=== PATIENT | male | born 1950 | race Caucasian/White ===

== ENCOUNTER → 2016-03-27 | Outpatient (CLI) | payer OTHER ==
[~2016-03-27] MED LIST: ASPI81TA21 PO; ATOR80TA PO; DILT-113 PO; FURO-85 PO; GABA300C19 PO; GABA400C PO; GLC/500 PO; HYDR25TA5 PO; ISOS60TA25 PO; ISR/5 SL; Iron PO; LOSA25TA18 PO; MAGN400T5 PO; METO1TAB69 PO; NRN/300 PO; NTRGSL/4 UT; NVLGI7030 SC; OMEG10007 PO; OMEP20CA9 PO; WARF5TAB7 PO
[2016-03-28 06:51] LABS: ESTIMATED AVERAGE GLUCOSE 223 mg/dl; HA1C FLAG Normal (Normal)
== END | disposition home or self-care (01) ==
LOC: C.LABBFT 12:45
PROVIDERS: ATTEND Internal Medicine
DX: E11.65 Type 2 diabetes mellitus with hyperglycemia (principal)

== ENCOUNTER → 2016-04-21 | Outpatient (CLI) | payer OTHER ==
[2016-04-21 13:06] LABS: ALKALINE PHOSPHATASE 32 U/L (45-117); ALT/SGPT 48 U/L (12-78); AST/SGOT 22 U/L (15-37); BLOOD UREA NITROGEN 40 mg/dl (7-18); BUN/CREATININE RATIO 24.7 (10-20); CALCIUM 8.6 mg/dl (8.5-10.1); CARBON DIOXIDE 20 mmol/L (21-32); CHLORIDE 106 mmol/L (98-107); GLUCOSE 69 mg/dl (70-99); HDL CHOLESTEROL 78 mg/dl; POTASSIUM 3.9 mmol/L (3.5-5.1); SODIUM 142 mmol/L (136-145)
[2016-04-21 13:08] LABS: CHOLESTEROL 286 mg/dl (0-200); CHOLESTEROL/HDL RATIO 3.7; LDL CHOLESTEROL CALCULATED 155 mg/dl; TRIGLYCERIDES 266 mg/dl (0-150); VERY LOW DENSITY LIPOPROT CALC 53 mg/dl
== END | disposition home or self-care (01) ==
LOC: C.LABBFT 09:03
PROVIDERS: ATTEND Internal Medicine
DX: E78.5 Hyperlipidemia, unspecified (principal)

== ENCOUNTER → 2016-05-13 | Outpatient (CLI) | payer OTHER ==
[2016-05-13 12:35] LABS: HEMATOCRIT 42.3 % (42-52); MEAN CORPUSCULAR HEMOGLOBIN 30.1 pg (25-34); MEAN CORPUSCULAR HGB CONC 33.1 g/dl (32-36); MEAN PLATELET VOLUME 10.1 fL (7.4-10.4); PLATELET COUNT 218 K/uL (130-400); RED BLOOD COUNT 4.65 M/uL (4.7-6.1); WHITE BLOOD COUNT 11.59 K/uL (4.8-10.8)
[2016-05-13 12:38] LABS: BLOOD UREA NITROGEN 38 mg/dl (7-18); BUN/CREATININE RATIO 25.3 (10-20); CALCIUM 9.2 mg/dl (8.5-10.1); CARBON DIOXIDE 24 mmol/L (21-32); CHLORIDE 103 mmol/L (98-107); GLUCOSE 64 mg/dl (70-99); POTASSIUM 4.1 mmol/L (3.5-5.1); SODIUM 141 mmol/L (136-145)
[2016-05-13 13:35] LABS: BASOPHIL % 1.7 % (0-2); COMPLETE YES; EOSINOPHIL % 2.6 %; LYMPH ABS # 2.12 K/uL (1.2-3.4); LYMPHOCYTE % 18.3 %; METAMYELOCYTE % 1.7 %; MYELOCYTE % 2.6 %; NEUTROPHILS % 70.5 %
== END | disposition home or self-care (01) ==
LOC: C.LABBFT 08:58
PROVIDERS: ATTEND Internal Medicine
DX: I87.2 Venous insufficiency (chronic) (peripheral) (principal)

== ENCOUNTER → 2016-06-04 | Outpatient (CLI) | payer OTHER ==
[2016-06-04 12:40] LABS: BLOOD UREA NITROGEN 44 mg/dl (7-18); BUN/CREATININE RATIO 26.1 (10-20); CALCIUM 9.5 mg/dl (8.5-10.1); CARBON DIOXIDE 24 mmol/L (21-32); CHLORIDE 102 mmol/L (98-107); GLUCOSE 98 mg/dl (70-99); PHOSPHORUS 3.5 mg/dl (2.5-4.9); POTASSIUM 4.3 mmol/L (3.5-5.1); SODIUM 139 mmol/L (136-145)
== END | disposition home or self-care (01) ==
LOC: C.LABBFT 08:38
PROVIDERS: ATTEND Internal Medicine
DX: N18.9 Chronic kidney disease, unspecified (principal)

== ENCOUNTER → 2016-06-08 | Outpatient (CLI) | payer OTHER ==
[~2016-06-08] MED LIST changes: +ASPCH81X PO; +CALC500C70 PO; +DILT-115 PO; +FERR1TAB13 PO; +FRS/40 PO; +GABA-113 PO; +GABA-1218 PO; -GABA300C19 PO; +ISOS120T5 PO; +LOSA1TAB PO; +MAGN400T6 PO; +METO100T44 PO; -METO1TAB69 PO; +NVLGI/PEN SC; +NVLGIPEN SC; +OXGN; +PRLSR20 PO; +RIVA1.5T PO; +SPIR25TA PO; +TPRSR100 PO; +VNTHFA/IN INH
--- NOTE | 2016-06-08 10:35 | DIAGNOSTIC IMAGING REPORT ---
EXAMINATION: RENAL ULTRASOUND CLINICAL HISTORY: N18.9 Chronic kidney [id number] COMPARISON STUDY: CT scan dated 08/04/2013 FINDINGS: The right kidney measures 11.1 cm. The left kidney measures 11.8 cm. There is no evidence of hydronephrosis. There is an 8 mm exophytic hypoechoic lesion arising from the lower pole of the left kidney. This to small to characterize but likely represents a cyst. No bladder abnormalities are visualized. Bilateral ureteral jets were visualized. IMPRESSION : 1. Equivocal 8 mm lower pole left renal cyst. 2. No evidence of hydronephrosis. Electronically signed by: Mio Kirk M.D. 06/08/2016 10:33 AM Dictated Date/Time: 06/08/2016 10:30 AM
== END | disposition home or self-care (01) ==
LOC: C.ULTR 09:34
PROVIDERS: ATTEND Internal Medicine
DX: N18.9 Chronic kidney disease, unspecified (principal)

== ENCOUNTER → 2016-06-11 | Outpatient (CLI) | payer OTHER ==
[2016-06-11 13:15] LABS: BLOOD UREA NITROGEN 41 mg/dl (7-18); BUN/CREATININE RATIO 24.3 (10-20); CALCIUM 9.3 mg/dl (8.5-10.1); CARBON DIOXIDE 28 mmol/L (21-32); CHLORIDE 105 mmol/L (98-107); GLUCOSE 91 mg/dl (70-99); PHOSPHORUS 3.2 mg/dl (2.5-4.9); SODIUM 142 mmol/L (136-145)
== END | disposition home or self-care (01) ==
LOC: C.LABBFT 09:49
PROVIDERS: ATTEND Physician Assistant Medical
DX: N18.9 Chronic kidney disease, unspecified (principal)

== ENCOUNTER → 2016-06-25 | Outpatient (CLI) | payer OTHER ==
[2016-06-25 13:02] LABS: BLOOD UREA NITROGEN 39 mg/dl (7-18); BUN/CREATININE RATIO 25.8 (10-20); CARBON DIOXIDE 27 mmol/L (21-32); CHLORIDE 106 mmol/L (98-107); GLUCOSE 158 mg/dl (70-99); SODIUM 143 mmol/L (136-145)
[2016-06-25 13:03] LABS: PHOSPHORUS 2.6 mg/dl (2.5-4.9)
[2016-06-25 13:14] LABS: CALCIUM 9.8 mg/dl (8.5-10.1)
== END | disposition home or self-care (01) ==
LOC: C.LABBFT 09:44
PROVIDERS: ATTEND Physician Assistant Medical
DX: N18.9 Chronic kidney disease, unspecified (principal)

== ENCOUNTER → 2016-08-24 | Outpatient (CLI) | payer OTHER ==
[2016-08-24 17:58] LABS: BLOOD UREA NITROGEN 42 mg/dl (7-18); BUN/CREATININE RATIO 23.4 (10-20); CALCIUM 9.5 mg/dl (8.5-10.1); CARBON DIOXIDE 29 mmol/L (21-32); CHLORIDE 101 mmol/L (98-107); GLUCOSE 116 mg/dl (70-99); POTASSIUM 4.6 mmol/L (3.5-5.1); SODIUM 140 mmol/L (136-145)
[2016-08-24 17:59] LABS: PHOSPHORUS 4.5 mg/dl (2.5-4.9)
[2016-08-25 06:23] LABS: ESTIMATED AVERAGE GLUCOSE 157 mg/dl; HA1C FLAG Normal (Normal)
== END | disposition home or self-care (01) ==
LOC: C.LABBFT 15:01
PROVIDERS: ATTEND Internal Medicine
DX: R60.9 Edema, unspecified (principal); E11.65 Type 2 diabetes mellitus with hyperglycemia

== ENCOUNTER → 2016-08-28 | Outpatient (CLI) | payer OTHER ==
[~2016-08-28] MED LIST changes: -ASPCH81X PO; -CALC500C70 PO; -DILT-115 PO; -FERR1TAB13 PO; -FRS/40 PO; -GABA-113 PO; -GABA-1218 PO; +GABA300C19 PO; -ISOS120T5 PO; -LOSA1TAB PO; -MAGN400T6 PO; -METO100T44 PO; +METO1TAB69 PO; -NVLGI/PEN SC; -NVLGIPEN SC; -OXGN; -PRLSR20 PO; -RIVA1.5T PO; -SPIR25TA PO; -TPRSR100 PO; -VNTHFA/IN INH
--- NOTE | 2016-08-28 11:06 | DIAGNOSTIC IMAGING REPORT ---
CHEST 2 VIEWS ROUTINE HISTORY: J84.9 Interstitial lung [id number] COMPARISON: Chest CT outside hospital 02/17/2016. Chest 10/10/2015. FINDINGS: There are postoperative changes. The heart is normal in size. No pneumothorax. No pleural effusions. Peripheral and basilar prominent interstitial thickening is not significant changed. No new focal lung consolidations to suggest pneumonia. No evidence for pulmonary edema. IMPRESSION: No change in the interstitial thickening which favors chronic interstitial lung disease/fibrosis. Electronically signed by: Leo Jacob M.D. 08/28/2016 11:05 AM Dictated Date/Time: 08/28/2016 11:03 AM
== END | disposition home or self-care (01) ==
LOC: C.RADBBURG 10:33
PROVIDERS: ATTEND Physician Assistant
DX: J84.9 Interstitial pulmonary disease, unspecified (principal)

== ENCOUNTER → 2016-09-09 | Outpatient (CLI) | payer OTHER ==
[2016-09-09 12:57] LABS: BLOOD UREA NITROGEN 44 mg/dl (7-18); BUN/CREATININE RATIO 24.2 (10-20); CARBON DIOXIDE 24 mmol/L (21-32); CHLORIDE 104 mmol/L (98-107); GLUCOSE 139 mg/dl (70-99); POTASSIUM 3.9 mmol/L (3.5-5.1); SODIUM 139 mmol/L (136-145)
[2016-09-09 13:18] LABS: ESTIMATED AVERAGE GLUCOSE 163 mg/dl; HA1C FLAG Normal (Normal)
== END | disposition home or self-care (01) ==
LOC: C.LABBFT 09:21
PROVIDERS: ATTEND Internal Medicine
DX: E11.65 Type 2 diabetes mellitus with hyperglycemia (principal); R06.9 Unspecified abnormalities of breathing

== ENCOUNTER → 2016-09-10 | Outpatient (CLI) | payer OTHER | END | disposition home or self-care (01) | LOC: C.MAMM 12:30 | PROVIDERS: ATTEND Physician Assistant Medical | DX: Z79.52 Long term (current) use of systemic steroids (principal) ==

== ENCOUNTER → 2016-09-25 | Outpatient (CLI) | payer OTHER ==
[2016-09-25 12:28] LABS: BLOOD UREA NITROGEN 34 mg/dl (7-18); CALCIUM 9.4 mg/dl (8.5-10.1); CARBON DIOXIDE 26 mmol/L (21-32); CHLORIDE 107 mmol/L (98-107); GLUCOSE 96 mg/dl (70-99); POTASSIUM 4.1 mmol/L (3.5-5.1); SODIUM 141 mmol/L (136-145)
--- NOTE | 2016-10-05 13:28 | CODING QUERY MEDICAL NECESSITY ---
CQSUPPORTING DIAGNOSIS NEEDED A supporting diagnosis is required for the test/procedure performed on this patient in order for us to be reimbursed by the patient's insurance. Please provide a supporting diagnosis for the following test/procedure listed below next to the test name along with your signature. *If there is no additional diagnosis for this patient that would support the following test/procedure please document that below next to the test/procedure. Test(s)/Procedure(s) that require a supporting diagnosis: DOS 09/25/16 VITAMIN D TEST ORDERED BY JEREMIAH WILCOX Provider Signature: Date: Thank you Ally Rolle [facility] Information Management Once completed, please kindly fax back to [phone] For questions please call [phone]
== END | disposition home or self-care (01) ==
LOC: C.LABBFT 10:41
PROVIDERS: ATTEND Physician Assistant Medical
DX: R60.9 Edema, unspecified (principal); Z79.52 Long term (current) use of systemic steroids

== ENCOUNTER → 2016-10-27 | Outpatient (CLI) | payer OTHER ==
[2016-10-27 17:37] LABS: BLOOD UREA NITROGEN 43 mg/dl (7-18); BUN/CREATININE RATIO 22.7 (10-20); CALCIUM 9.6 mg/dl (8.5-10.1); CARBON DIOXIDE 30 mmol/L (21-32); CHLORIDE 105 mmol/L (98-107); GLUCOSE 119 mg/dl (70-99); POTASSIUM 4.9 mmol/L (3.5-5.1); SODIUM 142 mmol/L (136-145)
[2016-10-27 17:42] LABS: ALB/GLOB RATIO 0.9 (0.9-2); ALKALINE PHOSPHATASE 34 U/L (45-117); ALT/SGPT 42 U/L (12-78); AST/SGOT 23 U/L (15-37); CHOLESTEROL 259 mg/dl (0-200); CHOLESTEROL/HDL RATIO 4.9; HDL CHOLESTEROL 53 mg/dl; TRIGLYCERIDES 403 mg/dl (0-150)
== END | disposition home or self-care (01) ==
LOC: C.LABBFT 12:48
PROVIDERS: ATTEND Physician Assistant Medical
DX: R79.89 Other specified abnormal findings of blood chemistry (principal); E78.5 Hyperlipidemia, unspecified

== ENCOUNTER → 2016-12-10 | Outpatient (CLI) | payer OTHER ==
[2016-12-10 15:55] LABS: BASO % 0.3 %; BASO ABS # 0.04 K/uL (0-0.2); COMPLETE YES; EOS % 2.5 %; HEMATOCRIT 36.2 % (42-52); IG% 0.6 %; LYMPH % 6.3 %; LYMPH ABS # 0.82 K/uL (1.2-3.4); MEAN CELL VOLUME 89.6 fL (80-100); MEAN CORPUSCULAR HGB CONC 32.3 g/dl (32-36); MEAN PLATELET VOLUME 10.3 fL (7.4-10.4); NEUT % 81.3 %; PLATELET COUNT 244 K/uL (130-400); RED BLOOD COUNT 4.04 M/uL (4.7-6.1); WHITE BLOOD COUNT 12.94 K/uL (4.8-10.8)
[2016-12-10 16:05] LABS: ALT/SGPT 32 U/L (12-78); AST/SGOT 22 U/L (15-37); BLOOD UREA NITROGEN 34 mg/dl (7-18); BUN/CREATININE RATIO 22.8 (10-20); CALCIUM 8.9 mg/dl (8.5-10.1); CARBON DIOXIDE 26 mmol/L (21-32); CHLORIDE 105 mmol/L (98-107); GLUCOSE 125 mg/dl (70-99); POTASSIUM 4.2 mmol/L (3.5-5.1); SODIUM 140 mmol/L (136-145)
[2016-12-10 16:15] LABS: ALB/GLOB RATIO 0.9 (0.9-2); ALKALINE PHOSPHATASE 48 U/L (45-117)
== END | disposition home or self-care (01) ==
LOC: C.LAB1850 13:56
PROVIDERS: ATTEND Internal Medicine
DX: N18.9 Chronic kidney disease, unspecified (principal); G47.10 Hypersomnia, unspecified; R97.20 Elevated prostate specific antigen [PSA]

== ENCOUNTER → 2016-12-10 | Outpatient (CLI) | payer OTHER ==
--- NOTE | 2016-12-10 12:50 | DIAGNOSTIC IMAGING REPORT ---
ULTRASOUND KIDNEYS AND BLADDER CLINICAL HISTORY: Chronic kidney disease. COMPARISON STUDY: Renal ultrasound dated 06/08/2016. Abdominal CT dated 08/04/2013. TECHNIQUE: Real-time, grayscale, and color flow sonography of the kidneys and bladder is performed. Images are reviewed in the transverse and longitudinal planes. FINDINGS: Kidneys: The kidneys demonstrate mild cortical atrophy and are normal in echotexture. The right kidney measures 11.9 cm in length and the left kidney measures 11.9 cm in length. There is no hydronephrosis. No shadowing renal calculi are identified. A 9 mm cyst is noted in the left lower pole. There is no sonographic evidence of contour deforming renal mass lesion. No perinephric fluid is identified. Bladder: The bladder is normal in appearance. Ureteral jets were not seen. IMPRESSION: 1. The kidneys demonstrate mild cortical atrophy and are without hydronephrosis. 2. The bladder is normal as visualized. Electronically signed by: Nic Nugent M.D. 12/10/2016 12:49 PM Dictated Date/Time: 12/10/2016 12:34 PM
== END | disposition home or self-care (01) ==
LOC: C.ULTR 11:55
PROVIDERS: ATTEND Physician Assistant Medical
DX: N18.9 Chronic kidney disease, unspecified (principal)

== ENCOUNTER → 2016-12-29 | Day surgery (SDC) | payer OTHER ==
[2016-12-22 11:01] VITALS: Ht 165.1 cm; Wt 114.5 kg
[~2016-12-29] VITALS: Ht 165.1 cm; Wt 114.5 kg
[~2016-12-29] MED LIST changes: +500ML BSS 0.3ML EPI 1:1000PF IRRIG ONE; +ACETAMINOPHEN 325 MG TAB PO PRN; +AMVISC PLUS 0.8ML SYRINGE INT OCU ONE; +ASPCH81X PO; -ASPI81TA21 PO; -ATOR80TA PO; +ATROPINE SULFATE 0.1 MG/ML 5ML SYR IV PRN; +BSS FLUSH ONE; +CALC500C70 PO; -DILT-113 PO; +DILT-115 PO; +EpHEDrine SULFATE INJ 50 MG/ML AMP IV PRN; +EpINEphrine INJ 1MG/ML AMP 1 MG/ML AMP ONE; +FERR1TAB13 PO; +FRS/40 PO; -FURO-85 PO; +GABA-113 PO; -GABA300C19 PO; -GABA400C PO; +GATIFLOXACIN OP SOLN PER DROP CHARGE OPL SCH; -GLC/500 PO; -HYDR25TA5 PO; +HydrALAZINE HCL 20 MG/ML VIAL ONE; +ISOS120T5 PO; -ISOS60TA25 PO; -ISR/5 SL; -Iron PO; +LACTATED RINGER'S 1000ML 500 ML IV SCH; +LIDOCAINE 3.5% OPH GEL PER APPLICATION CHARGE ONE; +LIDOCAINE HCL 1% MPF 2 ML VIAL ONE; +LOSA1TAB PO; -LOSA25TA18 PO; -MAGN400T5 PO; +MAGN400T6 PO; -METO1TAB69 PO; +MIDAZOLAM HCL 1 MG/ML 2ML VIAL ONE; -NRN/300 PO; +NVLGIPEN SC; +OCUCOAT 1 ML SOLN IO ONE; -OMEP20CA9 PO; +OXGN; +POVIDONE-IODINE OP SOLN 30 ML BTL ONE; +PRLSR20 PO; +PROPARACAINE 0.5% OP SOLN PER DROP CHARGE OPL SCH; +RIVA1.5T PO; +SPIR25TA PO; +TOBRAMYCIN/DEXAMETHASONE OPH OINT PER APPLN CHARGE ONE; +TPRSR100 PO; +VNTHFA/IN INH; -WARF5TAB7 PO; +[UNRECOGNIZED DRUG - REMARK] SCH
--- NOTE | 2016-12-29 09:04 | History & Physical Bridge - SC ---
H&P Re-Evaluation Bridge Note: I have examined the patient, reviewed the History & Physical and in the interval since the performance of the History & Physical I have noted the following changes of clinical significance: Diagnosis: Left Cataract Procedure: Left Cataract Removal with Lens Implant No changes noted
[2016-12-29] MEDS: PHENYLEPHRINE HCL 2.5% OP SOLN PER DROP CHARGE OPL SCH ×2 (09:15→09:22)
[2016-12-29] MEDS: TROPICAMIDE 1% OP SOLN PER DROP CHARGE OPL SCH ×2 (09:16→09:24)
[2016-12-29] MEDS: CYCLOPENTOLATE HCL 1% OP SOLN PER DROP CHARGE OPL SCH ×2 (09:17→09:25)
[2016-12-29] MEDS: KETOROLAC 0.5% OP SOLN PER DROP CHARGE OPL SCH ×2 (09:18→09:26)
[2016-12-29] MEDS: GATIFLOXACIN OP SOLN PER DROP CHARGE OPL SCH ×2 (09:19→09:28)
--- NOTE | 2016-12-29 10:23 | Discharge Instructions-SurgCtr ---
Discharge Instructions Date of Service Dec 29, 2016. Visit Reason for Visit: Left Cataract Discharge Discharge Diagnosis / Problem: cataract Discharge Goals Goal(s): Improve function Medications Stopped Medications Name(s): Took most medications yesterday. Few medications this morning. Activity Recommendations Activity Limitations: per Instructions/Follow-up section Anesthesia . Post Anesthesia Instructions: If you have had General Anesthesia or IV Sedation: * Do not drive today. * Resume driving when surgeon permits. * Do not make important decisions or sign legal documents today. * Call surgeon for: 1. Temperature elevations greater than 101 degrees F. 2. Uncontrollable pain. 3. Excessive bleeding. 4. Persistent nausea and vomiting. 5. Medication intolerance (nausea, vomiting or rash). * For nausea and vomiting use only clear liquids such as: tea, soda, bouillon until nausea subsides, then gradually increase diet as tolerated. * If you have any concerns or questions, call your surgeon's office. If physician is unavailable and it is an emergency, call 911 or go to the nearest emergency room. . Diet Recommendations Home Diet: resume previous diet Procedures Procedures Performed: Left Cataract Phacoemulsification With Intraocular Lens Implant Pending Studies Studies pending at discharge: no Medical Emergencies . Who to Call and When: Medical Emergencies: If at any time you feel your situation is an emergency, please call 911 immediately. . Non-Emergent Contact Non-Emergency issues call your: Director Drug Safety . . "Provider Documentation" section prepared by Jean Pierre Martinez. .
--- NOTE | 2016-12-29 10:24 | [facility] Operative Report ---
Operative Report Date of Service Dec 29, 2016. Operative Report 1. PREOPERATIVE DIAGNOSIS: Cataract of the left eye. 2. POSTOPERATIVE DIAGNOSIS: Same. 3. PROCEDURE: Phacoemulsification with intraocular lens implantation of the left eye. SURGEON: Dr. Jean Pierre Martinez. ANESTHESIA: Topical Lidocaine gel, 1% Non- Preserved intracameral Lidocaine, and monitored intravenous sedation. INDICATIONS FOR THE PROCEDURE: The patient is a 66 - year-old male with a history of cataract of the left eye causing significant visual impairment. The details of the proposed procedure were explained to the patient who asked appropriate questions and following discussion of all risks, benefits and alternatives agreed to have the procedure done. 4. OPERATION AND FINDINGS: DESCRIPTION OF PROCEDURE: After informed consent was obtained, the patient was brought to the Operating Room at the [facility]. The patient was placed in a supine position and then the left eye was prepped and draped in the usual sterile fashion for intraocular surgery. A drop of topical Lidocaine gel was placed in the operative eye. A wire lid speculum was then placed in the fornices. A corneal paracentesis was then created temporally. The Non-Preserved Lidocaine was then instilled into the anterior chamber. The anterior chamber was then pressurized with viscoelastic. A 2.0 mm clear corneal incision was then created temporally. A cystotome was inserted into the anterior chamber and used to create a tear in the anterior lens capsule. This capsular tear was then used to create a small flap and the flap was dragged in a counterclockwise direction in order to create a continuous curvilinear capsulorrhexis. Hydrodissection was accomplished with balanced salt solution. Phacoemulsification of the lens nucleus was then performed in a standard [id number] technique. The phaco time was 60 seconds with an average power of 22 %. The remaining cortical material was removed using irrigation aspiration. The capsular bag was then filled with viscoelastic. A Bausch [employer] Lomb MI60L +23.0 diopters lens was then loaded into the injector and injected into the capsular bag. The remaining viscoelastic was removed with the irrigation aspiration handpiece. The wound was hydrated and then checked and found to be watertight. The intraocular pressure was checked and found to be adequate. The wire lid speculum was removed and the patient's face was cleaned and dried. TobraDex ointment was placed in the inferior fornix. The patient was discharged to the Recovery Room having tolerated the procedure well. There were no complications. The patient will be seen tomorrow in the office for follow-up. I attest to the content of the Intraoperative Record and any orders documented therein. Any exceptions are noted below.
[2016-12-29 10:25] VITALS: TEMP 36.5
--- NOTE | 2016-12-29 10:39 | Anesthesia Progress Nt - [facility] ---
Anesthesia Post Op Note Date & Time Dec 29, 2016 at 10:39 Vital Signs Pain Intensity: 0 Vital Signs Past 12 Hours Date Time Temp Pulse Resp B/P (MAP) Pulse Ox O2 Delivery O2 Flow Rate FiO2 12/29/16 10:25 36.5 60 16 157/68 (97) 96 Nasal Cannula 6 12/29/16 08:55 36.8 61 20 140/64 (89) 96 Nasal Cannula 6 Notes Mental Status: alert / awake / arousable, participated in evaluation Pt Amnestic to Procedure: Yes Nausea / Vomiting: adequately controlled Pain: adequately controlled Airway Patency, RR, SpO2: stable & adequate BP & HR: stable & adequate Hydration State: stable & adequate Anesthetic Complications: no major complications apparent
[2016-12-29 10:49] VITALS: BP 124/69; PULSE 58; O2SAT 95
== END | disposition home or self-care (01) ==
LOC: X.SURG 08:30
PROVIDERS: ATTEND Ophthalmology
DX: H25.9 Unspecified age-related cataract (principal); I48.91 Unspecified atrial fibrillation; I25.10 Atherosclerotic heart disease of native coronary artery without angina pectoris; I25.2 Old myocardial infarction; E11.40 Type 2 diabetes mellitus with diabetic neuropathy, unspecified; G47.33 Obstructive sleep apnea (adult) (pediatric); K21.9 Gastro-esophageal reflux disease without esophagitis; J84.9 Interstitial pulmonary disease, unspecified; Z95.1 Presence of aortocoronary bypass graft; Z95.5 Presence of coronary angioplasty implant and graft; Z79.01 Long term (current) use of anticoagulants; Z79.82 Long term (current) use of aspirin; Z79.4 Long term (current) use of insulin; Z79.899 Other long term (current) drug therapy; Z99.81 Dependence on supplemental oxygen

== ENCOUNTER → 2017-01-19 | Day surgery (SDC) | payer OTHER ==
[2017-01-07 10:07] VITALS: Ht 165.1 cm; Wt 114.5 kg
[~2017-01-19] VITALS: Ht 165.1 cm; Wt 114.5 kg
[~2017-01-19] MED LIST changes: -GATIFLOXACIN OP SOLN PER DROP CHARGE OPL SCH; -HydrALAZINE HCL 20 MG/ML VIAL ONE; +NVLGI/PEN SC; -OCUCOAT 1 ML SOLN IO ONE; -PROPARACAINE 0.5% OP SOLN PER DROP CHARGE OPL SCH; +PROPARACAINE 0.5% OP SOLN PER DROP CHARGE OPR SCH; -[UNRECOGNIZED DRUG - REMARK] SCH
[2017-01-19] MEDS: PHENYLEPHRINE HCL 2.5% OP SOLN PER DROP CHARGE OPR SCH ×2 (06:37→06:42)
[2017-01-19] MEDS: TROPICAMIDE 1% OP SOLN PER DROP CHARGE OPR SCH ×2 (06:38→06:43)
[2017-01-19] MEDS: CYCLOPENTOLATE HCL 1% OP SOLN PER DROP CHARGE OPR SCH ×2 (06:39→06:44)
[2017-01-19] MEDS: KETOROLAC 0.5% OP SOLN PER DROP CHARGE OPR SCH ×2 (06:40→06:45)
[2017-01-19] MEDS: GATIFLOXACIN OP SOLN PER DROP CHARGE OPR SCH ×2 (06:41→06:51)
--- NOTE | 2017-01-19 06:54 | History & Physical Bridge - [place] ---
H&P Re-Evaluation Bridge Note: I have examined the patient, reviewed the History & Physical and in the interval since the performance of the History & Physical I have noted the following changes of clinical significance: Diagnosis: Right Cataract Procedure: Right Cataract Removal with Lens Implant No changes noted
--- NOTE | 2017-01-19 07:21 | Discharge Instructions-SurgCtr ---
Discharge Instructions Date of Service Jan 19, 2017. Visit Reason for Visit: Right Cataract Discharge Discharge Diagnosis / Problem: cataract Discharge Goals Goal(s): Improve function Activity Recommendations Activity Limitations: per Instructions/Follow-up section Anesthesia . Post Anesthesia Instructions: If you have had General Anesthesia or IV Sedation: * Do not drive today. * Resume driving when surgeon permits. * Do not make important decisions or sign legal documents today. * Call surgeon for: 1. Temperature elevations greater than 101 degrees F. 2. Uncontrollable pain. 3. Excessive bleeding. 4. Persistent nausea and vomiting. 5. Medication intolerance (nausea, vomiting or rash). * For nausea and vomiting use only clear liquids such as: tea, soda, bouillon until nausea subsides, then gradually increase diet as tolerated. * If you have any concerns or questions, call your surgeon's office. If physician is unavailable and it is an emergency, call 911 or go to the nearest emergency room. . Diet Recommendations Home Diet: resume previous diet Procedures Procedures Performed: Right Cataract Phacoemulsification With Intraocular Lens Implant Pending Studies Studies pending at discharge: no Medical Emergencies . Who to Call and When: Medical Emergencies: If at any time you feel your situation is an emergency, please call 911 immediately. . Non-Emergent Contact Non-Emergency issues call your: Space Operations Officer . . "Provider Documentation" section prepared by Jean Pierre Martinez. .
--- NOTE | 2017-01-19 07:22 | [facility] Operative Report ---
Operative Report Date of Service Jan 19, 2017. Operative Report 1. PREOPERATIVE DIAGNOSIS: Cataract of the right eye. 2. POSTOPERATIVE DIAGNOSIS: Same. 3. PROCEDURE: Phacoemulsification with intraocular lens implantation of the right eye. SURGEON: Dr. Jean Pierre Martinez. ANESTHESIA: Topical Lidocaine gel, 1% Non- Preserved intracameral Lidocaine, and monitored intravenous sedation. INDICATIONS FOR THE PROCEDURE: The patient is a 66 - year-old male with a history of cataract of the right eye causing significant visual impairment. The details of the proposed procedure were explained to the patient who asked appropriate questions and following discussion of all risks, benefits and alternatives agreed to have the procedure done. 4. OPERATION AND FINDINGS: DESCRIPTION OF PROCEDURE: After informed consent was obtained, the patient was brought to the Operating Room at the [facility]. The patient was placed in a supine position and then the right eye was prepped and draped in the usual sterile fashion for intraocular surgery. A drop of topical Lidocaine gel was placed in the operative eye. A wire lid speculum was then placed in the fornices. A corneal paracentesis was then created temporally. The Non-Preserved Lidocaine was then instilled into the anterior chamber. The anterior chamber was then pressurized with viscoelastic. A 2.0 mm clear corneal incision was then created temporally. A cystotome was inserted into the anterior chamber and used to create a tear in the anterior lens capsule. This capsular tear was then used to create a small flap and the flap was dragged in a counterclockwise direction in order to create a continuous curvilinear capsulorrhexis. Hydrodissection was accomplished with balanced salt solution. Phacoemulsification of the lens nucleus was then performed in a standard [id number] technique. The phaco time was 57 seconds with an average power of 24 %. The remaining cortical material was removed using irrigation aspiration. The capsular bag was then filled with viscoelastic. A Bausch & Lomb MI60L +23.0 diopters lens was then loaded into the injector and injected into the capsular bag. The remaining viscoelastic was removed with the irrigation aspiration handpiece. The wound was hydrated and then checked and found to be watertight. The intraocular pressure was checked and found to be adequate. The wire lid speculum was removed and the patient's face was cleaned and dried. TobraDex ointment was placed in the inferior fornix. The patient was discharged to the Recovery Room having tolerated the procedure well. There were no complications. The patient will be seen tomorrow in the office for follow-up. I attest to the content of the Intraoperative Record and any orders documented therein. Any exceptions are noted below.
[2017-01-19 07:26] VITALS: TEMP 36.2
[2017-01-19 07:37] VITALS: BP 111/53; PULSE 54; O2SAT 94
--- NOTE | 2017-01-19 07:46 | Anesthesia Progress Nt - [facility] ---
Anesthesia Post Op Note Date & Time Jan 19, 2017 at 07:46 Vital Signs Pain Intensity: 0 Vital Signs Past 12 Hours Date Time Temp Pulse Resp B/P (MAP) Pulse Ox O2 Delivery O2 Flow Rate FiO2 01/19/17 07:37 54 20 111/53 (72) 94 Nasal Cannula 6 01/19/17 07:26 36.2 57 20 118/57 (77) 91 Nasal Cannula 4 01/19/17 06:29 36.9 85 24 115/64 (81) 92 Nasal Cannula 6 Notes Mental Status: alert / awake / arousable, participated in evaluation Pt Amnestic to Procedure: Yes Nausea / Vomiting: adequately controlled Pain: adequately controlled Airway Patency, RR, SpO2: stable & adequate BP & HR: stable & adequate Hydration State: stable & adequate Anesthetic Complications: no major complications apparent
== END | disposition home or self-care (01) ==
LOC: X.SURG 06:04
PROVIDERS: ATTEND Ophthalmology
DX: H26.9 Unspecified cataract (principal); E11.22 Type 2 diabetes mellitus with diabetic chronic kidney disease; E11.40 Type 2 diabetes mellitus with diabetic neuropathy, unspecified; G47.33 Obstructive sleep apnea (adult) (pediatric); Z95.1 Presence of aortocoronary bypass graft; Z95.5 Presence of coronary angioplasty implant and graft; Z99.81 Dependence on supplemental oxygen; Z87.891 Personal history of nicotine dependence; I25.10 Atherosclerotic heart disease of native coronary artery without angina pectoris

== ENCOUNTER → 2017-03-19 | Outpatient (CLI) | payer OTHER ==
[~2017-03-19] MED LIST changes: -500ML BSS 0.3ML EPI 1:1000PF IRRIG ONE; -ACETAMINOPHEN 325 MG TAB PO PRN; -AMVISC PLUS 0.8ML SYRINGE INT OCU ONE; -ATROPINE SULFATE 0.1 MG/ML 5ML SYR IV PRN; -BSS FLUSH ONE; -EpHEDrine SULFATE INJ 50 MG/ML AMP IV PRN; -EpINEphrine INJ 1MG/ML AMP 1 MG/ML AMP ONE; -LACTATED RINGER'S 1000ML 500 ML IV SCH; -LIDOCAINE 3.5% OPH GEL PER APPLICATION CHARGE ONE; -LIDOCAINE HCL 1% MPF 2 ML VIAL ONE; -MIDAZOLAM HCL 1 MG/ML 2ML VIAL ONE; -POVIDONE-IODINE OP SOLN 30 ML BTL ONE; -PROPARACAINE 0.5% OP SOLN PER DROP CHARGE OPR SCH; -TOBRAMYCIN/DEXAMETHASONE OPH OINT PER APPLN CHARGE ONE
--- NOTE | 2017-03-19 14:46 | DIAGNOSTIC IMAGING REPORT ---
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 Mild increase in prominence of pulmonary vasculature. Fullness of the mid to superior mediastinum possibly secondary to the AP technique. Diaphragms are smooth. IMPRESSION: Findings of developing congestive failure superimposed upon diffuse chronic interstitial change. The above report was generated using voice recognition software. It may contain grammatical, syntax or spelling errors. Electronically signed by: Nelson Begum M.D. 03/19/2017 2:44 PM Dictated Date/Time: 03/19/2017 2:41 PM
== END | disposition home or self-care (01) ==
LOC: C.RAD1850 14:07
PROVIDERS: ATTEND Internal Medicine Pulmonary Disease
DX: J84.89 Other specified interstitial pulmonary diseases (principal)

== ENCOUNTER → 2017-03-23 | Outpatient (CLI) | payer OTHER ==
[~2017-03-23] MED LIST changes: +ACET-1256 PO; +ISR5; +PRED10TA PO
[2017-03-23 16:56] LABS: ALBUMIN 3.1 gm/dl (3.4-5.0); ALT/SGPT 30 U/L (12-78); BLOOD UREA NITROGEN 49 mg/dl (7-18); CALCIUM 8.4 mg/dl (8.5-10.1); CARBON DIOXIDE 25 mmol/L (21-32); CREATININE 1.96 mg/dl (0.60-1.40); GLUCOSE 149 mg/dl (70-99); POTASSIUM 5.1 mmol/L (3.5-5.1); SODIUM 138 mmol/L (136-145)
[2017-03-23 16:59] LABS: ALKALINE PHOSPHATASE 48 U/L (45-117); AST/SGOT 22 U/L (15-37); PHOSPHORUS 3.9 mg/dl (2.5-4.9); TOTAL PROTEIN 6.8 gm/dl (6.4-8.2)
[2017-03-23 17:11] LABS: HEMATOCRIT 28.8 % (42-52); HEMOGLOBIN 8.5 g/dL (14.0-18.0); MEAN CELL VOLUME 91.4 fL (80-100); MEAN CORPUSCULAR HGB CONC 29.5 g/dl (32-36); MEAN PLATELET VOLUME 9.5 fL (7.4-10.4); NUCLEATED RED BLOOD CELL ABS 0.09 K/uL (0-0); PLATELET COUNT 341 K/uL (130-400); RED CELL DISTRIBUTION WIDTH CV 23.2 % (11.5-14.5); RED CELL DISTRIBUTION WIDTH SD 74.6 fL (36.4-46.3); WHITE BLOOD COUNT 20.57 K/uL (4.8-10.8)
[2017-03-23 17:16] LABS: BASO % 0.2 %; BASO ABS # 0.04 K/uL (0-0.2); EOS % 0.1 %; EOS ABS # 0.02 K/uL (0-0.5); IG# 0.26 K/uL (0.00-0.02); LYMPH % 2.5 %; LYMPH ABS # 0.51 K/uL (1.2-3.4); MONO % 2.8 %; MONO ABS # 0.57 K/uL (0.11-0.59); NEUT % 93.1 %; NEUT ABS # 19.17 K/uL (1.4-6.5)
== END | disposition home or self-care (01) ==
LOC: C.LABBFT 15:10
PROVIDERS: ATTEND Physician Assistant Medical
DX: E78.5 Hyperlipidemia, unspecified (principal); N18.9 Chronic kidney disease, unspecified

== ENCOUNTER → 2017-03-29 | Outpatient (CLI) | payer OTHER ==
[2017-03-29 17:45] LABS: HEMATOCRIT 33.8 % (42-52); HEMOGLOBIN 9.9 g/dL (14.0-18.0); MEAN CELL VOLUME 92.1 fL (80-100); MEAN CORPUSCULAR HGB CONC 29.3 g/dl (32-36); MEAN PLATELET VOLUME 9.7 fL (7.4-10.4); PLATELET COUNT 396 K/uL (130-400); RED CELL DISTRIBUTION WIDTH CV 21.8 % (11.5-14.5); WHITE BLOOD COUNT 25.91 K/uL (4.8-10.8)
[2017-03-29 18:08] LABS: ALBUMIN 3.1 gm/dl (3.4-5.0); ALT/SGPT 48 U/L (12-78); AST/SGOT 38 U/L (15-37); BLOOD UREA NITROGEN 62 mg/dl (7-18); CALCIUM 8.6 mg/dl (8.5-10.1); CARBON DIOXIDE 25 mmol/L (21-32); CHOLESTEROL 142 mg/dl (0-200); CREATININE 1.94 mg/dl (0.60-1.40); GLUCOSE 211 mg/dl (70-99); LDL CHOLESTEROL (DIRECT) 91 mg/dl; PHOSPHORUS 3.1 mg/dl (2.5-4.9); POTASSIUM 4.5 mmol/L (3.5-5.1); SODIUM 135 mmol/L (136-145)
[2017-03-29 18:11] LABS: ALKALINE PHOSPHATASE 58 U/L (45-117); TOTAL PROTEIN 7.4 gm/dl (6.4-8.2); TRANSFERRIN 234 mg/dl (200-360)
== END | disposition home or self-care (01) ==
LOC: C.LABBFT 12:00
PROVIDERS: ATTEND Internal Medicine
DX: N18.9 Chronic kidney disease, unspecified (principal); D64.9 Anemia, unspecified; E78.5 Hyperlipidemia, unspecified

== ENCOUNTER 2017-03-30 16:50 | Inpatient (IN) | payer OTHER ==
[~2017-03-30] VITALS: Ht 165.1 cm; Wt 99.4 kg
[~2017-03-30 16:50] MED LIST changes: -PRED10TA PO
[2017-03-30 17:29] LABS: HEMATOCRIT 31.9 % (42-52); HEMOGLOBIN 9.6 g/dL (14.0-18.0); MEAN CELL VOLUME 89.4 fL (80-100); MEAN CORPUSCULAR HEMOGLOBIN 26.9 pg (25-34); MEAN CORPUSCULAR HGB CONC 30.1 g/dl (32-36); MEAN PLATELET VOLUME 9.3 fL (7.4-10.4); NUCLEATED RED BLOOD CELL ABS 0.15 K/uL (0-0); PLATELET COUNT 395 K/uL (130-400); RED CELL DISTRIBUTION WIDTH CV 21.2 % (11.5-14.5); RED CELL DISTRIBUTION WIDTH SD 69.5 fL (36.4-46.3); WHITE BLOOD COUNT 21.42 K/uL (4.8-10.8)
[2017-03-30] MEDS ORDERED: FUROSEMIDE INJ 40 MG in SYRINGE 0 ML IV ONE (17:30)
[2017-03-30 17:39] LABS: INR 1.2 (0.9-1.1); PTT PATIENT 26.9 SECONDS (21.0-31.0)
[2017-03-30] MEDS ORDERED: PRED10TA PO (17:48)
--- NOTE | 2017-03-30 17:54 | DIAGNOSTIC IMAGING REPORT ---
CHEST ONE VIEW PORTABLE CLINICAL HISTORY: EVALUATE RESPIRATORY DISTRESS.DYSPNEA COMPARISON STUDY: 03/19/2017 FINDINGS: Moderate stable cardiomegaly. Diffuse chronic interstitial change possibly with a reticular nodular component. An atypical component of congestive failure versus pulmonary edema is considered. IMPRESSION: 1. Persistent reticulonodular and interstitial prominence throughout both hemithoraces. 2. moderate cardiomegaly with findings of atypical congestive failure versus pulmonary edema considered. The above report was generated using voice recognition software. It may contain grammatical, syntax or spelling errors. Electronically signed by: Nelson Begum M.D. 03/30/2017 5:52 PM Dictated Date/Time: 03/30/2017 5:51 PM
[2017-03-30 17:57] LABS: BASO % 0.1 %; BASO ABS # 0.02 K/uL (0-0.2); EOS % 0.2 %; EOS ABS # 0.04 K/uL (0-0.5); IG# 0.14 K/uL (0.00-0.02); LYMPH % 1.3 %; LYMPH ABS # 0.27 K/uL (1.2-3.4); MONO % 3.8 %; MONO ABS # 0.81 K/uL (0.11-0.59); NEUT % 93.9 %; NEUT ABS # 20.14 K/uL (1.4-6.5)
--- NOTE | 2017-03-30 17:57 | EMERGENCY ROOM VISIT NOTE ---
History Report prepared by Neptali: Shanda Hernandez Under the Supervision of: Dr. Stevan Weiss M.D. 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 The patient was at his PCP's office and found to be hypoxic at 65% on NC/O2. He was sent to the ED for further evaluation. The patient states that he is on 8L of O2 at all times. He wears C-PAP at night. Per , his O2 saturation is typically around 70% on NC/ O2. Positive shortness of breath worsened with exertion. Negative chest pain, abdominal pain, recent weight gain. The patient takes Lasix daily. He does not use any nebulizers. 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 A total of ten systems were reviewed and were otherwise negative. Past Medical & Surgical Medical Problems: (1) Acute and chronic respiratory failure with hypoxia (2) Acute congestive heart failure (3) Acute respiratory failure (4) Benign hypertension (5) CABG (6) Diabetes mellitus (7) Hospital-acquired bacterial pneumonia (8) Hyperlipidemia (9) Sepsis Family History Diabetes mellitus Heart disease Hypertension Social History Smoking Status: Former Smoker Alcohol Use: none Marital Status: Housing Status: lives with family Occupation Status: disabled Current/Historical Medications Scheduled Aspirin (Aspirin Chewable), 81 MG PO QAM Calcium/Vitamin D (Os-Eladio 500 Plus D), 1 TAB PO DAILY Diltiazem Hcl Ext Rel (Tiazac), 240 MG PO QAM Ferrous Sulfate (Kp Ferrous Sulfate), 325 MG PO BID Fish Oil ([place]-3), 1 CAP PO QAM Furosemide (Lasix), 40 MG PO BID Gabapentin (Neurontin), 600 MG PO TID Home O2 Therapy (Oxygen), 4 LITERS NA CONT. Insulin Aspart (Novolog Flexpen), 20 UNITS SC QAM Insulin Aspart (Novolog Flexpen), 15 UNITS SC QPM Insulin Aspart Protamine & Asp (Novolog Mix 70/30), 70 UNITS SC QPM Insulin Aspart Protamine & Asp (Novolog Mix 70/30), 90 UNITS SC QAM Isosorbide Mononitrate Ext Rel (Imdur Ext Rel), 120 MG PO BID Losartan Potassium (Cozaar), 25 MG PO QAM Magnesium Oxide (Mag-Ox), 800 MG PO QAM Metoprolol Succinate (Toprol Xl), 100 MG PO BID Nitroglycerin (Nitrostat), 0.4 MG UT PRN Omeprazole (Prilosec), 20 MG PO QAM Prednisone Tab (Prednisone), 20 MG PO DAILY Rivaroxaban (Xarelto), 15 MG PO DAILY@1700 Spironolactone (Aldactone), 25 MG PO QAM Scheduled PRN Albuterol Hfa (Ventolin Hfa), 2-4 PUFFS INH Q6H PRN for Shortness of Breath Isosorbide Dinitrate (Isosorbide Dinitrate), for prior to exercise Allergies Coded Allergies: Doxycycline (Verified Allergy, Intermediate, RASH, 03/30/17) Hydrocodone (Verified Allergy, Intermediate, RASH, 03/30/17) Replaces LORTAB ELIXIR Iodinated Diagnostic Agents (Verified Allergy, Intermediate, RASH, 03/30/17 ) Losartan (Verified Allergy, Intermediate, RASH, 03/30/17) Lovastatin (Verified Allergy, Intermediate, RASH, 03/30/17) Penicillins (Verified Allergy, Intermediate, RASH, 03/30/17) Quinolones (Verified Allergy, Intermediate, RASH, 03/30/17) Tetracycline (Verified Allergy, Intermediate, RASH, 03/30/17) Latex1 -Allergic Contact Dermititis (Verified Allergy, Mild, RASH, 03/30/17 ) Tetracyclines (Verified Allergy, Unknown, RASH, 03/30/17) Physical Exam Vital Signs Date Time Temp Pulse Resp B/P (MAP) Pulse Ox O2 Delivery O2 Flow Rate FiO2 03/30/17 20:16 52 18 123/58 97 High Flow Oxygen 80 03/30/17 18:46 58 18 108/54 96 High Flow Oxygen 80 03/30/17 18:02 55 18 110/54 97 High Flow Oxygen 80 03/30/17 17:55 56 19 155/71 96 High Flow Oxygen 80 03/30/17 17:21 93 Non-Rebreather 15.0 03/30/17 17:19 93 Non-Rebreather 15.0 03/30/17 17:19 93 Non-Rebreather 15.0 03/30/17 17:03 36.9 61 22 101/52 69 Room Air Physical Exam GENERAL: Awake, alert, pale-appearing, mild distress HENT: Normocephalic, atraumatic. EYES: Normal conjunctiva. Sclera non-icteric. NECK: Supple. No nuchal rigidity. FROM. RESPIRATORY: CTAB, no rhonchi, wheezing, crackles CARDIAC: Bradycardic rate and regular rhythm, no MRG ABDOMEN: Soft, NTND, BS+, surgical scar over abdomen MSK: No chest wall TTP, 2+ pretibial edema NEURO: GCS 15, CN 2-12 intact, moves all 4s on command SKIN: Pale, no rash or jaundice noted. Medical Decision & Procedures ER Provider Diagnostic Interpretation: Radiology results as stated below per my review and radiologist interpretation: CHEST ONE VIEW PORTABLE CLINICAL HISTORY: EVALUATE RESPIRATORY DISTRESS.DYSPNEA COMPARISON STUDY: 03/19/2017 FINDINGS: Moderate stable cardiomegaly. Diffuse chronic interstitial change possibly with a reticular nodular component. An atypical component of congestive failure versus pulmonary edema is considered. IMPRESSION: 1. Persistent reticulonodular and interstitial prominence throughout both hemithoraces. 2. moderate cardiomegaly with findings of atypical congestive failure versus pulmonary edema considered. The above report was generated using voice recognition software. It may contain grammatical, syntax or spelling errors. Electronically signed by: Nelson Begum M.D. 03/30/2017 5:52 PM Dictated Date/Time: 03/30/2017 5:51 PM Laboratory Results 03/30/17 17:20 Red Blood Count 3.57, Mean Corpuscular Volume 89.4, Mean Corpuscular Hemoglobin 26.9, Mean Corpuscular Hemoglobin Concent 30.1, Mean Platelet Volume 9.3, Neutrophils (%) (Auto) 93.9, Lymphocytes (%) (Auto) 1.3, Monocytes (%) (Auto) 3.8, Eosinophils (%) (Auto) 0.2, Basophils (%) (Auto) 0.1, Neutrophils # (Auto) 20.14, Lymphocytes # (Auto) 0.27, Monocytes # (Auto) 0.81, Eosinophils # (Auto) 0.04, Basophils # (Auto) 0.02 03/30/17 17:20 Test 03/30/17 17:15 03/30/17 17:20 03/30/17 17:21 03/30/17 17:24 White Blood Count 21.42 K/uL (4.8-10.8) Red Blood Count 3.57 M/uL (4.7-6.1) Hemoglobin 9.6 g/dL (14.0-18.0) Hematocrit 31.9 % (42-52) Mean Corpuscular Volume 89.4 fL (80-100) Mean Corpuscular Hemoglobin 26.9 pg (25-34) Mean Corpuscular Hemoglobin Concent 30.1 g/dl (32-36) Platelet Count 395 K/uL (130-400) Mean Platelet Volume 9.3 fL (7.4-10.4) Neutrophils (%) (Auto) 93.9 % Lymphocytes (%) (Auto) 1.3 % Monocytes (%) (Auto) 3.8 % Eosinophils (%) (Auto) 0.2 % Basophils (%) (Auto) 0.1 % Neutrophils # (Auto) 20.14 K/uL (1.4-6.5) Lymphocytes # (Auto) 0.27 K/uL (1.2-3.4) Monocytes # (Auto) 0.81 K/uL (0.11-0.59) Eosinophils # (Auto) 0.04 K/uL (0-0.5) Basophils # (Auto) 0.02 K/uL (0-0.2) RDW Standard Deviation 69.5 fL (36.4-46.3) RDW Coefficient of Variation 21.2 % (11.5-14.5) Immature Granulocyte % (Auto) 0.7 % Immature Granulocyte # (Auto) 0.14 K/uL (0.00-0.02) Nucleated RBC Absolute Count (auto) 0.15 K/uL (0-0) Nucleated Red Blood Cells % 0.7 % Hypochromasia PRESENT Anisocytosis PRESENT Prothrombin Time 12.2 SECONDS (9.0-12.0) Prothromb Time International Ratio 1.2 (0.9-1.1) Activated Partial Thromboplast Time 26.9 SECONDS (21.0-31.0) Partial Thromboplastin Ratio 1.0 Anion Gap 6.0 mmol/L (3-11) Est Creatinine Clear Calc Drug Dose 37.6 ml/min Estimated GFR () 36.2 Estimated GFR (Non- 31.2 BUN/Creatinine Ratio 33.7 (10-20) Calcium Level 8.8 mg/dl (8.5-10.1) Magnesium Level 3.2 mg/dl (1.8-2.4) Total Bilirubin 1.1 mg/dl (0.2-1) Aspartate Amino Transf (AST/SGOT) 85 U/L (15-37) Alanine Aminotransferase (ALT/SGPT) 100 U/L (12-78) Alkaline Phosphatase 71 U/L (45-117) Troponin I 0.101 ng/ml (0-0.045) Pro-B-Type Natriuretic Peptide 5600 pg/ml (0-900) Total Protein 7.4 gm/dl (6.4-8.2) Albumin 3.0 gm/dl (3.4-5.0) Globulin 4.4 gm/dl (2.5-4.0) Albumin/Globulin Ratio 0.7 (0.9-2) Bedside Troponin I 0.080 ng/ml (0-0.045) Bedside Lactic Acid Venous 2.31 mmol/L (0.90-1.70) Test 03/30/17 17:28 03/30/17 17:45 03/30/17 20:44 Influenza Type A Antigen Neg for Influ A (NEG) Influenza Type B Antigen Neg for Influ B (NEG) Venous Blood pH 7.42 (7.36-7.41) Venous Blood Partial Pressure CO2 41 mmHg (38.0-50.0) Venous Blood Partial Pressure O2 40 mmHg Venous Blood HCO3 26 mmol/L Venous Blood Oxygen Saturation 70.4 % Venous Blood Base Excess 1.4 mEq/L Absolute Reticulocyte Count 0.18 10^6/uL (0.02-0.10) Percent Reticulocyte Count 5.3 % (0.5-2.0) Lactic Acid Level 0.9 mmol/L (0.4-2.0) Laboratory results reviewed by me. Medications Administered Medications (Trade) Dose Ordered Sig/Zeina Route Start Time Stop Time Status Last Admin Dose Admin Furosemide 40 mg/ Syringe 4 ml @ 4 mls/min ONE ONCE IV 03/30/17 17:30 03/30/17 17:31 DC 03/30/17 18:00 4 MLS/MIN Aspirin (Aspirin Chew) 324 mg NOW STAT PO 03/30/17 18:19 03/30/17 18:28 DC 03/30/17 18:37 324 MG Aspirin (Aspirin Chew) 81 mg STK-MED ONCE .ROUTE 03/30/17 18:38 03/30/17 18:39 DC 03/30/17 18:38 81 MG Azithromycin (Zithromax Tab) 500 mg NOW ONCE PO 03/30/17 19:15 03/30/17 19:16 DC 03/30/17 20:16 500 MG Cefepime HCl 2000 mg/Dextrose 112.5 ml @ 200 mls/hr ONE STAT IV 03/30/17 19:06 03/30/17 19:39 DC 03/30/17 20:16 200 MLS/HR ECG Indication: SOB/dyspnea Rate (beats per minute): 57 Rhythm: sinus bradycardia Findings: T-wave inversion (Anterior with some mild depressions anteriorly), left axis deviation, other (normal intervals) Comparison ECG Date: 10/11/15 Change: Findings are new. ECG as interpreted by myself. ED Course 1711: The patient was evaluated in room B1. A complete history and physical exam was performed. Respiratory was paged to the room. 1915: I updated the patient and his family. 1922: I discussed the patient's case with Dr. Arriaga of cardiology. 1928: I spoke with Dr. Diaz. We discussed the patient's case. The patient will be evaluated by the [facility] for further management. 1936: I reassessed the patient at this time. He is feeling better and resting comfortably. I discussed the results and treatment plan with the patient and his family. I answered all pertaining questions that they had. They expressed understanding and verbalized agreement. 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 Differential diagnosis: Etiologies such as infections, reactive airway disease, pneumonia, pneumothorax , COPD, CHF, cardiac ischemia, pulmonary embolism, musculoskeletal, gastrointestinal, as well as others were entertained. Patient was seen and evaluated at the bedside. Patient was complaining of some shortness of breath. Patient does not appear all that uncomfortable. Patient does use oxygen at home. Patient states that he does have some dyspnea on exertion. Denies much orthopnea. Patient does have some crackles. Patient does have some pretibial edema. I did perform a bedside ultrasound which show a fairly dilated right ventricle. Patient does have a plethoric IVC. Patient may have right-sided heart failure and possibly concomitant left sided heart failure as the patient does have B lines on this exam as well. Patient was given 40 of IV Lasix. Patient was not given any antihypertensive since the patient did not have a very high blood pressure. I did have respiratory paged however the patient refused to wear BiPAP. He was placed on high flow nasal cannula. Patient did have blood work, EKG, troponin, VBG, lactate, chest x-ray completed. Patient's chest x-ray concerning for pulmonary edema. Patient's VBG was normal. Patient's lactate was 2.3. Patient did have a white blood cell count of 20,000. Given this and the hypoxia the patient was started on cefepime and azithromycin after discussing the patient with the emergency Department pharmacist. Patient does have some CK D. Patient did have a positive troponin and did have new T-wave inversions and some mild depressions. I believe this may be a primary lung process versus demand ischemia. I did discuss the case with the on-call piping supervisor who agreed. The patient was given a full dose aspirin. Upon reassessment the patient was looking much more lower and improved. He was tolerating high flow nasal cannula without issue. I did discuss the case with the hospitalist who agreed to further assess and treat the patient. Patient was admitted to medicine service. Medication Reconcilliation Current Medication List: was personally reviewed by me Blood Pressure Screening Patient's blood pressure: Normal blood pressure Consults Time Called: 1918 Consulting Physician: Dr. Arriaga Returned Call: 1922 I discussed the patient's case with Dr. Arriaga of cardiology. Additional Consults: Time Called: 1926 Consulted Physician: Dr. Diaz Returned Call: 1928 Additional Comments: I spoke with Dr. Diaz. We discussed the patient's case. The patient will be evaluated by the [facility] for further management. Impression Primary Impression: Acute respiratory failure with hypoxia Additional Impressions: CHF (congestive heart failure) Acute renal failure (ARF) Hyperkalemia Pulmonary fibrosis Critical Care I have personally spent greater than 45 minutes of critical care time in the direct management of this patient. This includes bedside care, interpretation of diagnostic studies, and testing, discussion with consultants, patient, and family members, and other required patient management activities. This 45 minutes is in excess of all separately billable procedures. Scribe Attestation The scribe's documentation has been prepared under my direction and personally reviewed by me in its entirety. I confirm that the note above accurately reflects all work, treatment, procedures, and medical decision making performed by me. Departure Information Dispostion Being Evaluated By Hospitalist Ishan Palomares M.D. (PCP) Patient Instructions My [facility] Problem Qualifiers Additional Impressions: CHF (congestive heart failure) Congestive heart failure type: systolic Congestive heart failure chronicity: acute Qualified Codes: I50.21 - Acute systolic (congestive) heart failure Acute renal failure (ARF) Acute renal failure type: unspecified Qualified Codes: N17.9 - Acute kidney failure, unspecified
[2017-03-30 18:11] LABS: INFLUENZA B ANTIGEN Neg for Influ B (NEG)
[2017-03-30] MEDS ORDERED: ASPIRIN 324 MG CHEW PO STA (18:19)
[2017-03-30 18:30] LABS: CALCIUM 8.8 mg/dl (8.5-10.1); CREATININE 2.11 mg/dl (0.60-1.40); POTASSIUM 5.5 mmol/L (3.5-5.1); TOTAL PROTEIN 7.4 gm/dl (6.4-8.2)
[2017-03-30] MEDS ORDERED: ASPIRIN 81 MG CHEW ONE (18:38)
[2017-03-30] MEDS ORDERED: CEFEPIME IV 2,000 MG in DEXTROSE 5% 100ML 100 ML IV STA (19:06)
[2017-03-30] MEDS ORDERED: AZITHROMYCIN 250 MG TAB PO ONE (19:15)
[2017-03-30] MEDS ORDERED: METHYLPREDNISOLONE 125 MG VIAL IV STA (20:12)
--- NOTE | 2017-03-30 20:12 | History and Physical ---
History & Physical Date & Time of Service: Mar 30, 2017 at 20:12 Chief Complaint: Sob- Physician Referred Primary Care Physician: Ishan Roy M.D. History of Present Illness Source: patient, clinic records, hospital records This is a 66 yo m with a complicated pmhx which includes severe CAD, anemia and pulmonary fibrosis that presents to us with progressive/ worsening dyspnea and chest pain. He states that for the past 2 months he has noted an increase in SOBOE and will occasionally increase his BL 8 L of O2/ NC to 9L O2/ NC. He has been also having chest pain associated with this hypoxic episodes which typically resolve once he has improved oxygenation. He was originally following with Dr Aguayo for pulmonology at [facility] who believes his pulmonary fibrosis was secondary to meds such as his statins, metformin and HCTZ. The diagnosis was made in 2013. Since this time he has started to follow with Dr Brown and was seen in the office for this progressive dyspnea. He was restarted on 20 mg of prednisone. He had then had a follow up with his PCP and work up included CBC, bmp, cxr as he had worsening peripheral edema and no improvement in his symptoms. CBC reflected a new/ worsening anemia ( BL 11-14 and was 8.5 on mar 23) and CXR also revealed congestive like changes. Lasix was increased to 40 mg bid PO and patient had a blood transfusion x 1 unit. Fe studies completed on mar 23 reflected anemia of chronic disease with an Fe of 18 and ferritin of 558. Vit B12 and folate were normal ranges. The patient presented today with worsening dyspnea and for follow up. As he was walking from the car to the office he was found to have a O2 level of 69% and sharp substernal chest pain. It was nonradiating in nature and without nausea. He notes no presyncope because of the pain. He was then referred to the ED where his chest pain continued until O2 sat was maintained > 90%. He was chest pain free on exam. Patient did received Cefepime and Azithro in the ED as well as ASA 325 mg. Past Medical/Surgical History CABG 2000 x3 - SHETH to LAD, Saphenous to circ obtuse and LAD diagonal, radial a to PDA Stents 2008 x 4 A flutter on xarelto Carotid artery stenosis known Fatty liver with elevated LFT Fe def anemia Pulmonary fibrosis 2013 CVA DMII HTN DM neuropathy HTN CKD III Family History Diabetes mellitus Heart disease Hypertension Social History Smoking Status: Former Smoker Smokeless Tobacco Use: No Alcohol Use: none Drug Use: none Marital Status: Housing status: lives with family Occupational Status: disabled Immunizations History of Influenza Vaccine: Yes Influenza Vaccine Date: Dec 29, 2010 History of Tetanus Vaccine?: Yes Tetanus Immunization Date: Oct 21, 2006 History of Pneumococcal: Yes Pneumococcal Date: Mar 29, 2008 History of Hepatitis B Vaccine: No Multi-Drug Resistant Organisms History of MDRO: No Allergies Coded Allergies: Doxycycline (Verified Allergy, Intermediate, RASH, 03/30/17) Hydrocodone (Verified Allergy, Intermediate, RASH, 03/30/17) Replaces LORTAB ELIXIR Iodinated Diagnostic Agents (Verified Allergy, Intermediate, RASH, 03/30/17 ) Losartan (Verified Allergy, Intermediate, RASH, 03/30/17) Lovastatin (Verified Allergy, Intermediate, RASH, 03/30/17) Penicillins (Verified Allergy, Intermediate, RASH, 03/30/17) Quinolones (Verified Allergy, Intermediate, RASH, 03/30/17) Tetracycline (Verified Allergy, Intermediate, RASH, 03/30/17) Latex1 -Allergic Contact Dermititis (Verified Allergy, Mild, RASH, 03/30/17 ) Tetracyclines (Verified Allergy, Unknown, RASH, 03/30/17) Home Medications Scheduled Aspirin (Aspirin Chewable), 81 MG PO QAM Calcium/Vitamin D (Os-Eladio 500 Plus D), 1 TAB PO DAILY Diltiazem Hcl Ext Rel (Tiazac), 240 MG PO QAM Ferrous Sulfate (Kp Ferrous Sulfate), 325 MG PO BID Fish Oil ([place]-3), 1 CAP PO QAM Furosemide (Lasix), 40 MG PO BID Gabapentin (Neurontin), 600 MG PO TID Home O2 Therapy (Oxygen), 4 LITERS NA CONT. Insulin Aspart (Novolog Flexpen), 20 UNITS SC QAM Insulin Aspart (Novolog Flexpen), 15 UNITS SC QPM Insulin Aspart Protamine & Asp (Novolog Mix 70/30), 70 UNITS SC QPM Insulin Aspart Protamine & Asp (Novolog Mix 70/30), 90 UNITS SC QAM Isosorbide Mononitrate Ext Rel (Imdur Ext Rel), 120 MG PO BID Losartan Potassium (Cozaar), 25 MG PO QAM Magnesium Oxide (Mag-Ox), 800 MG PO QAM Metoprolol Succinate (Toprol Xl), 100 MG PO BID Nitroglycerin (Nitrostat), 0.4 MG UT PRN Omeprazole (Prilosec), 20 MG PO QAM Prednisone Tab (Prednisone), 20 MG PO DAILY Rivaroxaban (Xarelto), 15 MG PO DAILY@1700 Spironolactone (Aldactone), 25 MG PO QAM Scheduled PRN Albuterol Hfa (Ventolin Hfa), 2-4 PUFFS INH Q6H PRN for Shortness of Breath Isosorbide Dinitrate (Isosorbide Dinitrate), for prior to exercise Review of Systems Constitutional: No fever, No chills, No sweats Eyes: No worsening of vision ENT: No hearing loss Respiratory: + wheezing, + shortness of breath, + dyspnea on exertion, + dyspnea at rest, No cough, No sputum, No hemoptysis Cardiovascular: + chest pain Abdomen: No pain, No nausea, No vomiting, No diarrhea, No constipation, No GI bleeding Musculoskeletal: No joint pain, No muscle pain Genitourinary - Male: No hematuria, No dysuria Neurologic: + weakness, No numbness/tingling, No balance problems Psychiatric: + anxiety, No depression symptoms Endocrine: + fatigue Hematologic / Lymphatic: No abnormal bleeding/bruising Integumentary: No rash Physical Exam Vital Signs Date Time Temp Pulse Resp B/P (MAP) Pulse Ox O2 Delivery O2 Flow Rate FiO2 03/30/17 18:46 58 18 108/54 96 High Flow Oxygen 80 03/30/17 18:02 55 18 110/54 97 High Flow Oxygen 80 03/30/17 17:55 56 19 155/71 96 High Flow Oxygen 80 03/30/17 17:21 93 Non-Rebreather 15.0 03/30/17 17:19 93 Non-Rebreather 15.0 03/30/17 17:19 93 Non-Rebreather 15.0 03/30/17 17:03 36.9 61 22 101/52 69 Room Air General Appearance: + moderate distress, + obese Head: normocephalic, atraumatic Eyes: normal inspection ENT: normal ENT inspection, + pertinent finding (nasal CPAP in place) Neck: supple, no carotid bruits, + pertinent finding (shortened neck ) Respiratory/Chest: + decreased breath sounds (throughout), + crackles (bilat bases), + wheezing (occasional ) Cardiovascular: regular rate, rhythm, no murmur, normal peripheral pulses Abdomen/GI: normal bowel sounds, non tender, soft Back: normal inspection, no CVA tenderness, normal range of motion Extremities/Musculoskelatal: normal inspection, no calf tenderness, + pedal edema (+2 bilat, apparently better since increase lasix to 40 mg bid) Neurologic/Psych: alert, normal mood/affect, oriented x 3 Skin: warm/dry, no rash, + pallor Lymphatic: no adenopathy Diagnostics Laboratory Results Results Past 24 Hours Test 03/30/17 17:15 03/30/17 17:20 03/30/17 17:21 03/30/17 17:24 Range/Units White Blood Count 21.42 4.8-10.8 K/uL Red Blood Count 3.57 4.7-6.1 M/uL Hemoglobin 9.6 14.0-18.0 g/dL Hematocrit 31.9 42-52 % Mean Corpuscular Volume 89.4 80-100 fL Mean Corpuscular Hemoglobin 26.9 25-34 pg Mean Corpuscular Hemoglobin Concent 30.1 32-36 g/dl Platelet Count 395 130-400 K/uL Mean Platelet Volume 9.3 7.4-10.4 fL Neutrophils (%) (Auto) 93.9 % Lymphocytes (%) (Auto) 1.3 % Monocytes (%) (Auto) 3.8 % Eosinophils (%) (Auto) 0.2 % Basophils (%) (Auto) 0.1 % Neutrophils # (Auto) 20.14 1.4-6.5 K/uL Lymphocytes # (Auto) 0.27 1.2-3.4 K/uL Monocytes # (Auto) 0.81 0.11-0.59 K/uL Eosinophils # (Auto) 0.04 0-0.5 K/uL Basophils # (Auto) 0.02 0-0.2 K/uL RDW Standard Deviation 69.5 36.4-46.3 fL RDW Coefficient of Variation 21.2 11.5-14.5 % Immature Granulocyte % (Auto) 0.7 % Immature Granulocyte # (Auto) 0.14 0.00-0.02 K/uL Nucleated RBC Absolute Count (auto) 0.15 0-0 K/uL Nucleated Red Blood Cells % 0.7 % Hypochromasia PRESENT Anisocytosis PRESENT Prothrombin Time 12.2 9.0-12.0 SECONDS Prothromb Time International Ratio 1.2 0.9-1.1 Activated Partial Thromboplast Time 26.9 21.0-31.0 SECONDS Partial Thromboplastin Ratio 1.0 Sodium Level 136 136-145 mmol/L Potassium Level 5.5 3.5-5.1 mmol/L Chloride Level 103 98-107 mmol/L Carbon Dioxide Level 27 21-32 mmol/L Anion Gap 6.0 3-11 mmol/L Blood Urea Nitrogen 71 7-18 mg/dl Creatinine 2.11 0.60-1.40 mg/dl Est Creatinine Clear Calc Drug Dose 37.6 ml/min Estimated GFR () 36.2 Estimated GFR (Non- 31.2 BUN/Creatinine Ratio 33.7 10-20 Random Glucose 116 70-99 mg/dl Calcium Level 8.8 8.5-10.1 mg/dl Magnesium Level 3.2 1.8-2.4 mg/dl Total Bilirubin 1.1 0.2-1 mg/dl Aspartate Amino Transf (AST/SGOT) 85 15-37 U/L Alanine Aminotransferase (ALT/SGPT) 100 12-78 U/L Alkaline Phosphatase 71 45-117 U/L Pro-B-Type Natriuretic Peptide 5600 0-900 pg/ml Total Protein 7.4 6.4-8.2 gm/dl Albumin 3.0 3.4-5.0 gm/dl Globulin 4.4 2.5-4.0 gm/dl Albumin/Globulin Ratio 0.7 0.9-2 Bedside Troponin I 0.080 0-0.045 ng/ml Bedside Lactic Acid Venous 2.31 0.90-1.70 mmol/L Test 03/30/17 17:28 03/30/17 17:45 03/30/17 19:42 03/30/17 19:53 Range/Units Influenza Type A Antigen Neg for Influ A NEG Influenza Type B Antigen Neg for Influ B NEG Venous Blood pH 7.42 7.36-7.41 Venous Blood Partial Pressure CO2 41 38.0-50.0 mmHg Venous Blood Partial Pressure O2 40 mmHg Venous Blood HCO3 26 mmol/L Venous Blood Oxygen Saturation 70.4 % Venous Blood Base Excess 1.4 mEq/L Diagnostic Radiology [~ rep ct add3]] CHEST ONE VIEW PORTABLE CLINICAL HISTORY: EVALUATE RESPIRATORY DISTRESS.DYSPNEA COMPARISON STUDY: 03/19/2017 FINDINGS: Moderate stable cardiomegaly. Diffuse chronic interstitial change possibly with a reticular nodular component. An atypical component of congestive failure versus pulmonary edema is considered. IMPRESSION: 1. Persistent reticulonodular and interstitial prominence throughout both hemithoraces. 2. moderate cardiomegaly with findings of atypical congestive failure versus pulmonary edema considered. EKG hr 57 t wave inversions concerning for ischemia in V 2-4 ( anteroseptal leads) no ectopic appreciated Impression Assessment and Plan This is a 66 yo m with a h/o severe CAD and pulmonary fibrosis with worsening dyspnea on exertion, elevated troponin, changes on EKG and hypoxia concerning for ischemia secondary to lung disease vs worsening CAD/ cardiomyopathy Chest pain/ acute on chronic hypoxic resp failure secondary to progression of pulmonary fibrosis vs ischemia - tele admission - heparin drip, low dose no bolus; xarelto not taken this pm (held) - troponin trend, echo, NPO except meds - consult CVS and pulmonary - Lasix 40 mg IV bid , PO dose held - I&O and daily weight - defer continuation of abx to discretion of day team, a direct source for infection could not be identified (cefepime and azithro given in the ED) Last echo 2016: * 1. Normal left ventricular size and systolic function. EF 60-65%. No definite regional wall motion abnormalities. No left ventricular hypertrophy. Type 2 diastolic dysfunction, suggesting elevated left atrial pressure. 2. Right ventricle appears to be at least mildly dilated with normal systolic function. 3. Mild biatrial dilation. 4. Mild tricuspid regurgitation. 5. Mild pulmonary hypertension suggested with an estimated right ventricular systolic pressure of 42 mmHg. 6. Technically difficult study, enhanced with IV Definity. 7. No significant change from prior study on 09/12/2014. TYSHAWN on CKD III secondary to poor perfusion/ possible CHF -- lasix 40 mg in the ED and cont'd 40 bid as noted above - no significant change on repeat BMP, will repeat in am - BUN:cr > 20 so more likely prerenal however will order a post void to screen for potential post renal source; UA did not reflect intrarenal source Hyperkalemia - reflective of the TYSHAWN, possibly aggravated by elevated BSG - recheck in am - EKG in am to monitor for changes concerning for conduction abnormalities Anemia of chronic disease imposed on fe def anemia, new onset - continue ferrous sulfate PO - Retic, hapto; element of hemolytic? - peripheral smear - stool occult DMII - insulin ISS with lantus 10 units PM - BSG ac hs Elevated LFT - BL - monitor, unable to take statin HTN/ HLD /CAD/ PAF - cont ASA 81 mg in am - cont diltiazem 240 mg in am - original dose of lasix was 20 mg bid ( held and changed as above) - Imdur 120 mg bid - nitrostat for chest pain - losartan and spironolactone held in light of hyperkalemia - metoprolol 100 mg bid DM Neuropathy gabapentin 600 mg tid Hypermagnesemia - oral mag held, recheck in am DVT prophylaxis heparin drip Full code Attending addendum: I have physically seen this patient, have supervised the medical residents activities, and agree with the H&P unless as otherwise noted. Assessment and Plan: Acute on chronic respiratory failure with hypoxia/pulmonary fibrosis progression /CHF exacerbation-- The patient will be admitted to telemetry for serial cardiac enzymes, serial EKG's, cardiac rhythm monitoring and a 2-D echocardiogram with Dopplers. Heparin drip low-dose no bolus per protocol Nothing by mouth except medications Lasix 40 mg IV twice a day. Serial BMP and magnesium levels CAD/hypertension/paroxysmal atrial fibrillation-- Continue aspirin 81 mg in the morning, diltiazem CD 240 mg in the morning, Imdur or 120 mg by mouth twice a day and metoprolol tartrate 100 mg by mouth twice a day. Hold losartan and spironolactone. Acute injury on chronic kidney disease stage III/hyperkalemia-- Serial BMP and magnesium levels especially while on Lasix Creatinine may improve with increased flow throughhe kidneys with diuresis Level of Care Telemetry Advanced Directives Existing Advance Directive: No Existing Living Will: No Existing Power of Welding Manager: No Resuscitation Status FULL RESUSCITATION VTE Prophylaxis VTE Risk Assessment Done? Y/N: Yes Risk Level: Moderate Given or contraindicated: Other Anticoagulation, SCD's Social Service Consult None Apply Note Total Time: Critical Care 30 - 74 minutes Additional Copies To Ishan Roy M.D.
[2017-03-30] MEDS ORDERED: ALUMINUM/MAGNESIUM/SIMETH (MAALOX MAX) 30 ML UDC PO PRN (20:15)
[2017-03-30] MEDS ORDERED: ONDANSETRON INJ 2 MG/ML 2 ML VIAL IV PRN (20:15)
[2017-03-30] MEDS ORDERED: MoRPHine SULFATE 2 MG/ML CARP IV PRN (20:15)
[2017-03-30] MEDS ORDERED: MAGNESIUM HYDROXIDE SUSP 30 ML UDC PO PRN (20:15)
[2017-03-30] MEDS ORDERED: POLYETHYLENE (MIRALAX) 17 GM PACK PO PRN (20:15)
[2017-03-30] MEDS ORDERED: NITROGLYCERIN 0.4 MG SL PER TAB CHARGE SL PRN (20:15)
[2017-03-30] MEDS: METOPROLOL SUCC 50MG EXT REL TAB PO SCH (21:00)
[2017-03-30 21:19] LABS: RETIC COUNT % 5.3 % (0.5-2.0)
[2017-03-30] MEDS ORDERED: HEPARIN IV LOW DOSE NO BOLUS SCH (22:30)
[2017-03-30] MEDS ORDERED: METHYLPREDNISOLONE 125 MG in SYRINGE 0 ML IV STA (22:42)
[2017-03-30 22:45] VITALS: O2SAT 93
[2017-03-30] MEDS ORDERED: GLUCOSE 40% GEL 15 GM TUBE PO PRN (22:45)
[2017-03-30] MEDS ORDERED: GLUCAGON FOR INJ 1 MG VIAL SQ PRN (22:45)
[2017-03-30] MEDS ORDERED: GLUCOSE 10 TABS/TUBE PO PRN (22:45)
[2017-03-30] MEDS ORDERED: DEXTROSE 50% 50 ML SYR IV PRN (22:45)
[2017-03-30] MEDS ORDERED: HEPARIN 25,000 UNIT/500ML D5W 500 ML IV PRN (22:45)
[2017-03-30 23:23] VITALS: BP 112/48; PULSE 58; TEMP 36.4; BMI 37.9
[2017-03-30 23:32] VITALS: BP 109/65; PULSE 52
[2017-03-30 23:34] VITALS: O2SAT 93
[2017-03-30] MEDS: FERROUS SULFATE 325 MG TAB PO SCH (23:34)
[2017-03-30] MEDS: ISOSORBIDE MONONITRATE 60 MG TABCR PO SCH (23:35)
[2017-03-30] MEDS: GABAPENTIN 300 MG CAP PO SCH (23:35)
[2017-03-30] MEDS: INSULIN ASPART 100 UNITS/ML 3 ML PEN SC SCH (23:37)
[2017-03-31] VITALS (12 sets, daily range): BP systolic 107–150; BP diastolic 58–79; PULSE 58–77; TEMP 36.3–36.9; O2SAT 85–100; BMI 37.9
[2017-03-31 00:02] LABS: CREATININE 2.15 mg/dl (0.60-1.40); POTASSIUM 5.7 mmol/L (3.5-5.1)
[2017-03-31] MEDS ORDERED: INSULIN GLARGINE SOLOSTAR 100 UNITS/ML 3 ML PEN SQ ONE (03:04)
[2017-03-31 05:29] LABS: HEMATOCRIT 29.7 % (42-52); HEMOGLOBIN 8.8 g/dL (14.0-18.0); IG# 0.05 K/uL (0.00-0.02); LYMPH ABS # 0.33 K/uL (1.2-3.4); MEAN CELL VOLUME 88.4 fL (80-100); MEAN CORPUSCULAR HEMOGLOBIN 26.2 pg (25-34); MEAN CORPUSCULAR HGB CONC 29.6 g/dl (32-36); MEAN PLATELET VOLUME 9.3 fL (7.4-10.4); MONO % 0.8 %; MONO ABS # 0.09 K/uL (0.11-0.59); NEUT % 95.7 %; NEUT ABS # 10.62 K/uL (1.4-6.5); PLATELET COUNT 331 K/uL (130-400); RED CELL DISTRIBUTION WIDTH CV 20.6 % (11.5-14.5); WHITE BLOOD COUNT 11.09 K/uL (4.8-10.8)
[2017-03-31 05:44] LABS: PTT PATIENT 39.9 SECONDS (21.0-31.0)
[2017-03-31 05:47] LABS: ALBUMIN 2.9 gm/dl (3.4-5.0); CALCIUM 7.9 mg/dl (8.5-10.1); CREATININE 1.74 mg/dl (0.60-1.40); POTASSIUM 5.5 mmol/L (3.5-5.1)
[2017-03-31 05:49] LABS: TOTAL PROTEIN 6.6 gm/dl (6.4-8.2)
[2017-03-31] MEDS ORDERED: HEPARIN IV BOLUS 4,500 UNIT in SYRINGE 0 ML IV ONE (06:15)
--- NOTE | 2017-03-31 06:57 | Family Medicine Progress Note ---
Progress Note Date of Service Mar 31, 2017. Subjective Pt evaluation today including: conversation w/ patient, conversation w/ family , physical exam, chart review, lab review, review of studies, conversation w/ quality compliance consultant, review of inpatient medication list Patient states that he feels better currently than he did on admission. He denies any chest pain symptoms currently, but still has dyspnea with lower oxygen saturations or exertion. He notes that he is on 8 L at baseline and uses CPAP overnight. He otherwise denies fevers/chills, headaches, palpitations , abdominal pain, or rashes. He does have some chronic lower extremity swelling. He is tolerating diet without nausea or vomiting. He is voiding without issue. When asked about stools, he denies any bright red blood, although his stools are always dark to secondary to iron supplementation. He does however note that he has seen blood on his underwear on 2 separate occasions. He denies hematuria, excessive bruising, or nosebleeds. ROS is unremarkable except as noted above. Objective Vital Signs Date Time Temp Pulse Resp B/P (MAP) Pulse Ox O2 Delivery O2 Flow Rate FiO2 03/31/17 04:00 100 High Flow Oxygen 45.0 80 03/31/17 02:50 36.8 58 18 107/58 (74) 100 Free Flow/[place] 03/31/17 00:00 93 High Flow Oxygen 50.0 90 03/30/17 23:34 93 Free Flow/[place] 15.0 90 03/30/17 23:32 52 109/65 (80) 03/30/17 23:23 36.4 58 22 112/48 03/30/17 22:45 93 50.0 03/30/17 22:21 57 19 82/40 95 High Flow Oxygen 80 03/30/17 20:16 52 18 123/58 97 High Flow Oxygen 80 03/30/17 18:46 58 18 108/54 96 High Flow Oxygen 80 03/30/17 18:02 55 18 110/54 97 High Flow Oxygen 80 03/30/17 17:55 56 19 155/71 96 High Flow Oxygen 80 03/30/17 17:21 93 Non-Rebreather 15.0 03/30/17 17:19 93 Non-Rebreather 15.0 03/30/17 17:19 93 Non-Rebreather 15.0 03/30/17 17:03 36.9 61 22 101/52 69 Room Air Physical Exam General Appearance: WD/WN, no apparent distress, + obese, + pertinent finding ( Oxygen mask, with high flow oxygen) Eyes: normal inspection ENT: hearing grossly normal Neck: supple Respiratory/Chest: no respiratory distress, no accessory muscle use, + decreased breath sounds (R>L), + crackles, + rhonchi Cardiovascular: regular rate, rhythm Abdomen: normal bowel sounds, non tender, soft Extremities: no calf tenderness, + pedal edema Neurologic/Psychiatric: alert, normal mood/affect, oriented x 3 Skin: normal color, warm/dry, no rash Laboratory Results Results Past 24 Hours Test 03/31/17 02:30 03/31/17 05:15 03/31/17 07:54 03/31/17 11:29 Range/Units Urine Color YELLOW Urine Appearance CLEAR CLEAR Urine pH 5.0 4.5-7.5 Urine Specific [place] 1.018 1.000-1.030 Urine Protein NEG NEG Urine Glucose (UA) NEG NEG Urine Ketones NEG NEG Urine Occult Blood NEG NEG Urine Nitrite NEG NEG Urine Bilirubin NEG NEG Urine Urobilinogen NEG NEG Urine Leukocyte Esterase SMALL NEG Urine WBC (Auto) 1-5 0-5 /hpf Urine RBC (Auto) 0-4 0-4 /hpf Urine Hyaline Casts (Auto) 1-5 0-5 /lpf Urine Epithelial Cells (Auto) 5-10 0-5 /lpf Urine Bacteria (Auto) NEG NEG White Blood Count 11.09 4.8-10.8 K/uL Red Blood Count 3.36 4.7-6.1 M/uL Hemoglobin 8.8 14.0-18.0 g/dL Hematocrit 29.7 42-52 % Mean Corpuscular Volume 88.4 80-100 fL Mean Corpuscular Hemoglobin 26.2 25-34 pg Mean Corpuscular Hemoglobin Concent 29.6 32-36 g/dl Platelet Count 331 130-400 K/uL Mean Platelet Volume 9.3 7.4-10.4 fL Neutrophils (%) (Auto) 95.7 % Lymphocytes (%) (Auto) 3.0 % Monocytes (%) (Auto) 0.8 % Eosinophils (%) (Auto) 0.0 % Basophils (%) (Auto) 0.0 % Neutrophils # (Auto) 10.62 1.4-6.5 K/uL Lymphocytes # (Auto) 0.33 1.2-3.4 K/uL Monocytes # (Auto) 0.09 0.11-0.59 K/uL Eosinophils # (Auto) 0.00 0-0.5 K/uL Basophils # (Auto) 0.00 0-0.2 K/uL RDW Standard Deviation 66.0 36.4-46.3 fL RDW Coefficient of Variation 20.6 11.5-14.5 % Immature Granulocyte % (Auto) 0.5 % Immature Granulocyte # (Auto) 0.05 0.00-0.02 K/uL Polychromasia 1+ Anisocytosis PRESENT Activated Partial Thromboplast Time 39.9 21.0-31.0 SECONDS Partial Thromboplastin Ratio 1.5 Sodium Level 136 136-145 mmol/L Potassium Level 5.5 3.5-5.1 mmol/L Chloride Level 105 98-107 mmol/L Carbon Dioxide Level 27 21-32 mmol/L Anion Gap 4.0 3-11 mmol/L Blood Urea Nitrogen 68 7-18 mg/dl Creatinine 1.74 0.60-1.40 mg/dl Est Creatinine Clear Calc Drug Dose 45.6 ml/min Estimated GFR () 45.7 Estimated GFR (Non- 39.4 BUN/Creatinine Ratio 38.9 10-20 Random Glucose 225 70-99 mg/dl Calcium Level 7.9 8.5-10.1 mg/dl Total Bilirubin 1.0 0.2-1 mg/dl Aspartate Amino Transf (AST/SGOT) 49 15-37 U/L Alanine Aminotransferase (ALT/SGPT) 78 12-78 U/L Alkaline Phosphatase 63 45-117 U/L Total Protein 6.6 6.4-8.2 gm/dl Albumin 2.9 3.4-5.0 gm/dl Globulin 3.7 2.5-4.0 gm/dl Albumin/Globulin Ratio 0.8 0.9-2 Magnesium Level 3.2 1.8-2.4 mg/dl Troponin I 0.941 0-0.045 ng/ml Bedside Glucose 470 70-99 mg/dl Test 03/31/17 12:47 03/31/17 13:25 03/31/17 15:29 03/31/17 16:10 Range/Units Activated Partial Thromboplast Time 44.2 21.0-31.0 SECONDS Partial Thromboplastin Ratio 1.7 Stool Occult Blood NEGATIVE NEGATIVE Troponin I 0.399 0-0.045 ng/ml Bedside Glucose 456 70-99 mg/dl Test 03/31/17 16:16 03/31/17 19:31 03/31/17 20:36 03/31/17 20:37 Range/Units Bedside Glucose 429 395 393 70-99 mg/dl Activated Partial Thromboplast Time 46.7 21.0-31.0 SECONDS Partial Thromboplastin Ratio 1.8 Test 03/31/17 23:43 04/01/17 01:01 Range/Units Bedside Glucose 286 70-99 mg/dl Hemoglobin 10.1 14.0-18.0 g/dL Hematocrit 33.8 42-52 % Assessment and Plan 66 yo m with a h/o severe CAD and pulmonary fibrosis with worsening dyspnea on exertion, elevated troponin, changes on EKG and hypoxia concerning for ischemia secondary to lung disease vs worsening CAD/ cardiomyopathy Acute on chronic hypoxic resp failure secondary to progression of pulmonary fibrosis vs. anemia (see below)- Pulm consulted, recs appreciated. Follows with Dr. Brown in the outpatient clinic. CXR: Persistent reticulonodular and interstitial prominence throughout both hemithoraces. Moderate cardiomegaly with findings of atypical congestive failure versus pulmonary edema considered. CT chest: Evidence of emphysema and chronic interstitial lung disease. Ground glass consolidation is seen throughout the left lung and in the right lower lung. Enlarged mediastinal lymph nodes are similar to previous. Cardiomegaly. Cholelithiasis. Leukocytosis improved to 11.09. VBG with no hypercapnia - Continue supportive care - Solumedrol 40mg q8h - Continue bronchodilators - No evidence of infection on CXR or CT chest, no further antibiotics administered at this time (one dose cefepime and azithro given in the ED) NSTEMI with chest pain likely due to ischemia (type II non ACS) - background CAD s/p CABG x 4 Vessels 2000 and multiple intracoronary stents. Cardiology consulted, recs appreciated. Echo reports mild concentric LV hypertrophy with normal systolic function, EF 60-65%. Diastolic dysfunction, Grade II, consistent with elevated left atrial pressure. RV is mild to moderately dilated. LA is mildly dilated. RA is moderately dilated. Flattened septum consistent with RV pressure overload, with RV systolic pressure elevated at > 60mmHg. Trop peaked at 0.1 and trended down - Continue daily EKGs. - Continue on home cardiac medications - Diltiazem, Imdur, Toprol XL, and Aspirin - Resume Spironolactone 25 mg daily and Losartan 25 mg daily when renal function allows. - Heparin drip for now, resume Xarelto at discharge. Fe def anemia, new onset on background of anemia of chronic disease - CBC reflected a new/ worsening anemia (baseline 14 and was 8.5 on Mar 23). Retics elevated, Haptoglobin pending, FOBT negative - Continue ferrous sulfate PO - Transfuse 1 unit of pRBC - Trend H/H TYSHAWN on CKD III secondary to poor perfusion/ possible vs. acute on chronic dCHF exacerbation - BUN:Cr > 20 so more likely prerenal, UA did not reflect intrarenal source. CXR showed some congestive changes - IV Lasix 40mg BID - I&O and daily weight - Trend BMP Hyperkalemia - Reflective of the TYSHAWN, possibly aggravated by elevated BSG - Trend BMP - EKG in am to monitor for changes concerning for conduction abnormalities DMII - HbA1c 5.2 - Patient's insuling held while initially NPO, resumed mid day which accounts for high sugars today. Additionally, patient on high dose steroids. - Continue Lanust 60 units qAM and 50 units qPM + ISS - BSG ac/hs Elevated LFT - baseline - Monitor, unable to take statin (causes rash) HTN/ HLD /CAD/ PAF - Continue on home cardiac medications - Diltiazem, Imdur, metoprolol, and Aspirin - Lasix dose increased as above - Hold Spironolactone and Losartan for hyperkalemia - Nitrostat for chest pain - Heparin drip for now, resume Xarelto at discharge. DM Neuropathy - Gabapentin 600 mg tid Hypermagnesemia - Trend Mg DVT prophylaxis - Heparin drip Full code Resident Physician Supervision Note: I interviewed and examined the patient. Discussed with Dr. Flores and agree with findings and plan as documented in the note. Any exceptions or clarifications are listed here: None Documented By: Yamil Hawley sob ok for another transfusion - notes he had one last week uses CPAP at home viatls noted nad breathing unlaobred no pallor or icterus SOB/VALENTINE - ddx broad - likely will be multifactorial including fibrosis, CHF, anemia - transfuse, CPAP, follow closely uncontrolled DM - insulins - hopefully can wean steroids Continued [facility] stay due to: abnormal vital signs Discharge planning: home Resident Tracking Resident Involvement: Resident Care Provided Care Provided: Adult Hospital Medicine
--- NOTE | 2017-03-31 07:21 | Clinical Documentation Query ---
AMY Barnett : CLINICAL DOCUMENTATION QUERIES QUERY 1 OF 2 Patient is a 66 year old male admitted for evaluation of progressive dyspnea and chest pain associated with significant hypoxia. Known history of CAD with CABG, PCI with intracoronary stenting In your clinical opinion is this patient being managed for: ( ) Myocardial demand ischemia ( ) Not Agree ( X ) Other explanation of clinical findings (Please Explain) anemia causing SOB on background of severe pulm fibrosis ( ) Unable to determine (Please Define) ( ) Need to Discuss The medical record reflects the following clinical findings, treatment, and risk factors. Clinical Indicators: As above. Treatment: Telemetry, heparin infusion, cardiology consult, serial enzymes, echo, I/O, daily weight. Risk Factors: CAD, hypertension, DM type II QUERY 2 OF 2 Documentation includes "TYSHAWN on CKD III secondary to poor perfusion/ possible CHF". Last echocardiogram from 2015 demonstrated:Normal left ventricular size and systolic function. EF 60-65%. No definite regional wall motion abnormalities. No left ventricular hypertrophy. Type 2 diastolic dysfunction, suggesting elevated left atrial pressure. 2. Right ventricle appears to be at least mildly dilated with normal systolic function. 3. Mild biatrial dilation. 4. Mild tricuspid regurgitation. 5. Mild pulmonary hypertension suggested with an estimated right ventricular systolic pressure of 42 mmHg. 6. Technically difficult study, enhanced with IV Definity. 7. No significant change from prior study on 09/12/2014. Please explicitly specify the acuity and type of possible CHF in your patient. In your clinical opinion is this patient being managed for: ( ) Acute on chronic diastolic CHF ( ) Not Agree ( ) Other explanation of clinical findings (Please Explain) ( ) Unable to determine (Please Define) ( ) Need to Discuss The medical record reflects the following clinical findings, treatment, and risk factors. Clinical Indicators: As above Treatment: Lasix, chemistries, I/O, daily weights Risk Factors: Age, CAD, respiratory failure, TYSHAWN on CKD 3, anemia Please clarify and document your clinical opinion in the progress notes and discharge summary. Terms such as "probable", "suspected", "likely", "questionable", "possible", or "still to be ruled out" are acceptable. IF IN AGREEMENT, YOU MUST DOCUMENT ABOVE DIAGNOSTIC STATEMENT IN DAILY PROGRESS NOTES AND DISCHARGE SUMMARY. This document is not part of the patient's record. Thank You, Saad Armstrong, TAURUS [phone]
[2017-03-31] MEDS: METHYLPREDNISOLONE IV 40 MG in SYRINGE 0 ML IV SCH ×2 (08:15→17:20)
[2017-03-31] MEDS ORDERED: PERFLUTREN LIPID MICROSPHERE (DEFINITY) IV ONE (08:18)
[2017-03-31] MEDS: FUROSEMIDE INJ 40 MG in SYRINGE 0 ML IV SCH ×2 (08:18→18:10)
[2017-03-31] MEDS: FERROUS SULFATE 325 MG TAB PO SCH ×2 (08:19→20:12)
[2017-03-31] MEDS: ASPIRIN 81 MG CHEW PO SCH (08:19)
[2017-03-31] MEDS: OMEGA-3 (PURIFIED FISH OIL) 1 GM CAP PO SCH (08:20)
[2017-03-31] MEDS: METOPROLOL SUCC 50MG EXT REL TAB PO SCH ×2 (08:20→20:13)
[2017-03-31] MEDS: CALCIUM 600MG + VIT D 400 IU TAB PO SCH (08:21)
[2017-03-31] MEDS: DILTIAZEM HCL 120 MG EXT REL CAP PO SCH (08:21)
[2017-03-31] MEDS: PANTOprazole SOD 40 MG TAB PO SCH (08:21)
[2017-03-31] MEDS: GABAPENTIN 300 MG CAP PO SCH ×3 (08:22→20:12)
[2017-03-31] MEDS: ISOSORBIDE MONONITRATE 60 MG TABCR PO SCH ×2 (08:22→20:12)
--- NOTE | 2017-03-31 08:50 | ECHOCARDIOGRAM REPORT ---
*NOTICE TO RECEIVING DEMOCRAT AGENCY This information is strictly Confidential and protected under [place] law. [place] law prohibits you from making any further disclosure of this information unless further disclosure is expressly permitted by the written consent of the person to whom it pertains or is authorized by law. A general authorization for the release of medical or other information is not sufficient for this purpose. Hospital accepts no responsibility if the information is made available to any other person, INCLUDING THE PATIENT. Interpretation Summary * Name: CRIS MARTINEZ Study Date: 03/31/2017 06:59 AM BP: 107/58 mmHg * Patient Location: C.2T\S\S235\S\1 HR: 58 * : 1950 (M/d/yyyy) Gender: Male Height: 65 in * Age: 66 yrs Ethnicity: [place] Weight: 233 lb * Ordering Physician: Angie Saenz * Referring Physician: Ishan Roy * Performed By: Nelia Abernathy RDCS * * Reason For Study: CHEST PAIN * BSA: 2.1 m2 * -- Conclusions -- * There is mild concentric left ventricular hypertrophy. * Left ventricular systolic function is normal. * Diastolic dysfunction, Grade II, consistent with elevated left atrial pressure. * The right ventricle is mild to moderately dilated. * The left atrium is mildly dilated. * The right atrium is moderately dilated. * Flattened septum is consistent with RV pressure overload. * Right ventricular systolic pressure is elevated at >60mmHg. * Compared to a study from 10/2015, the estimated pulmonary pressures are higher, otherwise minimal change Procedure Details * A contrast injection of Definity was performed to improve assessment of LV function. * Contrast was injected into an intravenous site in the left arm. * One vial of Definity ultrasound contrast was diluted in normal saline to a total volume of 10 ml. A total of '1' ml of solution was administered during imaging. * Lot # [id number] of Definity utilized for procedure. * Expiration date MAR 26. * The attending nurse who injected the contrast agent was PEG HANSON RN. Left Ventricle * The left ventricle is normal in size. * There is mild concentric left ventricular hypertrophy. * Left ventricular systolic function is normal. * Ejection Fraction = 60-65%. * Diastolic dysfunction, Grade II, consistent with elevated left atrial pressure. * Flattened septum is consistent with RV pressure overload. Right Ventricle * The right ventricle is mild to moderately dilated. * The right ventricular systolic function is normal as assessed by tricuspid annular plane systolic excursion (TAPSE) (normal >1.5 cm). Atria * The left atrium is mildly dilated. * The right atrium is moderately dilated. Mitral Valve * The mitral valve is grossly normal. * Significant mitral regurgitation is absent. Tricuspid Valve * The tricuspid valve is not well visualized, but is grossly normal. * There is mild tricuspid regurgitation. * Right ventricular systolic pressure is elevated at >60mmHg. Aortic Valve * The aortic valve is not well visualized. * No hemodynamically significant valvular aortic stenosis. * There is no significant aortic regurgitation. Pulmonic Valve * The pulmonic valve is not well visualized. Great Vessels * The aortic root is normal size. Pericardium/Pleural * There is no pericardial effusion. MMode 2D Measurements and Calculations IVSd 1.4 cm IVSs 1.9 cm LVIDd 4.3 cm LVIDs 2.8 cm LVPWd 1.4 cm LVPWs 1.9 cm IVS/LVPW 1.0 FS 33.8 % EDV(Teich) 82.3 ml ESV(Teich) 30.4 ml EF(Teich) 63.0 % EDV(cubed) 78.6 ml ESV(cubed) 22.8 ml EF(cubed) 71.0 % % IVS thick 30.9 % % LVPW thick 32.7 % LV mass(C)d 232.7 grams LV mass(C)dI 110.2 grams/m\S\2 LV mass(C)s 214.8 grams LV mass(C)sI 101.7 grams/m\S\2 SV(Teich) 51.9 ml SI(Teich) 24.6 ml/m\S\2 SV(cubed) 55.8 ml SI(cubed) 26.4 ml/m\S\2 Ao root diam 3.4 cm Ao root area 9.0 cm\S\2 LA dimension 4.3 cm LA/Ao 1.3 LVAd ap4 32.5 cm\S\2 LVLd ap4 8.3 cm EDV(MOD-sp4) 103.5 ml EDV(sp4-el) 108.0 ml LVAs ap4 15.7 cm\S\2 LVLs ap4 6.0 cm ESV(MOD-sp4) 34.4 ml ESV(sp4-el) 34.9 ml EF(MOD-sp4) 66.8 % EF(sp4-el) 67.7 % LVAd ap2 32.9 cm\S\2 LVLd ap2 7.9 cm EDV(MOD-sp2) 112.3 ml EDV(sp2-el) 115.9 ml LVAs ap2 16.6 cm\S\2 LVLs ap2 6.4 cm ESV(MOD-sp2) 35.1 ml ESV(sp2-el) 36.5 ml EF(MOD-sp2) 68.8 % EF(sp2-el) 68.5 % LVLd %diff -4.80 % EDV(MOD-bp) 110.2 ml LVLs %diff 6.1 % ESV(MOD-bp) 35.5 ml EF(MOD-bp) 67.8 % SV(MOD-sp4) 69.1 ml SI(MOD-sp4) 32.7 ml/m\S\2 SV(MOD-sp2) 77.3 ml SI(MOD-sp2) 36.6 ml/m\S\2 SV(MOD-bp) 74.7 ml SI(MOD-bp) 35.4 ml/m\S\2 SV(sp4-el) 73.1 ml SI(sp4-el) 34.6 ml/m\S\2 SV(sp2-el) 79.4 ml SI(sp2-el) 37.6 ml/m\S\2 Doppler Measurements and Calculations MV E max aruna 133.0 cm/sec MV A max aruna 111.3 cm/sec MV E/A 1.2 MV dec time 0.27 sec Ao V2 max 149.5 cm/sec Ao max PG 8.9 mmHg Ao max PG (full) 1.8 mmHg LV V1 max PG 7.2 mmHg LV V1 max 133.9 cm/sec TR max aruna 389.3 cm/sec
[2017-03-31] MEDS ORDERED: MAGNESIUM OXIDE 400 MG TAB PO SCH (09:00)
[2017-03-31] MEDS: INSULIN ASPART 100 UNITS/ML 3 ML PEN SC SCH ×4 (09:23→20:57)
--- NOTE | 2017-03-31 09:56 | Cardiology Consultation ---
Cardiology Consultation Date of Consultation: Mar 31, 2017. Reason for Consultation: Elevated Troponins, h/o CABG, severe CAD Pt evaluation today including: conversation w/ patient, physical exam, chart review, lab review, review of studies, review of inpatient medication list History of Present Illness Mr. Mauri Mcdonald is a 66 yo male, with a PMH of CAD, HTN, CABG (2000 ), Atrial Flutter (chronic anticoagulation), Intracoronary Stents, T2DM ( insulin dependent), and Pulmonary Fibrosis, who presented to the ED with complaints of worsening shortness of breath with exertion and at rest over the past couple of months, and escalating supplemental O2 requirements over the preceding days. He had c/o intermittent chest pain with certain trunk movements (dissimilar to his angina pectoris), and labor of breathing. Chronically on supplemental O2 (8-9L/m) at home. He follows Dr Brown and was seen in the office for this progressive dyspnea, started on prednisone. Later had a follow up with PCP, had some blood work and a CXR due to his worsening lower leg edema and continuation of SOB and VALENTINE. CBC at this time showed a worsening anemia ( Baseline Hgb 11-14 and was 8.5 on 03/23/17) and CXR also revealed congestive like changes. Lasix was increased, had a blood transfusion x 1 unit. Fe studies completed on Mar 23 - reflected anemia of chronic disease. He had an O2 level of 69% and sharp substernal chest pain which prompted his visit to this facility. Denied radiating pain to the arm, jaw, or back. He denied presyncope or syncope. Patient was noted to have an elevation in his troponin I, changes in his EKG. Today, patient reports doing well since being admitted. He states that his chest pain was only with episodes of hypoxia, and was wasn't similar to the pain he experienced before his CABG. Reports taking his cardiac medications as prescribed and having no angina type symptoms within the past several months. Denies chest heaviness or tightness. Denies palpitations or tachycardia. Troponin has started to trend down as of this AM. Had an ECHO this a.m. showing Normal LVEF of 60% to 65% without RWMA's, mild concentric LVH, diastolic dysfunction, Grade II, right ventricle is mild to moderately dilated, left atrium is mildly dilated, right atrium is moderately dilated, flattened septum is consistent with RV pressure overload, right ventricular systolic pressure is elevated at >60mmHg, compared to a study from 10/2015, the estimated pulmonary pressures are higher, otherwise minimal change. Family History Diabetes mellitus Heart disease Hypertension Social History Smoking Status: Former Smoker History of Alcohol Use: No Review of Systems Constitutional: No see HPI, No fever, No chills, No sweats, No weight loss, No weakness, No fatigue, No problem reported Respiratory: + wheezing (IMPROVING ), + shortness of breath (IMPROVING), + dyspnea on exertion (IMPROVING), No cough, No sputum, No dyspnea at rest, No hemoptysis Cardiac: No see HPI, No chest pain, No orthopnea, No PND, No edema, No claudication, No palpitations, No problem reported Abdomen: No see HPI, No pain, No nausea, No vomiting, No diarrhea, No constipation, No GI bleeding, No problem reported Male : No see HPI, No dysuria, No urinary frequency, No incontinence, No nocturia more than once/night, No slowing stream, No hematuria, No sexual dysfunction, No problem reported Neurologic: No see HPI, No memory loss, No paralysis, No weakness, No numbness/ tingling, No vertigo, No balance problems, No problem reported Heme: No see HPI, No abnormal bleeding/bruising, No clotting problems, No swollen lymph nodes, No night sweats, No problem reported Endo: No see HPI, No fatigue, No excessive thirst, No excessive urination, No problem reported Skin: No see HPI, No rash, No itch, No new/changing skin lesions, No color change, No bleeding, No problem reported All Other Systems: Reviewed and Negative Allergies Coded Allergies: Doxycycline (Verified Allergy, Intermediate, RASH, 03/30/17) Hydrocodone (Verified Allergy, Intermediate, RASH, 03/30/17) Replaces LORTAB ELIXIR Iodinated Diagnostic Agents (Verified Allergy, Intermediate, RASH, 03/30/17 ) Losartan (Verified Allergy, Intermediate, RASH, 03/30/17) Lovastatin (Verified Allergy, Intermediate, RASH, 03/30/17) Penicillins (Verified Allergy, Intermediate, RASH, 03/30/17) Quinolones (Verified Allergy, Intermediate, RASH, 03/30/17) Tetracycline (Verified Allergy, Intermediate, RASH, 03/30/17) Latex1 -Allergic Contact Dermititis (Verified Allergy, Mild, RASH, 03/30/17 ) Tetracyclines (Verified Allergy, Unknown, RASH, 03/30/17) Medications Current Inpatient Medications Medications (Trade) Dose Ordered Sig/Zeina Route Start Time Stop Time Status Last Admin Dose Admin Al Hydrox/Mg Hydrox/Simethicone (Maalox Max Susp) 15 ml Q4H PRN PO 03/30/17 20:15 04/29/17 20:14 Ondansetron HCl (Zofran Inj) 4 mg Q6H PRN IV 03/30/17 20:15 04/29/17 20:14 Nitroglycerin (Nitrostat Tab) 0.4 mg UD PRN SL 03/30/17 20:15 04/29/17 20:14 Morphine Sulfate (MoRPHine SULFATE INJ) 2 mg Q30M PRN IV 03/30/17 20:15 04/13/17 20:14 Polyethylene (Miralax Powder Packet) 17 gm DAILY PRN PO 03/30/17 20:15 04/29/17 20:14 Aspirin (Aspirin Chew) 81 mg QAM PO 03/31/17 09:00 04/30/17 08:59 03/31/17 08:19 81 MG Calcium/Vitamin D (Caltrate Plus Tab) 1 tab DAILY PO 03/31/17 09:00 04/30/17 08:59 03/31/17 08:21 1 TAB Diltiazem HCl (TIAzac CAP) 240 mg QAM PO 03/31/17 09:00 04/30/17 08:59 03/31/17 08:21 240 MG Fish Oil ([place]-3 (Purified Fish Oil) Cap) 1 gm QAM PO 03/31/17 09:00 04/30/17 08:59 03/31/17 08:20 1 GM Gabapentin (Neurontin Cap) 600 mg TID PO 03/30/17 21:00 04/29/17 20:59 03/31/17 08:22 600 MG Isosorbide Mononitrate (Imdur Ext Rel Tab) 120 mg BID PO 03/30/17 21:00 04/29/17 20:59 03/31/17 08:22 120 MG Ferrous Sulfate (Feosol Tab) 325 mg BID PO 03/30/17 21:00 04/29/17 20:59 03/31/17 08:19 325 MG Metoprolol Succinate (Toprol Xl Tab) 100 mg BID PO 03/30/17 21:00 04/29/17 20:59 03/31/17 08:20 100 MG Pantoprazole Sodium (Protonix Tab) 40 mg QAM PO 03/31/17 09:00 04/30/17 08:59 03/31/17 08:21 40 MG Methylprednisolone Sodium Succinate 40 mg/Syringe 0.64 ml @ 1.5 mls/min Q8H IV 03/31/17 08:00 04/30/17 07:59 03/31/17 08:15 1.5 MLS/MIN Insulin Aspart (novoLOG ASPART) SLIDING SCALE G... ACHS SC 03/30/17 21:00 04/29/17 20:59 03/30/17 23:37 5 UNITS Furosemide 40 mg/ Syringe 4 ml @ 4 mls/min BID17 IV 03/31/17 09:00 04/30/17 08:59 03/31/17 08:18 4 MLS/MIN Heparin Sodium/ Dextrose 500 ml @ 22 mls/hr [id number] PRN IV 03/30/17 22:45 04/29/17 22:44 03/30/17 23:17 19 MLS/HR Glucose (Glucose 40% Gel) 15-30 GRAMS 15 GRAMS... UD PRN PO 03/30/17 22:45 04/29/17 22:44 Glucose (Glucose Chew Tab) 4-8 Tablets 4 Tabl... UD PRN PO 03/30/17 22:45 04/29/17 22:44 Dextrose (Dextrose 50% 50ML Syringe) 25-50ML OF 50% DW IV FOR... UD PRN IV 03/30/17 22:45 04/29/17 22:44 Glucagon (Glucagon Inj) 1 mg UD PRN SQ 03/30/17 22:45 04/29/17 22:44 Insulin Glargine (Lantus Solostar Pen) 10 units PM SQ 03/31/17 21:00 04/30/17 20:59 03/31/17 08:26 10 UNITS Physical Exam Vital Signs Past 12 Hours Date Time Temp Pulse Resp B/P (MAP) Pulse Ox O2 Delivery O2 Flow Rate FiO2 03/31/17 08:12 36.7 67 20 132/66 (88) 94 High Flow Oxygen 03/31/17 08:00 High Flow Oxygen 45.0 80 03/31/17 04:00 100 High Flow Oxygen 45.0 80 03/31/17 02:50 36.8 58 18 107/58 (74) 100 Free Flow/[place] 03/31/17 00:00 93 High Flow Oxygen 50.0 90 03/30/17 23:34 93 Free Flow/[place] 15.0 90 03/30/17 23:32 52 109/65 (80) 03/30/17 23:23 36.4 58 22 112/48 03/30/17 22:45 93 50.0 03/30/17 22:21 57 19 82/40 95 High Flow Oxygen 80 Constitutional: General Apperance: obese Level of Distress: NAD Ambulation: ambulating normally (with assistance) Psychiatric: Mental Status: active & alert, normal mood, normal affect Orientation: oriented except where noted Memory: recent memory normal Head: normocephalic, atraumatic Eyes: Pupils: PERRLA EOM: EOMI ENMT: normal ENT inspection Neck: supple, trachea midline, no masses Lungs: Respiratory effort: no dyspnea (on HighFlo O2 mask with 45L/min) Auscultation: deminished air movement, decreased breath sounds Cardiovascular: Heart Auscultation: RRR, normal S1, normal S2, no murmurs, no rubs, no gallops Peripheral Pulses: Bruits: none appreciated Carotid Pulse: normal on the left, normal on the right Radial Pulse: normal on the left, normal on the right Dorsalis Pedis Pulse: normal on the left, normal on the right Musculoskeletal: normal strength (5/5 throughout) Extremities: no cyanosis, no varicosities, no clubbing, edema (mild pretibial non-pitting edema) Neurologic: Cranial Nerves: grossly intact Sensation: grossly intact Data Laboratory Results: Last 24 Hours Test 03/30/17 17:20 03/30/17 17:21 03/30/17 17:24 03/30/17 17:28 White Blood Count 21.42 K/uL Red Blood Count 3.57 M/uL Hemoglobin 9.6 g/dL Hematocrit 31.9 % Mean Corpuscular Volume 89.4 fL Mean Corpuscular Hemoglobin 26.9 pg Mean Corpuscular Hemoglobin Concent 30.1 g/dl Platelet Count 395 K/uL Mean Platelet Volume 9.3 fL Neutrophils (%) (Auto) 93.9 % Lymphocytes (%) (Auto) 1.3 % Monocytes (%) (Auto) 3.8 % Eosinophils (%) (Auto) 0.2 % Basophils (%) (Auto) 0.1 % Neutrophils # (Auto) 20.14 K/uL Lymphocytes # (Auto) 0.27 K/uL Monocytes # (Auto) 0.81 K/uL Eosinophils # (Auto) 0.04 K/uL Basophils # (Auto) 0.02 K/uL RDW Standard Deviation 69.5 fL RDW Coefficient of Variation 21.2 % Immature Granulocyte % (Auto) 0.7 % Immature Granulocyte # (Auto) 0.14 K/uL Nucleated RBC Absolute Count (auto) 0.15 K/uL Nucleated Red Blood Cells % 0.7 % Hypochromasia PRESENT Anisocytosis PRESENT Prothrombin Time 12.2 SECONDS Prothromb Time International Ratio 1.2 Activated Partial Thromboplast Time 26.9 SECONDS Partial Thromboplastin Ratio 1.0 Sodium Level 136 mmol/L Potassium Level 5.5 mmol/L Chloride Level 103 mmol/L Carbon Dioxide Level 27 mmol/L Anion Gap 6.0 mmol/L Blood Urea Nitrogen 71 mg/dl Creatinine 2.11 mg/dl Est Creatinine Clear Calc Drug Dose 37.6 ml/min Estimated GFR () 36.2 Estimated GFR (Non- 31.2 BUN/Creatinine Ratio 33.7 Random Glucose 116 mg/dl Calcium Level 8.8 mg/dl Magnesium Level 3.2 mg/dl Total Bilirubin 1.1 mg/dl Aspartate Amino Transf (AST/SGOT) 85 U/L Alanine Aminotransferase (ALT/SGPT) 100 U/L Alkaline Phosphatase 71 U/L Troponin I 0.101 ng/ml Pro-B-Type Natriuretic Peptide 5600 pg/ml Total Protein 7.4 gm/dl Albumin 3.0 gm/dl Globulin 4.4 gm/dl Albumin/Globulin Ratio 0.7 Bedside Troponin I 0.080 ng/ml Bedside Lactic Acid Venous 2.31 mmol/L Influenza Type A Antigen Neg for Influ A Influenza Type B Antigen Neg for Influ B Test 03/30/17 17:45 03/30/17 20:21 03/30/17 20:44 03/30/17 23:24 Venous Blood pH 7.42 Venous Blood Partial Pressure CO2 41 mmHg Venous Blood Partial Pressure O2 40 mmHg Venous Blood HCO3 26 mmol/L Venous Blood Oxygen Saturation 70.4 % Venous Blood Base Excess 1.4 mEq/L Bedside Glucose 90 mg/dl Absolute Reticulocyte Count 0.18 10^6/uL Percent Reticulocyte Count 5.3 % Lactic Acid Level 0.9 mmol/L Sodium Level 134 mmol/L Potassium Level 5.7 mmol/L Chloride Level 102 mmol/L Carbon Dioxide Level 23 mmol/L Anion Gap 9.0 mmol/L Blood Urea Nitrogen 77 mg/dl Creatinine 2.15 mg/dl Est Creatinine Clear Calc Drug Dose 36.9 ml/min Estimated GFR () 35.4 Estimated GFR (Non- 30.5 BUN/Creatinine Ratio 36.0 Random Glucose 271 mg/dl Calcium Level 8.0 mg/dl Troponin I 0.973 ng/ml Test 03/30/17 23:28 03/31/17 02:30 03/31/17 05:15 03/31/17 07:54 Bedside Glucose 297 mg/dl Urine Color YELLOW Urine Appearance CLEAR Urine pH 5.0 Urine Specific [place] 1.018 Urine Protein NEG Urine Glucose (UA) NEG Urine Ketones NEG Urine Occult Blood NEG Urine Nitrite NEG Urine Bilirubin NEG Urine Urobilinogen NEG Urine Leukocyte Esterase SMALL Urine WBC (Auto) 1-5 /hpf Urine RBC (Auto) 0-4 /hpf Urine Hyaline Casts (Auto) 1-5 /lpf Urine Epithelial Cells (Auto) 5-10 /lpf Urine Bacteria (Auto) NEG White Blood Count 11.09 K/uL Red Blood Count 3.36 M/uL Hemoglobin 8.8 g/dL Hematocrit 29.7 % Mean Corpuscular Volume 88.4 fL Mean Corpuscular Hemoglobin 26.2 pg Mean Corpuscular Hemoglobin Concent 29.6 g/dl Platelet Count 331 K/uL Mean Platelet Volume 9.3 fL Neutrophils (%) (Auto) 95.7 % Lymphocytes (%) (Auto) 3.0 % Monocytes (%) (Auto) 0.8 % Eosinophils (%) (Auto) 0.0 % Basophils (%) (Auto) 0.0 % Neutrophils # (Auto) 10.62 K/uL Lymphocytes # (Auto) 0.33 K/uL Monocytes # (Auto) 0.09 K/uL Eosinophils # (Auto) 0.00 K/uL Basophils # (Auto) 0.00 K/uL RDW Standard Deviation 66.0 fL RDW Coefficient of Variation 20.6 % Immature Granulocyte % (Auto) 0.5 % Immature Granulocyte # (Auto) 0.05 K/uL Polychromasia 1+ Anisocytosis PRESENT Activated Partial Thromboplast Time 39.9 SECONDS Partial Thromboplastin Ratio 1.5 Sodium Level 136 mmol/L Potassium Level 5.5 mmol/L Chloride Level 105 mmol/L Carbon Dioxide Level 27 mmol/L Anion Gap 4.0 mmol/L Blood Urea Nitrogen 68 mg/dl Creatinine 1.74 mg/dl Est Creatinine Clear Calc Drug Dose 45.6 ml/min Estimated GFR () 45.7 Estimated GFR (Non- 39.4 BUN/Creatinine Ratio 38.9 Random Glucose 225 mg/dl Calcium Level 7.9 mg/dl Total Bilirubin 1.0 mg/dl Aspartate Amino Transf (AST/SGOT) 49 U/L Alanine Aminotransferase (ALT/SGPT) 78 U/L Alkaline Phosphatase 63 U/L Total Protein 6.6 gm/dl Albumin 2.9 gm/dl Globulin 3.7 gm/dl Albumin/Globulin Ratio 0.8 Magnesium Level 3.2 mg/dl Troponin I 0.941 ng/ml Imaging: ECHO (03/31/17) * -- Conclusions -- * There is mild concentric left ventricular hypertrophy. * Left ventricular systolic function is normal. * Diastolic dysfunction, Grade II, consistent with elevated left atrial pressure. * The right ventricle is mild to moderately dilated. * The left atrium is mildly dilated. * The right atrium is moderately dilated. * Flattened septum is consistent with RV pressure overload. * Right ventricular systolic pressure is elevated at >60mmHg. * Compared to a study from 10/2015, the estimated pulmonary pressures are higher, otherwise minimal change * LVEF 60-65% EKG: Normal sinus rhythm ST & T wave abnormality, consider inferior ischemia ST & T wave abnormality, consider anterolateral ischemia Abnormal ECG When compared with ECG of 30-MAR-2017 17:38, Minimal criteria for Anterior infarct are no longer Present ST now depressed in Anterior leads T wave inversion more evident in Anterolateral leads Telemetry reviewed: Diffuse T wave inversions otherwise NSR, intermittent episodes of bradycardia. Assessment & Plan Mr. Mauri Mcdonald is a 66 yo male, with a PMH of CAD s/p CABG x 4 Vessels (2000), Paroxysmal Atrial Flutter / Paroxysmal Atrial Fibrillation ( chronic anticoagulation), Intracoronary Stents, T2DM (insulin dependent), and Pulmonary Fibrosis who presented to the ED with acute hypoxic respiratory failure (SpO2 was 69% on admission) -- and a subsequent elevation in his Troponin I level, but he did not experience any of his angina pectoris. This is consistent with a Type II Non ACS NSTEMI secondary to myocardial O2 supply / demand mismatch. ECHO today showed elevated pulmonary pressures since his previous study. LVEF 60 % to 65% without RWMA's, and grade II diastolic dysfunction. PLAN: -- NSTEMI -- type II non ACS 1- Continue daily EKGs. 2- Troponins are trending down as of this AM. 3- Continue on home cardiac medications (Diltiazem, Imdur, Toprol XL, Fish Oil Capsules, and Aspirin). Patient is allergic to statins (rash). 4. Echocardiogram shows no RWMA's and a preserved LVEF of 60% to 65%, and heart rhythm has been stable on telemetry. 5. Resume Spironolactone 25 mg daily and Losartan 25 mg daily when renal function allows. 6. Resume Xarelto at discharge. -- CAD s/p CABG x 4 Vessels 2000 and multiple intracoronary stents. -- Pulmonary Fibrosis -- as per Pulmonology. -- Hypertension -- BP's have been acceptable, continue same antihypertensive regimen. -- Anemia -- Current Hgb is 8.8 gm/dL, continue to monitor, consider transfusion. -- PAF -- Has maintained sinus bradycardia to normal sinus rhythm throughout this hospitalization. Cardiology will continue to follow during this admission. Thank you for including us in the care of this patient. JEREMIAH Ernst-S2 Addendum by Cardiology attending: Patient was seen and examined. Agree with above with following additions. Patient has had worsening shortness of breath. He has also had some atypical chest pain which is completely different than prior angina. When asked about his chest pain he stated "its from my lungs." He is now on high-flow oxygen and feeling better. Exam notable for: General: No acute distress Neck: No significant JVD but thick neck. Cardiac: Regular. Normal S1 and S2. Lungs: Decreased breath sounds with occasional crackle. Extremities: No significant edema. ASSESSMENT/PLAN: 1. Non ST-elevation myocardial infarction: Although he has underlying coronary artery disease, he did not present with acute coronary syndrome. This likely represents demand ischemia in the setting of significant hypoxia. Continue aspirin and beta-zachary. Intolerant to statin. 2. Hypoxia: Likely secondary to known pulmonary issues. 3. CAD: No angina. Continue medical therapy. 4. Disposition: Please call for any further questions or concerns. Cardiology will sign off at this time.
[2017-03-31 13:11] LABS: PTT PATIENT 44.2 SECONDS (21.0-31.0)
[2017-03-31] MEDS ORDERED: INSULIN GLARGINE SOLOSTAR 100 UNITS/ML 3 ML PEN SC ONE (13:30)
[2017-03-31] MEDS ORDERED: HEPARIN IV BOLUS 3,000 UNIT in SYRINGE 0 ML IV ONE ×2 (13:30→21:45)
[2017-03-31] MEDS ORDERED: RIVAROXABAN TAB 15 MG TAB PO SCH (17:00)
--- NOTE | 2017-03-31 19:05 | Pulmonary Consultation ---
History General Date of Service: Mar 31, 2017. Chief Complaint: shortness of breath with dyspnea with exertion Stated Complaint: Acute And Chronic Respiratory Failure W/ Hypoxia HPI The patient is a 66 year old male who presents to [facility] with complaints of Acute And Chronic Respiratory Failure W/ Hypoxia. The patient 's primary care provider is Ishan Roy M.D.. Mr. Mcdonald presents with shortness of breath as well as associated chest pain. He was found to have a non-ST elevated NE with elevated troponins. Echocardiogram revealed no specific wall motion abnormalities with rest and a preserved left ventricular ejection fraction. The patient was started on a heparin drip and is currently being followed by cardiology for this cardiac event. Etiology for the NSTEMI is most likely hypoxia. The patient has a history of working in the [employer] and was exposed to limestone dust. In addition he is a previous smoker with a 10-wpeh-bddn history. He quit smoking in 1996 when he had a CABG 4. He has followed with Dr. Walls at [facility] but recently established with Dr. Brown of the [facility]. He was most recently seen by Dr. Brown 03/19/17. Dr. brown's note indicates nonspecific interstitial pneumonitis with chronic respiratory failure exacerbated by obstructive sleep apnea. Prognosis is poor. Most recent PFTs are from 2014. Patient is unsure if he had PFTs at [facility] or not. Patient desaturated to 60 % with a short trip to the restroom on 8 L/min. He also has CRESCENCIO and is on CPAP that auto ramps with a minimum setting of 8 and a maximum setting of 15. He bleeds 8 L/min of O2 in HS. Most recent CPAP titration seems to be 11/29/14. Patient states that chest pain is resolved. He continues with shortness of breath and is now on high flow O2. Family apparently is going to bring CPAP in from home. Patient tolerates CPAP during the night but states that he took the does not use it during the day even when short of breath. Review of Systems A total of 12 systems was reviewed and is negative other than as listed above in the HPI All Other Symptoms All Other Systems: Reviewed and Negative Past Medical History Past Medical History: Medical Problems: (1) Acute and chronic respiratory failure with hypoxia (2) Acute congestive heart failure (3) Acute respiratory failure (4) Benign hypertension (5) CABG X4 1996 (6) Diabetes mellitus (7) Hospital-acquired bacterial pneumonia (8) Hyperlipidemia (9) Hx Sepsis (10) NSTEMI (11) obstructive sleep apnea Past Surgical History: Past surgical history: CABG 4 Right carotid endarterectomy History of stent placements History of colonoscopy History of hernia repair Right thoracotomy with wedge resection of right middle and lower lobes 10/04/15 Family History Diabetes mellitus Heart disease Hypertension Social History Hx Tobacco Use In Past Year?: No (QUIT 2000) Smoking Status: Former Smoker (quit in 1996) Drug Use: none Marital status: Housing status: lives with family Occupational Status: retired (worked [employer]), disabled Immunizations History of Influenza Vaccine: Yes Influenza Vaccine Date: Dec 29, 2010 History of Tetanus Vaccine?: Yes Tetanus Immunization Date: Oct 21, 2006 History of Pneumococcal: Yes Pneumococcal Date: Mar 29, 2008 History of Hepatitis B Vaccine: No History of MDRO History of MDRO: No Allergies Coded Allergies: Doxycycline (Verified Allergy, Intermediate, RASH, 03/30/17) Hydrocodone (Verified Allergy, Intermediate, RASH, 03/30/17) Replaces LORTAB ELIXIR Iodinated Diagnostic Agents (Verified Allergy, Intermediate, RASH, 03/30/17 ) Losartan (Verified Allergy, Intermediate, RASH, 03/30/17) Lovastatin (Verified Allergy, Intermediate, RASH, 03/30/17) Penicillins (Verified Allergy, Intermediate, RASH, 03/30/17) Quinolones (Verified Allergy, Intermediate, RASH, 03/30/17) Tetracycline (Verified Allergy, Intermediate, RASH, 03/30/17) Latex1 -Allergic Contact Dermititis (Verified Allergy, Mild, RASH, 03/30/17 ) Tetracyclines (Verified Allergy, Unknown, RASH, 03/30/17) Current Medications Reported Home Medications Medications Dose Route/Sig Max Daily Dose Days Date Category Dose Instructions Prednisone 10 Mg Tab 20 Mg PO DAILY 03/30/17 Reported Isosorbide Dinitrate 5 Mg Tab PRN 03/26/17 Reported Novolog Flexpen (Insulin Aspart) 100 Units/Ml Inj 15 Units SC QPM 01/07/17 Reported Ventolin Hfa (Albuterol) 200 Puffs/98217 Mcg Aers 2-4 Puffs INH Q6H PRN 12/22/16 Reported Novolog Mix 70/30 (Insulin Aspart Protamine & Asp) 1 Inj Inj 90 Units SC QAM 12/22/16 Reported Novolog Mix 70/30 (Insulin Aspart Protamine & Asp) 1 Inj Inj 70 Units SC QPM 12/22/16 Reported Novolog Flexpen (Insulin Aspart) 100 Units/Ml Inj 20 Units SC QAM 12/22/16 Reported Toprol Xl (Metoprolol Succinate) 100 Mg Tabcr 100 Mg PO BID 12/22/16 Reported Aldactone (Spironolactone) 25 Mg Tab 25 Mg PO QAM 12/22/16 Reported Lasix (Furosemide) 40 Mg Tab 40 Mg PO BID 12/22/16 Reported Oxygen Gas 4 Liters NA CONT. 12/22/16 Reported WEARS 4L AT REST AND 6L WITH EXERTION Os-Eladio 500 Plus D (Calcium/Vitamin D) Tab 1 Tab PO DAILY 12/22/16 Reported Xarelto (Rivaroxaban) 15 Mg Tab 15 Mg PO DAILY@1700 12/22/16 Reported Tiazac (Diltiazem HCl) 240 Mg Capcr 240 Mg PO QAM 12/22/16 Reported Mag-Ox (Magnesium Oxide) 400 Mg Tab 800 Mg PO QAM 12/22/16 Reported Kp Ferrous Sulfate (Ferrous Sulfate) 325 Mg Tab 325 Mg PO BID 12/22/16 Reported Neurontin (Gabapentin) 300 Mg Cap 600 Mg PO TID 12/22/16 Reported Cozaar (Losartan Potassium) 25 Mg Tab 25 Mg PO QAM 12/22/16 Reported Nitrostat (Nitroglycerin) 0.4 Mg Tab 0.4 Mg UT PRN 12/22/16 Reported Imdur Ext Rel (Isosorbide Mononitrate) 120 Mg Ertab 120 Mg PO BID 12/22/16 Reported Prilosec (Omeprazole) 20 Mg Capcr 20 Mg PO QAM 12/22/16 Reported Jenison-3 (Fish Oil) 1 Ea Cap 1 Cap PO QAM 12/22/16 Reported Aspirin Chewable (Aspirin) 81 Mg Chew 81 Mg PO QAM 12/22/16 Reported Physical Physical Exam Vital Signs: Date Time Temp Pulse Resp B/P (MAP) Pulse Ox O2 Delivery O2 Flow Rate FiO2 03/31/17 16:00 High Flow Oxygen 45.0 80 03/31/17 15:57 36.6 64 18 119/66 (83) 93 High Flow Oxygen 03/31/17 12:10 High Flow Oxygen 45.0 80 03/31/17 11:57 36.9 77 20 123/63 (83) 85 High Flow Oxygen 03/31/17 08:12 36.7 67 20 132/66 (88) 94 High Flow Oxygen 03/31/17 08:00 High Flow Oxygen 45.0 80 03/31/17 04:00 100 High Flow Oxygen 45.0 80 03/31/17 02:50 36.8 58 18 107/58 (74) 100 Free Flow/Blowby 03/31/17 00:00 93 High Flow Oxygen 50.0 90 03/30/17 23:34 93 Free Flow/Blowby 15.0 90 03/30/17 23:32 52 109/65 (80) 03/30/17 23:23 36.4 58 22 112/48 03/30/17 22:45 93 50.0 03/30/17 22:21 57 19 82/40 95 High Flow Oxygen 80 03/30/17 20:16 52 18 123/58 97 High Flow Oxygen 80 03/30/17 18:46 58 18 108/54 96 High Flow Oxygen 80 Weight in Kilograms: 103.3 GENERAL : No acute distress. No use of accessory muscles EYES: No icterus, gaze conjugate NOSE: No evidence of epistaxis. High flow O2 and place MOUTH: No lesions or candidiasis NECK: Supple LUNGS: Decreased breath sounds globally. Breath sounds are distant. No bronchospasm appreciated. HEART: Regular, rate controlled ABDOMEN: Soft, NT, ND, BS Present EXTREMITIES: B/L LE edema, pedal pulses intact NEURO: A&OX3 Diagnostics Labs Results Past 24 Hours Test 03/30/17 20:21 03/30/17 20:44 03/30/17 23:24 03/30/17 23:28 Range/Units Bedside Glucose 90 297 70-99 mg/dl Peripheral Blood Smear Path Consult Absolute Reticulocyte Count 0.18 0.02-0.10 10^6/uL Percent Reticulocyte Count 5.3 0.5-2.0 % Lactic Acid Level 0.9 0.4-2.0 mmol/L Sodium Level 134 136-145 mmol/L Potassium Level 5.7 3.5-5.1 mmol/L Chloride Level 102 98-107 mmol/L Carbon Dioxide Level 23 21-32 mmol/L Anion Gap 9.0 3-11 mmol/L Blood Urea Nitrogen 77 7-18 mg/dl Creatinine 2.15 0.60-1.40 mg/dl Est Creatinine Clear Calc Drug Dose 36.9 ml/min Estimated GFR () 35.4 Estimated GFR (Non- 30.5 BUN/Creatinine Ratio 36.0 10-20 Random Glucose 271 70-99 mg/dl Calcium Level 8.0 8.5-10.1 mg/dl Troponin I 0.973 0-0.045 ng/ml Test 03/31/17 02:30 03/31/17 05:15 03/31/17 07:54 03/31/17 11:29 Range/Units Urine Color YELLOW Urine Appearance CLEAR CLEAR Urine pH 5.0 4.5-7.5 Urine Specific Carson 1.018 1.000-1.030 Urine Protein NEG NEG Urine Glucose (UA) NEG NEG Urine Ketones NEG NEG Urine Occult Blood NEG NEG Urine Nitrite NEG NEG Urine Bilirubin NEG NEG Urine Urobilinogen NEG NEG Urine Leukocyte Esterase SMALL NEG Urine WBC (Auto) 1-5 0-5 /hpf Urine RBC (Auto) 0-4 0-4 /hpf Urine Hyaline Casts (Auto) 1-5 0-5 /lpf Urine Epithelial Cells (Auto) 5-10 0-5 /lpf Urine Bacteria (Auto) NEG NEG White Blood Count 11.09 4.8-10.8 K/uL Red Blood Count 3.36 4.7-6.1 M/uL Hemoglobin 8.8 14.0-18.0 g/dL Hematocrit 29.7 42-52 % Mean Corpuscular Volume 88.4 80-100 fL Mean Corpuscular Hemoglobin 26.2 25-34 pg Mean Corpuscular Hemoglobin Concent 29.6 32-36 g/dl Platelet Count 331 130-400 K/uL Mean Platelet Volume 9.3 7.4-10.4 fL Neutrophils (%) (Auto) 95.7 % Lymphocytes (%) (Auto) 3.0 % Monocytes (%) (Auto) 0.8 % Eosinophils (%) (Auto) 0.0 % Basophils (%) (Auto) 0.0 % Neutrophils # (Auto) 10.62 1.4-6.5 K/uL Lymphocytes # (Auto) 0.33 1.2-3.4 K/uL Monocytes # (Auto) 0.09 0.11-0.59 K/uL Eosinophils # (Auto) 0.00 0-0.5 K/uL Basophils # (Auto) 0.00 0-0.2 K/uL RDW Standard Deviation 66.0 36.4-46.3 fL RDW Coefficient of Variation 20.6 11.5-14.5 % Immature Granulocyte % (Auto) 0.5 % Immature Granulocyte # (Auto) 0.05 0.00-0.02 K/uL Polychromasia 1+ Anisocytosis PRESENT Activated Partial Thromboplast Time 39.9 21.0-31.0 SECONDS Partial Thromboplastin Ratio 1.5 Sodium Level 136 136-145 mmol/L Potassium Level 5.5 3.5-5.1 mmol/L Chloride Level 105 98-107 mmol/L Carbon Dioxide Level 27 21-32 mmol/L Anion Gap 4.0 3-11 mmol/L Blood Urea Nitrogen 68 7-18 mg/dl Creatinine 1.74 0.60-1.40 mg/dl Est Creatinine Clear Calc Drug Dose 45.6 ml/min Estimated GFR () 45.7 Estimated GFR (Non- 39.4 BUN/Creatinine Ratio 38.9 10-20 Random Glucose 225 70-99 mg/dl Calcium Level 7.9 8.5-10.1 mg/dl Total Bilirubin 1.0 0.2-1 mg/dl Aspartate Amino Transf (AST/SGOT) 49 15-37 U/L Alanine Aminotransferase (ALT/SGPT) 78 12-78 U/L Alkaline Phosphatase 63 45-117 U/L Total Protein 6.6 6.4-8.2 gm/dl Albumin 2.9 3.4-5.0 gm/dl Globulin 3.7 2.5-4.0 gm/dl Albumin/Globulin Ratio 0.8 0.9-2 Magnesium Level 3.2 1.8-2.4 mg/dl Troponin I 0.941 0-0.045 ng/ml Bedside Glucose 470 70-99 mg/dl Test 03/31/17 12:47 03/31/17 13:25 03/31/17 15:29 Range/Units Activated Partial Thromboplast Time 44.2 21.0-31.0 SECONDS Partial Thromboplastin Ratio 1.7 Stool Occult Blood NEGATIVE NEGATIVE Troponin I 0.399 0-0.045 ng/ml Diagnostic Radiology CHEST ONE VIEW PORTABLE CLINICAL HISTORY: EVALUATE RESPIRATORY DISTRESS.DYSPNEA COMPARISON STUDY: 03/19/2017 FINDINGS: Moderate stable cardiomegaly. Diffuse chronic interstitial change possibly with a reticular nodular component. An atypical component of congestive failure versus pulmonary edema is considered. IMPRESSION: 1. Persistent reticulonodular and interstitial prominence throughout both hemithoraces. 2. moderate cardiomegaly with findings of atypical congestive failure versus pulmonary edema considered. Electronically signed by: Nelson Begum M.D. 03/30/2017 5:52 PM Impression Assessment and Plan ACUTE ON CHRONIC RESPIRATORY FAILURE * Primary fibrosis with very poor prognosis * Follows with Dr. Brown in the outpatient clinic - previously followed with Dr. Walls at [facility] * Chest x-ray with reticulonodular interstitial prominence throughout both hemithoraces * Leukocytosis improved from 21.42-11.09 * VBG with no hypercapnia * Continue supportive care * Continue bronchodilators and methylprednisolone * Received cefepime and azithromycin in the ER * No evidence of infiltrate or consolidation on chest x-ray - will check noncontrast CT chest * Very poor prognosis NON-ST ELEVATED NE * Preserved left ventricular ejection fraction * No wall motion abnormalities at rest * Cardiology following DVT PROPHYLAXIS * Heparin drip initiated Thank you for including us in the care of this patient. We will follow along with you. Please refer to Dr. Moreland's addendum for additional recommendations
[2017-03-31 20:35] LABS: PTT PATIENT 46.7 SECONDS (21.0-31.0)
[2017-03-31] MEDS ORDERED: INSULIN GLARGINE SC SCH (21:00)
[2017-03-31] MEDS ORDERED: INSULIN GLARGINE SOLOSTAR 100 UNITS/ML 3 ML PEN SQ SCH (21:00)
--- NOTE | 2017-03-31 21:50 | DIAGNOSTIC IMAGING REPORT ---
CT SCAN OF THE CHEST WITHOUT IV CONTRAST CLINICAL HISTORY: Hypoxia. Pulmonary fibrosis. COMPARISON STUDY: Chest x-ray dated 03/30/2017. Chest CT scans dated 03/19/2014 and 03/30/2013. TECHNIQUE: CT scan of the thorax was performed from the thoracic inlet to the upper abdomen. Images are reviewed in the axial, sagittal, and coronal planes. IV contrast was not administered for this examination as per the referring clinician. A dose lowering technique was utilized adhering to the principles of ALARA. CT DOSE: 860.66 mGy.cm FINDINGS: Thyroid: Imaged portions of the thyroid gland are normal in size and attenuation. Thoracic aorta: There is advanced atherosclerotic calcification of the thoracic aorta, which is normal in caliber and demonstrates standard 3-vessel arch anatomy. Heart: The patient is status post midline sternotomy. The heart is enlarged and without pericardial effusion. The coronary arteries are densely calcified. There is diminished attenuation of the cardiac blood pool as compared to the myocardium suggesting anemia. Lungs and pleural spaces: Emphysema is identified. There is extensive subpleural reticulation consistent with superimposed interstitial lung disease. Mild traction bronchiectasis is seen in the lower lobes. No honeycombing is identified. The trachea and central airways are clear. There is groundglass consolidation seen throughout the left lung and at the right lung base. Postoperative change is suggested at the right lung base. Scattered calcified granulomas are observed. Mediastinum: Enlarged mediastinal lymph nodes are identified. A right paratracheal node on image #117 measures 2.7 x 2.1 cm. A subcarinal node on image #149 measures 1.9 x 3.8 cm. Daly: Not well assessed without IV contrast. Axillae: There is no axillary lymphadenopathy. Upper abdomen: Calcified gallstones are noted. Partially visualized upper abdominal viscera is otherwise within normal limits. Skeletal structures: The skeletal structures are osteopenic. No lytic or blastic bony lesions are seen. Arthritic change is present in the shoulders and thoracic spine. IMPRESSION: 1. There is evidence of emphysema and chronic interstitial lung disease. This appears somewhat progressed from 03/19/2014. 2. Groundglass consolidation is seen throughout the left lung and in the right lower lung. This suggests a superimposed infectious/inflammatory pneumonitis or less likely pulmonary edema versus hemorrhage. Clinical correlation will be essential. 3. Enlarged mediastinal lymph nodes are similar to previous and likely related to chronic lung disease. 4. Cardiomegaly. 5. Cholelithiasis. 6. Additional findings as above.. Electronically signed by: Nic Nugent M.D. 03/31/2017 9:49 PM Dictated Date/Time: 03/31/2017 9:43 PM
--- NOTE | 2017-04-01 00:18 | Progress Note ---
Progress Note Date of Service Apr 01, 2017. Progress Note NSTEMI type II non ACS determined, heparin d/c as patient's BSG continued to remain elevated and mixed with dextrose/ getting steroids. Heparin could be mixed with saline however as non ACS NSTEMI and most supply/ demand will d/c. recheck request this evening was 286, covered with short acting, recheck in am Xarelto is planned to be restarted back at 1700 04/01/2017, SCD were ordered; normally to be started once heparin drip d/c however in light of persistent decrease in hgb and requiring now 2 transfusions will hold immediate restart to tomorrow pm as HH are followed
[2017-04-01] MEDS ORDERED: INSULIN ASPART 100 UNITS/ML 3 ML PEN SC ONE (00:20)
[2017-04-01] MEDS: METHYLPREDNISOLONE IV 40 MG in SYRINGE 0 ML IV SCH ×4 (01:07→20:53)
[2017-04-01 01:11] LABS: HEMATOCRIT 33.8 % (42-52); HEMOGLOBIN 10.1 g/dL (14.0-18.0)
[2017-04-01 03:50] VITALS: BP 138/77; PULSE 71; TEMP 36.3; O2SAT 91
[2017-04-01] MEDS ORDERED: INSULIN ASPART 100 UNITS/ML 3 ML PEN SC SCH (07:00)
[2017-04-01 07:48] VITALS: BP 150/71; PULSE 68; TEMP 36.6; O2SAT 94
--- NOTE | 2017-04-01 08:02 | Family Medicine Progress Note ---
Progress Note Date of Service Apr 01, 2017. Subjective Pt evaluation today including: conversation w/ patient, physical exam, chart review, lab review, review of studies, conversation w/ public relations consultant, review of inpatient medication list Patient states that he had an uneventful night, but feels no better after the transfusion. He denies any chest pain symptoms currently, but still has dyspnea with lower oxygen saturations or exertion. He is upset this morning on the amount of oxygen he is requiring, stating "I can't even shave without having oxygen on" His is requiring 15L via non-rebreather. He otherwise denies fevers/ chills, headaches, palpitations, abdominal pain, or rashes. He has not noticed significant worsening of his chronic lower extremity swelling. He is tolerating diet without nausea or vomiting. He is voiding without issue. ROS is unremarkable except as noted above. Objective Vital Signs Date Time Temp Pulse Resp B/P (MAP) Pulse Ox O2 Delivery O2 Flow Rate FiO2 04/01/17 07:48 36.6 68 20 150/71 (97) 94 High Flow Oxygen 04/01/17 04:04 BiPAP 04/01/17 03:50 36.3 71 20 138/77 (97) 91 BiPAP 04/01/17 00:15 BiPAP 03/31/17 23:42 36.3 66 20 146/77 (100) 91 BiPAP 03/31/17 22:40 36.3 63 16 150/79 93 45.0 03/31/17 22:26 36.3 62 16 134/74 90 03/31/17 22:13 64 94 50 03/31/17 22:09 36.3 64 16 132/69 100 45.0 03/31/17 20:10 36.6 65 18 148/68 (94) 91 Free Flow/Blowby 03/31/17 20:00 High Flow Oxygen 45.0 75 03/31/17 16:00 High Flow Oxygen 45.0 80 03/31/17 15:57 36.6 64 18 119/66 (83) 93 High Flow Oxygen 03/31/17 12:10 High Flow Oxygen 45.0 80 03/31/17 11:57 36.9 77 20 123/63 (83) 85 High Flow Oxygen 03/31/17 08:12 36.7 67 20 132/66 (88) 94 High Flow Oxygen Physical Exam Notes: General Appearance: WD/WN, no apparent distress, + obese, + pertinent finding ( Oxygen mask, with high flow oxygen) Eyes: normal inspection ENT: hearing grossly normal Neck: supple Respiratory/Chest: no respiratory distress, no accessory muscle use, + decreased breath sounds (R>L), + crackles, + rhonchi Cardiovascular: regular rate, rhythm Abdomen: normal bowel sounds, non tender, soft Extremities: no calf tenderness, + pedal edema Neurologic/Psychiatric: alert, oriented x 3, + depressed affect Skin: normal color, warm/dry, no rash Laboratory Results Results Past 24 Hours Test 03/31/17 20:37 03/31/17 23:43 04/01/17 00:00 04/01/17 01:01 Range/Units Bedside Glucose 393 286 70-99 mg/dl White Blood Count 12.42 4.8-10.8 K/uL Red Blood Count 4.05 4.7-6.1 M/uL Hemoglobin 10.8 10.1 14.0-18.0 g/dL Hematocrit 35.1 33.8 42-52 % Mean Corpuscular Volume 86.7 80-100 fL Mean Corpuscular Hemoglobin 26.7 25-34 pg Mean Corpuscular Hemoglobin Concent 30.8 32-36 g/dl Platelet Count 377 130-400 K/uL Mean Platelet Volume 9.4 7.4-10.4 fL Neutrophils (%) (Auto) 93.5 % Lymphocytes (%) (Auto) 2.3 % Monocytes (%) (Auto) 3.7 % Eosinophils (%) (Auto) 0.0 % Basophils (%) (Auto) 0.0 % Neutrophils # (Auto) 11.62 1.4-6.5 K/uL Lymphocytes # (Auto) 0.28 1.2-3.4 K/uL Monocytes # (Auto) 0.46 0.11-0.59 K/uL Eosinophils # (Auto) 0.00 0-0.5 K/uL Basophils # (Auto) 0.00 0-0.2 K/uL RDW Standard Deviation 62.3 36.4-46.3 fL RDW Coefficient of Variation 19.7 11.5-14.5 % Immature Granulocyte % (Auto) 0.5 % Immature Granulocyte # (Auto) 0.06 0.00-0.02 K/uL Nucleated RBC Absolute Count (auto) 0.03 0-0 K/uL Nucleated Red Blood Cells % 0.3 % Activated Partial Thromboplast Time 24.0 21.0-31.0 SECONDS Partial Thromboplastin Ratio 0.9 Sodium Level 135 136-145 mmol/L Potassium Level 4.7 3.5-5.1 mmol/L Chloride Level 101 98-107 mmol/L Carbon Dioxide Level 25 21-32 mmol/L Anion Gap 8.0 3-11 mmol/L Blood Urea Nitrogen 68 7-18 mg/dl Creatinine 1.76 0.60-1.40 mg/dl Est Creatinine Clear Calc Drug Dose 44.5 ml/min Estimated GFR () 45.1 Estimated GFR (Non- 38.9 BUN/Creatinine Ratio 38.9 10-20 Random Glucose 345 70-99 mg/dl Calcium Level 8.4 8.5-10.1 mg/dl Magnesium Level 2.9 1.8-2.4 mg/dl Beta-Hydroxybutyric Acid 1.68 0.2-2.81 mg/dL Test 04/01/17 06:47 04/01/17 11:21 04/01/17 16:28 Range/Units Bedside Glucose 265 404 246 70-99 mg/dl Microbiology Results 04/01/17 MRSA DNA Surveillance Screen, Received Pending Assessment and Plan 66 yo m with a h/o severe CAD and pulmonary fibrosis with worsening dyspnea on exertion, elevated troponin, changes on EKG and hypoxia concerning for ischemia secondary to lung disease vs worsening CAD/ cardiomyopathy Acute on chronic hypoxic resp failure secondary to progression of pulmonary fibrosis vs. anemia (see below)- Pulm consulted, recs appreciated. Follows with Dr. Brown in the outpatient clinic. CXR: Persistent reticulonodular and interstitial prominence throughout both hemithoraces. Moderate cardiomegaly with findings of atypical congestive failure versus pulmonary edema considered. CT chest: evidence of emphysema and chronic interstitial lung disease. Groundglass consolidation is seen throughout the left lung and in the right lower lung suggesting superimposed infectious/inflammatory pneumonitis. Enlarged mediastinal lymph nodes. Cardiomegaly. Leukocytosis improved to 11.09. VBG with no hypercapnia - For potential infectious pneumonitis, start PO cefdinir and azithromycin - Continue supportive care for chronic lung disease - Decreased Solumedrol from 40mg q8h to q12h - Continue bronchodilators - Given progressive symptoms, may consider palliative consult tomorrow NSTEMI with chest pain likely due to ischemia (type II non ACS) - background CAD s/p CABG x 4 Vessels 2000 and multiple intracoronary stents. Cardiology consulted, recs appreciated. Echo reports mild concentric LV hypertrophy with normal systolic function, EF 60-65%. Diastolic dysfunction, Grade II, consistent with elevated left atrial pressure. RV is mild to moderately dilated. LA is mildly dilated. RA is moderately dilated. Flattened septum consistent with RV pressure overload, with RV systolic pressure elevated at > 60mmHg. Trop peaked at 0.1 and trended down - Continue on home cardiac medications - Diltiazem, Imdur, Toprol XL, and Aspirin - Resume Spironolactone 25 mg daily and Losartan 25 mg daily when renal function allows. - Heparin drip for now, resume Xarelto at discharge. Fe def anemia, new onset on background of anemia of chronic disease - CBC reflected a new/ worsening anemia (baseline -14 and was 8.5 on Mar 23). Retics elevated, Haptoglobin pending, FOBT negative. s/p transfusion of 1 unit of pRBC - Continue ferrous sulfate PO - Trend H/H TYSHAWN on CKD III secondary to poor perfusion/ possible vs. acute on chronic dCHF exacerbation - BUN:Cr > 20 so more likely prerenal, UA did not reflect intrarenal source. CXR showed some congestive changes - IV Lasix 40mg BID - I&O and daily weight - Trend BMP DMII - HbA1c 5.2 - Increased patient's insulin regimen to Lanus 60 units BID + ISS (with tighter parameters) - will loosen once off steroids - BSG ac/hs Elevated LFT - baseline - Monitor, unable to take statin (causes rash) HTN/ HLD /CAD/ PAF - Continue on home cardiac medications - Diltiazem, Imdur, metoprolol, and Aspirin - Lasix dose increased as above - Hold Spironolactone and Losartan for hyperkalemia - Nitrostat for chest pain - Heparin drip for now, resume Xarelto at discharge. Hyperkalemia - resolved - Reflective of the TYSHAWN, possibly aggravated by elevated BSG - Trend BMP - EKG in am to monitor for changes concerning for conduction abnormalities DM Neuropathy - Gabapentin 600 mg tid Hypermagnesemia - Trend Mg DVT prophylaxis - Heparin drip Full code Resident Physician Supervision Note: I interviewed and examined the patient. Discussed with Dr. Flores and agree with findings and plan as documented in the note. Any exceptions or clarifications are listed here: None Documented By: Yamil Hawley breathing about the same, maybe slowly better vitlas noted nad breathing unlabored no pallor or icterus hypoxia, VALENTINE, severe pulmonary fibrosis, anemia, possibly elements of CHF -treat all underlying factors, supportive care, as above Continued [facility] stay due to: abnormal vital signs Resident Tracking Resident Involvement: Resident Care Provided Care Provided: Adult Hospital Medicine
--- NOTE | 2017-04-01 08:15 | Pulmonology Progress Note ---
Pulmonary Progress Note Date of Service Apr 01, 2017. Attending Dr. Moreland Subjective Patient continues with persistent SOB and hypoxia in spite of Hi Daniel O2. CT chest with progressive disease. Question of pneumonitis vs interstitial progression of disease. No sputum production. Chest pain is resolved. No fever or chills. No sweats. Denies pleuritic pain or hemoptysis Objective Vital Signs - as noted below Laboratory Data - as noted below Physical Exam: General - NAD Eyes - No icterus, gaze conjugate ENT - Mucosa moist, no lesions or candidiasis Neck - Supple, No JVD Lungs - No bronchospasm, rales, or rhonchi. Heart - Regular, rate controlled Abdomen - Soft, NT, ND, BS present Extremities - No edema, pedal pulses intact Neuro - A&OX3 Assessment & Plan ACUTE ON CHRONIC RESPIRATORY FAILURE * Primary fibrosis with very poor prognosis * Follows with Dr. Brown in the outpatient clinic - previously followed with Dr. Walls at [facility] * Chest x-ray with reticulonodular interstitial prominence throughout both hemithoraces * CT scan of the chest last night without contrast reveals progressive fibrosis worsening prognosis * Leukocytosis improved from 21.42-11.09. No further fever * VBG with no hypercapnia * Continue supportive care * Continue bronchodilators and methylprednisolone * Received cefepime and azithromycin in the ER * No evidence of infiltrate or consolidation on chest x-ray - will check noncontrast CT chest * Very poor prognosis. Will consider palliative care consult. Will also require outpatient follow-up with Dr. Brown NON-ST ELEVATED [facility] * Troponin plateaued at 0.973. This morning's troponin is 0.399 * No further chest pain * Continues with easy fatigability and hypoxia with any exertion * Preserved left ventricular ejection fraction * No wall motion abnormalities at rest * Cardiology following DVT PROPHYLAXIS * Continue Heparin drip * Ambulate as tolerated although this is minimized by hypoxia and recent VA Thank you for including us in the care of this patient. We will follow along with you. Please refer to Dr. Moreland's addendum for additional recommendations Data Medications: Current Inpatient Medications Medications (Trade) Dose Ordered Sig/Zeina Route Start Time Stop Time Status Last Admin Dose Admin Al Hydrox/Mg Hydrox/Simethicone (Maalox Max Susp) 15 ml Q4H PRN PO 03/30/17 20:15 04/29/17 20:14 Ondansetron HCl (Zofran Inj) 4 mg Q6H PRN IV 03/30/17 20:15 04/29/17 20:14 Nitroglycerin (Nitrostat Tab) 0.4 mg UD PRN SL 03/30/17 20:15 04/29/17 20:14 Morphine Sulfate (MoRPHine SULFATE INJ) 2 mg Q30M PRN IV 03/30/17 20:15 04/13/17 20:14 Polyethylene (Miralax Powder Packet) 17 gm DAILY PRN PO 03/30/17 20:15 04/29/17 20:14 Aspirin (Aspirin Chew) 81 mg QAM PO 03/31/17 09:00 04/30/17 08:59 03/31/17 08:19 81 MG Calcium/Vitamin D (Caltrate Plus Tab) 1 tab DAILY PO 03/31/17 09:00 04/30/17 08:59 03/31/17 08:21 1 TAB Diltiazem HCl (TIAzac CAP) 240 mg QAM PO 03/31/17 09:00 04/30/17 08:59 03/31/17 08:21 240 MG Fish Oil ([place]-3 (Purified Fish Oil) Cap) 1 gm QAM PO 03/31/17 09:00 04/30/17 08:59 03/31/17 08:20 1 GM Gabapentin (Neurontin Cap) 600 mg TID PO 03/30/17 21:00 04/29/17 20:59 03/31/17 20:12 600 MG Isosorbide Mononitrate (Imdur Ext Rel Tab) 120 mg BID PO 03/30/17 21:00 04/29/17 20:59 03/31/17 20:12 120 MG Ferrous Sulfate (Feosol Tab) 325 mg BID PO 03/30/17 21:00 04/29/17 20:59 03/31/17 20:12 325 MG Metoprolol Succinate (Toprol Xl Tab) 100 mg BID PO 03/30/17 21:00 04/29/17 20:59 03/31/17 20:13 100 MG Pantoprazole Sodium (Protonix Tab) 40 mg QAM PO 03/31/17 09:00 04/30/17 08:59 03/31/17 08:21 40 MG Methylprednisolone Sodium Succinate 40 mg/Syringe 0.64 ml @ 1.5 mls/min Q8H IV 03/31/17 08:00 04/30/17 07:59 04/01/17 01:07 1.5 MLS/MIN Insulin Aspart (novoLOG ASPART) SLIDING SCALE G... ACHS SC 03/30/17 21:00 04/29/17 20:59 03/31/17 20:57 16 UNITS Furosemide 40 mg/ Syringe 4 ml @ 4 mls/min BID17 IV 03/31/17 09:00 04/30/17 08:59 03/31/17 18:10 4 MLS/MIN Glucose (Glucose 40% Gel) 15-30 GRAMS 15 GRAMS... UD PRN PO 03/30/17 22:45 04/29/17 22:44 Glucose (Glucose Chew Tab) 4-8 Tablets 4 Tabl... UD PRN PO 03/30/17 22:45 04/29/17 22:44 Dextrose (Dextrose 50% 50ML Syringe) 25-50ML OF 50% DW IV FOR... UD PRN IV 03/30/17 22:45 04/29/17 22:44 Glucagon (Glucagon Inj) 1 mg UD PRN SQ 03/30/17 22:45 04/29/17 22:44 Insulin Glargine (Lantus Vial) 50 units HS SC 03/31/17 21:00 04/30/17 20:59 03/31/17 20:58 50 UNITS Insulin Glargine (Lantus Vial) 60 units QAM SC 04/01/17 09:00 05/01/17 08:59 Vital Signs: Date Time Temp Pulse Resp B/P (MAP) Pulse Ox O2 Delivery O2 Flow Rate FiO2 04/01/17 07:48 36.6 68 20 150/71 (97) 94 High Flow Oxygen 04/01/17 04:04 BiPAP 04/01/17 03:50 36.3 71 20 138/77 (97) 91 BiPAP 04/01/17 00:15 BiPAP 03/31/17 23:42 36.3 66 20 146/77 (100) 91 BiPAP 03/31/17 22:40 36.3 63 16 150/79 93 45.0 03/31/17 22:26 36.3 62 16 134/74 90 03/31/17 22:13 64 94 50 03/31/17 22:09 36.3 64 16 132/69 100 45.0 03/31/17 20:10 36.6 65 18 148/68 (94) 91 Free Flow/[place] 03/31/17 20:00 High Flow Oxygen 45.0 75 03/31/17 16:00 High Flow Oxygen 45.0 80 03/31/17 15:57 36.6 64 18 119/66 (83) 93 High Flow Oxygen 03/31/17 12:10 High Flow Oxygen 45.0 80 03/31/17 11:57 36.9 77 20 123/63 (83) 85 High Flow Oxygen 03/31/17 08:12 36.7 67 20 132/66 (88) 94 High Flow Oxygen Laboratory Results: Last 24 Hours Test 03/31/17 11:29 03/31/17 12:47 03/31/17 13:25 03/31/17 15:29 Bedside Glucose 470 mg/dl Activated Partial Thromboplast Time 44.2 SECONDS Partial Thromboplastin Ratio 1.7 Stool Occult Blood NEGATIVE Troponin I 0.399 ng/ml Test 03/31/17 16:10 03/31/17 16:16 03/31/17 19:31 03/31/17 20:36 Bedside Glucose 456 mg/dl 429 mg/dl 395 mg/dl Activated Partial Thromboplast Time 46.7 SECONDS Partial Thromboplastin Ratio 1.8 Test 03/31/17 20:37 03/31/17 23:43 04/01/17 01:01 04/01/17 04:44 Bedside Glucose 393 mg/dl 286 mg/dl Hemoglobin 10.1 g/dL Hematocrit 33.8 % Test 04/01/17 06:47 Bedside Glucose 265 mg/dl
[2017-04-01] MEDS: FUROSEMIDE INJ 40 MG in SYRINGE 0 ML IV SCH ×2 (08:42→16:59)
[2017-04-01] MEDS: DILTIAZEM HCL 120 MG EXT REL CAP PO SCH (08:44)
[2017-04-01] MEDS: GABAPENTIN 300 MG CAP PO SCH ×3 (08:44→20:55)
[2017-04-01] MEDS: ISOSORBIDE MONONITRATE 60 MG TABCR PO SCH ×2 (08:45→20:55)
[2017-04-01] MEDS: ASPIRIN 81 MG CHEW PO SCH (08:45)
[2017-04-01] MEDS: PANTOprazole SOD 40 MG TAB PO SCH (08:45)
[2017-04-01] MEDS: METOPROLOL SUCC 50MG EXT REL TAB PO SCH ×2 (08:45→20:55)
[2017-04-01] MEDS: OMEGA-3 (PURIFIED FISH OIL) 1 GM CAP PO SCH (08:45)
[2017-04-01] MEDS: CALCIUM 600MG + VIT D 400 IU TAB PO SCH (08:45)
[2017-04-01] MEDS: INSULIN ASPART 100 UNITS/ML 3 ML PEN SC SCH ×4 (08:48→21:00)
[2017-04-01 08:52] LABS: HEMATOCRIT 35.1 % (42-52); HEMOGLOBIN 10.8 g/dL (14.0-18.0); IG# 0.06 K/uL (0.00-0.02); LYMPH % 2.3 %; LYMPH ABS # 0.28 K/uL (1.2-3.4); MEAN CELL VOLUME 86.7 fL (80-100); MEAN CORPUSCULAR HEMOGLOBIN 26.7 pg (25-34); MEAN CORPUSCULAR HGB CONC 30.8 g/dl (32-36); MEAN PLATELET VOLUME 9.4 fL (7.4-10.4); MONO % 3.7 %; MONO ABS # 0.46 K/uL (0.11-0.59); NEUT % 93.5 %; NEUT ABS # 11.62 K/uL (1.4-6.5); NUCLEATED RED BLOOD CELL ABS 0.03 K/uL (0-0); PLATELET COUNT 377 K/uL (130-400); RED CELL DISTRIBUTION WIDTH CV 19.7 % (11.5-14.5); RED CELL DISTRIBUTION WIDTH SD 62.3 fL (36.4-46.3); WHITE BLOOD COUNT 12.42 K/uL (4.8-10.8)
[2017-04-01] MEDS ORDERED: INSULIN GLARGINE SC SCH (09:00)
[2017-04-01 09:09] LABS: CALCIUM 8.4 mg/dl (8.5-10.1); CREATININE 1.76 mg/dl (0.60-1.40); POTASSIUM 4.7 mmol/L (3.5-5.1)
[2017-04-01 11:34] VITALS: BP 152/69; PULSE 77; TEMP 36.9; O2SAT 87
[2017-04-01] MEDS: FERROUS SULFATE 325 MG TAB PO SCH ×2 (12:42→20:54)
[2017-04-01] MEDS ORDERED: NURSING VERBAL MED ORDER ONE (13:00)
[2017-04-01] MEDS ORDERED: AZITHROMYCIN 250 MG TAB PO ONE (13:15)
[2017-04-01] MEDS ORDERED: CEFDINIR 300 MG CAP PO ONE (13:15)
[2017-04-01] MEDS ORDERED: INSULIN GLARGINE SOLOSTAR 100 UNITS/ML 3 ML PEN SC ONE (13:15)
[2017-04-01 15:30] VITALS: BP_SYST 124; BP_SYST 138; BP_DIAS 60; BP_DIAS 72; PULSE 62; TEMP 36.5; O2SAT 92
[2017-04-01 18:57] VITALS: BP 147/67; PULSE 65; TEMP 36.7; O2SAT 92
[2017-04-01] MEDS: CEFDINIR 300 MG CAP PO SCH (20:54)
[2017-04-01] MEDS: INSULIN GLARGINE SC SCH (21:01)
[2017-04-01 23:33] VITALS: BP 115/65; PULSE 62; TEMP 36.7; O2SAT 97
[2017-04-02] VITALS (8 sets, daily range): BP systolic 118–158; BP diastolic 62–74; PULSE 58–67; TEMP 36.5–36.9; O2SAT 85–99; BMI 37.2
[2017-04-02 05:59] LABS: HEMATOCRIT 32.4 % (42-52); HEMOGLOBIN 9.7 g/dL (14.0-18.0); MEAN CELL VOLUME 86.4 fL (80-100); MEAN CORPUSCULAR HEMOGLOBIN 25.9 pg (25-34); MEAN CORPUSCULAR HGB CONC 29.9 g/dl (32-36); MEAN PLATELET VOLUME 9.5 fL (7.4-10.4); NUCLEATED RED BLOOD CELL ABS 0.03 K/uL (0-0); PLATELET COUNT 354 K/uL (130-400); RED CELL DISTRIBUTION WIDTH CV 19.4 % (11.5-14.5); RED CELL DISTRIBUTION WIDTH SD 61.6 fL (36.4-46.3); WHITE BLOOD COUNT 12.06 K/uL (4.8-10.8)
[2017-04-02 06:10] LABS: PTT PATIENT 22.5 SECONDS (21.0-31.0)
[2017-04-02 06:41] LABS: CALCIUM 8.1 mg/dl (8.5-10.1); CREATININE 1.58 mg/dl (0.60-1.40); POTASSIUM 4.2 mmol/L (3.5-5.1)
[2017-04-02] MEDS: METHYLPREDNISOLONE IV 40 MG in SYRINGE 0 ML IV SCH ×2 (07:47→20:38)
[2017-04-02] MEDS: ASPIRIN 81 MG CHEW PO SCH (07:47)
[2017-04-02] MEDS: FUROSEMIDE INJ 40 MG in SYRINGE 0 ML IV SCH ×2 (07:47→17:30)
[2017-04-02] MEDS: FERROUS SULFATE 325 MG TAB PO SCH ×2 (07:48→20:39)
[2017-04-02] MEDS: CALCIUM 600MG + VIT D 400 IU TAB PO SCH (07:48)
[2017-04-02] MEDS: ISOSORBIDE MONONITRATE 60 MG TABCR PO SCH ×2 (07:48→20:40)
[2017-04-02] MEDS: GABAPENTIN 300 MG CAP PO SCH ×3 (07:48→20:40)
[2017-04-02] MEDS: PANTOprazole SOD 40 MG TAB PO SCH (07:49)
[2017-04-02] MEDS: CEFDINIR 300 MG CAP PO SCH ×2 (07:49→20:39)
[2017-04-02] MEDS: OMEGA-3 (PURIFIED FISH OIL) 1 GM CAP PO SCH (07:49)
[2017-04-02] MEDS: DILTIAZEM HCL 120 MG EXT REL CAP PO SCH (07:49)
[2017-04-02] MEDS: METOPROLOL SUCC 50MG EXT REL TAB PO SCH ×2 (07:50→20:40)
[2017-04-02] MEDS: AZITHROMYCIN 250 MG TAB PO SCH (07:50)
[2017-04-02] MEDS: INSULIN GLARGINE SC SCH ×2 (07:51→20:53)
[2017-04-02] MEDS: INSULIN ASPART 100 UNITS/ML 3 ML PEN SC SCH ×4 (07:54→20:53)
--- NOTE | 2017-04-02 08:21 | Family Medicine Progress Note ---
Progress Note Date of Service Apr 02, 2017. Subjective Pt evaluation today including: conversation w/ patient, physical exam, chart review, lab review, review of studies, conversation w/ industrial rehabilitation consultant, review of inpatient medication list Patient states that he had an uneventful night, and feels better this morning after a good night of sleep, particularly as he was able to use his home CPAP machine. He is on 8L O2 via high flow NC currently. He denies any chest pain symptoms currently and denies fevers/chills, headaches, palpitations, abdominal pain, or rashes. He has not noticed significant worsening of his chronic lower extremity swelling. He is tolerating diet without nausea or vomiting. He is voiding without issue. ROS is unremarkable except as noted above. Objective Vital Signs Date Time Temp Pulse Resp B/P (MAP) Pulse Ox O2 Delivery O2 Flow Rate FiO2 04/02/17 07:37 36.6 67 20 158/74 (102) 95 BiPAP 10.0 04/02/17 04:06 36.5 61 18 118/62 (80) 99 CPAP 04/02/17 04:00 BiPAP 04/02/17 00:01 BiPAP 04/01/17 23:33 36.7 62 18 115/65 (82) 97 CPAP 04/01/17 20:00 High Flow Oxygen 45.0 80 04/01/17 18:57 36.7 65 22 147/67 (93) 92 Non-Rebreather 15.0 04/01/17 16:12 Non-Rebreather 15.0 04/01/17 15:30 36.5 62 24 124/60 (81) 92 Non-Rebreather 15.0 04/01/17 12:00 High Flow Oxygen 45.0 84 04/01/17 11:34 36.9 77 20 152/69 (96) 87 High Flow Oxygen Laboratory Results General Appearance: WD/WN, no apparent distress, + obese, + pertinent finding ( Oxygen mask, with high flow oxygen) Eyes: normal inspection ENT: hearing grossly normal Neck: supple Respiratory/Chest: no respiratory distress, no accessory muscle use, + decreased breath sounds (R>L), + crackles (bibasilar) Cardiovascular: regular rate, rhythm Abdomen: normal bowel sounds, non tender, soft Extremities: no calf tenderness, + pedal edema Neurologic/Psychiatric: alert, normal mood/affect, oriented x 3, Skin: normal color, warm/dry, no rash Assessment and Plan 66 yo m with a h/o severe CAD and pulmonary fibrosis with worsening dyspnea on exertion, elevated troponin, changes on EKG and hypoxia concerning for ischemia secondary to lung disease vs worsening CAD/ cardiomyopathy Acute on chronic hypoxic resp failure secondary to progression of pulmonary fibrosis vs. anemia (see below)- Pulm consulted, recs appreciated. Follows with Dr. Brown in the outpatient clinic. CXR: Persistent reticulonodular and interstitial prominence throughout both hemithoraces. Moderate cardiomegaly with findings of atypical congestive failure versus pulmonary edema considered. CT chest: evidence of emphysema and chronic interstitial lung disease. Groundglass consolidation is seen throughout the left lung and in the right lower lung suggesting superimposed infectious/inflammatory pneumonitis. Enlarged mediastinal lymph nodes. Cardiomegaly. Leukocytosis improved to 11.09. VBG with no hypercapnia - For infectious pneumonitis, continue PO cefdinir and azithromycin - Continue supportive care for chronic lung disease - Continue Solumedrol from 40mg q12h - Continue bronchodilators - Palliative consulted NSTEMI with chest pain likely due to ischemia (type II non ACS) - background CAD s/p CABG x 4 Vessels 2000 and multiple intracoronary stents. Cardiology consulted, recs appreciated. Echo reports mild concentric LV hypertrophy with normal systolic function, EF 60-65%. Diastolic dysfunction, Grade II, consistent with elevated left atrial pressure. RV is mild to moderately dilated. LA is mildly dilated. RA is moderately dilated. Flattened septum consistent with RV pressure overload, with RV systolic pressure elevated at > 60mmHg. Trop peaked at 0.1 and trended down - Continue on home cardiac medications - Diltiazem, Imdur, Toprol XL, and Aspirin - Resume Spironolactone 25 mg daily and Losartan 25 mg daily when renal function allows. - Heparin drip for now, resume Xarelto at discharge. Fe def anemia, new onset on background of anemia of chronic disease - CBC reflected a new/ worsening anemia (baseline 14 and was 8.5 on Mar 23). Retics elevated, Haptoglobin pending, FOBT negative. s/p transfusion of 1 unit of pRBC - Continue ferrous sulfate PO - Trend H/H TYSHAWN on CKD III secondary to poor perfusion/ possible vs. acute on chronic dCHF exacerbation - BUN:Cr > 20 so more likely prerenal, UA did not reflect intrarenal source. CXR showed some congestive changes - IV Lasix 40mg BID - I&O and daily weight - Trend BMP DMII - HbA1c 5.2 - Increased patient's insulin regimen to [place] 60 units BID + ISS (with tighter parameters) - will loosen once off steroids - BSG ac/hs Elevated LFT - baseline - Monitor, unable to take statin (causes rash) HTN/ HLD /CAD/ PAF - Continue on home cardiac medications - Diltiazem, Imdur, metoprolol, and Aspirin - Lasix dose increased as above - Hold Spironolactone and Losartan for hyperkalemia - Nitrostat for chest pain - Heparin drip for now, resume Xarelto at discharge. Hyperkalemia - resolved - Reflective of the TYSHAWN, possibly aggravated by elevated BSG - Trend BMP - EKG in am to monitor for changes concerning for conduction abnormalities DM Neuropathy - Gabapentin 600 mg tid Hypermagnesemia - Trend Mg DVT prophylaxis - Heparin drip DO NOT RESUSCITATE Resident Physician Supervision Note: I interviewed and examined the patient. Discussed with Dr. Flores and agree with findings and plan as documented in the note. Any exceptions or clarifications are listed here: None Documented By: Yamil Hawley d/w pulmonary as well efforts greatly appreciated feeling a little better nolvia barrow gunlabored end stage pulmonary fibrosis, anemia, some elements of infectious overlay, some elements of CHF -imrpoving in the acute sense, goal will be to get to O2 requirements that are low enough to allow him to go home Resident Tracking Resident Involvement: Resident Care Provided Care Provided: Adult Hospital Medicine
--- NOTE | 2017-04-02 15:38 | Palliative Care Consultation ---
Consultation Date of Consultation: Apr 02, 2017. Requesting Physician: Dr. Flores Attending Physician: Dr. Hawley, Dr. Flores Reason for Consultation: Goals of care, "discuss ways to improve quality of life" History of Present Illness This 66 year old male patient with PMH severe pulmonary fibrosis, chronic respiratory failure, sleep apnea, CHF, hx CABG, and others listed below, presented to the hospital three days ago with SOB. Patient was being seen outpatient when he became dyspneic with O2 sat of 69% and sharp substernal chest pain, so he was referred to ED. Patient suffered NSTEMI for which he is being followed by cardiology. For the severe pulmonary fibrosis, he is seen by pulmonology. Jorge Urbano PA-C, is seeing patient here in hospital. Currently, patient is requiring high-flow nasal cannula at 50LPM and CPAP at night. On PO and IV abx for potential infectious pneumonitis. Per notes from pulmonology, patient's prognosis is rather poor. Palliative care is asked to see him to discuss ways to improve quality of life and for goals of care. I met with the patient and his , Yoselin, in room 235. Patient is awake, alert and oriented x4, sitting up in chair eating lunch. He is obese, in no apparent distress on high-flow nasal cannula. We discussed patient's medical condition. Patient is very hard of hearing, so conversation was somewhat strained. Yoselin states that they are aware that patient's disease is "incurable ," but they really do not know what to expect in the future. Recently, patient has been having increased difficulty at home with increased SOB and episodes of hypoxia when trying to ambulate through the house. Patient checks his pulse ox frequently and states he "gets himself all worked up." Patient denies that he has anxiety, but did admit to getting worked up when he sees his pulse ox drop into the 80s. We discussed waiting to check pulse ox until he has sat down for 5-10 minutes and has given himself a chance to catch his breath. Patient still plans on going home after this hospitalization. I expressed my concern that the level of oxygen he is requiring at this time cannot be done anywhere outside of the hospital. If he does not improve with steroids and abx enough to have oxygen weaned down to his baseline of 8LNC, we may need to have a discussion about changing goals of care from "getting better" to focusing on comfort. He and his understand. Past Medical/Surgical History Medical History: CABG 2001 x3 vessels Stents 2009 x 4 Aflutter on xarelto Carotid artery stenosis Fatty liver with elevated LFT Iron deficiency anemia Pulmonary fibrosis 2014 CVA DM type 2 DM neuropathy Htn CKD stage III Social History Smoking Status: Former Smoker (quit in 1996) History of Alcohol Use: No Drug Use: none Marital Status: Housing Status: lives with family Occupation Status: retired (worked [employer]), disabled Review of Systems Constitutional: No fever, No chills, No weakness (back to baseline per patient) ENT: No trouble swallowing Respiratory: + cough, + dyspnea on exertion, No wheezing, No dyspnea at rest Cardiac: No chest pain (resolved), No edema Abdomen: No pain, No nausea, No vomiting Psychiatric: + problem reported (although reports anxious behaviors at home), No depression symptoms, No anxiety Allergies Coded Allergies: Doxycycline (Verified Allergy, Intermediate, RASH, 03/30/17) Hydrocodone (Verified Allergy, Intermediate, RASH, 03/30/17) Replaces LORTAB ELIXIR Iodinated Diagnostic Agents (Verified Allergy, Intermediate, RASH, 03/30/17 ) Losartan (Verified Allergy, Intermediate, RASH, 03/30/17) Lovastatin (Verified Allergy, Intermediate, RASH, 03/30/17) Penicillins (Verified Allergy, Intermediate, RASH, 03/30/17) Quinolones (Verified Allergy, Intermediate, RASH, 03/30/17) Tetracycline (Verified Allergy, Intermediate, RASH, 03/30/17) Latex1 -Allergic Contact Dermititis (Verified Allergy, Mild, RASH, 03/30/17 ) Tetracyclines (Verified Allergy, Unknown, RASH, 03/30/17) Medications Current Inpatient Medications Medications (Trade) Dose Ordered Sig/Zeina Route Start Time Stop Time Status Last Admin Dose Admin Al Hydrox/Mg Hydrox/Simethicone (Maalox Max Susp) 15 ml Q4H PRN PO 03/30/17 20:15 04/29/17 20:14 Ondansetron HCl (Zofran Inj) 4 mg Q6H PRN IV 03/30/17 20:15 04/29/17 20:14 Nitroglycerin (Nitrostat Tab) 0.4 mg UD PRN SL 03/30/17 20:15 04/29/17 20:14 Morphine Sulfate (MoRPHine SULFATE INJ) 2 mg Q30M PRN IV 03/30/17 20:15 04/13/17 20:14 Polyethylene (Miralax Powder Packet) 17 gm DAILY PRN PO 03/30/17 20:15 04/29/17 20:14 Aspirin (Aspirin Chew) 81 mg QAM PO 03/31/17 09:00 04/30/17 08:59 04/02/17 07:47 81 MG Calcium/Vitamin D (Caltrate Plus Tab) 1 tab DAILY PO 03/31/17 09:00 04/30/17 08:59 04/02/17 07:48 1 TAB Diltiazem HCl (TIAzac CAP) 240 mg QAM PO 03/31/17 09:00 04/30/17 08:59 04/02/17 07:49 240 MG Fish Oil ([place]-3 (Purified Fish Oil) Cap) 1 gm QAM PO 03/31/17 09:00 04/30/17 08:59 04/02/17 07:49 1 GM Gabapentin (Neurontin Cap) 600 mg TID PO 03/30/17 21:00 04/29/17 20:59 04/02/17 13:55 600 MG Isosorbide Mononitrate (Imdur Ext Rel Tab) 120 mg BID PO 03/30/17 21:00 04/29/17 20:59 04/02/17 07:48 120 MG Ferrous Sulfate (Feosol Tab) 325 mg BID PO 03/30/17 21:00 04/29/17 20:59 04/02/17 07:48 325 MG Metoprolol Succinate (Toprol Xl Tab) 100 mg BID PO 03/30/17 21:00 04/29/17 20:59 04/02/17 07:50 100 MG Pantoprazole Sodium (Protonix Tab) 40 mg QAM PO 03/31/17 09:00 04/30/17 08:59 04/02/17 07:49 40 MG Insulin Aspart (novoLOG ASPART) SLIDING SCALE G... ACHS SC 03/30/17 21:00 04/29/17 20:59 04/02/17 12:19 26 UNITS Furosemide 40 mg/ Syringe 4 ml @ 4 mls/min BID17 IV 03/31/17 09:00 04/30/17 08:59 04/02/17 07:47 4 MLS/MIN Glucose (Glucose 40% Gel) 15-30 GRAMS 15 GRAMS... UD PRN PO 03/30/17 22:45 04/29/17 22:44 Glucose (Glucose Chew Tab) 4-8 Tablets 4 Tabl... UD PRN PO 03/30/17 22:45 04/29/17 22:44 Dextrose (Dextrose 50% 50ML Syringe) 25-50ML OF 50% DW IV FOR... UD PRN IV 03/30/17 22:45 04/29/17 22:44 Glucagon (Glucagon Inj) 1 mg UD PRN SQ 03/30/17 22:45 04/29/17 22:44 Cefdinir (Omnicef Cap) 300 mg BID PO 04/01/17 21:00 04/08/17 08:59 04/02/17 07:49 300 MG Azithromycin (Zithromax Tab) 500 mg QAM PO 04/02/17 09:00 04/08/17 08:59 04/02/17 07:50 500 MG Methylprednisolone Sodium Succinate 40 mg/Syringe 0.64 ml @ 1.5 mls/min Q12 IV 04/01/17 21:00 04/30/17 07:59 04/02/17 07:47 1.5 MLS/MIN Insulin Glargine (Lantus Vial) 60 units HS SC 04/01/17 21:00 04/30/17 20:59 04/01/17 21:01 60 UNITS Insulin Glargine (Lantus Vial) 70 units QAM SC 04/02/17 09:00 05/01/17 08:59 04/02/17 07:51 70 UNITS Physical Exam Date Time Temp Pulse Resp B/P (MAP) Pulse Ox O2 Delivery O2 Flow Rate FiO2 04/02/17 12:00 High Flow Oxygen 50.0 70 04/02/17 11:17 36.6 67 20 130/66 (87) 90 50.0 70 04/02/17 08:00 High Flow Oxygen 50.0 70 04/02/17 07:37 36.6 67 20 158/74 (102) 95 BiPAP 10.0 04/02/17 04:06 36.5 61 18 118/62 (80) 99 CPAP 04/02/17 04:00 BiPAP 04/02/17 00:01 BiPAP 04/01/17 23:33 36.7 62 18 115/65 (82) 97 CPAP 04/01/17 20:00 High Flow Oxygen 45.0 80 04/01/17 18:57 36.7 65 22 147/67 (93) 92 Non-Rebreather 15.0 04/01/17 16:12 Non-Rebreather 15.0 04/01/17 15:30 36.5 62 24 124/60 (81) 92 Non-Rebreather 15.0 General Appearance: no apparent distress, + obese ENT: + pertinent finding (very hard of hearing) Neck: supple, no JVD Respiratory: no respiratory distress, no accessory muscle use, + decreased breath sounds (air exchange extremely diminished) Cardiovascular: regular rate, rhythm, + normal peripheral pulses Abdomen: normal bowel sounds, non tender, soft Neurologic/Psychiatric: alert, normal mood/affect, oriented x 3 Laboratory Results Last 24 Hours Test 04/01/17 16:28 04/01/17 20:15 04/01/17 23:30 04/02/17 05:29 Bedside Glucose 246 mg/dl 337 mg/dl 234 mg/dl White Blood Count 12.06 K/uL Red Blood Count 3.75 M/uL Hemoglobin 9.7 g/dL Hematocrit 32.4 % Mean Corpuscular Volume 86.4 fL Mean Corpuscular Hemoglobin 25.9 pg Mean Corpuscular Hemoglobin Concent 29.9 g/dl RDW Standard Deviation 61.6 fL RDW Coefficient of Variation 19.4 % Platelet Count 354 K/uL Mean Platelet Volume 9.5 fL Nucleated RBC Absolute Count (auto) 0.03 K/uL Nucleated Red Blood Cells % 0.2 % Activated Partial Thromboplast Time 22.5 SECONDS Partial Thromboplastin Ratio 0.9 Sodium Level 138 mmol/L Potassium Level 4.2 mmol/L Chloride Level 104 mmol/L Carbon Dioxide Level 28 mmol/L Anion Gap 6.0 mmol/L Blood Urea Nitrogen 68 mg/dl Creatinine 1.58 mg/dl Est Creatinine Clear Calc Drug Dose 49.0 ml/min Estimated GFR () 51.3 Estimated GFR (Non- 44.3 BUN/Creatinine Ratio 42.8 Random Glucose 142 mg/dl Calcium Level 8.1 mg/dl Test 04/02/17 07:02 04/02/17 10:59 Bedside Glucose 163 mg/dl 354 mg/dl Assessment & Plan Problem list: SOB/hypoxia Chest pain- resolved Acute on chronic respiratory failure- requiring high-flow nasal cannula during day Obstructive sleep apnea- CPAP at night Severe pulmonary fibrosis NSTEMI Anemia, hx iron deficiency TYSHAWN on CKD DM type 2 Elevated LEFT Hx CAD, htn, HLD, PAF Goals of care Palliative care recs: -Patient still wishes to remain full code at this time. States he wants everything done, but would NOT ever want trach/PEG or long-term mechanical ventilation. He would want a trial, and if no improvement then he would want terminal extubation and to be made comfortable (if it would come to needing intubation). -Patient experiences SOB and hypoxia at home. Constantly checks his pulse ox at home and becomes anxious. Perhaps lorazepam 1mg PO/SL TID PRN would be helpful for this. Hesitant to add any morphine at this time considering patient still has strong wish to get better. -Currently on high-flow nasal cannula. This cannot be continued outside of the hospital. Patient is being treated with steroids and abx for possible infectious pneumonitis. Maximum amount of oxygen which can be continued outside of hospital would be 10LNC. Pulmonary following. -Goals of care will be ongoing conversation. Patient and stated they've never given much thought to what wishes would be when things progress and get worse. Thank you kindly for this consult. I will follow as needed.
--- NOTE | 2017-04-02 18:50 | Pulmonology Progress Note ---
Pulmonary Progress Note Date of Service Apr 02, 2017. Attending Dr. Moreland Subjective The patient is a 66 yo male that recently established with Dr. Brown that has end stage pulmonary fibrosis and interstitial lung disease. He was admitted for SOB with chest pain and found to have a NSTEMI suspected to be secondary to hypoxia. He initially required Hi Daniel O2 and BiPAP but has shown some improvement and is now on an Oxymask at 15 L/min and is using his home CPAP at night and at rest. He has no further chest pain and denies fever or significant sputum production. I had a long discussion with him regarding his discussion. His , twin brother and [id number] participated as well. He desires to be kept comfortable in the event of further cardiopulmonary events or decompensation and explicitly does not want chest compressions or mechanical ventilation in the event of cardiopulmonary arrest. Dr. Hawley and Dr. Moreland are aware and in agreement. Objective Vital Signs - as noted below Laboratory Data - as noted below Physical Exam: General - NAD Eyes - No icterus, gaze conjugate ENT - Mucosa moist, no lesions or candidiasis Neck - Supple, No JVD Lungs - No bronchospasm, rales, or rhonchi. Good aeration in all lung ovalles Heart - Regular, rate controlled Abdomen - Soft, NT, ND, BS present Extremities - Trace B/L LE edema, pedal pulses intact Neuro - A&OX3 Assessment & Plan ACUTE ON CHRONIC RESPIRATORY FAILURE * Primary fibrosis with very poor prognosis * Follows with Dr. Brown in the outpatient clinic - previously followed with Dr. Conrad at [facility] * Chest x-ray with reticulonodular interstitial prominence throughout both hemithoraces * CT scan of the chest revealed progressive fibrosis with worsening prognosis * Leukocytosis improved. No further fever * VBG with no hypercapnia * Continue supportive care * Continue bronchodilators and methylprednisolone * Very poor prognosis. Code status changed to DNR/DNI. Palliative care consult. * Dr. Brown will assume inpatient care on Wednesday NON-ST ELEVATED [place] * Troponin plateaued at 0.973. This morning's troponin is 0.399 * Preserved left ventricular ejection fraction * No wall motion abnormalities at rest * Cardiology following and managing DVT PROPHYLAXIS * Continue Heparin drip * Ambulate as tolerated although this is minimized by hypoxia and recent [place] Thank you for including us in the care of this patient. We will follow along with you. Please refer to Dr. Moreland's addendum for additional recommendations. Dr. Brown will assume care from a pulmonary standpoint on Wednesday Data Medications: Current Inpatient Medications Medications (Trade) Dose Ordered Sig/Zeina Route Start Time Stop Time Status Last Admin Dose Admin Al Hydrox/Mg Hydrox/Simethicone (Maalox Max Susp) 15 ml Q4H PRN PO 03/30/17 20:15 04/29/17 20:14 Ondansetron HCl (Zofran Inj) 4 mg Q6H PRN IV 03/30/17 20:15 04/29/17 20:14 Nitroglycerin (Nitrostat Tab) 0.4 mg UD PRN SL 03/30/17 20:15 04/29/17 20:14 Morphine Sulfate (MoRPHine SULFATE INJ) 2 mg Q30M PRN IV 03/30/17 20:15 04/13/17 20:14 Polyethylene (Miralax Powder Packet) 17 gm DAILY PRN PO 03/30/17 20:15 04/29/17 20:14 Aspirin (Aspirin Chew) 81 mg QAM PO 03/31/17 09:00 04/30/17 08:59 04/02/17 07:47 81 MG Calcium/Vitamin D (Caltrate Plus Tab) 1 tab DAILY PO 03/31/17 09:00 04/30/17 08:59 04/02/17 07:48 1 TAB Diltiazem HCl (TIAzac CAP) 240 mg QAM PO 03/31/17 09:00 04/30/17 08:59 04/02/17 07:49 240 MG Fish Oil ([place]-3 (Purified Fish Oil) Cap) 1 gm QAM PO 03/31/17 09:00 04/30/17 08:59 04/02/17 07:49 1 GM Gabapentin (Neurontin Cap) 600 mg TID PO 03/30/17 21:00 04/29/17 20:59 04/02/17 13:55 600 MG Isosorbide Mononitrate (Imdur Ext Rel Tab) 120 mg BID PO 03/30/17 21:00 04/29/17 20:59 04/02/17 07:48 120 MG Ferrous Sulfate (Feosol Tab) 325 mg BID PO 03/30/17 21:00 04/29/17 20:59 04/02/17 07:48 325 MG Metoprolol Succinate (Toprol Xl Tab) 100 mg BID PO 03/30/17 21:00 04/29/17 20:59 04/02/17 07:50 100 MG Pantoprazole Sodium (Protonix Tab) 40 mg QAM PO 03/31/17 09:00 04/30/17 08:59 04/02/17 07:49 40 MG Insulin Aspart (novoLOG ASPART) SLIDING SCALE G... ACHS SC 03/30/17 21:00 04/29/17 20:59 04/02/17 17:32 14 UNITS Furosemide 40 mg/ Syringe 4 ml @ 4 mls/min BID17 IV 03/31/17 09:00 04/30/17 08:59 04/02/17 17:30 4 MLS/MIN Glucose (Glucose 40% Gel) 15-30 GRAMS 15 GRAMS... UD PRN PO 03/30/17 22:45 04/29/17 22:44 Glucose (Glucose Chew Tab) 4-8 Tablets 4 Tabl... UD PRN PO 03/30/17 22:45 04/29/17 22:44 Dextrose (Dextrose 50% 50ML Syringe) 25-50ML OF 50% DW IV FOR... UD PRN IV 03/30/17 22:45 04/29/17 22:44 Glucagon (Glucagon Inj) 1 mg UD PRN SQ 03/30/17 22:45 04/29/17 22:44 Cefdinir (Omnicef Cap) 300 mg BID PO 04/01/17 21:00 04/08/17 08:59 04/02/17 07:49 300 MG Azithromycin (Zithromax Tab) 500 mg QAM PO 04/02/17 09:00 04/08/17 08:59 04/02/17 07:50 500 MG Methylprednisolone Sodium Succinate 40 mg/Syringe 0.64 ml @ 1.5 mls/min Q12 IV 04/01/17 21:00 04/30/17 07:59 04/02/17 07:47 1.5 MLS/MIN Insulin Glargine (Lantus Vial) 60 units HS SC 04/01/17 21:00 04/30/17 20:59 04/01/17 21:01 60 UNITS Insulin Glargine (Lantus Vial) 70 units QAM SC 04/02/17 09:00 05/01/17 08:59 04/02/17 07:51 70 UNITS I & O: 24-Hour Column 04/03/17 08:00 Intake Total 780 ml Output Total 900 ml Balance -120 ml Vital Signs: Date Time Temp Pulse Resp B/P (MAP) Pulse Ox O2 Delivery O2 Flow Rate FiO2 04/02/17 16:00 90 Oxymask 15.0 04/02/17 15:00 36.9 58 18 131/66 (87) 90 Oxymask 15.0 04/02/17 12:00 High Flow Oxygen 50.0 70 04/02/17 11:17 36.6 67 20 130/66 (87) 90 50.0 70 04/02/17 08:00 High Flow Oxygen 50.0 70 04/02/17 07:37 36.6 67 20 158/74 (102) 95 BiPAP 10.0 04/02/17 04:06 36.5 61 18 118/62 (80) 99 CPAP 04/02/17 04:00 BiPAP 04/02/17 00:01 BiPAP 04/01/17 23:33 36.7 62 18 115/65 (82) 97 CPAP 04/01/17 20:00 High Flow Oxygen 45.0 80 04/01/17 18:57 36.7 65 22 147/67 (93) 92 Non-Rebreather 15.0 Laboratory Results: Last 24 Hours Test 04/01/17 20:15 04/01/17 23:30 04/02/17 05:29 04/02/17 07:02 Bedside Glucose 337 mg/dl 234 mg/dl 163 mg/dl White Blood Count 12.06 K/uL Red Blood Count 3.75 M/uL Hemoglobin 9.7 g/dL Hematocrit 32.4 % Mean Corpuscular Volume 86.4 fL Mean Corpuscular Hemoglobin 25.9 pg Mean Corpuscular Hemoglobin Concent 29.9 g/dl RDW Standard Deviation 61.6 fL RDW Coefficient of Variation 19.4 % Platelet Count 354 K/uL Mean Platelet Volume 9.5 fL Nucleated RBC Absolute Count (auto) 0.03 K/uL Nucleated Red Blood Cells % 0.2 % Activated Partial Thromboplast Time 22.5 SECONDS Partial Thromboplastin Ratio 0.9 Sodium Level 138 mmol/L Potassium Level 4.2 mmol/L Chloride Level 104 mmol/L Carbon Dioxide Level 28 mmol/L Anion Gap 6.0 mmol/L Blood Urea Nitrogen 68 mg/dl Creatinine 1.58 mg/dl Est Creatinine Clear Calc Drug Dose 49.0 ml/min Estimated GFR () 51.3 Estimated GFR (Non- 44.3 BUN/Creatinine Ratio 42.8 Random Glucose 142 mg/dl Calcium Level 8.1 mg/dl Test 04/02/17 10:59 04/02/17 16:47 Bedside Glucose 354 mg/dl 213 mg/dl
[2017-04-03] VITALS (7 sets, daily range): BP systolic 110–147; BP diastolic 52–71; PULSE 60–63; TEMP 36.2–36.7; O2SAT 88–97
[2017-04-03 06:20] LABS: BASO % 0.1 %; BASO ABS # 0.01 K/uL (0-0.2); HEMATOCRIT 34.5 % (42-52); HEMOGLOBIN 10.5 g/dL (14.0-18.0); LYMPH % 3.6 %; LYMPH ABS # 0.51 K/uL (1.2-3.4); MEAN CORPUSCULAR HEMOGLOBIN 26.2 pg (25-34); MEAN CORPUSCULAR HGB CONC 30.4 g/dl (32-36); MEAN PLATELET VOLUME 9.2 fL (7.4-10.4); MONO % 4.6 %; MONO ABS # 0.66 K/uL (0.11-0.59); NEUT ABS # 12.95 K/uL (1.4-6.5); PLATELET COUNT 325 K/uL (130-400); RED CELL DISTRIBUTION WIDTH CV 19.1 % (11.5-14.5); RED CELL DISTRIBUTION WIDTH SD 60.2 fL (36.4-46.3); WHITE BLOOD COUNT 14.23 K/uL (4.8-10.8)
[2017-04-03 06:53] LABS: CALCIUM 8.1 mg/dl (8.5-10.1); CREATININE 1.51 mg/dl (0.60-1.40); POTASSIUM 4.3 mmol/L (3.5-5.1)
[2017-04-03] MEDS: ISOSORBIDE MONONITRATE 60 MG TABCR PO SCH ×2 (08:04→20:13)
[2017-04-03] MEDS: METHYLPREDNISOLONE IV 40 MG in SYRINGE 0 ML IV SCH ×2 (08:04→21:55)
[2017-04-03] MEDS: GABAPENTIN 300 MG CAP PO SCH ×3 (08:05→20:13)
[2017-04-03] MEDS: FERROUS SULFATE 325 MG TAB PO SCH ×2 (08:05→20:13)
[2017-04-03] MEDS: CALCIUM 600MG + VIT D 400 IU TAB PO SCH (08:05)
[2017-04-03] MEDS: OMEGA-3 (PURIFIED FISH OIL) 1 GM CAP PO SCH (08:06)
[2017-04-03] MEDS: CEFDINIR 300 MG CAP PO SCH ×2 (08:06→20:13)
[2017-04-03] MEDS: ASPIRIN 81 MG CHEW PO SCH (08:06)
[2017-04-03] MEDS: AZITHROMYCIN 250 MG TAB PO SCH (08:06)
[2017-04-03] MEDS: DILTIAZEM HCL 120 MG EXT REL CAP PO SCH (08:06)
[2017-04-03] MEDS: PANTOprazole SOD 40 MG TAB PO SCH (08:06)
[2017-04-03] MEDS: INSULIN ASPART 100 UNITS/ML 3 ML PEN SC SCH ×4 (08:11→20:17)
[2017-04-03] MEDS: INSULIN GLARGINE SC SCH ×2 (08:12→20:17)
[2017-04-03] MEDS: METOPROLOL SUCC 50MG EXT REL TAB PO SCH ×2 (09:15→20:13)
[2017-04-03] MEDS: FUROSEMIDE INJ 40 MG in SYRINGE 0 ML IV SCH ×2 (09:15→17:09)
--- NOTE | 2017-04-03 10:58 | Pulmonology Progress Note ---
Pulmonary Progress Note Date of Service Apr 03, 2017. Attending Dr. Moreland Subjective Mr. Ramirez is doing well today. He states he slept well last night. He did tolerate the CPAP and is currently on an Oxymask at 15 L/min. He continues to have difficulty clearing secretions but does feel as though he is secretions to be swallowing. He denies any chest pain or tightness. He has no back pain. He denies any fever, sweats, rigors. He has no acute complaints. Objective Vital Signs - as noted below Laboratory Data - as noted below Physical Exam: General - NAD Eyes - No icterus, gaze conjugate ENT - Mucosa moist, no lesions or candidiasis Neck - Supple, No JVD Lungs - No bronchospasm, rales, or rhonchi. Good aeration in all lung ovalles. Continues with stable exam Heart - Regular, rate controlled Abdomen - Soft, NT, ND, BS present Extremities - Trace B/L LE edema, pedal pulses intact Neuro - A&OX3 Assessment & Plan ACUTE ON CHRONIC RESPIRATORY FAILURE * Primary fibrosis with very poor prognosis * Follows with Dr. Brown in the outpatient clinic - [facility] * Was able to titrate Oxymask down to 10 L/m. Continue titrate as tolerated. Maintain SaO2 between 86 and 90% as long as patient is asymptomatic * Continue bronchodilators and methylprednisolone * Very poor prognosis. Code status changed to DNR/DNI. Palliative care consult. * Dr. Brown will assume inpatient care on Wednesday NON-ST ELEVATED [place] * Troponin plateaued and has successfully down trended * Preserved left ventricular ejection fraction * No wall motion abnormalities at rest * Cardiology following and managing DVT PROPHYLAXIS * Continue Heparin drip * Ambulate as tolerated although this is minimized by hypoxia and recent [place] Thank you for including us in the care of this patient. We will follow along with you. Dr. Brown will assume care from a pulmonary standpoint on Wednesday Data Medications: Current Inpatient Medications Medications (Trade) Dose Ordered Sig/Zeina Route Start Time Stop Time Status Last Admin Dose Admin Al Hydrox/Mg Hydrox/Simethicone (Maalox Max Susp) 15 ml Q4H PRN PO 03/30/17 20:15 04/29/17 20:14 Ondansetron HCl (Zofran Inj) 4 mg Q6H PRN IV 1/23/18 20:15 04/29/17 20:14 Nitroglycerin (Nitrostat Tab) 0.4 mg UD PRN SL 03/30/17 20:15 04/29/17 20:14 Morphine Sulfate (MoRPHine SULFATE INJ) 2 mg Q30M PRN IV 03/30/17 20:15 04/13/17 20:14 Polyethylene (Miralax Powder Packet) 17 gm DAILY PRN PO 03/30/17 20:15 04/29/17 20:14 Aspirin (Aspirin Chew) 81 mg QAM PO 03/31/17 09:00 04/30/17 08:59 04/03/17 08:06 81 MG Calcium/Vitamin D (Caltrate Plus Tab) 1 tab DAILY PO 03/31/17 09:00 04/30/17 08:59 04/03/17 08:05 1 TAB Diltiazem HCl (TIAzac CAP) 240 mg QAM PO 03/31/17 09:00 04/30/17 08:59 04/03/17 08:06 240 MG Fish Oil ([place]-3 (Purified Fish Oil) Cap) 1 gm QAM PO 03/31/17 09:00 04/30/17 08:59 04/03/17 08:06 1 GM Gabapentin (Neurontin Cap) 600 mg TID PO 03/30/17 21:00 04/29/17 20:59 04/03/17 08:05 600 MG Isosorbide Mononitrate (Imdur Ext Rel Tab) 120 mg BID PO 03/30/17 21:00 04/29/17 20:59 04/03/17 08:04 120 MG Ferrous Sulfate (Feosol Tab) 325 mg BID PO 03/30/17 21:00 04/29/17 20:59 04/03/17 08:05 325 MG Metoprolol Succinate (Toprol Xl Tab) 100 mg BID PO 03/30/17 21:00 04/29/17 20:59 04/03/17 09:15 100 MG Pantoprazole Sodium (Protonix Tab) 40 mg QAM PO 03/31/17 09:00 04/30/17 08:59 04/03/17 08:06 40 MG Insulin Aspart (novoLOG ASPART) SLIDING SCALE G... ACHS SC 03/30/17 21:00 04/29/17 20:59 04/03/17 08:11 10 UNITS Furosemide 40 mg/ Syringe 4 ml @ 4 mls/min BID17 IV 03/31/17 09:00 04/30/17 08:59 04/03/17 09:15 4 MLS/MIN Glucose (Glucose 40% Gel) 15-30 GRAMS 15 GRAMS... UD PRN PO 03/30/17 22:45 04/29/17 22:44 Glucose (Glucose Chew Tab) 4-8 Tablets 4 Tabl... UD PRN PO 03/30/17 22:45 04/29/17 22:44 Dextrose (Dextrose 50% 50ML Syringe) 25-50ML OF 50% DW IV FOR... UD PRN IV 03/30/17 22:45 04/29/17 22:44 Glucagon (Glucagon Inj) 1 mg UD PRN SQ 03/30/17 22:45 04/29/17 22:44 Cefdinir (Omnicef Cap) 300 mg BID PO 04/01/17 21:00 04/08/17 08:59 04/03/17 08:06 300 MG Azithromycin (Zithromax Tab) 500 mg QAM PO 04/02/17 09:00 04/08/17 08:59 04/03/17 08:06 500 MG Methylprednisolone Sodium Succinate 40 mg/Syringe 0.64 ml @ 1.5 mls/min Q12 IV 04/01/17 21:00 04/30/17 07:59 04/03/17 08:04 1.5 MLS/MIN Insulin Glargine (Lantus Vial) 60 units HS SC 04/01/17 21:00 04/30/17 20:59 04/02/17 20:53 60 UNITS Insulin Glargine (Lantus Vial) 70 units QAM SC 04/02/17 09:00 05/01/17 08:59 04/03/17 08:12 70 UNITS Vital Signs: Date Time Temp Pulse Resp B/P (MAP) Pulse Ox O2 Delivery O2 Flow Rate FiO2 04/03/17 08:00 Oxymask 15.0 04/03/17 07:19 36.7 62 20 111/56 (74) 97 CPAP 04/03/17 04:00 CPAP 7.0 04/03/17 03:48 36.6 63 110/52 (71) 88 04/03/17 00:00 CPAP 7.0 04/02/17 23:27 36.9 58 18 144/73 (96) 92 04/02/17 20:00 86 Oxymask 15.0 04/02/17 19:04 36.8 65 18 143/70 (94) 85 Oxymask 15.0 04/02/17 16:00 90 Oxymask 15.0 04/02/17 15:00 36.9 58 18 131/66 (87) 90 Oxymask 15.0 04/02/17 12:00 High Flow Oxygen 50.0 70 04/02/17 11:17 36.6 67 20 130/66 (87) 90 50.0 70 Laboratory Results: Last 24 Hours Test 04/02/17 10:59 04/02/17 16:47 04/02/17 20:18 04/03/17 05:57 Bedside Glucose 354 mg/dl 213 mg/dl 256 mg/dl White Blood Count 14.23 K/uL Red Blood Count 4.01 M/uL Hemoglobin 10.5 g/dL Hematocrit 34.5 % Mean Corpuscular Volume 86.0 fL Mean Corpuscular Hemoglobin 26.2 pg Mean Corpuscular Hemoglobin Concent 30.4 g/dl Platelet Count 325 K/uL Mean Platelet Volume 9.2 fL Neutrophils (%) (Auto) 91.0 % Lymphocytes (%) (Auto) 3.6 % Monocytes (%) (Auto) 4.6 % Eosinophils (%) (Auto) 0.0 % Basophils (%) (Auto) 0.1 % Neutrophils # (Auto) 12.95 K/uL Lymphocytes # (Auto) 0.51 K/uL Monocytes # (Auto) 0.66 K/uL Eosinophils # (Auto) 0.00 K/uL Basophils # (Auto) 0.01 K/uL RDW Standard Deviation 60.2 fL RDW Coefficient of Variation 19.1 % Immature Granulocyte % (Auto) 0.7 % Immature Granulocyte # (Auto) 0.10 K/uL Activated Partial Thromboplast Time 22.0 SECONDS Partial Thromboplastin Ratio 0.8 Sodium Level 137 mmol/L Potassium Level 4.3 mmol/L Chloride Level 102 mmol/L Carbon Dioxide Level 29 mmol/L Anion Gap 6.0 mmol/L Blood Urea Nitrogen 65 mg/dl Creatinine 1.51 mg/dl Est Creatinine Clear Calc Drug Dose 51.3 ml/min Estimated GFR () 54.2 Estimated GFR (Non- 46.8 BUN/Creatinine Ratio 43.4 Random Glucose 111 mg/dl Calcium Level 8.1 mg/dl Test 04/03/17 06:46 Bedside Glucose 118 mg/dl
--- NOTE | 2017-04-03 11:57 | Family Medicine Progress Note ---
Progress Note Date of Service Apr 03, 2017. Subjective Pt evaluation today including: conversation w/ patient, conversation w/ family , physical exam, chart review, lab review Pt reports feeling well this morning, sitting in chair, Yoselin and sister in law Chitra at bedside. Reports good appetite, good stooling and urinating. Denies chest pain, headaches, runny nose, fever, n/v or chills, constipation, or pain in legs at this time. Discussed briefly his and family's expectations for discharge and they say they' d like to go as soon as possible, but understand that he won't be seen by Dr. Kevin gaviria until Wednesday and are agreeable to staying till then. ROS otherwise unremarkable as noted above. Medications Current Inpatient Medications Medications (Trade) Dose Ordered Sig/Zeina Route Start Time Stop Time Status Last Admin Dose Admin Al Hydrox/Mg Hydrox/Simethicone (Maalox Max Susp) 15 ml Q4H PRN PO 03/30/17 20:15 04/29/17 20:14 Ondansetron HCl (Zofran Inj) 4 mg Q6H PRN IV 03/30/17 20:15 04/29/17 20:14 Nitroglycerin (Nitrostat Tab) 0.4 mg UD PRN SL 03/30/17 20:15 04/29/17 20:14 Morphine Sulfate (MoRPHine SULFATE INJ) 2 mg Q30M PRN IV 03/30/17 20:15 04/13/17 20:14 Polyethylene (Miralax Powder Packet) 17 gm DAILY PRN PO 03/30/17 20:15 04/29/17 20:14 Aspirin (Aspirin Chew) 81 mg QAM PO 03/31/17 09:00 04/30/17 08:59 04/03/17 08:06 81 MG Calcium/Vitamin D (Caltrate Plus Tab) 1 tab DAILY PO 03/31/17 09:00 04/30/17 08:59 04/03/17 08:05 1 TAB Diltiazem HCl (TIAzac CAP) 240 mg QAM PO 03/31/17 09:00 04/30/17 08:59 04/03/17 08:06 240 MG Fish Oil ([place]-3 (Purified Fish Oil) Cap) 1 gm QAM PO 03/31/17 09:00 2/23/18 08:59 04/03/17 08:06 1 GM Gabapentin (Neurontin Cap) 600 mg TID PO 03/30/17 21:00 04/29/17 20:59 04/03/17 08:05 600 MG Isosorbide Mononitrate (Imdur Ext Rel Tab) 120 mg BID PO 03/30/17 21:00 04/29/17 20:59 04/03/17 08:04 120 MG Ferrous Sulfate (Feosol Tab) 325 mg BID PO 03/30/17 21:00 04/29/17 20:59 04/03/17 08:05 325 MG Metoprolol Succinate (Toprol Xl Tab) 100 mg BID PO 03/30/17 21:00 04/29/17 20:59 04/03/17 09:15 100 MG Pantoprazole Sodium (Protonix Tab) 40 mg QAM PO 03/31/17 09:00 04/30/17 08:59 04/03/17 08:06 40 MG Insulin Aspart (novoLOG ASPART) SLIDING SCALE G... ACHS SC 03/30/17 21:00 04/29/17 20:59 04/03/17 08:11 10 UNITS Furosemide 40 mg/ Syringe 4 ml @ 4 mls/min BID17 IV 03/31/17 09:00 04/30/17 08:59 04/03/17 09:15 4 MLS/MIN Glucose (Glucose 40% Gel) 15-30 GRAMS 15 GRAMS... UD PRN PO 03/30/17 22:45 04/29/17 22:44 Glucose (Glucose Chew Tab) 4-8 Tablets 4 Tabl... UD PRN PO 03/30/17 22:45 04/29/17 22:44 Dextrose (Dextrose 50% 50ML Syringe) 25-50ML OF 50% DW IV FOR... UD PRN IV 03/30/17 22:45 04/29/17 22:44 Glucagon (Glucagon Inj) 1 mg UD PRN SQ 03/30/17 22:45 04/29/17 22:44 Cefdinir (Omnicef Cap) 300 mg BID PO 04/01/17 21:00 04/08/17 08:59 04/03/17 08:06 300 MG Azithromycin (Zithromax Tab) 500 mg QAM PO 04/02/17 09:00 04/08/17 08:59 04/03/17 08:06 500 MG Methylprednisolone Sodium Succinate 40 mg/Syringe 0.64 ml @ 1.5 mls/min Q12 IV 04/01/17 21:00 04/30/17 07:59 04/03/17 08:04 1.5 MLS/MIN Insulin Glargine (Lantus Vial) 60 units HS SC 04/01/17 21:00 04/30/17 20:59 04/02/17 20:53 60 UNITS Insulin Glargine (Lantus Vial) 70 units QAM SC 04/02/17 09:00 05/01/17 08:59 04/03/17 08:12 70 UNITS Objective Physical Exam General Appearance: WD/WN, no apparent distress ENT: + pertinent finding (hard of hearing, LT ear is good ear.) Respiratory/Chest: normal breath sounds, no respiratory distress Cardiovascular: regular rate, rhythm, no gallop Abdomen: non tender, soft Extremities: + pedal edema (3+ bilaterally ankles) Neurologic/Psychiatric: alert, normal mood/affect Skin: normal color Laboratory Results 04/03/17 05:57 Red Blood Count 4.01, Mean Corpuscular Volume 86.0, Mean Corpuscular Hemoglobin 26.2, Mean Corpuscular Hemoglobin Concent 30.4, Mean Platelet Volume 9.2, Neutrophils (%) (Auto) 91.0, Lymphocytes (%) (Auto) 3.6, Monocytes (%) (Auto) 4.6, Eosinophils (%) (Auto) 0.0, Basophils (%) (Auto) 0.1, Neutrophils # (Auto) 12.95, Lymphocytes # (Auto) 0.51, Monocytes # (Auto) 0.66, Eosinophils # (Auto) 0.00, Basophils # (Auto) 0.01 04/03/17 05:57 Test 04/03/17 05:57 04/03/17 11:04 White Blood Count 14.23 K/uL (4.8-10.8) Red Blood Count 4.01 M/uL (4.7-6.1) Hemoglobin 10.5 g/dL (14.0-18.0) Hematocrit 34.5 % (42-52) Mean Corpuscular Volume 86.0 fL (80-100) Mean Corpuscular Hemoglobin 26.2 pg (25-34) Mean Corpuscular Hemoglobin Concent 30.4 g/dl (32-36) Platelet Count 325 K/uL (130-400) Mean Platelet Volume 9.2 fL (7.4-10.4) Neutrophils (%) (Auto) 91.0 % Lymphocytes (%) (Auto) 3.6 % Monocytes (%) (Auto) 4.6 % Eosinophils (%) (Auto) 0.0 % Basophils (%) (Auto) 0.1 % Neutrophils # (Auto) 12.95 K/uL (1.4-6.5) Lymphocytes # (Auto) 0.51 K/uL (1.2-3.4) Monocytes # (Auto) 0.66 K/uL (0.11-0.59) Eosinophils # (Auto) 0.00 K/uL (0-0.5) Basophils # (Auto) 0.01 K/uL (0-0.2) RDW Standard Deviation 60.2 fL (36.4-46.3) RDW Coefficient of Variation 19.1 % (11.5-14.5) Immature Granulocyte % (Auto) 0.7 % Immature Granulocyte # (Auto) 0.10 K/uL (0.00-0.02) Activated Partial Thromboplast Time 22.0 SECONDS (21.0-31.0) Partial Thromboplastin Ratio 0.8 Anion Gap 6.0 mmol/L (3-11) Est Creatinine Clear Calc Drug Dose 51.3 ml/min Estimated GFR () 54.2 Estimated GFR (Non- 46.8 BUN/Creatinine Ratio 43.4 (10-20) Calcium Level 8.1 mg/dl (8.5-10.1) Bedside Glucose 156 mg/dl (70-99) Assessment and Plan 66 yo m with a h/o severe CAD and pulmonary fibrosis with worsening dyspnea on exertion, elevated troponin, changes on EKG and hypoxia concerning for ischemia secondary to lung disease vs worsening CAD/ cardiomyopathy End stage. Palliative on board. Awaiting Dr. Brown consult on Wednesday. Titrating per E. Kroner, as 10L max for home O2. Doing well - 90 on 10L, 89 on 8L. Acute on chronic hypoxic resp failure secondary to progression of pulmonary fibrosis vs. anemia (see below)- Pulm consulted, recs appreciated. Follows with Dr. Brown in the outpatient clinic. CXR: Persistent reticulonodular and interstitial prominence throughout both hemithoraces. Moderate cardiomegaly with findings of atypical congestive failure versus pulmonary edema considered. CT chest: evidence of emphysema and chronic interstitial lung disease. Groundglass consolidation is seen throughout the left lung and in the right lower lung suggesting superimposed infectious/inflammatory pneumonitis. Enlarged mediastinal lymph nodes. Cardiomegaly. Leukocytosis improved to 11.09. VBG with no hypercapnia - For infectious pneumonitis, continue PO cefdinir and azithromycin - Continue supportive care for chronic lung disease - Continue Solumedrol from 40mg q12h - Continue bronchodilators - Palliative consulted, appreciate recs including anxiolytic prn on discharge. NSTEMI with chest pain likely due to ischemia (type II non ACS) - background CAD s/p CABG x 4 Vessels 2000 and multiple intracoronary stents. Cardiology consulted, recs appreciated. Echo reports mild concentric LV hypertrophy with normal systolic function, EF 60-65%. Diastolic dysfunction, Grade II, consistent with elevated left atrial pressure. RV is mild to moderately dilated. LA is mildly dilated. RA is moderately dilated. Flattened septum consistent with RV pressure overload, with RV systolic pressure elevated at > 60mmHg. Trop peaked at 0.1 and trended down - Continue on home cardiac medications - Diltiazem, Imdur, Toprol XL, and Aspirin - Resume Spironolactone 25 mg daily and Losartan 25 mg daily when renal function allows. - Heparin drip for now, resume Xarelto at discharge. Fe def anemia, new onset on background of anemia of chronic disease - CBC reflected a new/ worsening anemia (baseline 11-14 and was 8.5 on Mar 23). Retics elevated, Haptoglobin pending, FOBT negative. s/p transfusion of 1 unit of pRBC - Continue ferrous sulfate PO - Trend H/H TYSHAWN on CKD III secondary to poor perfusion/ vs. acute on chronic dCHF exacerbation - BUN:Cr > 20 so more likely prerenal, UA did not reflect intrarenal source. CXR showed some congestive changes - IV Lasix 40mg BID - I&O and daily weight - Trend BMP DMII - HbA1c 5.2 - Lantus 60 units BID + ISS (with tighter parameters) - will loosen once off steroids - BSG ac/hs Elevated LFT - baseline - Monitor, unable to take statin (causes rash) HTN/ HLD /CAD/ PAF - Continue on home cardiac medications - Diltiazem, Imdur, metoprolol, and Aspirin - Lasix dose increased as above - Held Spironolactone and Losartan for hyperkalemia - which is resolved. Will restart on dc - Nitrostat for chest pain - Heparin drip for now, resume Xarelto at discharge. DM Neuropathy - Gabapentin 600 mg tid Hypermagnesemia - Trend Mg DVT prophylaxis - Heparin drip DO NOT RESUSCITATE Dispo: med/surg. Resident Physician Supervision Note: I interviewed and examined the patient. Discussed with Dr. Bishop and agree with findings and plan as documented in the note. Any exceptions or clarifications are listed here: None Documented By: Yamil Hawley feeling better slowly day by day no other new complaints vitals noted nad breathing unlabored severe pulmonary fibrosis/hypoxia/VALENTINE -treating for each possible exacerbating factor - transfused for anemia to increase O2 carrying capacity, abx for infectious overlay, steroids/inhalers -working towards home w quality of life goals - see maribethn w palliative and w kroner PAC Continued [facility] stay due to: abnormal vital signs Resident Tracking Resident Involvement: Resident Care Provided Care Provided: Adult Hospital Medicine
[2017-04-03] MEDS ORDERED: FUROSEMIDE 40 MG TAB PO SCH (18:30)
[2017-04-03] MEDS ORDERED: NITROGLYCERIN 0.4 MG SL PER TAB CHARGE UT SCH (18:30)
[2017-04-03] MEDS ORDERED: ALBUTEROL HFA 8 GM INHALER INH PRN (18:30)
[2017-04-03] MEDS ORDERED: INSULIN ASPART 100 UNITS/ML 3 ML PEN SC SCH (21:00)
[2017-04-03] MEDS ORDERED: INSULIN 70% ASPART PROTAMINE/30% ASPART SC SCH (21:00)
[2017-04-04] VITALS (7 sets, daily range): BP systolic 118–145; BP diastolic 67–81; PULSE 61–80; TEMP 36.4–36.9; O2SAT 90–96
[2017-04-04 06:08] LABS: HEMATOCRIT 34.4 % (42-52); HEMOGLOBIN 10.7 g/dL (14.0-18.0); MEAN CORPUSCULAR HEMOGLOBIN 26.8 pg (25-34); MEAN CORPUSCULAR HGB CONC 31.1 g/dl (32-36); MEAN PLATELET VOLUME 9.4 fL (7.4-10.4); NUCLEATED RED BLOOD CELL ABS 0.02 K/uL (0-0); PLATELET COUNT 317 K/uL (130-400); RED CELL DISTRIBUTION WIDTH CV 18.8 % (11.5-14.5); RED CELL DISTRIBUTION WIDTH SD 59.1 fL (36.4-46.3); WHITE BLOOD COUNT 13.48 K/uL (4.8-10.8)
[2017-04-04 06:18] LABS: PTT PATIENT 21.5 SECONDS (21.0-31.0)
[2017-04-04] MEDS: INSULIN ASPART 100 UNITS/ML 3 ML PEN SC SCH ×4 (06:30→20:50)
[2017-04-04 06:43] LABS: CALCIUM 8.1 mg/dl (8.5-10.1); CREATININE 1.37 mg/dl (0.60-1.40); POTASSIUM 4.5 mmol/L (3.5-5.1)
[2017-04-04] MEDS: PANTOprazole SOD 40 MG TAB PO SCH (07:46)
[2017-04-04] MEDS: CALCIUM 600MG + VIT D 400 IU TAB PO SCH (07:47)
[2017-04-04] MEDS: GABAPENTIN 300 MG CAP PO SCH ×3 (07:47→20:39)
[2017-04-04] MEDS: ISOSORBIDE MONONITRATE 60 MG TABCR PO SCH ×2 (07:47→20:40)
[2017-04-04] MEDS: ASPIRIN 81 MG CHEW PO SCH (07:48)
[2017-04-04] MEDS: AZITHROMYCIN 250 MG TAB PO SCH (07:48)
[2017-04-04] MEDS: METOPROLOL SUCC 50MG EXT REL TAB PO SCH ×2 (07:49→20:39)
[2017-04-04] MEDS: DILTIAZEM HCL 120 MG EXT REL CAP PO SCH (07:49)
[2017-04-04] MEDS: OMEGA-3 (PURIFIED FISH OIL) 1 GM CAP PO SCH (07:49)
[2017-04-04] MEDS: FERROUS SULFATE 325 MG TAB PO SCH ×2 (07:50→20:40)
[2017-04-04] MEDS: CEFDINIR 300 MG CAP PO SCH ×2 (07:50→20:38)
[2017-04-04] MEDS: FUROSEMIDE INJ 40 MG in SYRINGE 0 ML IV SCH ×2 (07:54→16:46)
[2017-04-04] MEDS: METHYLPREDNISOLONE IV 40 MG in SYRINGE 0 ML IV SCH ×2 (07:54→20:38)
[2017-04-04] MEDS ORDERED: SPIRONOLACTONE 25 MG TAB PO SCH (08:00)
[2017-04-04] MEDS ORDERED: INSULIN ASPART 100 UNITS/ML 3 ML PEN SC SCH (08:00)
[2017-04-04] MEDS ORDERED: INSULIN 70% ASPART PROTAMINE/30% ASPART SC SCH (08:00)
[2017-04-04] MEDS: INSULIN GLARGINE SC SCH ×2 (08:26→20:50)
--- NOTE | 2017-04-04 08:44 | Family Medicine Progress Note ---
Progress Note Date of Service Apr 04, 2017. Subjective Pt evaluation today including: conversation w/ patient, physical exam, chart review, lab review Pain: denies PO Intake: adequate Voiding: no voiding problems Mr. Mcdonald has no new complaints this morning, feeling well, sitting up in bed having breakfast. Adjusting to his new room today on 4th floor, likes it. Voiding well, eating well. Objective Vital Signs Date Time Temp Pulse Resp B/P (MAP) Pulse Ox O2 Delivery O2 Flow Rate FiO2 04/04/17 08:00 90 CPAP 10.0 92 04/04/17 07:44 36.9 61 18 119/71 (87) 96 CPAP 04/04/17 00:00 90 CPAP 10.0 92 04/03/17 22:47 36.2 63 21 142/68 (92) 90 BiPAP 6.0 04/03/17 20:00 90 Oxymask 10.0 92 04/03/17 16:00 Oxymask 8.0 92 04/03/17 15:02 36.7 60 19 147/68 (94) 89 Oxymask 8.0 04/03/17 12:52 36.7 62 18 90 10.0 04/03/17 12:00 Oxymask 10.0 90 04/03/17 11:27 36.7 62 18 137/71 (93) 90 Mask 10.0 Physical Exam General Appearance: WD/WN, no apparent distress Eyes: normal inspection, EOMI ENT: + pertinent finding (oximask in place) Respiratory/Chest: normal breath sounds, no respiratory distress Cardiovascular: regular rate, rhythm, no gallop Abdomen: soft Neurologic/Psychiatric: alert, normal mood/affect Skin: normal color, warm/dry Laboratory Results 04/04/17 05:33 04/04/17 05:33 Test 04/04/17 05:33 04/04/17 07:56 Red Blood Count 4.00 M/uL (4.7-6.1) Mean Corpuscular Volume 86.0 fL (80-100) Mean Corpuscular Hemoglobin 26.8 pg (25-34) Mean Corpuscular Hemoglobin Concent 31.1 g/dl (32-36) RDW Standard Deviation 59.1 fL (36.4-46.3) RDW Coefficient of Variation 18.8 % (11.5-14.5) Mean Platelet Volume 9.4 fL (7.4-10.4) Nucleated RBC Absolute Count (auto) 0.02 K/uL (0-0) Nucleated Red Blood Cells % 0.1 % Activated Partial Thromboplast Time 21.5 SECONDS (21.0-31.0) Partial Thromboplastin Ratio 0.8 Anion Gap 5.0 mmol/L (3-11) Est Creatinine Clear Calc Drug Dose 56.5 ml/min Estimated GFR () 61.0 Estimated GFR (Non- 52.6 BUN/Creatinine Ratio 43.4 (10-20) Calcium Level 8.1 mg/dl (8.5-10.1) Magnesium Level 3.0 mg/dl (1.8-2.4) Bedside Glucose 91 mg/dl (70-99) Assessment and Plan 66 yo m with a h/o severe CAD and pulmonary fibrosis with worsening dyspnea on exertion, elevated troponin, changes on EKG and hypoxia concerning for ischemia secondary to lung disease vs worsening CAD/ cardiomyopathy End stage. Palliative on board. Awaiting Dr. Brown consult on Wednesday. Titrating per Jorge Urbano, as 10L max for goal of home O2. Doing well - 90 on 10L, 89 on 8L. Acute on chronic hypoxic resp failure secondary to progression of pulmonary fibrosis vs. anemia (see below)- Pulm consulted, recs appreciated. Follows with Dr. Brown in the outpatient clinic. CXR: Persistent reticulonodular and interstitial prominence throughout both hemithoraces. Moderate cardiomegaly with findings of atypical congestive failure versus pulmonary edema considered. CT chest: evidence of emphysema and chronic interstitial lung disease. Groundglass consolidation is seen throughout the left lung and in the right lower lung suggesting superimposed infectious/inflammatory pneumonitis. Enlarged mediastinal lymph nodes. Cardiomegaly. Leukocytosis improved to 11.09. VBG with no hypercapnia - For infectious pneumonitis, continue PO cefdinir and azithromycin - Continue supportive care for chronic lung disease - Continue Solumedrol from 40mg q12h - Continue bronchodilators - Palliative consulted, appreciate recs including anxiolytic prn on discharge. NSTEMI with chest pain likely due to ischemia (type II non ACS) - background CAD s/p CABG x 4 Vessels 2001 and multiple intracoronary stents. Cardiology consulted, recs appreciated. Echo reports mild concentric LV hypertrophy with normal systolic function, EF 60-65%. Diastolic dysfunction, Grade II, consistent with elevated left atrial pressure. RV is mild to moderately dilated. LA is mildly dilated. RA is moderately dilated. Flattened septum consistent with RV pressure overload, with RV systolic pressure elevated at > 60mmHg. Trop peaked at 0.1 and trended down - Continue on home cardiac medications - Diltiazem, Imdur, Toprol XL, and Aspirin - Resume Spironolactone 25 mg daily and Losartan 25 mg daily when renal function allows. - Heparin drip for now, resume Xarelto at discharge. Fe def anemia, new onset on background of anemia of chronic disease - CBC reflected a new/ worsening anemia (baseline 11-14 and was 8.5 on Mar 23). Retics elevated, Haptoglobin pending, FOBT negative. s/p transfusion of 1 unit of pRBC - Continue ferrous sulfate PO - Trend H/H TYSHAWN on CKD III secondary to poor perfusion/ vs. acute on chronic dCHF exacerbation - BUN:Cr > 20 so more likely prerenal, UA did not reflect intrarenal source. CXR showed some congestive changes - IV Lasix 40mg BID - I&O and daily weight - Trend BMP DMII - HbA1c 5.2 - Lantus 60 units BID + ISS (with tighter parameters) - will loosen once off steroids - BSG ac/hs Elevated LFT - baseline - Monitor, unable to take statin (causes rash) HTN/ HLD /CAD/ PAF - Continue on home cardiac medications - Diltiazem, Imdur, metoprolol, and Aspirin - Lasix dose increased as above - Held Spironolactone and Losartan for hyperkalemia - which is resolved. Will restart on dc - Nitrostat for chest pain - Heparin drip for now, resume Xarelto at discharge. DM Neuropathy - Gabapentin 600 mg tid Hypermagnesemia - Trend Mg DVT prophylaxis - Heparin drip DO NOT RESUSCITATE Dispo: med/surg. Resident Physician Supervision Note: I interviewed and examined the patient. Discussed with Dr. Bishop and agree with findings and plan as documented in the note. Any exceptions or clarifications are listed here: None Documented By: Yamil Hawley feeling about the same no new complaints no new sx vitals noted nad breathing unlabored on mask O2 severe pulmonary fibrosis, chronic respiratory failure w hypoxia, probable elements of CHF, anemia, infectious overlay -stable, working on trying to wean to where he'll be safe at home -otherwise as above Continued [facility] stay due to: other Discharge planning: home Resident Tracking Resident Involvement: Resident Care Provided Care Provided: Adult Hospital Medicine
[2017-04-05] VITALS: O2SAT 90
[2017-04-05 06:02] LABS: HEMATOCRIT 37.8 % (42-52); HEMOGLOBIN 11.5 g/dL (14.0-18.0); IG# 0.12 K/uL (0.00-0.02); LYMPH % 3.2 %; LYMPH ABS # 0.43 K/uL (1.2-3.4); MEAN CELL VOLUME 85.9 fL (80-100); MEAN CORPUSCULAR HEMOGLOBIN 26.1 pg (25-34); MEAN CORPUSCULAR HGB CONC 30.4 g/dl (32-36); MEAN PLATELET VOLUME 9.5 fL (7.4-10.4); MONO % 4.9 %; MONO ABS # 0.65 K/uL (0.11-0.59); NEUT ABS # 12.07 K/uL (1.4-6.5); PLATELET COUNT 307 K/uL (130-400); RED CELL DISTRIBUTION WIDTH CV 18.5 % (11.5-14.5); RED CELL DISTRIBUTION WIDTH SD 58.7 fL (36.4-46.3); WHITE BLOOD COUNT 13.27 K/uL (4.8-10.8)
[2017-04-05 06:12] LABS: PTT PATIENT 21.5 SECONDS (21.0-31.0)
--- NOTE | 2017-04-05 06:41 | Family Medicine Progress Note ---
Progress Note Date of Service Apr 05, 2017. Subjective Pt evaluation today including: conversation w/ patient, conversation w/ family , physical exam, chart review, lab review, conversation w/ franchise consultant, review of inpatient medication list Pain: none PO Intake: good Voiding: no voiding problems, no incontinence Patient with shortness of breath on exertion but none at rest. Is currently using oxymask and prefers it to the nasal cannula he has at home, say he feels less short of breath Has a mild dry cough Constitutional: No fever, No chills Respiratory: + cough, + dyspnea on exertion, No sputum, No shortness of breath, No hemoptysis Cardiovascular: No chest pain, No edema, No palpitations Abdomen: No pain, No nausea, No vomiting Musculoskeletal: No muscle pain, No calf pain Male : No dysuria, No incontinence Medications Current Inpatient Medications Medications (Trade) Dose Ordered Sig/Zeina Route Start Time Stop Time Status Last Admin Dose Admin Al Hydrox/Mg Hydrox/Simethicone (Maalox Max Susp) 15 ml Q4H PRN PO 03/30/17 20:15 04/29/17 20:14 Ondansetron HCl (Zofran Inj) 4 mg Q6H PRN IV 03/30/17 20:15 04/29/17 20:14 Nitroglycerin (Nitrostat Tab) 0.4 mg UD PRN SL 03/30/17 20:15 04/29/17 20:14 Morphine Sulfate (MoRPHine SULFATE INJ) 2 mg Q30M PRN IV 03/30/17 20:15 04/13/17 20:14 Polyethylene (Miralax Powder Packet) 17 gm DAILY PRN PO 03/30/17 20:15 04/29/17 20:14 Aspirin (Aspirin Chew) 81 mg QAM PO 03/31/17 09:00 04/30/17 08:59 04/05/17 08:58 81 MG Calcium/Vitamin D (Caltrate Plus Tab) 1 tab DAILY PO 03/31/17 09:00 04/30/17 08:59 04/05/17 08:47 1 TAB Diltiazem HCl (TIAzac CAP) 240 mg QAM PO 03/31/17 09:00 04/30/17 08:59 04/05/17 08:47 240 MG Fish Oil (Hedley-3 (Purified Fish Oil) Cap) 1 gm QAM PO 03/31/17 09:00 04/30/17 08:59 04/05/17 08:48 1 GM Gabapentin (Neurontin Cap) 600 mg TID PO 03/30/17 21:00 04/29/17 20:59 04/05/17 13:42 600 MG Isosorbide Mononitrate (Imdur Ext Rel Tab) 120 mg BID PO 03/30/17 21:00 04/29/17 20:59 04/05/17 08:46 120 MG Ferrous Sulfate (Feosol Tab) 325 mg BID PO 03/30/17 21:00 04/29/17 20:59 04/05/17 08:46 325 MG Metoprolol Succinate (Toprol Xl Tab) 100 mg BID PO 03/30/17 21:00 04/29/17 20:59 04/05/17 08:47 100 MG Pantoprazole Sodium (Protonix Tab) 40 mg QAM PO 03/31/17 09:00 04/30/17 08:59 04/05/17 08:47 40 MG Insulin Aspart (novoLOG ASPART) SLIDING SCALE G... ACHS SC 03/30/17 21:00 04/29/17 20:59 04/05/17 12:19 8 UNITS Furosemide 40 mg/ Syringe 4 ml @ 4 mls/min BID17 IV 03/31/17 09:00 04/30/17 08:59 04/05/17 08:46 4 MLS/MIN Glucose (Glucose 40% Gel) 15-30 GRAMS 15 GRAMS... UD PRN PO 03/30/17 22:45 04/29/17 22:44 Glucose (Glucose Chew Tab) 4-8 Tablets 4 Tabl... UD PRN PO 03/30/17 22:45 04/29/17 22:44 Dextrose (Dextrose 50% 50ML Syringe) 25-50ML OF 50% DW IV FOR... UD PRN IV 03/30/17 22:45 04/29/17 22:44 Glucagon (Glucagon Inj) 1 mg UD PRN SQ 03/30/17 22:45 04/29/17 22:44 Cefdinir (Omnicef Cap) 300 mg BID PO 04/01/17 21:00 04/08/17 08:59 04/05/17 08:48 300 MG Azithromycin (Zithromax Tab) 500 mg QAM PO 04/02/17 09:00 04/08/17 08:59 04/05/17 08:48 500 MG Methylprednisolone Sodium Succinate 40 mg/Syringe 0.64 ml @ 1.5 mls/min Q12 IV 04/01/17 21:00 04/30/17 07:59 04/05/17 08:46 1.5 MLS/MIN Insulin Glargine (Lantus Vial) 60 units HS SC 04/01/17 21:00 04/30/17 20:59 04/04/17 20:50 60 UNITS Insulin Glargine (Lantus Vial) 70 units QAM SC 04/02/17 09:00 05/01/17 08:59 04/05/17 08:58 70 UNITS Albuterol (Ventolin Hfa Inhaler) use as directed Q6H PRN INH 04/03/17 18:30 05/03/17 18:29 Objective Vital Signs Date Time Temp Pulse Resp B/P (MAP) Pulse Ox O2 Delivery O2 Flow Rate FiO2 04/05/17 08:00 Oxymask 8.0 04/05/17 07:43 36.8 86 16 128/72 (90) 90 BiPAP 04/05/17 00:00 90 CPAP 7.0 92 04/04/17 23:21 36.4 80 20 118/67 (84) 93 BiPAP 04/04/17 20:42 76 18 145/81 (102) 96 Oxymask 8.0 04/04/17 20:00 90 Oxymask 8.0 92 04/04/17 15:15 Oxymask 8.0 04/04/17 14:36 36.4 72 18 119/68 (85) 92 Oxymask 8.0 Physical Exam General Appearance: WD/WN, no apparent distress, + pertinent finding (oxymask on and in place) ENT: hearing grossly normal, pharynx normal Neck: no JVD, no carotid bruits, trachea midline Respiratory/Chest: lungs clear, no respiratory distress, no accessory muscle use, + decreased breath sounds (bilaterally) Cardiovascular: regular rate, rhythm, no murmur Abdomen: normal bowel sounds, non tender, soft Extremities: + pedal edema (+1 to midshin), + pertinent finding (chronic venous changes bilaterally) Neurologic/Psychiatric: alert, normal mood/affect, oriented x 3 Laboratory Results Results Past 24 Hours Test 04/04/17 17:01 04/04/17 20:12 04/05/17 05:25 04/05/17 07:54 Range/Units Bedside Glucose 263 329 77 70-99 mg/dl White Blood Count 13.27 4.8-10.8 K/uL Red Blood Count 4.40 4.7-6.1 M/uL Hemoglobin 11.5 14.0-18.0 g/dL Hematocrit 37.8 42-52 % Mean Corpuscular Volume 85.9 80-100 fL Mean Corpuscular Hemoglobin 26.1 25-34 pg Mean Corpuscular Hemoglobin Concent 30.4 32-36 g/dl Platelet Count 307 130-400 K/uL Mean Platelet Volume 9.5 7.4-10.4 fL Neutrophils (%) (Auto) 91.0 % Lymphocytes (%) (Auto) 3.2 % Monocytes (%) (Auto) 4.9 % Eosinophils (%) (Auto) 0.0 % Basophils (%) (Auto) 0.0 % Neutrophils # (Auto) 12.07 1.4-6.5 K/uL Lymphocytes # (Auto) 0.43 1.2-3.4 K/uL Monocytes # (Auto) 0.65 0.11-0.59 K/uL Eosinophils # (Auto) 0.00 0-0.5 K/uL Basophils # (Auto) 0.00 0-0.2 K/uL RDW Standard Deviation 58.7 36.4-46.3 fL RDW Coefficient of Variation 18.5 11.5-14.5 % Immature Granulocyte % (Auto) 0.9 % Immature Granulocyte # (Auto) 0.12 0.00-0.02 K/uL Activated Partial Thromboplast Time 21.5 21.0-31.0 SECONDS Partial Thromboplastin Ratio 0.8 Test 04/05/17 11:38 Range/Units Bedside Glucose 149 70-99 mg/dl Assessment and Plan 66 yo m with a h/o severe CAD and pulmonary fibrosis with worsening dyspnea on exertion, elevated troponin, changes on EKG and hypoxia concerning for ischemia secondary to lung disease vs worsening CAD/ cardiomyopathy End Stage Pulmonary Fibrosis - On 6-8 L at home via nasal cannula - Pulm consulted, recs appreciated. Follows with Dr. Brown in the outpatient clinic. CXR: Persistent reticulonodular and interstitial prominence throughout both hemithoraces. - For infectious pneumonitis, continue PO cefdinir and azithromycin - Continue supportive care for chronic lung disease - Continue Solumedrol from 40mg q12h - Continue albuterol q6 prn SOB - Palliative consulted, appreciate recs including anxiolytic prn on discharge. NSTEMI with chest pain likely due to ischemia (type II non ACS) - Cardiology consulted, recs appreciated. Echo reports mild concentric LV hypertrophy with normal systolic function, EF 60-65%. Diastolic dysfunction, Grade II, consistent with elevated left atrial pressure. - Trop peaked at 0.1 and trended down - Continue on home cardiac medications - Diltiazem, Imdur, Toprol XL, and Aspirin - Hold Spironolactone 25 mg daily and Losartan 25 mg as blood pressure within goal range, reassess at discharge - Heparin drip for now, resume Xarelto at discharge. Fe def anemia, new onset on background of anemia of chronic disease - CBC reflected a new/ worsening anemia (baseline 11-14 and was 8.5 on Mar 23). Retics elevated, Haptoglobin pending, FOBT negative. s/p transfusion of 1 unit of pRBC - Continue ferrous sulfate PO - Trend H/H TYSHAWN on CKD III secondary to poor perfusion/ vs. acute on chronic dCHF exacerbation - IV Lasix 40mg BID - I&O and daily weight - Trend BMP DMII - HbA1c 5.2 - Lantus 60 units BID + ISS (with tighter parameters) - will loosen once off steroids - BSG ac/hs Elevated LFT - baseline - Monitor, unable to take statin (causes rash) DM Neuropathy - Gabapentin 600 mg tid Hypermagnesemia - Trend Mg DVT prophylaxis - Heparin drip DO NOT RESUSCITATE Continued [facility] stay due to: home environment unsafe for pt Discharge planning: home History Resident Physician Supervision Note: I was present with Dr. Johnson during the history and exam. I discussed the case with the resident and agree with the findings and plan as documented in the note. Any exceptions or clarifications are listed here. Pt reports improvement in shortness of breath at rest, which is nearing baseline on O2 and with exertion which is still worse than baseline. Normally uses 6-8L by nasal canula at home. Feels like the oxymask is better for his flow. General Appearance: no apparent distress, obese Respiratory: chest non-tender, no respiratory distress, decreased breath sounds , wheezing (faint end exp wheeze) Cardiovascular: normal peripheral pulses, regular rate, rhythm, no murmur Gastrointestinal: normal bowel sounds, non tender, soft, no organomegaly Assessment/Plan 66 y/o male h/o pulmonary fibrosis on home O2, CAD, HTN, CKDIII, anemia p/w shortness of breath Pulmonary fibrosis - pulmonology consultation, input from Dr. Brown appreciated - continue O2 by mask and wean as tolerated. Continue IV steroid therapy and albuterol neb. Palliative care on board and patient has reviewed options which will be dependent on course d/w Dr. Brown NSTEMI - cardiology consultation - continue ASA, metoprolol, Imdur, diltiazem. Holding spironolactone and losartan and xarelto, the latter to resume on D/C Acute on chronic diastolic CHF exacerbation - continue furosemide, trend I/O and weights. Transition to PO tomorrow. Anemia, Fe deficiency - continue supplementation, trend CBC CKDIII - monitor BMP 2/2 diuresis DMII neuropathy - gabapentin VTE PPX - heparin DNR
[2017-04-05 07:43] VITALS: BP 128/72; PULSE 86; TEMP 36.8; O2SAT 90
[2017-04-05] MEDS: METHYLPREDNISOLONE IV 40 MG in SYRINGE 0 ML IV SCH ×2 (08:46→20:51)
[2017-04-05] MEDS: ISOSORBIDE MONONITRATE 60 MG TABCR PO SCH ×2 (08:46→20:54)
[2017-04-05] MEDS: FUROSEMIDE INJ 40 MG in SYRINGE 0 ML IV SCH ×2 (08:46→17:28)
[2017-04-05] MEDS: FERROUS SULFATE 325 MG TAB PO SCH ×2 (08:46→20:50)
[2017-04-05] MEDS: PANTOprazole SOD 40 MG TAB PO SCH (08:47)
[2017-04-05] MEDS: DILTIAZEM HCL 120 MG EXT REL CAP PO SCH (08:47)
[2017-04-05] MEDS: METOPROLOL SUCC 50MG EXT REL TAB PO SCH ×2 (08:47→20:54)
[2017-04-05] MEDS: GABAPENTIN 300 MG CAP PO SCH ×3 (08:47→20:50)
[2017-04-05] MEDS: CALCIUM 600MG + VIT D 400 IU TAB PO SCH (08:47)
[2017-04-05] MEDS: CEFDINIR 300 MG CAP PO SCH ×2 (08:48→20:51)
[2017-04-05] MEDS: OMEGA-3 (PURIFIED FISH OIL) 1 GM CAP PO SCH (08:48)
[2017-04-05] MEDS: AZITHROMYCIN 250 MG TAB PO SCH (08:48)
[2017-04-05] MEDS: INSULIN ASPART 100 UNITS/ML 3 ML PEN SC SCH ×4 (08:57→20:49)
[2017-04-05] MEDS: INSULIN GLARGINE SC SCH ×2 (08:58→20:50)
[2017-04-05] MEDS: ASPIRIN 81 MG CHEW PO SCH (08:58)
[2017-04-05 16:00] VITALS: O2SAT 93
[2017-04-05 16:12] VITALS: BP 138/59; PULSE 56; TEMP 36.5; O2SAT 93
--- NOTE | 2017-04-05 18:30 | PULMONARY PROGRESS NOTE ---
DATE: 04/05/2017 TIME: 6:00 p.m. SUBJECTIVE: The patient states he is feeling much less short of breath. He feels much improved compared with when he came to the hospital back on the . His dyspnea is less. He has not done any exertion; however. He states they have not walked him even to the bathroom. Using the OxyMask, his oxygen saturations have been very adequate. OBJECTIVE: GENERAL: The patient appeared comfortable. He denies having any chills, fevers or sweats. VITAL SIGNS: Temperature was 36.5. HEENT: The OxyMask is in place. CARDIOVASCULAR: Heart rate was 80 per minute. The rhythm is regular. Blood pressure 138/59. LUNGS: Lung ovalles revealed mild rales bilaterally. They are much less than one would expect considering the interstitial lung disease. The saturation was 94% on OxyMask at 8 liters. EXTREMITIES: Reveal +2 edema of both lower extremities. LABORATORY DATA: White blood cell count today is 13.27. Hemoglobin 11.5. Platelets 307,000. Blood sugars today ranged from 77-149. Yesterday, the BUN was 60 with a creatinine of 1.37. IMAGING DATA: The CAT scan was reviewed. In my opinion, it has been a distinct change compared with a prior CAT scan done in February 2016. It is difficult, however, to tell if any of this is inflammatory or if at all is related to his chronic interstitial lung disease. 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 He was on a year of prednisone through his doctors at [facility]. His prednisone was stopped last summer. He thought he was doing worse since they stopped. We restarted prednisone recently, but without benefit. IMPRESSION: 1. Respiratory failure with hypoxia. 2. Pulmonary fibrosis. 3. Nonspecific interstitial pneumonitis. COMMENTS AND RECOMMENDATIONS: The patient is clinically feeling better. Would continue with the steroids. I believe they could be switched to prednisone 60 mg daily orally as of tomorrow. Has antibiotics that I would continue on for a total of 7 days. The patient should have physical therapy to assist with ambulation. I believe his prognosis is poor. MTDD
[2017-04-05 20:52] VITALS: BP 134/82; PULSE 89
[2017-04-05 23:24] VITALS: BP 124/76; PULSE 86; TEMP 36.3; O2SAT 97
[2017-04-06 05:56] LABS: HEMATOCRIT 38.3 % (42-52); HEMOGLOBIN 11.8 g/dL (14.0-18.0); MEAN CELL VOLUME 84.2 fL (80-100); MEAN CORPUSCULAR HEMOGLOBIN 25.9 pg (25-34); MEAN CORPUSCULAR HGB CONC 30.8 g/dl (32-36); MEAN PLATELET VOLUME 9.6 fL (7.4-10.4); PLATELET COUNT 294 K/uL (130-400); RED CELL DISTRIBUTION WIDTH CV 18.3 % (11.5-14.5); RED CELL DISTRIBUTION WIDTH SD 56.6 fL (36.4-46.3); WHITE BLOOD COUNT 12.51 K/uL (4.8-10.8)
[2017-04-06 06:30] LABS: PTT PATIENT 21.1 SECONDS (21.0-31.0)
[2017-04-06 06:35] LABS: CALCIUM 8.2 mg/dl (8.5-10.1); CREATININE 1.48 mg/dl (0.60-1.40); POTASSIUM 4.4 mmol/L (3.5-5.1)
[2017-04-06 08:00] VITALS: O2SAT 92
[2017-04-06 08:01] VITALS: BP 124/77; PULSE 87; O2SAT 92
[2017-04-06] MEDS: GABAPENTIN 300 MG CAP PO SCH ×3 (09:06→21:02)
[2017-04-06] MEDS: AZITHROMYCIN 250 MG TAB PO SCH (09:07)
[2017-04-06] MEDS: PANTOprazole SOD 40 MG TAB PO SCH (09:08)
[2017-04-06] MEDS: CEFDINIR 300 MG CAP PO SCH ×2 (09:08→21:05)
[2017-04-06] MEDS: METOPROLOL SUCC 50MG EXT REL TAB PO SCH ×2 (09:09→21:05)
[2017-04-06] MEDS: CALCIUM 600MG + VIT D 400 IU TAB PO SCH (09:11)
[2017-04-06] MEDS: ISOSORBIDE MONONITRATE 60 MG TABCR PO SCH ×2 (09:11→21:03)
[2017-04-06] MEDS: FERROUS SULFATE 325 MG TAB PO SCH ×2 (09:12→21:02)
[2017-04-06] MEDS: OMEGA-3 (PURIFIED FISH OIL) 1 GM CAP PO SCH (09:12)
[2017-04-06] MEDS: DILTIAZEM HCL 120 MG EXT REL CAP PO SCH (09:13)
[2017-04-06] MEDS: FUROSEMIDE INJ 40 MG in SYRINGE 0 ML IV SCH ×2 (09:15→16:38)
[2017-04-06] MEDS: INSULIN ASPART 100 UNITS/ML 3 ML PEN SC SCH ×4 (09:28→21:11)
[2017-04-06] MEDS: INSULIN GLARGINE SC SCH ×2 (09:29→21:11)
[2017-04-06] MEDS: ASPIRIN 81 MG CHEW PO SCH (09:36)
--- NOTE | 2017-04-06 09:50 | PULMONARY PROGRESS NOTE ---
DATE: 04/06/2017 TIME: 09:00 a.m. SUBJECTIVE: The patient had a good night. He did not notice any discomfort. This morning, he did get to ambulate to the bathroom with minimal assist. He states, however, when he came back and they checked his pulse ox, it was down to 71%. That was with him wearing a 6-liter OxyMask. He obviously desaturates very quickly, although he feels much better at rest. He is not having any significant cough. His appetite is good. The patient told me that he has lost 24 pounds since admission. I could not document that. I did document that he has lost at least 10 pounds from 227 down to 217. He has been diuresing pretty well most days. I suspect that the weight loss probably is fluid loss. He has been eating well without any difficulty. He states that his strength was fairly good considering he had not been ambulating for several days. OBJECTIVE: GENERAL: The patient appears comfortable at rest. VITAL SIGNS: Temperature is 36.3. Heart rate was 87. The rhythm was regular. Blood pressure 124/77. EARS, NOSE, AND THROAT: Exam is unremarkable. LUNGS: Lung ovalles revealed mild rales bilaterally. Once again, his lungs sound much better than expected considering the hypoxia. Respiratory rate was 16 breaths per minute and not labored. EXTREMITIES: Show +2 edema bilaterally. He has scars on both lower extremities from prior surgeries. LABORATORY DATA: White count today was 12.51. Hemoglobin 11.8. Platelets 294,000. Electrolytes show sodium 135, potassium 4.4, chloride 99, and bicarbonate 30. The BUN today is 64 with a creatinine of 1.48. These are slightly worsened compared with 04/04/2017 when they were 60 and 1.37 respectively. His blood sugar this morning was low at 58. IMPRESSIONS: 1. Respiratory failure with hypoxia. 2. Pulmonary fibrosis. 3. Nonspecific interstitial pneumonitis. COMMENTS AND RECOMMENDATIONS: Case was discussed with Dr. Johnson. Hopefully, he can be discharged within the next 24 hours or so. They may need to make adjustments on his diabetes medicines in light of the low sugar this morning. When he goes home, he should go home on prednisone 40 mg daily. I should be set up to see him in about 2 weeks or so after discharge. I believe his diuretic should be decreased with the modest rise in the BUN and creatinine. He apparently does have baseline abnormalities on BUN and creatinine; however, his initial creatinine was 2.11. MTDD
--- NOTE | 2017-04-06 12:35 | Family Medicine Progress Note ---
Progress Note Date of Service Apr 06, 2017. Subjective Pt evaluation today including: conversation w/ patient, physical exam, chart review, conversation w/ tour consultant, review of inpatient medication list Pain: none PO Intake: good Voiding: no voiding problems Patient with shortness of breath on exertion, desaturates quickly with exertion Prefers oxy mask to nasal cannula Denies any chest pain, fevers or chills Will transition to PO steroids and get patient walking today Constitutional: No fever, No chills Respiratory: + cough, + dyspnea on exertion, No sputum, No wheezing, No shortness of breath Cardiovascular: No chest pain, No edema, No palpitations Abdomen: No pain, No nausea, No vomiting, No diarrhea Male : No dysuria, No urinary frequency Medications Current Inpatient Medications Medications (Trade) Dose Ordered Sig/Zeina Route Start Time Stop Time Status Last Admin Dose Admin Al Hydrox/Mg Hydrox/Simethicone (Maalox Max Susp) 15 ml Q4H PRN PO 03/30/17 20:15 04/29/17 20:14 Ondansetron HCl (Zofran Inj) 4 mg Q6H PRN IV 03/30/17 20:15 04/29/17 20:14 Nitroglycerin (Nitrostat Tab) 0.4 mg UD PRN SL 03/30/17 20:15 04/29/17 20:14 Morphine Sulfate (MoRPHine SULFATE INJ) 2 mg Q30M PRN IV 03/30/17 20:15 04/13/17 20:14 Polyethylene (Miralax Powder Packet) 17 gm DAILY PRN PO 03/30/17 20:15 04/29/17 20:14 Aspirin (Aspirin Chew) 81 mg QAM PO 03/31/17 09:00 04/30/17 08:59 04/06/17 09:36 81 MG Calcium/Vitamin D (Caltrate Plus Tab) 1 tab DAILY PO 03/31/17 09:00 04/30/17 08:59 04/06/17 09:11 1 TAB Diltiazem HCl (TIAzac CAP) 240 mg QAM PO 03/31/17 09:00 04/30/17 08:59 04/06/17 09:13 240 MG Fish Oil ([place]-3 (Purified Fish Oil) Cap) 1 gm QAM PO 03/31/17 09:00 04/30/17 08:59 04/06/17 09:12 1 GM Gabapentin (Neurontin Cap) 600 mg TID PO 03/30/17 21:00 04/29/17 20:59 04/06/17 09:06 600 MG Isosorbide Mononitrate (Imdur Ext Rel Tab) 120 mg BID PO 03/30/17 21:00 04/29/17 20:59 04/06/17 09:11 120 MG Ferrous Sulfate (Feosol Tab) 325 mg BID PO 03/30/17 21:00 04/29/17 20:59 04/06/17 09:12 325 MG Metoprolol Succinate (Toprol Xl Tab) 100 mg BID PO 03/30/17 21:00 04/29/17 20:59 04/06/17 09:09 100 MG Pantoprazole Sodium (Protonix Tab) 40 mg QAM PO 03/31/17 09:00 04/30/17 08:59 04/06/17 09:08 40 MG Insulin Aspart (novoLOG ASPART) SLIDING SCALE G... ACHS SC 03/30/17 21:00 04/29/17 20:59 04/06/17 09:28 6 UNITS Furosemide 40 mg/ Syringe 4 ml @ 4 mls/min BID17 IV 03/31/17 09:00 04/30/17 08:59 04/06/17 09:15 4 MLS/MIN Glucose (Glucose 40% Gel) 15-30 GRAMS 15 GRAMS... UD PRN PO 03/30/17 22:45 04/29/17 22:44 Glucose (Glucose Chew Tab) 4-8 Tablets 4 Tabl... UD PRN PO 03/30/17 22:45 04/29/17 22:44 Dextrose (Dextrose 50% 50ML Syringe) 25-50ML OF 50% DW IV FOR... UD PRN IV 03/30/17 22:45 04/29/17 22:44 Glucagon (Glucagon Inj) 1 mg UD PRN SQ 03/30/17 22:45 04/29/17 22:44 Cefdinir (Omnicef Cap) 300 mg BID PO 04/01/17 21:00 04/08/17 08:59 04/06/17 09:08 300 MG Azithromycin (Zithromax Tab) 500 mg QAM PO 04/02/17 09:00 04/08/17 08:59 04/06/17 09:07 500 MG Insulin Glargine (Lantus Vial) 70 units QAM SC 04/02/17 09:00 05/01/17 08:59 04/06/17 09:29 70 UNITS Albuterol (Ventolin Hfa Inhaler) use as directed Q6H PRN INH 04/03/17 18:30 05/03/17 18:29 Prednisone (PredniSONE TAB) 60 mg DAILY PO 04/06/17 08:00 05/06/17 07:59 04/06/17 09:14 60 MG Insulin Glargine (Lantus Vial) 50 units HS SC 04/05/17 21:00 04/30/17 20:59 04/05/17 20:50 50 UNITS Objective Vital Signs Date Time Temp Pulse Resp B/P (MAP) Pulse Ox O2 Delivery O2 Flow Rate FiO2 04/06/17 10:42 Oxymask 8.0 04/06/17 08:01 87 16 124/77 (93) 92 Oxymask 12.0 04/06/17 08:00 92 Mask 04/06/17 00:00 CPAP 8.0 92 04/05/17 23:24 36.3 86 20 124/76 (92) 97 CPAP 6.0 04/05/17 20:52 89 134/82 (99) 04/05/17 16:12 36.5 56 20 138/59 (85) 93 Oxymask 8.0 04/05/17 16:00 93 Oxymask 8.0 Physical Exam General Appearance: WD/WN, no apparent distress Neck: supple, no JVD, trachea midline Respiratory/Chest: lungs clear, no respiratory distress, no accessory muscle use, + decreased breath sounds (bilaterally) Cardiovascular: regular rate, rhythm, no edema, no murmur Abdomen: normal bowel sounds, non tender, soft Extremities: non-tender, no pedal edema, no calf tenderness, normal capillary refill Neurologic/Psychiatric: alert, normal mood/affect, oriented x 3 Laboratory Results Results Past 24 Hours Test 04/05/17 16:38 04/05/17 19:44 04/06/17 05:38 04/06/17 07:37 Range/Units Bedside Glucose 138 329 54 70-99 mg/dl White Blood Count 12.51 4.8-10.8 K/uL Red Blood Count 4.55 4.7-6.1 M/uL Hemoglobin 11.8 14.0-18.0 g/dL Hematocrit 38.3 42-52 % Mean Corpuscular Volume 84.2 80-100 fL Mean Corpuscular Hemoglobin 25.9 25-34 pg Mean Corpuscular Hemoglobin Concent 30.8 32-36 g/dl RDW Standard Deviation 56.6 36.4-46.3 fL RDW Coefficient of Variation 18.3 11.5-14.5 % Platelet Count 294 130-400 K/uL Mean Platelet Volume 9.6 7.4-10.4 fL Activated Partial Thromboplast Time 21.1 21.0-31.0 SECONDS Partial Thromboplastin Ratio 0.8 Sodium Level 135 136-145 mmol/L Potassium Level 4.4 3.5-5.1 mmol/L Chloride Level 99 98-107 mmol/L Carbon Dioxide Level 30 21-32 mmol/L Anion Gap 6.0 3-11 mmol/L Blood Urea Nitrogen 64 7-18 mg/dl Creatinine 1.48 0.60-1.40 mg/dl Est Creatinine Clear Calc Drug Dose 51.6 ml/min Estimated GFR () 55.6 Estimated GFR (Non- 47.9 BUN/Creatinine Ratio 43.5 10-20 Random Glucose 58 70-99 mg/dl Calcium Level 8.2 8.5-10.1 mg/dl Test 04/06/17 07:55 04/06/17 11:57 Range/Units Bedside Glucose 91 92 70-99 mg/dl Assessment and Plan 66 yo m with a h/o severe CAD and pulmonary fibrosis with worsening dyspnea on exertion, elevated troponin, changes on EKG and hypoxia concerning for ischemia secondary to lung disease vs worsening CAD/ cardiomyopathy End Stage Pulmonary Fibrosis - On 6-8 L at home via nasal cannula. Will need 6 L at rest and 8L with exertion. Will send script to obtain oxymask at home - Pulm consulted, recs appreciated. Follows with Dr. Brown in the outpatient clinic. CXR: Persistent reticulonodular and interstitial prominence throughout both hemithoraces. - For infectious pneumonitis, continue PO cefdinir and azithromycin for 7 day course - Continue supportive care for chronic lung disease - Solumedrol switched to 60 daily PO - Continue albuterol q6 prn SOB - Palliative consulted, appreciate recs including anxiolytic prn on discharge. NSTEMI with chest pain likely due to ischemia (type II non ACS) - Cardiology consulted, recs appreciated. Echo reports mild concentric LV hypertrophy with normal systolic function, EF 60-65%. Diastolic dysfunction, Grade II, consistent with elevated left atrial pressure. - Trop peaked at 0.1 and trended down - Continue on home cardiac medications - Diltiazem, Imdur, Toprol XL, and Aspirin - Hold Spironolactone 25 mg daily and Losartan 25 mg as blood pressure within goal range, reassess at discharge - Stop heparin drip and restart xarelto Paroxysmal Atrial fibrillation - continue xarelto Fe def anemia, new onset on background of anemia of chronic disease - CBC reflected a new/ worsening anemia (baseline - and was 8.5 on Mar 23) . Retics elevated, Haptoglobin pending, FOBT negative. s/p transfusion of 1 unit of pRBC - Continue ferrous sulfate PO - Trend H/H TYSHAWN on CKD III secondary to poor perfusion/ vs. acute on chronic dCHF exacerbation - IV Lasix 40mg BID - I&O and daily weight - Trend BMP DMII - HbA1c 5.2 - Lantus 60 units BID + ISS (will loosen parameters due to low glucose reading this am) - BSG ac/hs Elevated LFT - baseline - Monitor, unable to take statin (causes rash) DM Neuropathy - Gabapentin 600 mg tid Hypermagnesemia - Trend Mg DVT prophylaxis - Continue xarelto DO NOT RESUSCITATE Continued [facility] stay due to: ambulation difficulties Discharge planning: home History Resident Physician Supervision Note: I was present with Dr. Johnson during the history and exam. I discussed the case with the resident and agree with the findings and plan as documented in the note. Any exceptions or clarifications are listed here. Pt reports stable shortness of breath with exertion and at rest which is similar to baseline at home while supported on current O2 delivery. General Appearance: no apparent distress, obese Respiratory: chest non-tender, no respiratory distress, decreased breath sounds , rales (mild bibasilar) Cardiovascular: normal peripheral pulses, regular rate, rhythm, no murmur Gastrointestinal: normal bowel sounds, non tender, soft, no organomegaly Skin Characteristics: normal color, warm/dry Assessment/Plan 66 y/o male h/o pulmonary fibrosis on home O2, CAD, HTN, CKDIII, anemia p/w shortness of breath Pulmonary fibrosis - pulmonology consultation - continue O2 by mask and wean as tolerated. Prednisone and albuterol neb. Palliative care on board and patient has reviewed options which will be dependent on course d/w Dr. Brown DMII with hypoglycemic episode - decrease carb coverage, redistribute lantus coverage, monitor today NSTEMI - cardiology consultation - continue ASA, metoprolol, Imdur, diltiazem. Holding spironolactone and losartan and xarelto, the latter to resume on D/C Acute on chronic diastolic CHF exacerbation - continue furosemide, trend I/O and weights. Anemia, Fe deficiency - continue supplementation, trend CBC CKDIII - monitor BMP 2/2 diuresis DMII neuropathy - gabapentin VTE PPX - heparin DNR
[2017-04-06 13:00] VITALS: BMI 36.2
[2017-04-06 15:30] VITALS: BP 112/65; PULSE 53; TEMP 36.4; O2SAT 94
[2017-04-06] MEDS: RIVAROXABAN TAB 15 MG TAB PO SCH (17:57)
[2017-04-06 21:00] VITALS: BP 147/81; PULSE 73; O2SAT 95
[2017-04-06 23:05] VITALS: BP 133/77; PULSE 86; TEMP 36.4; O2SAT 94
[2017-04-07 06:09] LABS: HEMATOCRIT 35.6 % (42-52); HEMOGLOBIN 11.2 g/dL (14.0-18.0); MEAN CELL VOLUME 84.2 fL (80-100); MEAN CORPUSCULAR HEMOGLOBIN 26.5 pg (25-34); MEAN CORPUSCULAR HGB CONC 31.5 g/dl (32-36); MEAN PLATELET VOLUME 9.7 fL (7.4-10.4); NUCLEATED RED BLOOD CELL ABS 0.02 K/uL (0-0); PLATELET COUNT 230 K/uL (130-400); RED CELL DISTRIBUTION WIDTH CV 18.4 % (11.5-14.5); RED CELL DISTRIBUTION WIDTH SD 56.6 fL (36.4-46.3); WHITE BLOOD COUNT 14.39 K/uL (4.8-10.8)
[2017-04-07 06:56] LABS: CALCIUM 7.9 mg/dl (8.5-10.1); CREATININE 1.58 mg/dl (0.60-1.40); POTASSIUM 4.3 mmol/L (3.5-5.1)
[2017-04-07] MEDS: CEFDINIR 300 MG CAP PO SCH ×2 (07:55→17:17)
[2017-04-07] MEDS: DILTIAZEM HCL 120 MG EXT REL CAP PO SCH (07:55)
[2017-04-07] MEDS: METOPROLOL SUCC 50MG EXT REL TAB PO SCH (07:56)
[2017-04-07] MEDS: GABAPENTIN 300 MG CAP PO SCH ×2 (07:56→13:48)
[2017-04-07] MEDS: CALCIUM 600MG + VIT D 400 IU TAB PO SCH (07:56)
[2017-04-07] MEDS: PANTOprazole SOD 40 MG TAB PO SCH (07:56)
[2017-04-07] MEDS: FERROUS SULFATE 325 MG TAB PO SCH (07:56)
[2017-04-07] MEDS: ISOSORBIDE MONONITRATE 60 MG TABCR PO SCH (07:57)
[2017-04-07] MEDS: OMEGA-3 (PURIFIED FISH OIL) 1 GM CAP PO SCH (07:57)
[2017-04-07] MEDS: AZITHROMYCIN 250 MG TAB PO SCH (07:57)
[2017-04-07] MEDS: FUROSEMIDE INJ 40 MG in SYRINGE 0 ML IV SCH ×2 (07:59→17:18)
[2017-04-07] MEDS ORDERED: INSULIN GLARGINE SC SCH ×2 (08:00→21:00)
[2017-04-07] MEDS: ASPIRIN 81 MG CHEW PO SCH (08:06)
[2017-04-07 08:28] VITALS: BP 110/66; PULSE 90; TEMP 36.9; O2SAT 90
[2017-04-07] MEDS: INSULIN ASPART 100 UNITS/ML 3 ML PEN SC SCH ×2 (09:09→12:58)
[2017-04-07] MEDS ORDERED: SODIUM CHLORIDE 0.9% 1000ML 1,000 ML IV SCH (10:30)
[2017-04-07 14:51] VITALS: BP 123/73; PULSE 72; TEMP 36.3; O2SAT 94
--- NOTE | 2017-04-07 15:55 | PULMONARY PROGRESS NOTE ---
DATE: 04/07/2017 TIME: 3:40 p.m. SUBJECTIVE: The patient is feeling overall pretty well. His was present during this evaluation. He is tentatively to go home today. He states he did ambulate 90 feet yesterday. However, he could not walk back to the room. They had to wheel him back. His asked me if he could resume his normal activity. I said that he could not. He will be very limited because of his shortness of breath and hypoxia. Arrangements have been made for him to get the OxyMask. OBJECTIVE: GENERAL: The patient appeared comfortable. Temperature is 36.3. EARS, NOSE, THROAT: Exam is unchanged. VITAL SIGNS: Blood pressure is 123/73. Heart rate was 72. The rhythm was regular. CHEST: Fine rales were heard posteriorly bilaterally. The aeration was overall quite good. Saturation was 94% on 8 liter OxyMask. LOWER EXTREMITIES: Both lower extremities have +2 edema. LABORATORY DATA: White count today was 14.39. Hemoglobin was 11.2. Platelets were 230,000. IMPRESSIONS: 1. Respiratory failure with hypoxia. 2. Pulmonary fibrosis. 3. Nonspecific interstitial pneumonia. RECOMMENDATIONS: The patient is being discharged today. He is to go home on 40 mg of prednisone daily. He has an appointment to see me on April 27. I do not believe we will be able to see him sooner. He likely will follow up with Dr. Roy prior to that. Prognosis is poor.
[2017-04-07 16:08] VITALS: Ht 165.1 cm; Wt 99.4 kg
[2017-04-07] MEDS ORDERED: CEFD300C3 PO (16:23)
[2017-04-07] MEDS ORDERED: AZIT-57 PO (16:23)
[2017-04-07] MEDS ORDERED: PRED20TA PO (16:23)
--- NOTE | 2017-04-07 16:26 | Discharge Instructions ---
Discharge Instructions Date of Service Apr 07, 2017. Admission Reason for Admission: Acute And Chronic Respiratory Failure W/ Hypoxia Discharge Discharge Diagnosis / Problem: Pulmonary Fibrosis Discharge Goals Goal(s): Improve function, Improve disease control Activity Recommendations Activity Limitations: per Instructions/Follow-up section . Instructions / Follow-Up Instructions / Follow-Up Pulmonary Fibrosis - you were found to have worsening symptoms of your pulmonary fibrosis. We will be discharging you with prednisone. Please take 2 tablets daily until you see Dr. Brown in his office. [facility] will be bringing you oxymask's so you can use these at home. You will need to pickling operator 1 more day of antibiotics from the pharmacy in order to finish a 7 day course of antibiotics. If you have any worsening shortness of breath, chest pain, fevers, chills or cough then please come back to the emergency department. Current Hospital Diet Patient's current hospital diet: Diabetes Type 2 Diet, AHA Diet (Heart Healthy) Discharge Diet Recommended Diet: Diabetes Type 2 Diet Pending Studies Studies pending at discharge: no Laboratory Results Hemoglobin A1c Test 01/11/17 10:01 Range/Units Estimated Average Glucose 111 mg/dl Hemoglobin A1c 5.5 4.5-5.6 % Lipid Panel Test 03/29/17 12:04 Range/Units Triglycerides Level 79 0-150 mg/dl Cholesterol Level 142 0-200 mg/dl HDL Cholesterol 47 mg/dl LDL Cholesterol Direct 91 mg/dl Cholesterol/HDL Ratio 3.0 LDL Cholesterol, Calculated mg/dl Medical Emergencies . Who to Call and When: Medical Emergencies: If at any time you feel your situation is an emergency, please call 911 immediately. . Non-Emergent Contact Non-Emergency issues call your: Primary Care Provider, Forestry Support Specialist . . "Provider Documentation" section prepared by Elmer Johnson. . VTE Core Measure Inpt VTE Proph given/why not?: Other Anticoagulation, SCD's
[2017-04-07 16:27] LABS: CALCIUM 7.8 mg/dl (8.5-10.1); CREATININE 1.62 mg/dl (0.60-1.40)
[2017-04-07 16:28] LABS: POTASSIUM 5.3 mmol/L (3.5-5.1)
[2017-04-07 16:44] VITALS: BP 123/73; PULSE 72; TEMP 36.3; O2SAT 94
[2017-04-07] MEDS: RIVAROXABAN TAB 15 MG TAB PO SCH (17:17)
--- NOTE | 2017-04-07 18:15 | Discharge Summary ---
Discharge Summary Date of Service Apr 07, 2017. Discharge Summary Admission Date: Mar 30, 2017 at 20:23 Discharge Date: Apr 07, 2017 Discharge Disposition: Home Principal Diagnosis: Pulmonary Fibrosis with Pneumonitis Immunizations: Have You Had Influenza Vaccine: Yes Influenza Vaccine Date: Dec 29, 2010 History of Tetanus Vaccine?: Yes Tetanus Immunization Date: Oct 21, 2006 History of Pneumococcal: Yes Pneumococcal Date: Mar 29, 2008 History of Hepatitis B Vaccine: No Consultations: Pulmonology Medication Reconciliation New Medications: Prednisone (Prednisone) 20 Mg Tab 2 TAB PO DAILY for 14 Days, #28 TAB Azithromycin (Azithromycin) 250 Mg Tab 500 MG PO QAM for 1 Day, #1 TAB Cefdinir (Cefdinir) 300 Mg Cap 300 MG PO BID for 1 Day, #2 CAP Continued Medications: Albuterol Hfa (Ventolin Hfa) 200 Puffs/91700 Mcg Aers 2-4 PUFFS INH Q6H PRN for Shortness of Breath, #1 INHALER Aspirin (Aspirin Chewable) 81 Mg Chew 81 MG PO QAM Calcium/Vitamin D (Os-Eladio 500 Plus D) Tab 1 TAB PO DAILY, TAB Diltiazem Hcl Ext Rel (Tiazac) 240 Mg Capcr 240 MG PO QAM, CAP Ferrous Sulfate (Kp Ferrous Sulfate) 325 Mg Tab 325 MG PO BID, TAB Fish Oil ([place]-3) 1 Ea Cap 1 CAP PO QAM, CAP Furosemide (Lasix) 40 Mg Tab 40 MG PO BID, TAB Gabapentin (Neurontin) 300 Mg Cap 600 MG PO TID, CAP Home O2 Therapy (Oxygen) Gas 4 LITERS NA CONT., BTL WEARS 4L AT REST AND 6L WITH EXERTION Insulin Aspart (Novolog Flexpen) 100 Units/Ml Inj 20 UNITS SC QAM Insulin Aspart Protamine & Asp (Novolog Mix 70/30) 1 Inj Inj 70 UNITS SC QPM, BTL Insulin Aspart Protamine & Asp (Novolog Mix 70/30) 1 Inj Inj 90 UNITS SC QAM, BTL Insulin Aspart (Novolog Flexpen) 100 Units/Ml Inj 15 UNITS SC QPM Isosorbide Dinitrate (Isosorbide Dinitrate) 5 Mg Tab PRN for prior to exercise Isosorbide Mononitrate Ext Rel (Imdur Ext Rel) 120 Mg Ertab 120 MG PO BID, TAB Losartan Potassium (Cozaar) 25 Mg Tab 25 MG PO QAM, TAB Magnesium Oxide (Mag-Ox) 400 Mg Tab 800 MG PO QAM, TAB Metoprolol Succinate (Toprol Xl) 100 Mg Tabcr 100 MG PO BID Nitroglycerin (Nitrostat) 0.4 Mg Tab 0.4 MG UT PRN, BTL Omeprazole (Prilosec) 20 Mg Capcr 20 MG PO QAM, CAP Rivaroxaban (Xarelto) 15 Mg Tab 15 MG PO DAILY@1700, TAB Spironolactone (Aldactone) 25 Mg Tab 25 MG PO QAM, TAB Discontinued Medications: Prednisone Tab (Prednisone) 10 Mg Tab 20 MG PO DAILY, TAB Discharge Exam Patient feeling well and without any shortness of breath at rest. Is eager to go home. Will be going home with 40mg prednisone and oxymask Review of Systems: Constitutional: No fever, No chills, No sweats Respiratory: + dyspnea on exertion, No cough, No dyspnea at rest, No hemoptysis Cardiovascular: No chest pain, No edema, No palpitations Abdomen: No pain, No nausea, No vomiting, No diarrhea Musculoskeletal: No joint pain, No muscle pain Genitourinary - Male: No hematuria, No dysuria Integumentary: No rash, No itch Physical Exam: General Appearance: WD/WN, no apparent distress ENT: hearing grossly normal, pharynx normal Neck: no JVD, trachea midline Respiratory/Chest: lungs clear, no respiratory distress, no accessory muscle use, + decreased breath sounds (bilaterally) Cardiovascular: regular rate, rhythm, no edema, normal peripheral pulses Abdomen / GI: normal bowel sounds, non tender, soft Extremities: no calf tenderness, normal range of motion, + pedal edema (+1 edema to midshin) Neurologic/Psychiatric: alert, normal mood/affect, oriented x 3 Hospital Course 66 yo m with a h/o severe CAD and pulmonary fibrosis with worsening dyspnea on exertion, elevated troponin, changes on EKG and hypoxia concerning for ischemia secondary to lung disease vs worsening CAD/ cardiomyopathy End Stage Pulmonary Fibrosis - On 6-8 L at home via nasal cannula. Will need 6 L at rest and 8L with exertion. Will send script to obtain oxymask at home - Pulm consulted, recs appreciated. Follows with Dr. Brown in the outpatient clinic. CXR: Persistent reticulonodular and interstitial prominence throughout both hemithoraces. - For infectious pneumonitis, received 7 day course of azithromycin and cefdinir - Solumedrol in hospital and discharged with 40mg prednisone until seeing Pulm as outpatient - Continue albuterol q6 prn SOB - Palliative consulted NSTEMI with chest pain likely due to ischemia (type II non ACS) - Cardiology consulted. Echo reports mild concentric LV hypertrophy with normal systolic function, EF 60-65%. Diastolic dysfunction, Grade II, consistent with elevated left atrial pressure. - Trop peaked at 0.1 and trended down - Continue on home cardiac medications - Diltiazem, Imdur, Toprol XL, and Aspirin Paroxysmal Atrial fibrillation - continue xarelto Fe def anemia - hgb 11.2 upon discharge - Continue ferrous sulfate PO DMII - HbA1c 5.2 - On insulin short acting and 70/30 regimen - was on lantus bid in hospital Elevated LFT - baseline - Monitor as outpatient, unable to take statin DM Neuropathy - Gabapentin 600 mg tid Hypermagnesemia - Trend Mg as outpatient DVT prophylaxis - Continue xarelto Total Time Spent: Less than 30 minutes This includes examination of the patient, discharge planning, medication reconciliation, and communication with other providers. Discharge Instructions Please refer to the electronic Patient Visit Report (Discharge Instructions) for additional information. Additional Copies To Gómez Brown, DO; Ishan Roy M.D. Assessment/Plan Pt seen and examined with Dr. Johnson and agree with history, exam and plan as documented above with exceptions as noted here. Resting comfortably in chair at respiratory baseline without present complaint. No episodes of hypoglycemia today. Chest: decreased air movement without rales/rhonchi CV: S1/S2 nl RRR no MCG 66 y/o male h/o pulmonary fibrosis on home O2, CAD, HTN, CKDIII, anemia p/w shortness of breath Pulmonary fibrosis - pulmonology consultation - continue O2 by mask at home 6L at rest 8L with activity. Prednisone and albuterol neb. Palliative care on board and patient has reviewed options which will be dependent on course d/w Dr. Brown DMII with hypoglycemic episode - decreased lantus and continue 40U BID dosing with coverage at home NSTEMI - cardiology consultation - continue ASA, metoprolol, Imdur, diltiazem. Holding spironolactone and losartan. Resume xarelto Acute on chronic diastolic CHF exacerbation - continue furosemide Anemia, Fe deficiency - continue supplementation, trend CBC CKDIII - monitor BMP at follow up DMII neuropathy - gabapentin
== END 2017-04-07 18:47 | disposition home or self-care (01) | DRG 280 ==
LOC: C.EDB 16:52 → C.2T 20:23 → ENRESERV 21:25 → C.4E 04-03 19:35
PROVIDERS: ADMIT Hospitalist; ATTEND Family Medicine
DX: I13.0 Hypertensive heart and chronic kidney disease with heart failure and stage 1 through stage 4 chronic kidney disease, or unspecified chronic kidney disease (principal); J84.113 Idiopathic non-specific interstitial pneumonitis; I21.A1 Myocardial infarction type 2; I50.33 Acute on chronic diastolic (congestive) heart failure; J96.21 Acute and chronic respiratory failure with hypoxia; N17.9 Acute kidney failure, unspecified; I48.92 Unspecified atrial flutter; I25.10 Atherosclerotic heart disease of native coronary artery without angina pectoris; Z95.1 Presence of aortocoronary bypass graft; J84.10 Pulmonary fibrosis, unspecified; E78.5 Hyperlipidemia, unspecified; Z83.3 Family history of diabetes mellitus; Z87.891 Personal history of nicotine dependence; Z79.82 Long term (current) use of aspirin; Z79.4 Long term (current) use of insulin; Z88.0 Allergy status to penicillin; E87.5 Hyperkalemia; K76.0 Fatty (change of) liver, not elsewhere classified; E11.40 Type 2 diabetes mellitus with diabetic neuropathy, unspecified; D50.9 Iron deficiency anemia, unspecified; E83.41 Hypermagnesemia; I48.0 Paroxysmal atrial fibrillation; N18.3 Chronic kidney disease, stage 3 (moderate); E11.649 Type 2 diabetes mellitus with hypoglycemia without coma; Z79.01 Long term (current) use of anticoagulants; G47.33 Obstructive sleep apnea (adult) (pediatric)

== ENCOUNTER → 2017-04-15 | Outpatient (CLI) | payer OTHER ==
[~2017-04-15] MED LIST changes: -ACET-1256 PO; +AZIT-57 PO; +CEFD300C3 PO; +PRED20TA PO
[2017-04-15 17:44] LABS: BLOOD UREA NITROGEN 48 mg/dl (7-18); CALCIUM 8.2 mg/dl (8.5-10.1); CARBON DIOXIDE 29 mmol/L (21-32); CREATININE 2.43 mg/dl (0.60-1.40); GLUCOSE 78 mg/dl (70-99); POTASSIUM 5.1 mmol/L (3.5-5.1); SODIUM 136 mmol/L (136-145)
== END | disposition home or self-care (01) ==
LOC: C.LABBFT 15:17
PROVIDERS: ATTEND Internal Medicine
DX: E87.1 Hypo-osmolality and hyponatremia (principal)

== ENCOUNTER → 2017-04-22 | Outpatient (CLI) | payer OTHER ==
[2017-04-22 18:04] LABS: ALBUMIN 3.3 gm/dl (3.4-5.0); BLOOD UREA NITROGEN 59 mg/dl (7-18); CALCIUM 8.6 mg/dl (8.5-10.1); CARBON DIOXIDE 29 mmol/L (21-32); CREATININE 2.17 mg/dl (0.60-1.40); GLUCOSE 101 mg/dl (70-99); PHOSPHORUS 3.7 mg/dl (2.5-4.9); POTASSIUM 5.1 mmol/L (3.5-5.1); SODIUM 136 mmol/L (136-145)
== END | disposition home or self-care (01) ==
LOC: C.LABBFT 13:45
PROVIDERS: ATTEND Internal Medicine
DX: N18.9 Chronic kidney disease, unspecified (principal)

== ENCOUNTER → 2017-05-14 | Outpatient (CLI) | payer OTHER ==
[~2017-05-14] MED LIST changes: -PRED20TA PO
[2017-05-14 16:49] LABS: ALBUMIN 3.4 gm/dl (3.4-5.0); BLOOD UREA NITROGEN 72 mg/dl (7-18); CALCIUM 8.8 mg/dl (8.5-10.1); CARBON DIOXIDE 28 mmol/L (21-32); GLUCOSE 76 mg/dl (70-99); PHOSPHORUS 4.6 mg/dl (2.5-4.9); POTASSIUM 5.6 mmol/L (3.5-5.1); SODIUM 134 mmol/L (136-145)
== END | disposition home or self-care (01) ==
LOC: C.LABBFT 15:44
PROVIDERS: ATTEND Internal Medicine
DX: N18.9 Chronic kidney disease, unspecified (principal)

== ENCOUNTER → 2017-05-17 | Outpatient (CLI) | payer OTHER ==
[2017-05-17 17:37] LABS: HEMOGLOBIN 10.6 g/dL (14.0-18.0); MEAN CELL VOLUME 99.2 fL (80-100); MEAN CORPUSCULAR HGB CONC 30.3 g/dl (32-36); MEAN PLATELET VOLUME 10.2 fL (7.4-10.4); NUCLEATED RED BLOOD CELL ABS 1.01 K/uL (0-0); PLATELET COUNT 215 K/uL (130-400); RED CELL DISTRIBUTION WIDTH SD 93.2 fL (36.4-46.3); WHITE BLOOD COUNT 13.99 K/uL (4.8-10.8)
== END | disposition home or self-care (01) ==
LOC: C.LABBFT 11:38
PROVIDERS: ATTEND Physician Assistant Medical
DX: D64.9 Anemia, unspecified (principal)

== ENCOUNTER 2017-05-24 18:37 | Emergency (ER) | payer OTHER ==
[~2017-05-24] VITALS: Ht 165.1 cm; Wt 102.4 kg
[2017-05-24 18:52] VITALS: TEMP 36.8; Ht 165.1 cm; Wt 102.4 kg
[2017-05-24] MEDS ORDERED: SILVER NITR/POTASSIUM NITRATE APPLICATOR ONE (19:38)
[2017-05-24] MEDS ORDERED: SILVER NITR/POTASSIUM NITRATE APPLICATOR EXT STA (19:38)
--- NOTE | 2017-05-24 19:38 | EMERGENCY ROOM VISIT NOTE ---
History Report prepared by Neptali: Will Ramirez Under the Supervision of: Dr. Lucía Chne M.D. First contact with patient: 19:11 Chief Complaint: NOSE BLEED (MINOR) Stated Complaint: SOB, NOSE BLEEDS History of Present Illness The patient is a 67 year old male with a history of COPD and atrial fibrillation who presents to the Emergency Room with complaints of episodes of nose bleeds from the right nary that started around 6 hours ago. He states that he has had 3 episodes today that have been difficult to stop. The patient says that he does not have a notable history of nose bleeds but has been having more of them recently, including most recently a week ago. He notes that he takes Aspirin and Xarelto daily. The patient states that he has no history of blood clots. Per the patient's family, the patient wears 8 liters of oxygen during the day, and 5 to 6 liters of oxygen at night in addition to CPAP. The patient' s oxygen saturation normally runs around 85 to 86%. Source of History: patient, family Onset: 6 hours ago Position: nose (right nary) Symptom Intensity: 3 episodes Quality: other (bleeds) Timing: other (episodes) Note: No other associated symptoms noted. Review of Systems See HPI for pertinent positives & negatives. A total of 10 systems reviewed and were otherwise negative. Past Medical & Surgical Medical Problems: (1) Acute and chronic respiratory failure with hypoxia (2) Acute congestive heart failure (3) Acute respiratory failure (4) Benign hypertension (5) CABG (6) Diabetes mellitus (7) Hospital-acquired bacterial pneumonia (8) Hyperlipidemia (9) Sepsis Family History Diabetes mellitus Heart disease Hypertension Social History Smoking Status: Former Smoker Alcohol Use: none Drug Use: none Marital Status: Housing Status: lives with family Occupation Status: retired, disabled Current/Historical Medications Scheduled Aspirin (Aspirin Chewable), 81 MG PO QAM Azithromycin (Azithromycin), 500 MG PO QAM Calcium/Vitamin D (Os-Eladio 500 Plus D), 1 TAB PO DAILY Cefdinir (Cefdinir), 300 MG PO BID Diltiazem Hcl Ext Rel (Tiazac), 240 MG PO QAM Ferrous Sulfate (Kp Ferrous Sulfate), 325 MG PO BID Fish Oil ([place]-3), 1 CAP PO QAM Furosemide (Lasix), 40 MG PO BID Gabapentin (Neurontin), 600 MG PO TID Home O2 Therapy (Oxygen), 4 LITERS NA CONT. Insulin Aspart (Novolog Flexpen), 20 UNITS SC QAM Insulin Aspart (Novolog Flexpen), 15 UNITS SC QPM Insulin Aspart Protamine & Asp (Novolog Mix 70/30), 70 UNITS SC QPM Insulin Aspart Protamine & Asp (Novolog Mix 70/30), 90 UNITS SC QAM Isosorbide Mononitrate Ext Rel (Imdur Ext Rel), 120 MG PO BID Losartan Potassium (Cozaar), 25 MG PO QAM Magnesium Oxide (Mag-Ox), 800 MG PO QAM Metoprolol Succinate (Toprol Xl), 100 MG PO BID Nitroglycerin (Nitrostat), 0.4 MG UT PRN Omeprazole (Prilosec), 20 MG PO QAM Rivaroxaban (Xarelto), 15 MG PO DAILY@1700 Spironolactone (Aldactone), 25 MG PO QAM Scheduled PRN Albuterol Hfa (Ventolin Hfa), 2-4 PUFFS INH Q6H PRN for Shortness of Breath Isosorbide Dinitrate (Isosorbide Dinitrate), for prior to exercise Allergies Coded Allergies: Doxycycline (Verified Allergy, Intermediate, RASH, 03/30/17) Hydrocodone (Verified Allergy, Intermediate, RASH, 03/30/17) Replaces LORTAB ELIXIR Iodinated Diagnostic Agents (Verified Allergy, Intermediate, RASH, 03/30/17 ) Losartan (Verified Allergy, Intermediate, RASH, 03/30/17) Lovastatin (Verified Allergy, Intermediate, RASH, 03/30/17) Penicillins (Verified Allergy, Intermediate, RASH, 03/30/17) Quinolones (Verified Allergy, Intermediate, RASH, 03/30/17) Tetracycline (Verified Allergy, Intermediate, RASH, 03/30/17) Latex1 -Allergic Contact Dermititis (Verified Allergy, Mild, RASH, 03/30/17 ) Tetracyclines (Verified Allergy, Unknown, RASH, 03/30/17) Physical Exam Vital Signs Date Time Temp Pulse Resp B/P (MAP) Pulse Ox O2 Delivery O2 Flow Rate FiO2 05/24/17 22:52 91 05/24/17 22:35 60 18 102/40 86 Nasal Cannula 8.0 05/24/17 21:46 52 18 103/54 88 Nasal Cannula 8.0 05/24/17 20:14 55 20 98/49 88 Nasal Cannula 8.0 05/24/17 19:20 46 05/24/17 18:52 36.8 68 18 113/56 89 Nasal Cannula Physical Exam Vital signs reviewed. General: Obese, chronically ill-appearing 67 year old male, on oxy mask, noted to be slightly hypoxic at 88%. HEENT: No scleral icterus, PERRLA, neck supple. Small vessel noted on the nasal septum mucosa of right nares. No active bleeding. Cardiovascular: Rate controlled and irregular, no extra sounds. Pulmonary: Clear to auscultation bilaterally, normal work of breathing. Abdomen: Soft, nontender, nondistended, positive bowel sounds. Musculoskeletal: Atraumatic, no peripheral edema. Neurologic: Patient awake alert and oriented x 3. Skin: Somewhat pale appearing. Warm, dry, no rash Medical Decision & Procedures Laboratory Results 05/24/17 19:45 Red Blood Count 3.06, Mean Corpuscular Volume 99.3, Mean Corpuscular Hemoglobin 31.0, Mean Corpuscular Hemoglobin Concent 31.3, Mean Platelet Volume 9.0, Neutrophils (%) (Auto) 88.0, Lymphocytes (%) (Auto) 4.0, Monocytes (%) (Auto) 3.0, Eosinophils (%) (Auto) 0.1, Basophils (%) (Auto) 0.4, Neutrophils # (Auto) 9.48, Lymphocytes # (Auto) 0.43, Monocytes # (Auto) 0.32, Eosinophils # (Auto) 0.01, Basophils # (Auto) 0.04 05/24/17 19:45 Test 05/24/17 19:45 White Blood Count 10.76 K/uL (4.8-10.8) Red Blood Count 3.06 M/uL (4.7-6.1) Hemoglobin 9.5 g/dL (14.0-18.0) Hematocrit 30.4 % (42-52) Mean Corpuscular Volume 99.3 fL (80-100) Mean Corpuscular Hemoglobin 31.0 pg (25-34) Mean Corpuscular Hemoglobin Concent 31.3 g/dl (32-36) Platelet Count 145 K/uL (130-400) Mean Platelet Volume 9.0 fL (7.4-10.4) Neutrophils (%) (Auto) 88.0 % Lymphocytes (%) (Auto) 4.0 % Monocytes (%) (Auto) 3.0 % Eosinophils (%) (Auto) 0.1 % Basophils (%) (Auto) 0.4 % Neutrophils # (Auto) 9.48 K/uL (1.4-6.5) Lymphocytes # (Auto) 0.43 K/uL (1.2-3.4) Monocytes # (Auto) 0.32 K/uL (0.11-0.59) Eosinophils # (Auto) 0.01 K/uL (0-0.5) Basophils # (Auto) 0.04 K/uL (0-0.2) RDW Standard Deviation 93.8 fL (36.4-46.3) RDW Coefficient of Variation 26.1 % (11.5-14.5) Immature Granulocyte % (Auto) 4.5 % Immature Granulocyte # (Auto) 0.48 K/uL (0.00-0.02) Nucleated RBC Absolute Count (auto) 0.63 K/uL (0-0) Nucleated Red Blood Cells % 5.9 % Polychromasia 1+ Anisocytosis PRESENT Anion Gap 8.0 mmol/L (3-11) Est Creatinine Clear Calc Drug Dose 41.5 ml/min Estimated GFR () 42.1 Estimated GFR (Non- 36.3 BUN/Creatinine Ratio 41.8 (10-20) Calcium Level 8.2 mg/dl (8.5-10.1) Total Bilirubin 1.2 mg/dl (0.2-1) Direct Bilirubin 0.3 mg/dl (0-0.2) Aspartate Amino Transf (AST/SGOT) 31 U/L (15-37) Alanine Aminotransferase (ALT/SGPT) 45 U/L (12-78) Alkaline Phosphatase 28 U/L (45-117) Total Protein 5.7 gm/dl (6.4-8.2) Albumin 3.2 gm/dl (3.4-5.0) Laboratory results per my review. Medications Administered Medications (Trade) Dose Ordered Sig/Zeina Route Start Time Stop Time Status Last Admin Dose Admin Sodium Chloride 500 ml @ 999 mls/hr Q31M STAT IV 05/24/17 21:21 05/24/17 21:51 DC 05/24/17 21:21 999 MLS/HR Procedure Nasal cautery to the left nasal septum Indication: Epistaxis Using a silver nitrate stick, a small freshly bleeding vessel along the anterior nasal septum of the left nares was cauterized. Patient tolerated the procedure well. ED Course 1932: Past medical records reviewed. The patient was evaluated in room B5. A complete history and physical examination was performed. 1937: Silver Nitrate Applicators 1 appl EXT. 2120: NSS 500 ml @ 999 mls/hr IV. 2214: Upon reevaluation, the patient appeared to have improvement of his symptoms. I discussed findings with him. He verbalized agreement of the treatment plan. He was discharged home. Medical Decision Differential diagnosis: Etiologies such as anterior epistaxis, coagulopathy, traumatic injury, fracture , septal hematoma, posterior epistaxis as well as other pathologies were entertained. This patient was evaluated and appeared to be in no significant distress. IV access was obtained and laboratory work was drawn. Patient's laboratory work reveals chronic abnormalities. Patient currently takes Xarelto and aspirin related to atrial fibrillation. He was advised to stop the aspirin for 1 week and the Xarelto for 3 days. The patient wears nasal cannula oxygen and will be using saline nasal spray or Arygel to keep the mucosa moist. He will follow-up with his PCP this week for reevaluation and return to the ER for worsening of symptoms or any medical concerns. Medication Reconcilliation Current Medication List: was personally reviewed by me Blood Pressure Screening Patient's blood pressure: Normal blood pressure Impression Primary Impression: Epistaxis, recurrent Scribe Attestation The scribe's documentation has been prepared under my direction and personally reviewed by me in its entirety. I confirm that the note above accurately reflects all work, treatment, procedures, and medical decision making performed by me. Departure Information Dispostion Home / Self-Care Referrals Ishan Roy M.D. (PCP) Patient Instructions My [facility] Additional Instructions Diagnosis: Epistaxis Stop aspirin and Xarelto for 7 days. Avoid scratching, rubbing, picking, or blowing your nose. The bone drier your nasal passages the more likely they are to bleed. The following two products are available [id number] at most drug stores/pharmacies: [place] nasal spray or similar generic saline spray to keep the nose moist 3 to 4 times a day or Apply [place] gel 2-3 times daily to the nostrils to keep them moist. If bleeding recurs apply direct pressure for an uninterrupted 20 minutes. On and off pressure is much less effective because it will disturb the clots that are forming. You may use afrin nasal spray 3-4 sprays in bleeding nostril and apply pressure. If the bleeding is still a problem after 20 minutes or is so heavy despite the pressure return to the emergency department. Follow-up with your primary care physician in 2 to 3 days for a recheck. You may need ENT evaluation.
[2017-05-24 20:06] LABS: BASO % 0.4 %; BASO ABS # 0.04 K/uL (0-0.2); EOS % 0.1 %; EOS ABS # 0.01 K/uL (0-0.5); HEMATOCRIT 30.4 % (42-52); HEMOGLOBIN 9.5 g/dL (14.0-18.0); IG# 0.48 K/uL (0.00-0.02); LYMPH ABS # 0.43 K/uL (1.2-3.4); MEAN CELL VOLUME 99.3 fL (80-100); MEAN CORPUSCULAR HGB CONC 31.3 g/dl (32-36); MONO ABS # 0.32 K/uL (0.11-0.59); NEUT ABS # 9.48 K/uL (1.4-6.5); NUCLEATED RED BLOOD CELL ABS 0.63 K/uL (0-0); PLATELET COUNT 145 K/uL (130-400); RED CELL DISTRIBUTION WIDTH CV 26.1 % (11.5-14.5); RED CELL DISTRIBUTION WIDTH SD 93.8 fL (36.4-46.3); WHITE BLOOD COUNT 10.76 K/uL (4.8-10.8)
[2017-05-24 20:38] LABS: ALBUMIN 3.2 gm/dl (3.4-5.0); CALCIUM 8.2 mg/dl (8.5-10.1); CREATININE 1.85 mg/dl (0.60-1.40)
[2017-05-24 20:40] LABS: TOTAL PROTEIN 5.7 gm/dl (6.4-8.2)
[2017-05-24] MEDS ORDERED: SODIUM CHLORIDE 0.9% 500ML 500 ML IV STA (21:21)
[2017-05-24 22:35] VITALS: BP 102/40; PULSE 60
[2017-05-24 22:52] VITALS: O2SAT 91
== END 2017-05-24 22:53 | disposition home or self-care (01) ==
LOC: EDBD 18:37 → C.EDB 18:38
DX: R04.0 Epistaxis (principal); Z79.82 Long term (current) use of aspirin; Z79.01 Long term (current) use of anticoagulants; Z99.81 Dependence on supplemental oxygen; J96.10 Chronic respiratory failure, unspecified whether with hypoxia or hypercapnia; I10 Essential (primary) hypertension; Z95.1 Presence of aortocoronary bypass graft; E11.9 Type 2 diabetes mellitus without complications; I48.91 Unspecified atrial fibrillation; Z87.01 Personal history of pneumonia (recurrent); Z83.3 Family history of diabetes mellitus; Z82.49 Family history of ischemic heart disease and other diseases of the circulatory system; Z87.891 Personal history of nicotine dependence; Z79.4 Long term (current) use of insulin; Z79.899 Other long term (current) drug therapy; Z88.1 Allergy status to other antibiotic agents; Z88.0 Allergy status to penicillin; Z91.040 Latex allergy status; Z91.041 Radiographic dye allergy status

== ENCOUNTER → 2017-05-26 | Outpatient (CLI) | payer OTHER ==
[~2017-05-26] MED LIST changes: +ACET-1256 PO; -ISR5; +ISR5 PO; +KETO2GEL2 TD; +PRED20TA PO
[2017-05-26 16:26] LABS: BASO % 0.2 %; BASO ABS # 0.03 K/uL (0-0.2); EOS % 0.1 %; EOS ABS # 0.02 K/uL (0-0.5); HEMATOCRIT 35.2 % (42-52); HEMOGLOBIN 10.6 g/dL (14.0-18.0); IG# 0.32 K/uL (0.00-0.02); LYMPH % 3.8 %; LYMPH ABS # 0.52 K/uL (1.2-3.4); MEAN CELL VOLUME 101.7 fL (80-100); MEAN CORPUSCULAR HEMOGLOBIN 30.6 pg (25-34); MEAN CORPUSCULAR HGB CONC 30.1 g/dl (32-36); MEAN PLATELET VOLUME 9.6 fL (7.4-10.4); MONO % 4.4 %; MONO ABS # 0.59 K/uL (0.11-0.59); NEUT % 89.1 %; NEUT ABS # 12.03 K/uL (1.4-6.5); PLATELET COUNT 178 K/uL (130-400); RED CELL DISTRIBUTION WIDTH CV 25.3 % (11.5-14.5); RED CELL DISTRIBUTION WIDTH SD 95.2 fL (36.4-46.3); WHITE BLOOD COUNT 13.51 K/uL (4.8-10.8)
[2017-05-26 16:34] LABS: ALBUMIN 3.5 gm/dl (3.4-5.0); BLOOD UREA NITROGEN 58 mg/dl (7-18); CALCIUM 8.4 mg/dl (8.5-10.1); CARBON DIOXIDE 28 mmol/L (21-32); CREATININE 1.62 mg/dl (0.60-1.40); GLUCOSE 67 mg/dl (70-99); POTASSIUM 4.4 mmol/L (3.5-5.1); SODIUM 136 mmol/L (136-145)
[2017-05-26 16:35] LABS: PHOSPHORUS 3.6 mg/dl (2.5-4.9)
== END | disposition home or self-care (01) ==
LOC: C.LAB1850 14:23
PROVIDERS: ATTEND Physician Assistant Medical
DX: D64.9 Anemia, unspecified (principal)

== ENCOUNTER 2017-06-04 01:38 | Emergency (ER) | payer OTHER ==
[~2017-06-04] VITALS: Ht 165.1 cm; Wt 96.7 kg
[~2017-06-04 01:38] MED LIST changes: -ACET-1256 PO; -KETO2GEL2 TD; -PRED20TA PO
[2017-06-04 01:44] VITALS: TEMP 37; Ht 165.1 cm; Wt 96.7 kg
[2017-06-04] MEDS ORDERED: ACET-1256 PO (02:16)
[2017-06-04] MEDS ORDERED: PRED20TA PO (02:16)
[2017-06-04] MEDS ORDERED: KETO2GEL2 TD (02:16)
[2017-06-04] MEDS ORDERED: SILVER NITR/POTASSIUM NITRATE APPLICATOR ONE (02:21)
[2017-06-04] MEDS ORDERED: OXYMETAZOLINE HCL 0.05% NA SPR 15 ML BTL ONE (02:24)
[2017-06-04 04:30] VITALS: BP 106/69; PULSE 78
--- NOTE | 2017-06-04 05:40 | EMERGENCY ROOM VISIT NOTE ---
History First contact with patient: 02:16 Chief Complaint: NOSE BLEED (MINOR) Stated Complaint: NOSEBLEED History of Present Illness The patient is a 67 year old male who presents to the Emergency Room with complaints of nosebleed for the past several hours. This is a recurrent problem for him. Patient is on aspirin and Xarelto. He has not seen an ENT doctor. His palletizer recommends that he stays on these medications. No injury to the nose. Patient denies chest pain, dyspnea, fever, cough. Patient is chronically on oxygen. Review of Systems An 10 system review of systems was completed with positives and pertinent negatives listed in the HPI. Past Medical/Surgical History Medical Problems: (1) Acute and chronic respiratory failure with hypoxia (2) Acute congestive heart failure (3) Acute respiratory failure (4) Benign hypertension (5) CABG (6) Diabetes mellitus (7) Hospital-acquired bacterial pneumonia (8) Hyperlipidemia (9) Sepsis Family History Diabetes mellitus Heart disease Hypertension Social History Smoking Status: Former Smoker Alcohol Use: none Drug Use: none Marital Status: Housing Status: lives with family Occupation Status: retired, disabled Current/Historical Medications Scheduled Aspirin (Aspirin Chewable), 81 MG PO QAM Calcium/Vitamin D (Os-Eladio 500 Plus D), 1 TAB PO DAILY Diltiazem Hcl Ext Rel (Tiazac), 240 MG PO QAM Ferrous Sulfate (Kp Ferrous Sulfate), 325 MG PO BID Fish Oil ([place]-3), 1 CAP PO QAM Furosemide (Lasix), 40 MG PO BID Gabapentin (Neurontin), 600 MG PO TID Home O2 Therapy (Oxygen), 4 LITERS NA CONT. Insulin Aspart (Novolog Flexpen), 10 UNITS SC BID Insulin Aspart Protamine & Asp (Novolog Mix 70/30), 46 UNITS SC QPM Insulin Aspart Protamine & Asp (Novolog Mix 70/30), 70 UNITS SC QAM Isosorbide Mononitrate Ext Rel (Imdur Ext Rel), 120 MG PO BID Losartan Potassium (Cozaar), 25 MG PO QAM Magnesium Oxide (Mag-Ox), 800 MG PO QAM Metoprolol Succinate (Toprol Xl), 100 MG PO BID Nitroglycerin (Nitrostat), 0.4 MG UT PRN Omeprazole (Prilosec), 20 MG PO QAM Prednisone (Prednisone), 30 MG PO DAILY Rivaroxaban (Xarelto), 15 MG PO DAILY@1700 Scheduled PRN Acetaminophen (Tylenol), 1,000 MG PO Q6H PRN for Pain or Fever Albuterol Hfa (Ventolin Hfa), 2 PUFFS INH Q4H PRN for Shortness of Breath Isosorbide Dinitrate (Isosorbide Dinitrate), 5 MG PO DIRECTED PRN for 15 MIN. PRIOR TO EXERCISE Ketoconazole (Topical) (Xolegel), 1 APPLN TD BID PRN for AFFECTED AREA Physical Exam Vital Signs Date Time Temp Pulse Resp B/P (MAP) Pulse Ox O2 Delivery O2 Flow Rate FiO2 06/04/17 04:30 78 22 106/69 95 Non-Rebreather 10.0 06/04/17 01:44 37.0 88 20 128/68 96 Non-Rebreather 15.0 Physical Exam VITALS: Vitals are noted on the nurse's note and reviewed by myself. Vital signs stable. GENERAL: Pleasant male wearing oxygen, in no acute distress, nondiaphoretic, well-developed well-nourished. SKIN: The skin was without rashes, erythema, edema, or bruising. There is no tenting of the skin. Capillary reflex less than 2 seconds. HEAD: Normocephalic atraumatic. EARS: External auditory canals clear, tympanic membranes pearly mandel without erythema or effusion bilaterally. EYES: Pupils equal round and reactive to light and accommodation. Conjunctivae without injection, sclerae without icterus. Extraocular movements intact. NOSE: Patent, active bleeding from the left [place]essel[place] plexus area without septal hematoma bilaterally. No sinus tenderness. MOUTH: Mucous membranes moist. Pharynx without erythema or exudate. Uvula midline. Airway patent. Tongue does not deviate. NECK: Supple without nuchal rigidity. No lymphadenopathy. No thyromegaly. Cervical spine is nontender. No JVD. HEART: Regular rate and rhythm LUNGS: Clear to auscultation bilaterally without wheezes, rales or rhonchi. No retractions or accessory muscle use. ABDOMEN: Positive bowel sounds x 4. Normal tympanic percussion. Soft, nontender, without masses or organomegaly. Hill sign negative. No guarding or rebound tenderness. No CVA tenderness MUSCULOSKELETAL: No muscle atrophy, erythema, noted. NEURO: Patient was alert and oriented to person place and time. Normal sensation to light and sharp touch. No focal neurological deficits. Medical Decision & Procedures Medications Administered Medications (Trade) Dose Ordered Sig/Zeina Route Start Time Stop Time Status Last Admin Dose Admin Silver Nitrate/ Potassium Nitrate (Silver Nitrate Applicators) 2 appl STK-MED ONCE .ROUTE 06/04/17 02:21 06/04/17 02:22 DC 06/04/17 03:04 2 APPL Oxymetazoline HCl (Afrin 0.05% Nasal [place]) 75 sprays STK-MED ONCE .ROUTE 06/04/17 02:24 06/04/17 02:25 DC 06/04/17 02:30 75 SPRAYS Procedure Anterior Nasal Packing Indication: Epistaxis Verbal consent obtained. Risks and benefits were explained with the usual customary discussion. A time out was taken. Clots were removed with suction. The left naris was prepped with Afrin and lidocaine. A 5.5-cm nasal balloon with 5 mL's of air was placed in a standard fashion. The patient tolerated this well. Hemostasis was achieved. No complications. ED Course Prior records/ancillary studies reviewed. Triage Nursing notes reviewed. Additional history obtained from family. The patient's history was concerning for epistaxis. Differential diagnosis: Etiologies such as anterior epistaxis, coagulopathy, traumatic injury, fracture , septal hematoma, posterior epistaxis as well as other pathologies were entertained. Physical examination findings: As above. Anterior bleeding source. ER treatment provided: Direct pressure Intranasal phenylephrine Silver nitrate, Surgicel fibrillar Packing as above, keflex On reassessment the patient felt better. Diagnostics interpreted by me: Deferred This appears to be consistent with recurrent nosebleed. Patient was observed for a few hours with no rebleeding. He was advised to call this morning to make an appointment with ENT for follow-up and to notify his palletizer about the nosebleed and his antiplatelet medications. Patient was advised to hold his aspirin for the next few days. His palletizer wants him to stay on Xarelto. Patient was advised to return to the ER immediately for rebleeding, chest pain, difficulty breathing, worsening signs or symptoms or as needed. By the evaluation outlined above emergent etiologies such as coagulopathy, traumatic injury, fracture, septal hematoma, posterior epistaxis, as well as others were deemed relatively unlikely. Patient was informed to have the nasal packing removed in 3 days and take antibiotics. The pt informed about the findings as listed above. All questions were answered and pleased with the treatment. Return instructions were outlined and the patient was discharged in stable condition. Referral: The patient was referred to ENT for a recheck of the current condition in the next few days. Case reviewed with my attending The chart was completed utilizing [employer] Speech voice recognition software. Grammatical errors, random word insertions, pronoun errors, and incomplete sentences are an occassional consequence of this system due to software limitations, ambient noise, and hardware issues. Any formal questions or concerns about the content, text, or information contained within the body of this dictation should be directly addressed to the physician dermatology physician assistant for clarification. Medical Decision As above Medication Reconcilliation Current Medication List: was personally reviewed by me Blood Pressure Screening Patient's blood pressure: Normal blood pressure Impression Primary Impression: Epistaxis Departure Information Dispostion Home / Self-Care Condition GOOD Referrals Ishan Roy M.D. (PCP) Patient Instructions My [facility] Additional Instructions Cephalexin(Keflex) 500mg: Take one pill four times daily for 5 days. All antibiotics can cause diarrhea. If this occurs and you feel worse or it does not resolve in 1-2 days follow up with your doctor or return to the Emergency Department as this could be signs of serious underlying problems. Any medication can cause an allergic reaction, stop the pills immediately and return to the ER for rash, hives, breathing difficulties, or swelling. Hold your aspirin for 3 days. Call your palletizer in the morning and let him know you are in the ER again with a nosebleed. Avoid scratching, rubbing, picking, or blowing your nose. The yolk spray drier your nasal passages the more likely they are to bleed. The following two products are available [id number] at most drug stores/pharmacies. [place] nasal spray or similar generic saline spray to keep the nose moist 3 to 4 times a day. If bleeding recurs apply direct pressure for an uninterrupted 20 minutes. On and off pressure is much less effective because it will disturb the clots that are forming. If the bleeding is still a problem after 20 minutes or is so heavy despite the pressure return to the emergency department. Continue current medications. Nasal packing removal in 3 days either at ENT or here in the ER. Follow-up with ENT, Case management will call today to help facilitate an appointment. Follow-up with your primary care physician in 2 to 3 days for a recheck of your current condition.
[2017-06-04] MEDS ORDERED: CEPH500C2 PO (05:44)
[2017-06-04] MEDS ORDERED: CEPHALEXIN 500MG HOME PACK 1 EA BTL PO ONE (05:45)
[2017-06-04 06:00] VITALS: O2SAT 93
--- NOTE | 2017-06-06 16:57 | EMERGENCY ROOM VISIT NOTE ---
ED Visit Note First contact with patient: 01:55 Physician Office Machine Servicer Supervision Note: I interviewed and examined the patient. Discussed with Kierra Armstrong PA-C and agree with findings and plan as documented in the note. Any exceptions or clarifications are listed here: [None] Documented By: Lucía Chen
== END 2017-06-04 06:00 | disposition home or self-care (01) ==
LOC: EDBD 01:38 → C.EDB 01:40
DX: R04.0 Epistaxis (principal); I10 Essential (primary) hypertension; E11.9 Type 2 diabetes mellitus without complications; E78.5 Hyperlipidemia, unspecified; Z79.01 Long term (current) use of anticoagulants; Z79.4 Long term (current) use of insulin; Z79.82 Long term (current) use of aspirin; Z79.899 Other long term (current) drug therapy; Z99.81 Dependence on supplemental oxygen; Z87.891 Personal history of nicotine dependence; Z82.49 Family history of ischemic heart disease and other diseases of the circulatory system; Z83.3 Family history of diabetes mellitus

== ENCOUNTER 2017-06-23 11:43 | Emergency (ER) | payer OTHER ==
[~2017-06-23 11:43] MED LIST changes: +ACET-1256 PO; -AZIT-57 PO; -CEFD300C3 PO; +KETO2GEL2 TD; -NVLGI/PEN SC; +PRED20TA PO; -SPIR25TA PO
[2017-06-23 11:47] VITALS: TEMP 36.8
[2017-06-23 12:00] VITALS: O2SAT 97
[2017-06-23] MEDS ORDERED: METOPROLOL TARTRATE 1 MG/ML VIAL IV STA ×2 (12:06)
[2017-06-23 12:17] LABS: BASO % 0.1 %; BASO ABS # 0.01 K/uL (0-0.2); EOS % 0.3 %; EOS ABS # 0.04 K/uL (0-0.5); HEMATOCRIT 40.4 % (42-52); HEMOGLOBIN 12.4 g/dL (14.0-18.0); IG# 0.19 K/uL (0.00-0.02); LYMPH % 3.8 %; LYMPH ABS # 0.59 K/uL (1.2-3.4); MEAN CORPUSCULAR HEMOGLOBIN 31.3 pg (25-34); MEAN CORPUSCULAR HGB CONC 30.7 g/dl (32-36); MEAN PLATELET VOLUME 9.3 fL (7.4-10.4); MONO % 5.3 %; MONO ABS # 0.83 K/uL (0.11-0.59); NEUT % 89.3 %; NEUT ABS # 13.96 K/uL (1.4-6.5); PLATELET COUNT 208 K/uL (130-400); RED CELL DISTRIBUTION WIDTH CV 20.7 % (11.5-14.5); RED CELL DISTRIBUTION WIDTH SD 77.7 fL (36.4-46.3); WHITE BLOOD COUNT 15.62 K/uL (4.8-10.8)
[2017-06-23] MEDS ORDERED: OXGN (12:23)
[2017-06-23 12:39] LABS: ALBUMIN 3.2 gm/dl (3.4-5.0); ALT/SGPT 48 U/L (12-78); AST/SGOT 29 U/L (15-37); BLOOD UREA NITROGEN 45 mg/dl (7-18); CALCIUM 8.4 mg/dl (8.5-10.1); CARBON DIOXIDE 31 mmol/L (21-32); CREATININE 1.43 mg/dl (0.60-1.40); GLUCOSE 184 mg/dl (70-99); LIPASE 278 U/L (73-393); POTASSIUM 3.4 mmol/L (3.5-5.1); SODIUM 138 mmol/L (136-145)
[2017-06-23 12:47] LABS: ALKALINE PHOSPHATASE 38 U/L (45-117); TOTAL PROTEIN 6.2 gm/dl (6.4-8.2)
--- NOTE | 2017-06-23 12:52 | DIAGNOSTIC IMAGING REPORT ---
CHEST ONE VIEW PORTABLE HISTORY: 67 years-old Male SOB, a fib acute shortness of breath with tachycardia and atrial fibrillation COMPARISON: Chest radiograph 03/30/2017, CT chest 03/31/2017 TECHNIQUE: Portable AP view of the chest FINDINGS: Cardiac silhouette is enlarged, unchanged. Prior median sternotomy and CABG. Atherosclerosis of the aorta. Mild prominence of the mediastinum is unchanged, possibly from previously noted adenopathy. Bilateral mid and lower lung zone predominant reticular opacities are redemonstrated with increased lung volumes. No pneumothorax, pleural effusion, overt pulmonary edema or new superimposed airspace disease. Degenerative changes of the shoulders and spine. IMPRESSION: 1. Cardiomegaly without overt pulmonary edema. 2. Unchanged bilateral reticular opacities within a mid and lower lung zone predominant distribution suggesting possible NSIP, better characterized on comparison CT dated 03/31/2017. 3. No superimposed airspace consolidation to suggest pneumonia. The above report was generated using voice recognition software. It may contain grammatical, syntax or spelling errors. Electronically signed by: Johny Zepeda M.D. 06/23/2017 12:50 PM Dictated Date/Time: 06/23/2017 12:48 PM
[2017-06-23] MEDS: POTASSIUM CHLR 10 MEQ / WTR 100 ML IV SCH ×2 (13:05→14:14)
[2017-06-23] MEDS ORDERED: METOPROLOL TARTRATE 50 MG TAB PO STA ×2 (14:46→15:00)
[2017-06-23] MEDS ORDERED: POTA-639 PO (15:00)
--- NOTE | 2017-06-23 15:02 | EMERGENCY ROOM VISIT NOTE ---
History Report prepared by Lindaibyue: Judah Rojas Under the Supervision of: Dr. Lucía Chen M.D. First contact with patient: 11:54 Chief Complaint: TACHYCARDIA Stated Complaint: ELEVATED HEART RATE History of Present Illness The patient is a 67 year old male who presents to the Emergency Room with complaints of intermittent heart palpitations beginning 1-2 weeks ago. He states that his heart rate increases to about 140 bpm with exertion. The patient also complains of occasional chest pain (currently has none). He has a history of COPD, diabetes, and A-fib (on Xarelto). He states that he passed out earlier this week. He uses supplemental oxygen at all times. The patient took his medication this morning as usual. His breathing is not worsened with laying down. Patient denies any recent fevers, vomiting, diarrhea. Source of History: patient Onset: 1-2 weeks ago Symptom Intensity: heart rate up to 140's Quality: other (heart palpitations) Timing: intermittent Modifying Factors (Worsening): exertion Associated Symptoms: + chest pain (occasional) Review of Systems See HPI for pertinent positives & negatives. A total of 10 systems reviewed and were otherwise negative. Past Medical & Surgical Medical Problems: (1) Acute and chronic respiratory failure with hypoxia (2) Acute congestive heart failure (3) Acute respiratory failure (4) Benign hypertension (5) CABG (6) Diabetes mellitus (7) Hospital-acquired bacterial pneumonia (8) Hyperlipidemia (9) Sepsis Family History Diabetes mellitus Heart disease Hypertension Social History Smoking Status: Former Smoker Alcohol Use: none Drug Use: none Marital Status: Housing Status: lives with family Occupation Status: retired, disabled Current/Historical Medications Scheduled Aspirin (Aspirin Chewable), 81 MG PO QAM Calcium/Vitamin D (Os-Eladio 500 Plus D), 1 TAB PO DAILY Diltiazem Hcl Ext Rel (Tiazac), 240 MG PO QAM Ferrous Sulfate (Kp Ferrous Sulfate), 325 MG PO BID Fish Oil (Chaplin-3), 1 CAP PO QAM Furosemide (Lasix), 40 MG PO BID Gabapentin (Neurontin), 600 MG PO TID Home O2 Therapy (Oxygen), 8 LITERS NA DAILY Home O2 Therapy (Oxygen), 6 LITER NA HS Insulin Aspart (Novolog Flexpen), 10 UNITS SC BID Insulin Aspart Protamine & Asp (Novolog Mix 70/30), 48 UNITS SC QPM Insulin Aspart Protamine & Asp (Novolog Mix 70/30), 70 UNITS SC QAM Isosorbide Mononitrate Ext Rel (Imdur Ext Rel), 120 MG PO BID Losartan Potassium (Cozaar), 25 MG PO QAM Magnesium Oxide (Mag-Ox), 800 MG PO QAM Metoprolol Succinate (Toprol Xl), 100 MG PO BID Nitroglycerin (Nitrostat), 0.4 MG UT PRN Omeprazole (Prilosec), 20 MG PO QAM Potassium Ext Rel (Klor-Con), 20 MEQ PO DAILY Prednisone (Prednisone), 30 MG PO DAILY Rivaroxaban (Xarelto), 15 MG PO DAILY@1700 Scheduled PRN Acetaminophen (Tylenol), 1,000 MG PO Q6H PRN for Pain or Fever Albuterol Hfa (Ventolin Hfa), 2 PUFFS INH Q4H PRN for Shortness of Breath Ketoconazole (Topical) (Xolegel), 1 APPLN TD BID PRN for AFFECTED AREA Allergies Coded Allergies: Doxycycline (Verified Allergy, Intermediate, RASH, 06/04/17) Hydrocodone (Verified Allergy, Intermediate, RASH, 06/04/17) Replaces LORTAB ELIXIR Iodinated Diagnostic Agents (Verified Allergy, Intermediate, RASH, 06/04/17 ) Losartan (Verified Allergy, Intermediate, HYPOTENSION-RASH, 06/04/17) Lovastatin (Verified Allergy, Intermediate, RASH, 06/04/17) Penicillins (Verified Allergy, Intermediate, RASH, 06/04/17) Quinolones (Verified Allergy, Intermediate, RASH, 06/04/17) Tetracycline (Verified Allergy, Intermediate, RASH, 06/04/17) Latex1 -Allergic Contact Dermititis (Verified Allergy, Mild, RASH, 06/04/17 ) Tetracyclines (Verified Allergy, Unknown, RASH, 06/04/17) Physical Exam Vital Signs Date Time Temp Pulse Resp B/P (MAP) Pulse Ox O2 Delivery O2 Flow Rate FiO2 06/23/17 15:57 88 18 111/73 92 06/23/17 14:56 91 16 106/71 99 Room Air 06/23/17 14:17 96 18 126/68 99 Mask 8.0 06/23/17 13:05 95 20 107/72 99 Mask 8.0 06/23/17 12:25 115 20 119/71 99 Mask 8.0 06/23/17 12:24 115 119/71 06/23/17 12:01 107 06/23/17 12:00 97 Mask 8.0 06/23/17 11:47 36.8 112 20 116/62 96 8.0 Physical Exam Vital signs reviewed. General: Chronically ill-appearing male, in no significant distress. HEENT: No scleral icterus, PERRLA, neck supple. Atraumatic. Cardiovascular: Rapid rate with an irregular rhythm, no extra sounds. Pulmonary: Slightly increased work of breathing. On 8 L by oxy-mask. Scattered wheezes. Abdomen: Obese, soft, nontender, nondistended, positive bowel sounds. Musculoskeletal: Atraumatic, minimal peripheral edema. Neurologic: Patient awake alert and oriented x 3 Skin: Warm, dry, no rash Medical Decision & Procedures ER Provider Diagnostic Interpretation: Radiology results as stated below per my review and radiologist interpretation: CHEST ONE VIEW PORTABLE FINDINGS: Cardiac silhouette is enlarged, unchanged. Prior median sternotomy and CABG. Atherosclerosis of the aorta. Mild prominence of the mediastinum is unchanged, possibly from previously noted adenopathy. Bilateral mid and lower lung zone predominant reticular opacities are redemonstrated with increased lung volumes. No pneumothorax, pleural effusion, overt pulmonary edema or new superimposed airspace disease. Degenerative changes of the shoulders and spine. IMPRESSION: 1. Cardiomegaly without overt pulmonary edema. 2. Unchanged bilateral reticular opacities within a mid and lower lung zone predominant distribution suggesting possible NSIP, better characterized on comparison CT dated 03/31/2017. 3. No superimposed airspace consolidation to suggest pneumonia. The above report was generated using voice recognition software. It may contain grammatical, syntax or spelling errors. Electronically signed by: Johny Zepeda M.D. 06/23/2017 12:50 PM Laboratory Results 06/23/17 12:05 Red Blood Count 3.96, Mean Corpuscular Volume 102.0, Mean Corpuscular Hemoglobin 31.3, Mean Corpuscular Hemoglobin Concent 30.7, Mean Platelet Volume 9.3, Neutrophils (%) (Auto) 89.3, Lymphocytes (%) (Auto) 3.8, Monocytes (%) ( Auto) 5.3, Eosinophils (%) (Auto) 0.3, Basophils (%) (Auto) 0.1, Neutrophils # ( Auto) 13.96, Lymphocytes # (Auto) 0.59, Monocytes # (Auto) 0.83, Eosinophils # ( Auto) 0.04, Basophils # (Auto) 0.01 06/23/17 12:05 Test 06/23/17 12:05 White Blood Count 15.62 K/uL (4.8-10.8) Red Blood Count 3.96 M/uL (4.7-6.1) Hemoglobin 12.4 g/dL (14.0-18.0) Hematocrit 40.4 % (42-52) Mean Corpuscular Volume 102.0 fL (80-100) Mean Corpuscular Hemoglobin 31.3 pg (25-34) Mean Corpuscular Hemoglobin Concent 30.7 g/dl (32-36) Platelet Count 208 K/uL (130-400) Mean Platelet Volume 9.3 fL (7.4-10.4) Neutrophils (%) (Auto) 89.3 % Lymphocytes (%) (Auto) 3.8 % Monocytes (%) (Auto) 5.3 % Eosinophils (%) (Auto) 0.3 % Basophils (%) (Auto) 0.1 % Neutrophils # (Auto) 13.96 K/uL (1.4-6.5) Lymphocytes # (Auto) 0.59 K/uL (1.2-3.4) Monocytes # (Auto) 0.83 K/uL (0.11-0.59) Eosinophils # (Auto) 0.04 K/uL (0-0.5) Basophils # (Auto) 0.01 K/uL (0-0.2) RDW Standard Deviation 77.7 fL (36.4-46.3) RDW Coefficient of Variation 20.7 % (11.5-14.5) Immature Granulocyte % (Auto) 1.2 % Immature Granulocyte # (Auto) 0.19 K/uL (0.00-0.02) Anisocytosis PRESENT Macrocytosis PRESENT Stomatocytes 1+ Anion Gap 5.0 mmol/L (3-11) Estimated GFR () 57.5 Estimated GFR (Non- 49.6 BUN/Creatinine Ratio 31.7 (10-20) Calcium Level 8.4 mg/dl (8.5-10.1) Magnesium Level 2.2 mg/dl (1.8-2.4) Total Bilirubin 0.6 mg/dl (0.2-1) Direct Bilirubin 0.2 mg/dl (0-0.2) Aspartate Amino Transf (AST/SGOT) 29 U/L (15-37) Alanine Aminotransferase (ALT/SGPT) 48 U/L (12-78) Alkaline Phosphatase 38 U/L (45-117) Troponin I 0.060 ng/ml (0-0.045) Total Protein 6.2 gm/dl (6.4-8.2) Albumin 3.2 gm/dl (3.4-5.0) Lipase 278 U/L (73-393) Laboratory results per my review. Medications Administered Medications (Trade) Dose Ordered Sig/Zeina Route Start Time Stop Time Status Last Admin Dose Admin Metoprolol Tartrate (Lopressor Iv) 5 mg NOW STAT IV 06/23/17 12:06 06/23/17 12:21 DC 06/23/17 12:24 5 MG Potassium Chloride 100 ml @ 100 mls/hr Q1H IV 06/23/17 13:00 06/23/17 14:59 DC 06/23/17 14:14 100 MLS/HR Metoprolol Tartrate (Lopressor Tab) 50 mg NOW STAT PO 06/23/17 14:46 06/23/17 14:47 DC 06/23/17 14:55 50 MG ECG Per My Interpretation Indication: palpitations Rate (beats per minute): 117 Rhythm: atrial flutter Findings: left axis deviation, other (Variable block. Non-specific ST and T wave abnormalities. ) ED Course 1202: Past medical records reviewed. The patient was evaluated in room B9. A complete history and physical examination was performed. 1206: Ordered Lopressor 5 mg IV. 1300: Ordered Potassium Chloride 100 mL @ 100 mL/hr IV. 1442: I reassessed the patient. He would like to go home. 1446: Ordered Lopressor Tab 50 mg PO. 1500: Upon reevaluation, the patient appeared to have improvement of his symptoms. I discussed findings with him. He verbalized agreement of the treatment plan. The patient was discharged home. He has a follow-up appointment with Dr. Quispe tomorrow. Medical Decision Differential diagnosis: Etiologies such as premature contractions, electrolyte abnormality, cardiac dysrhythmia, thyroid dysfunction, pulmonary embolism, infection, gastrointestinal, as well as others were entertained. This patient was evaluated and appeared to be in no significant distress. IV access was obtained and laboratory work was drawn. The patient is found to be in rapid atrial flutter. He has a known diagnosis of fibrillation and is chronically anticoagulated. Patient was given 5 mg of IV Lopressor with significant rate control. Cardiac enzymes are mildly elevated with a troponin of 0.06. Upon review of previous records, this is the best the patient's troponin has looked over the last several years. Patient has a chronically elevated troponin. Patient's renal function appears to be reasonable for his baseline at 1.43. Patient's potassium appears to be depleted at 3.4. He was given 20 mEq of IV potassium. Patient was given a oral dose of metoprolol tartrate 50 mg. He does take metoprolol succinate 100 mg twice daily. The patient much preferred to be discharged. He is chronically ill and frequently hospitalized. An appointment with his marine specialist, Dr. Quispe, was made for tomorrow at 10 AM. Patient was discharged with 1 tablet of metoprolol tartrate 50 mg to be taken if he were to return to a rapid atrial flutter. Patient's has a blood pressure cuff and is aware that if she is not able to control his heart rate or his blood pressures too low they will have to return to the emergency department immediately. Patient was given a prescription for p.o. potassium 20 mg daily. He will take this for 5 days and have repeat laboratory work performed. They will return to the ER immediately for worsening of symptoms or any medical concerns. Medication Reconcilliation Current Medication List: was personally reviewed by me Blood Pressure Screening Patient's blood pressure: Normal blood pressure Blood pressure disposition: Did not require urgent referral Impression Primary Impression: Atrial flutter with rapid ventricular response Additional Impression: Hypokalemia Critical Care I have personally spent greater than 35 minutes of critical care time in the direct management of this patient. This includes bedside care, interpretation of diagnostic studies, and testing, discussion with consultants, patient, and family members, and other required patient management activities. This 35 minutes is in excess of all separately billable procedures. Scribe Attestation The scribe's documentation has been prepared under my direction and personally reviewed by me in its entirety. I confirm that the note above accurately reflects all work, treatment, procedures, and medical decision making performed by me. Departure Information Dispostion Home / Self-Care Prescriptions Potassium Ext Rel (Klor-Con) 20 Meq Tabcr 20 MEQ PO DAILY for 30 Days, #30 TAB Prov: Lucía Chen M.D. 06/23/17 Referrals Ishan Roy M.D. (PCP) Forms HOME CARE DOCUMENTATION FORM, IMPORTANT VISIT INFORMATION, WORK / SCHOOL INSTRUCTIONS Patient Instructions My [facility] Additional Instructions Diagnosis: Rapid atrial flutter, hypokalemia. You have been given extra metoprolol 50 mg p.o. in the emergency department. Continue other medications as prescribed. If your heart rate is greater than 110 tonight, take the metoprolol given to you in the emergency department today. Be sure that your blood pressure is greater than 110 systolic. Potassium 20 mEq daily. Follow-up with Dr. Quispe tomorrow at 10 AM for reevaluation. Problem Qualifiers
--- NOTE | 2017-06-23 15:24 | Pharmacy Progress Note ---
ED Pharmacist Progress Note Date of Service: Jun 23, 2017. Received call from Ania (Brunilda) requesting confirmation that new Rx for potassium chloride can be dispensed while patient on spirololactone. I confirmed it is OK to dispense. Spoke w Dr. Chen - plans to discuss duration with patient prior to leaving ED. Likely po x5 days. Follow-up potassium level as outpatient.
[2017-06-23 15:57] VITALS: BP 111/73; PULSE 88; O2SAT 92
== END 2017-06-23 15:57 | disposition home or self-care (01) ==
LOC: C.EDB 11:44
DX: I48.92 Unspecified atrial flutter (principal); E87.6 Hypokalemia; J96.21 Acute and chronic respiratory failure with hypoxia; I50.9 Heart failure, unspecified; I10 Essential (primary) hypertension; E11.9 Type 2 diabetes mellitus without complications; E78.5 Hyperlipidemia, unspecified; Z87.891 Personal history of nicotine dependence; Z79.899 Other long term (current) drug therapy; Z88.8 Allergy status to other drugs, medicaments and biological substances; Z88.5 Allergy status to narcotic agent; Z88.0 Allergy status to penicillin; Z91.040 Latex allergy status

== ENCOUNTER 2017-07-01 20:30 | Inpatient (IN) | payer OTHER ==
[~2017-07-01] VITALS: Ht 165.1 cm; Wt 103.5 kg
[~2017-07-01 20:30] MED LIST changes: -ISR5 PO; +POTA-639 PO
[2017-07-01] MEDS ORDERED: CALCIUM GLUCONATE 10% 10 ML VIAL IV STA (20:57)
[2017-07-01] MEDS ORDERED: SODIUM CHLORIDE 0.9% 500ML 500 ML IV STA (20:57)
[2017-07-01] MEDS ORDERED: FLM4 PO (20:59)
--- NOTE | 2017-07-01 20:59 | EMERGENCY ROOM VISIT NOTE ---
History Report prepared by Neptali: Will Ramirez Under the Supervision of: Dr. Jolly Haynes D.O. First contact with patient: 20:40 Chief Complaint: CHEST PAIN Stated Complaint: cp/sob History of Present Illness The patient is a 67 year old male with a history of a cardiac bypass, COPD, diabetes who presents to the Emergency Room via EMS with complaints of resolving bilateral arm pain that started prior to arrival today. He states that he his arm pain was bilateral but was right greater than left. He took 3 Nitro at home, and says that his arm pain has been better since taking the Nitro. The patient has also been noted to be hypotensive and bradycardic. He notes that he currently has a sinus infection, and has only been taking Tylenol. The patient denies any chest pain, nausea, vomiting, shortness of breath, dizziness, lightheadedness, or worsening leg swelling. He notes that he last saw his roll skinner (Dr. Quispe) 2 weeks ago. He had his Metoprolol and Diltiazem increased recently. 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 Denies dizzy, lightheaded, worsening leg swelling. Review of Systems See HPI for pertinent positives & negatives. A total of 10 systems reviewed and were otherwise negative. Past Medical & Surgical Medical Problems: (1) Acute and chronic respiratory failure (2) Acute and chronic respiratory failure with hypoxia (3) Acute congestive heart failure (4) Acute renal insufficiency (5) Acute respiratory failure (6) Benign hypertension (7) CABG (8) Chronic steroid use (9) CKD (chronic kidney disease), stage IV (10) Diabetes mellitus (11) Hospital-acquired bacterial pneumonia (12) Hyperlipidemia (13) Interstitial lung disease (14) Sepsis Family History Diabetes mellitus Heart disease Hypertension Social History Smoking Status: Former Smoker Alcohol Use: none Drug Use: none Marital Status: Housing Status: lives with family Occupation Status: retired, disabled Current/Historical Medications Scheduled Aspirin (Aspirin Ec), 81 MG PO DAILY Calcium/Vitamin D (Os-Eladio 500 Plus D), 1 TAB PO DAILY Diltiazem Hcl Extended Release (Diltiazem Hcl), 300 MG PO DAILY Ferrous Sulfate (Kp Ferrous Sulfate), 325 MG PO BID Fish Oil (Brinson-3), 1 CAP PO QAM Furosemide (Furosemide), 80 MG PO BID Gabapentin (Gabapentin), 600 MG PO TID Home O2 Therapy (Oxygen), 8 LITERS NA DAILY Home O2 Therapy (Oxygen), 6 LITER NA HS Insulin Aspart (Novolog Flexpen), 10 UNITS SC BID Insulin Aspart Protamine & Asp (Novolog Mix 70/30), 48 UNITS SC QPM Insulin Aspart Protamine & Asp (Novolog Mix 70/30), 70 UNITS SC QAM Isosorbide Dinitrate (Isordil), 5 MG PO PRN UD Isosorbide Mononitrate Ext Rel (Imdur Ext Rel), 120 MG PO BID Losartan Potassium (Losartan Potassium), 25 MG PO DAILY Magnesium Oxide (Mag-Ox), 800 MG PO QAM Metoprolol Succinate (Toprol Xl), 150 MG PO BID Nitroglycerin (Nitrostat), 0.4 MG UT PRN Omeprazole (Prilosec), 20 MG PO QAM Potassium Ext Rel (Klor-Con), 20 MEQ PO DAILY Prednisone (Prednisone), 30 MG PO DAILY Rivaroxaban (Xarelto), 15 MG PO DAILY Tamsulosin HCl (Tamsulosin HCl), 0.4 MG PO DAILY Scheduled PRN Acetaminophen (Tylenol), 1,000 MG PO Q6H PRN for Pain or Fever Albuterol Hfa (Ventolin Hfa), 2 PUFFS INH Q4H PRN for Shortness of Breath Ketoconazole (Topical) (Xolegel), 1 APPLN TD BID PRN for AFFECTED AREA Allergies Coded Allergies: Doxycycline (Verified Allergy, Intermediate, RASH, 06/04/17) Hydrocodone (Verified Allergy, Intermediate, RASH, 06/04/17) Replaces LORTAB ELIXIR Iodinated Diagnostic Agents (Verified Allergy, Intermediate, RASH, 06/04/17 ) Losartan (Verified Allergy, Intermediate, HYPOTENSION-RASH, 06/04/17) Lovastatin (Verified Allergy, Intermediate, RASH, 06/04/17) Penicillins (Verified Allergy, Intermediate, RASH, 06/04/17) Quinolones (Verified Allergy, Intermediate, RASH, 06/04/17) Tetracycline (Verified Allergy, Intermediate, RASH, 06/04/17) Latex1 -Allergic Contact Dermititis (Verified Allergy, Mild, RASH, 06/04/17 ) Tetracyclines (Verified Allergy, Unknown, RASH, 06/04/17) Physical Exam Vital Signs Date Time Temp Pulse Resp B/P (MAP) Pulse Ox O2 Delivery O2 Flow Rate FiO2 07/01/17 23:10 43 16 105/55 96 Non-Rebreather 15.0 07/01/17 22:33 52 18 108/53 98 Room Air 07/01/17 21:18 36.8 47 18 97/49 96 Non-Rebreather 15.0 07/01/17 21:16 94 Oxymask 15.0 07/01/17 20:59 38 07/01/17 20:57 36 18 69/36 94 Non-Rebreather 15.0 07/01/17 20:48 92 Non-Rebreather 15.0 Physical Exam GENERAL: alert, obese, pale, diaphoretic EYE EXAM: normal conjunctiva, PERRL and EOM's grossly intact OROPHARYNX: no exudate, no erythema, lips, buccal mucosa, and tongue normal and mucous membranes are moist NECK: supple, no nuchal rigidity, no adenopathy, non-tender LUNGS: Clear to auscultation. Normal chest wall mechanics HEART: no murmurs, S1 normal and S2 normal ABDOMEN: abdomen soft, non-tender, normo-active bowel sounds, no masses, no rebound or guarding. BACK: Back is symmetrical on inspection and there is no deformity, no midline tenderness, no CVA tenderness. SKIN: well healed vertical midline sternotomy scar, no rashes and no bruising UPPER EXTREMITIES: upper extremities are grossly normal, normal pulses bilaterally LOWER EXTREMITIES: No pitting edema, normal pulses bilaterally NEURO EXAM: Awake, alert, moving all extremities, additional neuro testing not performed due to clinical condition. Medical Decision & Procedures ER Provider Diagnostic Interpretation: X-ray results have been interpreted by the radiologist and reviewed by me. CHEST ONE VIEW PORTABLE CLINICAL HISTORY: arm pain dyspnea COMPARISON STUDY: 06/23/2017 FINDINGS: Moderate increase in cardiac size. Pulmonary findings bilaterally suggesting pulmonary edema versus respiratory distress syndrome. Small right pleural effusion. IMPRESSION: Progressive cardiomegaly with findings suggesting pulmonary edema versus respiratory distress. Progressive congestive heart failure can present in similar fashion. The above report was generated using voice recognition software. It may contain grammatical, syntax or spelling errors. Electronically signed by: Nelson Begum M.D. 07/01/2017 9:36 PM Dictated Date/Time: 07/01/2017 9:36 PM Laboratory Results Test 07/01/17 19:45 Prothrombin Time 11.7 SECONDS (9.0-12.0) Prothromb Time International Ratio 1.1 (0.9-1.1) Total Creatine Kinase 34 U/L (39-308) Pro-B-Type Natriuretic Peptide 4913 pg/ml (0-900) Globulin 3.2 gm/dl (2.5-4.0) Albumin/Globulin Ratio 0.9 (0.9-2) Laboratory results per my review. Medications Administered Medications (Trade) Dose Ordered Sig/Zeina Route Start Time Stop Time Status Last Admin Dose Admin Sodium Chloride 500 ml @ 999 mls/hr Q31M STAT IV 07/01/17 20:57 07/01/17 21:27 DC 07/01/17 21:05 999 MLS/HR Calcium Gluconate (Calcium Gluconate 10%) 1,000 mg NOW STAT IV 07/01/17 20:57 07/01/17 21:00 DC 07/01/17 21:05 1,000 MG Atropine Sulfate (Atropine Sulfate 0.1mg/ml Inj) 0.5 mg STK-MED ONCE .ROUTE 07/01/17 21:01 07/01/17 21:02 DC 07/01/17 21:01 0.5 MG Glucagon (Glucagon Inj) 1 mg STK-MED ONCE .ROUTE 07/01/17 21:22 07/01/17 21:23 DC 07/01/17 21:05 1 MG Acetaminophen (Tylenol Tab) 650 mg Q4H PRN PO 07/01/17 23:15 07/31/17 23:14 07/02/17 17:55 650 MG ECG Per My Interpretation Indication: other (hypotensive) Rate (beats per minute): 37 Rhythm: atrial fibrillation (slow) Findings: T-wave inversion (1,2, AVL, V2-V6), left axis deviation, other (QRS and QTC within normal limits) Comparison ECG Date: T-wave inversions are new compared to 06/23/17 Change: Repeat ECG: Afib at a rate of 59 bpm, left axis deviation, T-wave inversions V2 , V3, V6, 1 and AVL. ED Course 2052: The patient was evaluated in room B1. A complete history and physical exam was performed. 2056: Calcium Gluconate 10% 1000 mg IV, Glucagon 5 mg/Syringe 5 ml @ 0 mls/min IV, NSS 500 ml @ 999 mls/hr IV. 2099: Atropine Sulfate 0.1 mg/ml Inj 1 mg IV. 2102: Bedside echo reveals cardiomegaly, no tamponade. 2124: I reevaluated the patient and his heart rate is 47, his blood pressure is 98/44. 2129: I reevaluated the patient and family is at bedside. He looks okay. 2134: Glucagon 5 mg/Syringe 5 ml @ 1 mls/min IV. 2144: I reevaluated the patient and talked to his family - they confirmed that the patient had his Metoprolol and Diltiazem increased on June 24 - 7 days ago. The patient's states that the patient has turned up his oxygen over the past 2 days, and seemed to "not be feeling well", and has had increased lower extremity edema. He wears 8 liters per minute of oxygen chronically, but the last 2 days has turned up to 9 to 10 liters. 2156: Review of EMR - the patient had an echo in March of this year, which showed concentric LVH, an LVEF of 60-65%, grade 2 diastolic dysfunction, no significant aortic stenosis. 2199: I discussed the patient with Dr. Arriaga - [facility] cardiology - he agrees with our plan. 2209: Discussed with JEREMIAH Steward, from ICU. 2230: Upon reevaluation, the patient is resting. I discussed the findings and the treatment plan with the patient and family. They express agreement and understanding. The patient will be evaluated for further management. 2330: Discussed with Dr. Russ, [facility] hospitalist. Medical Decision Differential diagnoses includes but is not limited to acute coronary syndrome, myocardial infarction, pericarditis, pulmonary embolus, aortic dissection, pneumonia, pneumothorax, musculoskeletal, shingles, esophageal. After signing up for the patient was abruptly called to the patient's room by our tech as the patient was bradycardic and hypotensive and ill-appearing. Patient was immediately moved to room B1. I performed a bedside echo the patient to look for tamponade and evaluate EF. Then began to look at the patient's medications discussed with him recent medical history and his symptoms. He recalled recent medication changes made and on review of his medication list notations were made by his that his metoprolol and his diltiazem has been increased last week. Pacer pads placed on the patient as a precaution, atropine given as a precaution without any improvement. Given the recent increase in beta-zachary as well as a calcium channel zachary patient was subsequently given calcium as well as glucagon. This did produce some improvement in his heart rate as well as improvement in his blood pressure. Patient had gotten a 500 mL bolus of normal saline which may also help with fluid although stenosis pressure began to improve we tried to titrate back on the IV fluids due to concern for a volume overloaded status. Patient with significant bilateral lower extremity edema. Patient slowly held slightly higher heart rate in the upper 40s and improved blood pressures with systolics in the upper 90s and low 100s. Labs and imaging were pending upon family arrival. He states the patient had been more fatigued and more short of breath in the last 2 days and they thought his lower extremity edema was worse. They state the patient's complaint of bilateral arm pain was abrupt this afternoon and the patient took a total of 3 nitroglycerin tablets at home. This likely contributed to his hypotension also. Patient with a long history of several chronic comorbidities including significant cardiac etiology. Upon review of EMR patient's last echo back in the fall showed an EF of 65%. Patient with chronic kidney disease with baseline creatinine approximately 1.6, upon results returning this evening, his creatinine was noted to be markedly worse. Patient' s troponin was found to be elevated, however was improved compared to prior results, it appears the patient is chronically elevated. I do not suspect bacteremia/sepsis. Do not suspect other acute vascular etiology. Patient had no recurrent arm pain, this may have been his anginal equivalent. Patient had normal pulses bilaterally, no evidence of ischemia in his extremities. No pain and was back and no chest pain. Patient reported feeling improved upon improvement of his heart rate and blood pressure. Medication Reconcilliation Current Medication List: was personally reviewed by me Blood Pressure Screening Patient's blood pressure: Low blood pressure Consults Time Called: 2149 Consulting Physician: Dr. Corina JAIN cardiology Returned Call: 2200 I discussed the patient with Dr. Corina JAIN cardiology - he agrees with our plan. Impression Primary Impression: Bradycardia Additional Impressions: Hypotension NSTEMI (non-ST elevated myocardial infarction) Acute on chronic renal failure Oxygen dependent Obesity Critical Care I have personally spent greater than 60 minutes of critical care time in the direct management of this patient. This includes bedside care, interpretation of diagnostic studies, and testing, discussion with consultants, patient, and family members, and other required patient management activities. This 60 minutes is in excess of all separately billable procedures. Scribe Attestation The scribe's documentation has been prepared under my direction and personally reviewed by me in its entirety. I confirm that the note above accurately reflects all work, treatment, procedures, and medical decision making performed by me. Departure Information Dispostion Being Evaluated By Hospitalist Ishan Palomares M.D. (PCP) Patient Instructions My [facility] Problem Qualifiers Additional Impressions: Hypotension Hypotension type: unspecified hypotension type Qualified Codes: I95.9 - Hypotension, unspecified Acute on chronic renal failure Acute renal failure type: unspecified Chronic kidney disease stage: unspecified stage Qualified Codes: N17.9 - Acute kidney failure, unspecified; N18.9 - Chronic kidney disease, unspecified Obesity Obesity type: unspecified obesity type Obesity classification: unspecified obesity classification Serious obesity comorbidity presence: with serious comorbidity Qualified Codes: E66.9 - Obesity, unspecified
[2017-07-01] MEDS ORDERED: ATROPINE SULFATE 0.1 MG/ML 5ML SYR IV STA (21:00)
[2017-07-01] MEDS ORDERED: ATROPINE SULFATE 0.1 MG/ML 5ML SYR ONE (21:01)
[2017-07-01] MEDS ORDERED: CZR25 PO (21:08)
[2017-07-01] MEDS ORDERED: POTA-639 PO (21:08)
[2017-07-01] MEDS ORDERED: GABA-1219 PO (21:08)
[2017-07-01] MEDS ORDERED: XRL15 PO (21:08)
[2017-07-01] MEDS ORDERED: DILT300C35 PO (21:08)
[2017-07-01] MEDS ORDERED: LSX40 PO (21:08)
[2017-07-01] MEDS ORDERED: ISR/5 PO (21:11)
[2017-07-01] MEDS ORDERED: ASPI81TA28 PO (21:19)
[2017-07-01 21:20] LABS: BASO % 0.3 %; BASO ABS # 0.04 K/uL (0-0.2); EOS % 0.1 %; EOS ABS # 0.01 K/uL (0-0.5); HEMATOCRIT 35.8 % (42-52); HEMOGLOBIN 10.9 g/dL (14.0-18.0); IG# 0.36 K/uL (0.00-0.02); LYMPH % 4.8 %; LYMPH ABS # 0.64 K/uL (1.2-3.4); MEAN CELL VOLUME 105.6 fL (80-100); MEAN CORPUSCULAR HEMOGLOBIN 32.2 pg (25-34); MEAN CORPUSCULAR HGB CONC 30.4 g/dl (32-36); MEAN PLATELET VOLUME 10.2 fL (7.4-10.4); MONO % 3.8 %; MONO ABS # 0.51 K/uL (0.11-0.59); NEUT % 88.3 %; NEUT ABS # 11.72 K/uL (1.4-6.5); NUCLEATED RED BLOOD CELL ABS 1.12 K/uL (0-0); PLATELET COUNT 155 K/uL (130-400); RED CELL DISTRIBUTION WIDTH CV 20.7 % (11.5-14.5); RED CELL DISTRIBUTION WIDTH SD 78.4 fL (36.4-46.3); WHITE BLOOD COUNT 13.28 K/uL (4.8-10.8)
[2017-07-01] MEDS ORDERED: GLUCAGON FOR INJ 1 MG VIAL ONE (21:22)
[2017-07-01 21:24] LABS: INR 1.1 (0.9-1.1)
[2017-07-01] MEDS ORDERED: PRED10TA PO (21:28)
[2017-07-01] MEDS ORDERED: GLUCAGON INJ 5 MG in SYRINGE 0 ML IV STA (21:35)
--- NOTE | 2017-07-01 21:38 | DIAGNOSTIC IMAGING REPORT ---
CHEST ONE VIEW PORTABLE CLINICAL HISTORY: arm pain dyspnea COMPARISON STUDY: 06/23/2017 FINDINGS: Moderate increase in cardiac size. Pulmonary findings bilaterally suggesting pulmonary edema versus respiratory distress syndrome. Small right pleural effusion. IMPRESSION: Progressive cardiomegaly with findings suggesting pulmonary edema versus respiratory distress. Progressive congestive heart failure can present in similar fashion. The above report was generated using voice recognition software. It may contain grammatical, syntax or spelling errors. Electronically signed by: Nelson Begum M.D. 07/01/2017 9:36 PM Dictated Date/Time: 07/01/2017 9:36 PM
[2017-07-01 22:04] LABS: CALCIUM 8.2 mg/dl (8.5-10.1); CREATININE 3.12 mg/dl (0.60-1.40); POTASSIUM 5.8 mmol/L (3.5-5.1)
[2017-07-01 22:06] LABS: TOTAL PROTEIN 6.2 gm/dl (6.4-8.2)
[2017-07-01] MEDS ORDERED: LORAZEPAM 1 MG TAB PO PRN (23:15)
[2017-07-01] MEDS ORDERED: ONDANSETRON INJ 2 MG/ML 2 ML VIAL IV PRN (23:15)
[2017-07-01] MEDS ORDERED: ICU PROTOCOL FOR HYPERGLYCEMIA PRN (23:15)
[2017-07-01] MEDS ORDERED: MoRPHine SULFATE 4 MG/ML 1 ML CARP\\VIAL IV PRN (23:15)
--- NOTE | 2017-07-01 23:20 | Critical Care Consultation ---
Critical Care Consultation Date of Consultation: Jul 01, 2017. Attending Physician: Dr. Isak Russ Reason for Consultation: Acute on Chronic Respiratory failure presenting with Bradycardia and hypotension History of Present Illness Mauri Mcdonald is a 67 yo male who presents with 7 days of a head cold that caused increasing oxygen requirements to which he was taking 2 Tylenol q6h. He has a hx of CAD, HTN, CABG (2000), Cardiac Stents, Persistent A. Flutter on Chronic Anticoagulation, Pulmonary Fibrosis, CRESCENCIO on CPAP, T2DM, and Chronic Kidney Disease. Upon presentation today pt was found to be bradycardic with heart rate of 36 and hypotensive with SBP of 69. Pts ED treatment included 0.5mg Atropine, 500cc bolus of NSS, 1g Ca, 1mg glucagon and a bedside ECHO demonstrating cardiac enlargement without tamponade. Pts CXR demonstrated pulmonary edema with r. pleural effusion. Pt was recently seen by chief engineer Dr. Quispe and states his Diltazem and Metoprolol were simultaneously increased. Pt is currently saturating 96% on 15L non-rebreather. Chronically uses 8L O2 at home with CPAP overnight. Remarkable labs for this visit include BUN/Cr 73/ 3.12, K 5.8, Troponin 0.052, CK 34, and a of BNP 4913. Upon my visit pt is resting comfortably in bed with non-rebreather in place. He seems mildly lethargic but awakes and answers questions appropriately. He states that his bilateral arm pain today concerned him due to prior cardiac conditions and took his nitroglycerin which did resolve the pain. Pt states he feels much better now then when he came in. His heart rate was in the mid to high 40's while I was examining him. His SBP was 92 - 112. He denies shortness of breath, or sudden onset of his symptoms though is in mostly sedentary at baseline. He does state his chronic cough has worsened and become more productive though he has not been able to actually get anything up and out. He states he has had hot flashes without chills and has not taken his temp during this illness. Pt denies dizziness, lightheadedness, numbness or tingling. He denies N/V/D, constipation, abd pain. No change in urination and has continued to drink fluids regularly. While pt states his legs have not increased in swelling, his states that they are larger than normal. Pt has a long standing history of pulmonary and cardiac dz. Cardiac: Pt is [place] by [facility] with most recent appointment with Dr. Quispe . He is followed for HTN, NSTEMI, persistent A. Flutter, CAD with Stents and CABG(2000). CABG included L internal mammary to LAD and saphenous to left circumflex marginal and LAD diagonal. Left radial art to PDA. Last ECHO (), LVEF 60-65%, Mild concentric LVH, LV Sys fxn nl, Diastolic Dysfunction Grade II with elevated Left Atrial Pressures, R. Vent mild-mod dilation, L Atrium mildly dilated, r. Atrium mod dilated, Flattened septum is consistent with RV pressure overload, R Vent Sys pressure elevated at >60mmHg. Pt is on Xarelto for chronic anticoagulation. with PT/INR of 11.7/1.1 this admission. Pulmonology: Pt is followed by [facility], Dr. Brown (05/28/17). Pt is followed for Pulm Fibrosis secondary to prior employment in [[employer]]. Pt initially followed by Waleska James with transfer to Dr. Brown. CT abnormalities date back to 03/2013 showing reticular changes with honeycombing and interstitial thickening. 09/2015 underwent wedge biopsy with complication of collapsed lung post op, pt didn't tolerate single lung ventilation. Pt is on chronic prednisone since 2016. Pulmonology denotes continued decline in pts condition. Pt desaturates dramatically with minor movements. Past Medical/Surgical History Medical Problems: Acute and chronic respiratory failure with hypoxia Acute congestive heart failure Anemia of Chronic Dz Acute respiratory failure Benign hypertension Chronic Anticoagulation Chronic Kidney Dz Diabetes mellitus Hospital-acquired bacterial pneumonia Hyperlipidemia NSTEMI Persistent A. Flutter Pulmonary Fibrosis Obstructive Sleep Apnea Sepsis Recurrent Epistaxis Surgical Hx: Hernia Repair L. Ankle Sx Bronchoscopy Colonoscopy CABG Cardiac Stenting R Thoracotomy with wedge lung biopsies or r middle and lower lobes R Carotid Thromboendarterectomy Family History Diabetes mellitus Heart disease Hypertension Social History Smoking Status: Former Smoker (Quit 2000) Drug Use: none Marital Status: Housing Status: lives with family Occupation Status: retired, disabled Allergies Coded Allergies: Doxycycline (Verified Allergy, Intermediate, RASH, 06/04/17) Hydrocodone (Verified Allergy, Intermediate, RASH, 06/04/17) Replaces LORTAB ELIXIR Iodinated Diagnostic Agents (Verified Allergy, Intermediate, RASH, 06/04/17 ) Losartan (Verified Allergy, Intermediate, HYPOTENSION-RASH, 06/04/17) Lovastatin (Verified Allergy, Intermediate, RASH, 06/04/17) Penicillins (Verified Allergy, Intermediate, RASH, 06/04/17) Quinolones (Verified Allergy, Intermediate, RASH, 06/04/17) Tetracycline (Verified Allergy, Intermediate, RASH, 06/04/17) Latex1 -Allergic Contact Dermititis (Verified Allergy, Mild, RASH, 06/04/17 ) Tetracyclines (Verified Allergy, Unknown, RASH, 06/04/17) Home Medications Scheduled Aspirin (Aspirin Ec), 81 MG PO DAILY Calcium/Vitamin D (Os-Eladio 500 Plus D), 1 TAB PO DAILY Diltiazem Hcl Extended Release (Diltiazem Hcl), 300 MG PO DAILY Ferrous Sulfate (Kp Ferrous Sulfate), 325 MG PO BID Fish Oil ([place]-3), 1 CAP PO QAM Furosemide (Furosemide), 80 MG PO BID Gabapentin (Gabapentin), 600 MG PO TID Home O2 Therapy (Oxygen), 8 LITERS NA DAILY Home O2 Therapy (Oxygen), 6 LITER NA HS Insulin Aspart (Novolog Flexpen), 10 UNITS SC BID Insulin Aspart Protamine & Asp (Novolog Mix 70/30), 48 UNITS SC QPM Insulin Aspart Protamine & Asp (Novolog Mix 70/30), 70 UNITS SC QAM Isosorbide Dinitrate (Isordil), 5 MG PO PRN UD Isosorbide Mononitrate Ext Rel (Imdur Ext Rel), 120 MG PO BID Losartan Potassium (Losartan Potassium), 25 MG PO DAILY Magnesium Oxide (Mag-Ox), 800 MG PO QAM Metoprolol Succinate (Toprol Xl), 150 MG PO BID Nitroglycerin (Nitrostat), 0.4 MG UT PRN Omeprazole (Prilosec), 20 MG PO QAM Potassium Ext Rel (Klor-Con), 20 MEQ PO DAILY Prednisone (Prednisone), 30 MG PO DAILY Rivaroxaban (Xarelto), 15 MG PO DAILY Tamsulosin HCl (Tamsulosin HCl), 0.4 MG PO DAILY Scheduled PRN Acetaminophen (Tylenol), 1,000 MG PO Q6H PRN for Pain or Fever Albuterol Hfa (Ventolin Hfa), 2 PUFFS INH Q4H PRN for Shortness of Breath Ketoconazole (Topical) (Xolegel), 1 APPLN TD BID PRN for AFFECTED AREA Review of Systems 12 systems reviewed and negative other than previously mentioned in the HPI. Physical Exam Date Time Temp Pulse Resp B/P (MAP) Pulse Ox O2 Delivery O2 Flow Rate FiO2 07/01/17 22:33 52 18 108/53 98 Room Air 07/01/17 21:18 36.8 47 18 97/49 96 Non-Rebreather 15.0 07/01/17 21:16 94 Oxymask 15.0 07/01/17 20:59 38 07/01/17 20:57 36 18 69/36 94 Non-Rebreather 15.0 07/01/17 20:48 92 Non-Rebreather 15.0 Vital Signs - as noted Laboratory Data - as noted Physical Exam: General - NAD, appears lethargic resting comfortably Eyes - PERRL, EOMI No icterus, gaze conjugate ENT - Mucosa dry, no lesions or candidiasis Neck - Supple, trachea midline, no masses or lymphadenopathy, no JVD or bruits Lungs - No paradoxical chest wall movement, clear to auscultation with expiratory wheezing throughout and bibasilar rales R > L without rhonchi Heart - irregular rhythm with rate in the 40's, No murmur, rubs, clicks, or gallops appreciated Abdomen - BS present, no bruits noted, tympanic to percussion, soft, nontender, obese, no organomegaly Extremities - 3 -4 + edema noted bilaterally, pedal pulses intact Neuro - A&OX3 Strength extremities equal and appropriate bilaterally Reflexes: Normal and equal CN:PERRL, EOMI, no facial asymmetry, uvula/tongue midline Laboratory Results Last 24 Hours Test 07/01/17 19:45 White Blood Count 13.28 K/uL Red Blood Count 3.39 M/uL Hemoglobin 10.9 g/dL Hematocrit 35.8 % Mean Corpuscular Volume 105.6 fL Mean Corpuscular Hemoglobin 32.2 pg Mean Corpuscular Hemoglobin Concent 30.4 g/dl Platelet Count 155 K/uL Mean Platelet Volume 10.2 fL Neutrophils (%) (Auto) 88.3 % Lymphocytes (%) (Auto) 4.8 % Monocytes (%) (Auto) 3.8 % Eosinophils (%) (Auto) 0.1 % Basophils (%) (Auto) 0.3 % Neutrophils # (Auto) 11.72 K/uL Lymphocytes # (Auto) 0.64 K/uL Monocytes # (Auto) 0.51 K/uL Eosinophils # (Auto) 0.01 K/uL Basophils # (Auto) 0.04 K/uL RDW Standard Deviation 78.4 fL RDW Coefficient of Variation 20.7 % Immature Granulocyte % (Auto) 2.7 % Immature Granulocyte # (Auto) 0.36 K/uL Nucleated RBC Absolute Count (auto) 1.12 K/uL Nucleated Red Blood Cells % 8.4 % Anisocytosis PRESENT Prothrombin Time 11.7 SECONDS Prothromb Time International Ratio 1.1 Sodium Level 137 mmol/L Potassium Level 5.8 mmol/L Chloride Level 99 mmol/L Carbon Dioxide Level 25 mmol/L Anion Gap 13.0 mmol/L Blood Urea Nitrogen 73 mg/dl Creatinine 3.12 mg/dl Est Creatinine Clear Calc Drug Dose 25.6 ml/min Estimated GFR () 22.4 Estimated GFR (Non- 19.3 BUN/Creatinine Ratio 23.3 Random Glucose 140 mg/dl Calcium Level 8.2 mg/dl Magnesium Level 2.6 mg/dl Total Bilirubin 1.0 mg/dl Aspartate Amino Transf (AST/SGOT) 55 U/L Alanine Aminotransferase (ALT/SGPT) 112 U/L Alkaline Phosphatase 69 U/L Total Creatine Kinase 34 U/L Troponin I 0.052 ng/ml Pro-B-Type Natriuretic Peptide 4913 pg/ml Total Protein 6.2 gm/dl Albumin 3.0 gm/dl Globulin 3.2 gm/dl Albumin/Globulin Ratio 0.9 Diagnostic Results CHEST ONE VIEW PORTABLE CLINICAL HISTORY: arm pain dyspnea COMPARISON STUDY: 06/23/2017 FINDINGS: Moderate increase in cardiac size. Pulmonary findings bilaterally suggesting pulmonary edema versus respiratory distress syndrome. Small right pleural effusion. IMPRESSION: Progressive cardiomegaly with findings suggesting pulmonary edema versus respiratory distress. Progressive congestive heart failure can present in similar fashion. The above report was generated using voice recognition software. It may contain grammatical, syntax or spelling errors. Electronically signed by: Nelson Begum M.D. 07/01/2017 9:36 PM Dictated Date/Time: 07/01/2017 9:36 PM Assessment & Plan (1) Interstitial lung disease (2) Chronic steroid use (3) Acute and chronic respiratory failure (4) Bradycardia (5) Hypotension (6) Acute on chronic renal failure (7) Oxygen dependent (8) Diabetes mellitus Reason Critically Ill: Patient is an 67-year-old male who is transferred to the ICU for bradycardia and hypotension with increasing oxygen requirements over the last week during a head cold. Pt states recent cardiac med changes. PLAN: Cardiac: HR: 36-72bpm and SBP 69-112 Atropine in ED Recent increase in both Metoprolol and Diltiazem Persistent A. Flutter on Xarelto CAD with multiple stents and CABG Bedside ECHO by ED physician without tamponade * Trend Troponin ( 0.052 now) q 8h * Formal ECHO in AM. (Emergently if hypotension returns) * Check Random Cortisol (chronic use of PO Prednisone) * Pt consented to CVL and A. Line if needed * If low will dose IV steroids as well if hypotension returns. * Monitor on Telemetry * Continue Xarelto at this time. If CrCl declines will initiate Heparin infusion * Holding rate control medication currently * Will Consult [facility] * In HR fails to improve may need to be evaluated for pacer Resp: Chronic Respiratory Failure 2/2 ILD with Pulm Fibrosis on 8L Recent Head Cold requiring increase to 10L O2 CXR with pulm edema, not consistent with infection * Continue Respiratory Regimen * Wheezing noted on physical exam * Repeat CXR in AM * CRESCENCIO: pt has his CPAP this admission will have respiratory set-up * Otherwise: Will titrate Oxymask in AM to SPO2 > 88% * IV Methylprednisolone 100mg * Will Consult [facility] Neuro: * Monitor Pain Scale * Morphine Sulfate * Neuro Checks per protocol * Pt denies unilateral sx, none noted on physical exam Fluids/Renal: Prerenal TYSHWAN Cr improved from 3.12 to 2.5 * NSS @ 100mL/hr * Obtain U/A to role out infectious source * CrCl 25.6: Avoid nephro toxic agents and adjust dosages accordingly * Continue Flomax Cap * Daily PRP * Hyperkalemia: Albuterol Neb now, repeat lab in AM * 1g CaGluc in ED ID: * No sign of infection at this time * Continue to monitor * Will check random cortisol and lactic acid * WBC: 13.28 * Afebrile Temp 36.8 GI/Nutrition: * Will Continue NPO except med until pt stabilizes * Hx of reflux: Omeprazole 20mg Heme: * Continue Xarelto per TYSHAWN Dosing at 15mg PO * If crcl worsen will need to discontinue and begin Heparin infusion * PT/INR: 11.7/1.1, Repeat in AM * H&H 10.9/35.8 Plts 155 * CBC daily Endocrine: * IDDM 2 * Accu-Checks per protocol, started insulin infusion for 2 blood sugars greater than 180 * SSI in place CCT: 65 Minutes; This time is exclusive of all separately billable procedures. Thank you for involving us in the care of this patient. Please refer to Dr. Saad Izquierdo's addendum for further recommendations. I agree with assessment and plan of Jenny Gamez PA-C. Problem Qualifiers (1) Hypotension: Hypotension type: unspecified hypotension type Qualified Codes: I95.9 - Hypotension, unspecified (2) Acute on chronic renal failure: Acute renal failure type: unspecified Chronic kidney disease stage: unspecified stage Qualified Codes: N17.9 - Acute kidney failure, unspecified; N18.9 - Chronic kidney disease, unspecified
--- NOTE | 2017-07-01 23:25 | History and Physical ---
History & Physical Date & Time of Service: Jul 01, 2017 at 23:20 Chief Complaint: cp/sob Primary Care Physician: Ishan Roy M.D. History of Present Illness Source: patient, hospital records, other 67 y/o M Hx CAD, chronic AF, diastolic CHF, CKD III, DM II, end stage pulmonary fibrosis. Pt initially presented with BL arm pain as he thought this may be cardiac-related. He had self administered 3 NTG prior to arrival which partially alleviated his symptoms. On arrival to the ER he was noted to be hypotensive and bradycardic. Initial SBP was in the 70s and his HR was high 30s - low 40s. He did not c/o CP directly and denies SOB above baseline. He does state that he felt he may be developing a sinus infection. Initial labs were notable for worsening renal function with hyperkalemia. The pt responded well to a fluid bolus in the ER in terms of his BP. He received 2 doses of Atropine and his HR has remained in the mid 40s. It is noted that he takes both Diltiazem and a B zachary daily. Past Medical/Surgical History 1) CAD - CABG 2000 3V - SHETH to LAD, Saphenous to circ obtuse and LAD diagonal, radial a to PDA - 4 stents Stents 2008 2) Chronic atrial flutter - Xarelto 3) Carotid artery stenosis 4) End stage pulmonary fibrosis - chronic hypoxic resp failure - 6-8 L 02 at baseline 5) Fatty liver - chronic LFT abnormalities 6) Iron-deficient anemia 7) CKD III 8) Neuropathy 9) HTN 10) HPL 11) History of CVA 12) Chronic diastolic CHF - grade II dysfunction Family History Diabetes mellitus Heart disease Hypertension Social History Smoking Status: Former Smoker (Quit 2000) Drug Use: none Marital Status: Housing status: lives with family Occupational Status: retired, disabled Immunizations History of Influenza Vaccine: Yes Influenza Vaccine Date: Dec 29, 2010 History of Tetanus Vaccine?: Yes Tetanus Immunization Date: Oct 21, 2006 History of Pneumococcal: Yes Pneumococcal Date: Mar 29, 2008 History of Hepatitis B Vaccine: No Allergies Coded Allergies: Doxycycline (Verified Allergy, Intermediate, RASH, 06/04/17) Hydrocodone (Verified Allergy, Intermediate, RASH, 06/04/17) Replaces LORTAB ELIXIR Iodinated Diagnostic Agents (Verified Allergy, Intermediate, RASH, 06/04/17 ) Losartan (Verified Allergy, Intermediate, HYPOTENSION-RASH, 06/04/17) Lovastatin (Verified Allergy, Intermediate, RASH, 06/04/17) Penicillins (Verified Allergy, Intermediate, RASH, 06/04/17) Quinolones (Verified Allergy, Intermediate, RASH, 06/04/17) Tetracycline (Verified Allergy, Intermediate, RASH, 06/04/17) Latex1 -Allergic Contact Dermititis (Verified Allergy, Mild, RASH, 06/04/17 ) Tetracyclines (Verified Allergy, Unknown, RASH, 06/04/17) Home Medications Scheduled Aspirin (Aspirin Ec), 81 MG PO DAILY Calcium/Vitamin D (Os-Eladio 500 Plus D), 1 TAB PO DAILY Diltiazem Hcl Extended Release (Diltiazem Hcl), 300 MG PO DAILY Ferrous Sulfate (Kp Ferrous Sulfate), 325 MG PO BID Fish Oil ([place]-3), 1 CAP PO QAM Furosemide (Furosemide), 80 MG PO BID Gabapentin (Gabapentin), 600 MG PO TID Home O2 Therapy (Oxygen), 8 LITERS NA DAILY Home O2 Therapy (Oxygen), 6 LITER NA HS Insulin Aspart (Novolog Flexpen), 10 UNITS SC BID Insulin Aspart Protamine & Asp (Novolog Mix 70/30), 48 UNITS SC QPM Insulin Aspart Protamine & Asp (Novolog Mix 70/30), 70 UNITS SC QAM Isosorbide Dinitrate (Isordil), 5 MG PO PRN UD Isosorbide Mononitrate Ext Rel (Imdur Ext Rel), 120 MG PO BID Losartan Potassium (Losartan Potassium), 25 MG PO DAILY Magnesium Oxide (Mag-Ox), 800 MG PO QAM Metoprolol Succinate (Toprol Xl), 150 MG PO BID Nitroglycerin (Nitrostat), 0.4 MG UT PRN Omeprazole (Prilosec), 20 MG PO QAM Potassium Ext Rel (Klor-Con), 20 MEQ PO DAILY Prednisone (Prednisone), 30 MG PO DAILY Rivaroxaban (Xarelto), 15 MG PO DAILY Tamsulosin HCl (Tamsulosin HCl), 0.4 MG PO DAILY Scheduled PRN Acetaminophen (Tylenol), 1,000 MG PO Q6H PRN for Pain or Fever Albuterol Hfa (Ventolin Hfa), 2 PUFFS INH Q4H PRN for Shortness of Breath Ketoconazole (Topical) (Xolegel), 1 APPLN TD BID PRN for AFFECTED AREA Review of Systems Constitutional: No fever, No chills, No sweats Eyes: No worsening of vision ENT: + nasal symptoms, No hearing loss, No unusual epistaxis Respiratory: + shortness of breath (Chronic), No cough, No sputum, No wheezing Cardiovascular: + problem reported (BL arm pain L > R), No chest pain Abdomen: No pain, No nausea, No vomiting Musculoskeletal: No joint pain Genitourinary - Male: No hematuria, No dysuria Neurologic: + weakness, No memory loss Hematologic / Lymphatic: No abnormal bleeding/bruising Integumentary: No rash Allergic / Immunologic: No environmental allergies Physical Exam Vital Signs Date Time Temp Pulse Resp B/P (MAP) Pulse Ox O2 Delivery O2 Flow Rate FiO2 07/01/17 22:33 52 18 108/53 98 Room Air 07/01/17 21:18 36.8 47 18 97/49 96 Non-Rebreather 15.0 07/01/17 21:16 94 Oxymask 15.0 07/01/17 20:59 38 07/01/17 20:57 36 18 69/36 94 Non-Rebreather 15.0 07/01/17 20:48 92 Non-Rebreather 15.0 Overweight, middle-aged male - mild lethargy, no acute distress General Appearance: WD/WN, no apparent distress, + obese Head: normocephalic Eyes: normal inspection ENT: normal ENT inspection, pharynx normal Neck: supple, + pertinent finding (Cannot examine JVD due to habitus) Respiratory/Chest: + pertinent finding (Poor air entry BL - no clear wheezing/ crackles) Cardiovascular: + bradycardia, + irregularly irregular Abdomen/GI: normal bowel sounds, non tender, soft Back: normal inspection, no CVA tenderness Extremities/Musculoskelatal: + pertinent finding (Minimal edema) Neurologic/Psych: export coordinator II-XII nml as tested, no motor/sensory deficits, alert, oriented x 3 Skin: + pallor Diagnostics Laboratory Results Results Past 24 Hours Test 07/01/17 19:45 Range/Units White Blood Count 13.28 4.8-10.8 K/uL Red Blood Count 3.39 4.7-6.1 M/uL Hemoglobin 10.9 14.0-18.0 g/dL Hematocrit 35.8 42-52 % Mean Corpuscular Volume 105.6 80-100 fL Mean Corpuscular Hemoglobin 32.2 25-34 pg Mean Corpuscular Hemoglobin Concent 30.4 32-36 g/dl Platelet Count 155 130-400 K/uL Mean Platelet Volume 10.2 7.4-10.4 fL Neutrophils (%) (Auto) 88.3 % Lymphocytes (%) (Auto) 4.8 % Monocytes (%) (Auto) 3.8 % Eosinophils (%) (Auto) 0.1 % Basophils (%) (Auto) 0.3 % Neutrophils # (Auto) 11.72 1.4-6.5 K/uL Lymphocytes # (Auto) 0.64 1.2-3.4 K/uL Monocytes # (Auto) 0.51 0.11-0.59 K/uL Eosinophils # (Auto) 0.01 0-0.5 K/uL Basophils # (Auto) 0.04 0-0.2 K/uL RDW Standard Deviation 78.4 36.4-46.3 fL RDW Coefficient of Variation 20.7 11.5-14.5 % Immature Granulocyte % (Auto) 2.7 % Immature Granulocyte # (Auto) 0.36 0.00-0.02 K/uL Nucleated RBC Absolute Count (auto) 1.12 0-0 K/uL Nucleated Red Blood Cells % 8.4 % Anisocytosis PRESENT Prothrombin Time 11.7 9.0-12.0 SECONDS Prothromb Time International Ratio 1.1 0.9-1.1 Sodium Level 137 136-145 mmol/L Potassium Level 5.8 3.5-5.1 mmol/L Chloride Level 99 98-107 mmol/L Carbon Dioxide Level 25 21-32 mmol/L Anion Gap 13.0 3-11 mmol/L Blood Urea Nitrogen 73 7-18 mg/dl Creatinine 3.12 0.60-1.40 mg/dl Est Creatinine Clear Calc Drug Dose 25.6 ml/min Estimated GFR () 22.4 Estimated GFR (Non- 19.3 BUN/Creatinine Ratio 23.3 10-20 Random Glucose 140 70-99 mg/dl Calcium Level 8.2 8.5-10.1 mg/dl Magnesium Level 2.6 1.8-2.4 mg/dl Total Bilirubin 1.0 0.2-1 mg/dl Aspartate Amino Transf (AST/SGOT) 55 15-37 U/L Alanine Aminotransferase (ALT/SGPT) 112 12-78 U/L Alkaline Phosphatase 69 45-117 U/L Total Creatine Kinase 34 39-308 U/L Troponin I 0.052 0-0.045 ng/ml Pro-B-Type Natriuretic Peptide 4913 0-900 pg/ml Total Protein 6.2 6.4-8.2 gm/dl Albumin 3.0 3.4-5.0 gm/dl Globulin 3.2 2.5-4.0 gm/dl Albumin/Globulin Ratio 0.9 0.9-2 Diagnostic Radiology CXR: Progressive cardiomegaly with findings suggesting pulmonary edema. EKG Flutter - variable rate - initial EKG with rate 30-40 , repeat 50-60 - lat inversions which are new compared to prior Impression Assessment and Plan 67 y/o M Hx CAD, chronic AF, diastolic CHF, CKD III, DM II, end stage pulmonary fibrosis. Pt initially presented with BL arm pain as he thought this may be cardiac-related. He had self administered 3 NTG prior to arrival which partially alleviated his symptoms. On arrival to the ER he was noted to be hypotensive and bradycardic. Initial SBP was in the 70s and his HR was high 30s - low 40s. He did not c/o CP directly and denies SOB above baseline. He does state that he felt he may be developing a sinus infection. Initial labs were notable for worsening renal function with hyperkalemia. The pt responded well to a fluid bolus in the ER in terms of his BP. He received 2 doses of Atropine and his HR has remained in the mid 40s. It is noted that he takes both Diltiazem and a B zachary daily. 1) BL arm pain - possibly cardiac due to demand which would be related to a low HR and hypotension - trop is elevated but is below baseline. We will trend - he has a history of CAD and is taking ASA. We are forced to hold his B zachary and Imdur at present. He is statin-intolerant. 2) Bradycardia - partial response to Atropine - he will be transferred to the ICU - cardiology was notified by the ER. We will focus on correcting his K and wll hold Metoprolol and Diltiazem. If this does not correct, he will need an evaluation for a pacer. 3) Hypotension - responded to IVF - there was some concern for Tamponade based on EKG voltage and CXR, however, there did not appear to be significant fluid surrounding his heart on a preliminary echo. An additional is ordered for AM. His BP has normalized at the time of admission. There is no evidence of sepsis. The pt is also chronically on Prednisone. We will obtain a Cortisol and consider stress-dosing with recurrence of a low BP. 4) Acute on chronic RF with hyperK - IVF provided - received Ca-gluconate in ER - will provide an Albuterol treatment and repeat BMP - diuretics and ARB held. 5) Pulmonary fibrosis - denies SOB above baseline - cont current inhalers - 6-8 L 02 and 6) Diastolic CHF - volume status is difficult to assess clinically - imaging is also not reliable due to chronic changes related to lung disease. We will have to gauge his status based on resp exams presently. If this becomes an issue, a central line for CVP induction should be considered. 6) Flutter - currently bradycardic - anticoagulated with Xarelto. Rate meds held due to above. Full code - Xarelto prophylaxis Total time for this admit including review of labs, meds, imaging, records - discussion with pt and ER attending - including critical care time 45 min Resuscitation Status VTE Prophylaxis Will order VTE Prophylaxis: Yes
[2017-07-01] MEDS ORDERED: ALBUTEROL HFA 8 GM INHALER INH PRN (23:30)
[2017-07-02] VITALS (17 sets, daily range): BP systolic 105–141; BP diastolic 47–78; PULSE 58–91; TEMP 36.4–36.8; O2SAT 85–95; Ht 165.1 cm; Wt 103.5 kg
[2017-07-02] MEDS ORDERED: ALBUTEROL 0.5% NEB SOLN 2.5 MG/0.5 ML VIAL INH ONE (00:15)
[2017-07-02 00:56] LABS: CREATININE 2.51 mg/dl (0.60-1.40); POTASSIUM 4.9 mmol/L (3.5-5.1)
[2017-07-02] MEDS ORDERED: SODIUM CHLORIDE 0.9% 1000ML 1,000 ML IV SCH (01:15)
[2017-07-02] MEDS ORDERED: HYDROCORTISONE IV 100 MG in SYRINGE 0 ML IV STA (03:39)
[2017-07-02 04:52] LABS: HEMATOCRIT 31.9 % (42-52); HEMOGLOBIN 9.8 g/dL (14.0-18.0); MEAN CELL VOLUME 101.6 fL (80-100); MEAN CORPUSCULAR HEMOGLOBIN 31.2 pg (25-34); MEAN CORPUSCULAR HGB CONC 30.7 g/dl (32-36); PLATELET COUNT 108 K/uL (130-400); RED CELL DISTRIBUTION WIDTH CV 20.6 % (11.5-14.5); RED CELL DISTRIBUTION WIDTH SD 74.6 fL (36.4-46.3); WHITE BLOOD COUNT 7.84 K/uL (4.8-10.8)
[2017-07-02 05:11] LABS: ALBUMIN 2.9 gm/dl (3.4-5.0); CALCIUM 8.1 mg/dl (8.5-10.1); CREATININE 2.06 mg/dl (0.60-1.40); POTASSIUM 4.2 mmol/L (3.5-5.1)
[2017-07-02 05:14] LABS: PHOSPHORUS 4.7 mg/dl (2.5-4.9); TOTAL PROTEIN 5.5 gm/dl (6.4-8.2)
[2017-07-02 05:19] LABS: BASO % 0.3 %; BASO ABS # 0.02 K/uL (0-0.2); IG# 0.43 K/uL (0.00-0.02); LYMPH % 6.1 %; LYMPH ABS # 0.48 K/uL (1.2-3.4); MONO % 3.7 %; MONO ABS # 0.29 K/uL (0.11-0.59); NEUT % 84.4 %; NEUT ABS # 6.62 K/uL (1.4-6.5)
[2017-07-02] MEDS ORDERED: INSULIN ASPART 100 UNITS/ML 3 ML PEN SC SCH (06:00)
[2017-07-02] MEDS ORDERED: PERFLUTREN LIPID MICROSPHERE (DEFINITY) IV ONE (07:09)
[2017-07-02] MEDS: ASPIRIN 81 MG ECTAB PO SCH (08:53)
[2017-07-02] MEDS: TAMSULOSIN HCL 0.4 MG CAP PO SCH (08:53)
[2017-07-02] MEDS: GABAPENTIN 300 MG CAP PO SCH ×3 (08:53→20:23)
[2017-07-02] MEDS: PANTOprazole SOD 40 MG TAB PO SCH (08:53)
[2017-07-02] MEDS: MAGNESIUM OXIDE 400 MG TAB PO SCH (08:54)
[2017-07-02] MEDS ORDERED: PHARMACY GLYCEMIC MGMT CONSULT PRN ×2 (10:30)
[2017-07-02] MEDS ORDERED: NORMOSOL R 1,000 ML IV SCH (10:30)
[2017-07-02] MEDS ORDERED: INSULIN GLARGINE SOLOSTAR 100 UNITS/ML 3 ML PEN SC ONE ×2 (10:30→20:45)
[2017-07-02] MEDS ORDERED: SODIUM CHLORIDE 0.65% NA SOLN 45 ML (OCEAN) ONE (11:04)
--- NOTE | 2017-07-02 11:07 | ECHOCARDIOGRAM REPORT ---
*NOTICE TO RECEIVING DEMOCRAT AGENCY This information is strictly Confidential and protected under [place] law. [place] law prohibits you from making any further disclosure of this information unless further disclosure is expressly permitted by the written consent of the person to whom it pertains or is authorized by law. A general authorization for the release of medical or other information is not sufficient for this purpose. Hospital accepts no responsibility if the information is made available to any other person, INCLUDING THE PATIENT. Interpretation Summary * Name: CRIS MARTINEZ Study Date: 07/02/2017 06:41 AM BP: 133/69 mmHg * [facility] HR: 72 * : 1950 (M/d/yyy) Gender: Male Height: 65 in * Age: 67 yrs Ethnicity: [place] Weight: 231 lb * Ordering Physician: Brunilda Gamez * Referring Physician: Self, Referred * Performed By: Nelia Abernathy RDCS * * Reason For Study: CHF * BSA: 2.1 m2 * -- Conclusions -- * Left ventricular systolic function is normal. * Flattened septum is consistent with RV pressure overload. * The right ventricle is mild to moderately dilated. * The right ventricular systolic function is mildly reduced. * Mild aortic regurgitation. * There is moderate tricuspid regurgitation. * Right ventricular systolic pressure is elevated at >60mmHg. * Compared to an echocardiogram from 03/31/2017, in taking into account the difference in technique, there is no significant change Procedure Details * A contrast injection of Definity was performed to improve assessment of LV function. * Contrast was injected into an intravenous site in the left arm. * One vial of Definity ultrasound contrast was diluted in normal saline to a total volume of 10 ml. A total of '2' ml of solution was administered during imaging. * Lot # [id number] of Definity utilized for procedure. * Expiration date 1 APR 26. * The attending nurse who injected the contrast agent was SALAZAR HERNANDEZ RN. Left Ventricle * The left ventricle is normal in size. * There is normal left ventricular wall thickness. * Ejection Fraction = 55-60%. * Left ventricular systolic function is normal. * Flattened septum is consistent with RV pressure overload. Right Ventricle * The right ventricle is mild to moderately dilated. * The right ventricular systolic function is mildly reduced. * The right ventricular systolic function is reduced as assessed by tricuspid annular plane systolic excursion (TAPSE) (TAPSE <1.6 cm). Atria * The left atrium is not well visualized. * Right atrium not well visualized. Mitral Valve * The mitral valve is grossly normal. * Significant mitral regurgitation is absent. Tricuspid Valve * The tricuspid valve is not well visualized, but is grossly normal. * There is moderate tricuspid regurgitation. * Right ventricular systolic pressure is elevated at >60mmHg. Aortic Valve * The aortic valve is not well visualized. * No hemodynamically significant valvular aortic stenosis. * Mild aortic regurgitation. Pulmonic Valve * The pulmonic valve is not well visualized. Pericardium/Pleural * There is no pericardial effusion. MMode 2D Measurements and Calculations IVSd 0.88 cm IVSs 1.4 cm LVIDd 4.2 cm LVIDs 2.9 cm LVPWd 0.88 cm LVPWs 1.5 cm IVS/LVPW 1.0 FS 30.0 % EDV(Teich) 78.2 ml ESV(Teich) 33.2 ml EF(Teich) 57.6 % EDV(cubed) 73.7 ml ESV(cubed) 25.3 ml EF(cubed) 65.6 % % IVS thick 54.0 % % LVPW thick 75.1 % LV mass(C)d 114.7 grams LV mass(C)dI 54.5 grams/m\S\2 LV mass(C)s 144.4 grams LV mass(C)sI 68.7 grams/m\S\2 SV(Teich) 45.0 ml SI(Teich) 21.4 ml/m\S\2 SV(cubed) 48.4 ml SI(cubed) 23.0 ml/m\S\2 Ao root diam 3.7 cm Ao root area 10.8 cm\S\2 LA dimension 3.7 cm LA/Ao 1.0 LVOT diam 2.0 cm LVOT area 3.1 cm\S\2 LVAd ap4 21.7 cm\S\2 LVLd ap4 7.0 cm EDV(MOD-sp4) 57.0 ml EDV(sp4-el) 57.5 ml LVAs ap4 14.2 cm\S\2 LVLs ap4 6.3 cm ESV(MOD-sp4) 27.5 ml ESV(sp4-el) 27.1 ml EF(MOD-sp4) 51.7 % EF(sp4-el) 52.8 % SV(MOD-sp4) 29.5 ml SI(MOD-sp4) 14.0 ml/m\S\2 SV(sp4-el) 30.4 ml SI(sp4-el) 14.4 ml/m\S\2 Doppler Measurements and Calculations MV E max aruna 147.8 cm/sec MV A max aruna 66.8 cm/sec MV E/A 2.2 MV dec time 0.14 sec Ao V2 max 129.0 cm/sec Ao max PG 6.7 mmHg Ao max PG (full) 2.4 mmHg NIKHIL(V,A) 2.4 cm\S\2 NIKHIL(V,D) 2.4 cm\S\2 LV V1 max PG 4.2 mmHg LV V1 max 102.8 cm/sec TR max aruna 360.7 cm/sec
--- NOTE | 2017-07-02 11:45 | Cardiology Consultation ---
Cardiology Consultation Date of Consultation: Jul 02, 2017. Requesting Physician: Jeb Reason for Consultation: bradycardia Pt evaluation today including: conversation w/ patient, physical exam, chart review, lab review, review of studies, conversation w/ transportation consultant, review of inpatient medication list, conversation w/ attending History of Present Illness The patient is a 67-year-old gentleman with a history of coronary artery disease having previously undergone coronary bypass surgery quite remotely. He is also known to have cor pulmonale secondary to severe pulmonary hypertension and pulmonary fibrosis with associated hypoxemia. He has atrial fibrillation and flutter which is paroxysmal. The patient was seen in the [facility] Emergency Room just over 1 week ago with complaints of elevated heart rates during exertion. Based on that history had an increase in his rate control medications. Last evening the patient began to experience some symptoms of left arm discomfort. This initially involved the distal portion of his arm but then generalized to involve the entire left arm as well as some symptoms of the right arm. Based on a concern for a coronary syndrome the patient took 2 sublingual nitroglycerines. He then proceeded to [facility] for evaluation. In the emergency room he was found to be hypotensive and bradycardic. He was administered some fluids and sent to the ICU for monitoring. This morning the patient states that he feels great. His symptoms of arm discomfort have resolved entirely. He states his breathing is stable. Generally speaking the patient is a sedentary individual who has significant dyspnea with activity. He did not endorse symptoms of exertional chest discomfort or any chest discomfort associated with the presentation last evening. He has been gradually increasing his oxygen to the maximum his concentrator will allow. He claims to have been sleeping well at night. He did not describe any symptoms of orthopnea. He does have chronic lower extremity edema which is unchanged. He did report an episode of syncope few weeks ago. This appeared to happen while he was walking farther than normal. He did have some prodrome which involved some flashing lights and then he passed out after attempting to rest himself on a chair. He has not had any recurrence of that symptom. Past Medical/Surgical History Coronary artery disease status post coronary artery bypass grafting in 2000 Percutaneous intervention involving the right coronary artery 2000 Catheterization 2009: Patent SHETH to LAD. Occluded vein graft to left circumflex. Occluded radial graft to right coronary artery Interstitial lung disease with pulmonary fibrosis COPD Cor pulmonale Epistaxis Cholelithiasis Diabetes mellitus with associated peripheral neuropathy, retinopathy and nephropathy Hyperlipidemia Hepatic steatosis Obstructive sleep apnea Atrial fibrillation and flutter, paroxysmal Chronic renal insufficiency Past surgical history: Coronary artery bypass grafting 2000, sheth to LAD, vein graft to OM, radial graft to right coronary artery Carotid endarterectomy Hernia repair Lung biopsy Family History Diabetes mellitus Heart disease Hypertension Noncontributory given his age and comorbidities Social History Smoking Status: Former Smoker History of Alcohol Use: No Previously worked in a [employer] Review of Systems Respiratory: + cough, + dyspnea on exertion Per HPI All Other Systems: Reviewed and Negative Allergies Coded Allergies: Doxycycline (Verified Allergy, Intermediate, RASH, 06/04/17) Hydrocodone (Verified Allergy, Intermediate, RASH, 06/04/17) Replaces LORTAB ELIXIR Iodinated Diagnostic Agents (Verified Allergy, Intermediate, RASH, 06/04/17 ) Losartan (Verified Allergy, Intermediate, HYPOTENSION-RASH, 06/04/17) Lovastatin (Verified Allergy, Intermediate, RASH, 06/04/17) Penicillins (Verified Allergy, Intermediate, RASH, 06/04/17) Quinolones (Verified Allergy, Intermediate, RASH, 06/04/17) Tetracycline (Verified Allergy, Intermediate, RASH, 06/04/17) Latex1 -Allergic Contact Dermititis (Verified Allergy, Mild, RASH, 06/04/17 ) Tetracyclines (Verified Allergy, Unknown, RASH, 06/04/17) Medications Current Inpatient Medications Medications (Trade) Dose Ordered Sig/Zeina Route Start Time Stop Time Status Last Admin Dose Admin Acetaminophen (Tylenol Tab) 650 mg Q4H PRN PO 07/01/17 23:15 07/31/17 23:14 Lorazepam (Ativan Tab) 1 mg Q6H PRN PO 07/01/17 23:15 07/31/17 23:14 Ondansetron HCl (Zofran Inj) 4 mg Q6H PRN IV 07/01/17 23:15 07/31/17 23:14 Morphine Sulfate (MoRPHine SULFATE INJ) 4 mg Q2H PRN IV 07/01/17 23:15 07/15/17 23:14 Miscellaneous Information (Icu Protocol For Hyperglycemia) 1 ea PRN PRN N/A 07/01/17 23:15 07/03/17 23:14 Albuterol (Ventolin Hfa Inhaler) 2 puffs Q4H PRN INH 07/01/17 23:30 07/31/17 23:29 Aspirin (Ecotrin Tab) 81 mg DAILY PO 07/02/17 09:00 08/01/17 08:59 07/02/17 08:53 81 MG Gabapentin (Neurontin Cap) 600 mg TID PO 07/02/17 09:00 08/01/17 08:59 07/02/17 08:53 600 MG Magnesium Oxide (Mag-Ox Tab) 800 mg QAM PO 07/02/17 09:00 08/01/17 08:59 07/02/17 08:54 800 MG Prednisone (PredniSONE TAB) 30 mg DAILY PO 07/02/17 09:00 08/01/17 08:59 07/02/17 08:53 30 MG Rivaroxaban (Xarelto Tab) 15 mg QDD PO 07/02/17 16:30 08/01/17 16:29 Tamsulosin HCl (Flomax Cap) 0.4 mg DAILY PO 07/02/17 09:00 08/01/17 08:59 07/02/17 08:53 0.4 MG Pantoprazole Sodium (Protonix Tab) 40 mg QAM PO 07/02/17 09:00 08/01/17 08:59 07/02/17 08:53 40 MG Miscellaneous Information (Consult Glycemic Management Pharmacy) 1 ea UD PRN N/A 07/02/17 10:30 08/01/17 10:29 Insulin Aspart (novoLOG ASPART) SLIDING SCALE G... ACHS SC 07/02/17 12:00 08/01/17 11:59 Physical Exam Vital Signs Past 12 Hours Date Time Temp Pulse Resp B/P (MAP) Pulse Ox O2 Delivery O2 Flow Rate FiO2 07/02/17 10:00 74 18 115/76 (89) 90 Oxymask 12.0 07/02/17 08:00 36.8 72 16 132/65 (87) 88 Oxymask 12.0 07/02/17 08:00 88 Oxymask 12.0 07/02/17 06:01 72 133/69 (90) 93 CPAP 7.0 07/02/17 05:01 36.8 69 126/71 (89) 94 CPAP 7.0 07/02/17 04:01 36.8 65 113/58 (76) 92 CPAP 7.0 07/02/17 04:00 CPAP 7.0 07/02/17 03:01 65 15 136/47 (76) 95 CPAP 7.0 07/02/17 02:24 89 22 92 BiPAP/CPAP 7.0 07/02/17 02:01 58 118/60 (79) 92 07/02/17 02:01 58 118/60 (79) 92 CPAP 7.0 07/02/17 00:35 36.6 58 19 105/66 94 Non-Rebreather 15.0 07/02/17 00:29 45 20 109/57 98 07/02/17 00:05 47 20 105/60 98 Room Air 07/01/17 23:45 49 20 110/55 97 Non-Rebreather 07/01/17 23:32 52 20 98/48 98 Non-Rebreather 15.0 The patient is alert and oriented. Mood and affect appeared normal. He answered all questions appropriately. Using supplemental oxygen HEENT: Pupils are equal and reactive to light and accommodation. Extraocular movements are intact. The sclerae are anicteric. Neuro: Cranial nerves intact Neck: Redundant tissues, JVD cannot be appreciated. Lungs: Diffuse crackles throughout all lung ovalles. No expiratory wheezing. Cardiac: Heart demonstrates an irregular rate and rhythm. Normal S1 and S2. No murmurs on examination. Pulses: He has a palpable right radial pulse. Left radial pulse is absent Extremities: There was no evidence of hypoperfusion. There is no cyanosis or clubbing. Moderate peripheral edema to the upper calf bilaterally Skin: I did not appreciate any rashes on examination today. Data Laboratory Results: Last 24 Hours Test 07/01/17 19:45 07/02/17 00:21 07/02/17 01:43 07/02/17 01:47 White Blood Count 13.28 K/uL Red Blood Count 3.39 M/uL Hemoglobin 10.9 g/dL Hematocrit 35.8 % Mean Corpuscular Volume 105.6 fL Mean Corpuscular Hemoglobin 32.2 pg Mean Corpuscular Hemoglobin Concent 30.4 g/dl Platelet Count 155 K/uL Mean Platelet Volume 10.2 fL Neutrophils (%) (Auto) 88.3 % Lymphocytes (%) (Auto) 4.8 % Monocytes (%) (Auto) 3.8 % Eosinophils (%) (Auto) 0.1 % Basophils (%) (Auto) 0.3 % Neutrophils # (Auto) 11.72 K/uL Lymphocytes # (Auto) 0.64 K/uL Monocytes # (Auto) 0.51 K/uL Eosinophils # (Auto) 0.01 K/uL Basophils # (Auto) 0.04 K/uL RDW Standard Deviation 78.4 fL RDW Coefficient of Variation 20.7 % Immature Granulocyte % (Auto) 2.7 % Immature Granulocyte # (Auto) 0.36 K/uL Nucleated RBC Absolute Count (auto) 1.12 K/uL Nucleated Red Blood Cells % 8.4 % Anisocytosis PRESENT Prothrombin Time 11.7 SECONDS Prothromb Time International Ratio 1.1 Sodium Level 137 mmol/L 137 mmol/L Potassium Level 5.8 mmol/L 4.9 mmol/L Chloride Level 99 mmol/L 102 mmol/L Carbon Dioxide Level 25 mmol/L 29 mmol/L Anion Gap 13.0 mmol/L 6.0 mmol/L Blood Urea Nitrogen 73 mg/dl 76 mg/dl Creatinine 3.12 mg/dl 2.51 mg/dl Est Creatinine Clear Calc Drug Dose 25.6 ml/min 31.8 ml/min Estimated GFR () 22.4 29.1 Estimated GFR (Non- 19.3 25.1 BUN/Creatinine Ratio 23.3 30.3 Random Glucose 140 mg/dl 119 mg/dl Calcium Level 8.2 mg/dl 8.0 mg/dl Magnesium Level 2.6 mg/dl Total Bilirubin 1.0 mg/dl Aspartate Amino Transf (AST/SGOT) 55 U/L Alanine Aminotransferase (ALT/SGPT) 112 U/L Alkaline Phosphatase 69 U/L Total Creatine Kinase 34 U/L Troponin I 0.052 ng/ml Pro-B-Type Natriuretic Peptide 4913 pg/ml Total Protein 6.2 gm/dl Albumin 3.0 gm/dl Globulin 3.2 gm/dl Albumin/Globulin Ratio 0.9 Lactic Acid Level 0.7 mmol/L Random Cortisol 12.79 mcg/dl Venous Blood pH 7.44 Venous Blood Partial Pressure CO2 44 mmHg Venous Blood Partial Pressure O2 64 mmHg Venous Blood HCO3 29 mmol/L Venous Blood Oxygen Saturation 90.8 % Venous Blood Base Excess 4.6 mEq/L Test 07/02/17 02:00 4/27/18 04:09 07/02/17 10:01 07/02/17 10:40 Urine Color YELLOW Urine Appearance CLEAR Urine pH 5.0 Urine Specific [place] 1.018 Urine Protein NEG Urine Glucose (UA) NEG Urine Ketones NEG Urine Occult Blood NEG Urine Nitrite NEG Urine Bilirubin NEG Urine Urobilinogen NEG Urine Leukocyte Esterase TRACE Urine WBC (Auto) 1-5 /hpf Urine RBC (Auto) 0-4 /hpf Urine Hyaline Casts (Auto) 1-5 /lpf Urine Epithelial Cells (Auto) 5-10 /lpf Urine Bacteria (Auto) NEG White Blood Count 7.84 K/uL Red Blood Count 3.14 M/uL Hemoglobin 9.8 g/dL Hematocrit 31.9 % Mean Corpuscular Volume 101.6 fL Mean Corpuscular Hemoglobin 31.2 pg Mean Corpuscular Hemoglobin Concent 30.7 g/dl Platelet Count 108 K/uL Mean Platelet Volume 10.0 fL Neutrophils (%) (Auto) 84.4 % Lymphocytes (%) (Auto) 6.1 % Monocytes (%) (Auto) 3.7 % Eosinophils (%) (Auto) 0.0 % Basophils (%) (Auto) 0.3 % Neutrophils # (Auto) 6.62 K/uL Lymphocytes # (Auto) 0.48 K/uL Monocytes # (Auto) 0.29 K/uL Eosinophils # (Auto) 0.00 K/uL Basophils # (Auto) 0.02 K/uL RDW Standard Deviation 74.6 fL RDW Coefficient of Variation 20.6 % Immature Granulocyte % (Auto) 5.5 % Immature Granulocyte # (Auto) 0.43 K/uL Nucleated RBC Absolute Count (auto) 0.40 K/uL Nucleated Red Blood Cells % 5.1 % Hypochromasia PRESENT Anisocytosis PRESENT Sodium Level 138 mmol/L Potassium Level 4.2 mmol/L Chloride Level 103 mmol/L Carbon Dioxide Level 29 mmol/L Anion Gap 6.0 mmol/L Blood Urea Nitrogen 70 mg/dl Creatinine 2.06 mg/dl Est Creatinine Clear Calc Drug Dose 37.8 ml/min Estimated GFR () 37.0 Estimated GFR (Non- 31.9 BUN/Creatinine Ratio 34.1 Random Glucose 82 mg/dl Calcium Level 8.1 mg/dl Phosphorus Level 4.7 mg/dl Magnesium Level 2.6 mg/dl Total Bilirubin 1.0 mg/dl Direct Bilirubin 0.3 mg/dl Aspartate Amino Transf (AST/SGOT) 54 U/L Alanine Aminotransferase (ALT/SGPT) 105 U/L Alkaline Phosphatase 61 U/L Troponin I 0.036 ng/ml Total Protein 5.5 gm/dl Albumin 2.9 gm/dl Urine Random Creatinine 25.0 mg/dl Urine Random Sodium 55 mEq/L Urine Random Urea Nitrogen 435 mg/dl Test 07/02/17 11:01 07/02/17 11:06 Bedside Glucose 115 mg/dl Imaging: Chest x-ray suggestive of pulmonary edema and cardiomegaly EKG: Initial EKG demonstrated atrial fibrillation with slow ventricular response. Current EKG atrial flutter with normal ventricular response Telemetry reviewed: Atrial fibrillation atrial flutter Echocardiogram performed today revealed preserved LV systolic function with an element of cor pulmonale and severe pulmonary hypertension. Unchanged from March 2017 Assessment & Plan 1. Bradycardia: Patient was in atrial fibrillation with a slow ventricular response at the time of admission. I doubt this was related to his nitroglycerin administration. He did have his medical therapy intensified recently due to a sense of tachycardia with exertion. This may have precipitated slower heart rates overall. He did not describe much in the way of dizziness or lightheadedness recently. However, I think it is reasonable to return him to his old doses of diltiazem and metoprolol. I think it is very likely that when he exerts himself his heart rate goes quite high due to an element of hypoxia and deconditioning. Whether we can attenuate this with medical therapy is unclear. Given his presentation I think he is better off with lower doses of diltiazem and metoprolol. There also may be some difference in heart rates when he is in atrial fibrillation versus atrial flutter. His heart rate is higher now that he is in atrial flutter. If this continues to be a problem i.e. high heart rates in atrial flutter and lower heart rates in atrial fibrillation, he may benefit from either a pacemaker or ablation of flutter. 2. Hypotension: Most likely related to his use of nitroglycerin. He is likely quite preload dependent given his pulmonary disease and right ventricular dysfunction. With volume administration his pressures have returned to normal. 3. Atrial flutter: Patient appears to oxalate between atrial flutter and atrial fibrillation. In general he is asymptomatic. Think his rate control is adequate on his old doses of medication. Once again he likely has very high heart rates when he is active due to his associated hypoxia and deconditioning. Patient has been maintained on Xarelto. He previously had an element of epistaxis and this was held temporarily. No current evidence of bleeding. 4. Syncope: Patient did report an episode of syncope in the recent past. This was during exertion. I suspect he was quite hypoxic and likely passed out as result of his low oxygen levels. I do not believe this was likely a cardiac event. 5. Cor pulmonale: Patient does have an element right-sided heart failure based on his elevated liver enzymes and lower extremity edema. Undoubtedly this is related to his primary pulmonary process. Whether he requires more oxygen or vasodilators is unclear. It is very likely will simply have to manage his volume with diuretics, being careful to avoid hypovolemia. 6. Coronary artery disease: Patient had mildly elevated cardiac biomarkers the time of admission. However, this is fairly chronic in his presentation was not consistent with an acute coronary syndrome. I think his coronary disease is stable. No need for further evaluation currently. Patient should continue on aggressive secondary prevention
--- NOTE | 2017-07-02 12:10 | DIAGNOSTIC IMAGING REPORT ---
RENAL ULTRASOUND HISTORY: Chronic kidney disease. Abnormal LFTs COMPARISON: Renal ultrasound 12/10/2016. FINDINGS: Right kidney: 9.0 cm. No hydronephrosis. Mild cortical atrophy, unchanged. Left kidney: 12.0 cm. No hydronephrosis. Mild cortical atrophy, unchanged. Bladder: Not well distended but appears unremarkable. The ureteral jets are not identified. IMPRESSION: Mild cortical atrophy, unchanged. No hydronephrosis. Electronically signed by: Leo Jacob M.D. 07/02/2017 12:09 PM Dictated Date/Time: 07/02/2017 12:07 PM
[2017-07-02 12:13] LABS: INFLUENZA A PCR Neg for Influ A (NEG); INFLUENZA B PCR Neg for Influ B (NEG)
[2017-07-02] MEDS ORDERED: DILTIAZEM HCL 120 MG ER CAP PO ONE (12:15)
--- NOTE | 2017-07-02 12:18 | Critical Care Progress Note ---
Critical Care Progress Note Date of Service Jul 02, 2017. ICU Day ICU Day Number: [address] Izquierdo Subjective Patient sitting up in bed with nasal CPAP in place. He said overall that he felt comfortable, denying any chest pain, shortness of breath, or acute nausea / vomiting. When asked if anything we can do for him, said that he is hungry and would like some breakfast. He denied any particular acute concerns. Objective General Appearance: Awake, alert & oriented, comfortable in general, NAD. CV: +S1S2 irregularly irregular but not bradycardic, no murmur. Pulm: Minimal bibasilar rales and mild expiratory wheezing. Abdomen: +BS, soft, non-tender, non-distended. Obese habitus. Extremities: 3+ bilateral lower extremity edema. Moving all extremities easily. Neuro: No gross neuro deficits. Assessment & Plan 67-year-old male admitted on [id number] for bradycardia, hypotension, and acute on chronic respiratory failure. PMH: CAD, HTN, and STEMI, CABG in 2000, cardiac stents, persistent atrial flutter, pulmonary fibrosis, CRESCENCIO on CPAP, CHF, anemia of chronic disease, DM 2, CKD, recurrent epistaxis. PSH: Hernia repair, left ankle surgery, CABG, cardiac stenting, right thoracotomy with wedge resection biopsies of right middle and lower lobes, right carotid thromboendarterectomy. 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 Denies any acute pain. On gabapentin p.o. TID. No acute neuro issues. Pulm: PMH chronic respiratory failure secondary to interstitial lung disease, thought to be due to occupational exposure, and pulmonary fibrosis. As outpatient, baseline 8 L oxygen with reported SpO2 high 80's, CPAP use, and on prednisone 30 mg + Ventolin. Recent increased oxygen requirement at home. Here given single stress-dose methylprednisolone 100 mg. pCXR suggestive of progressive cardiomegaly with pulmonary edema versus respiratory distress. Here is on nasal CPAP. - Goal to maintain SpO2 greater than 88%. - Question of Goodpasture's. Will check anti-GBM antibody. - Ordering d-dimer. If positive, consider BLE ultrasound. - Pulmonary consulted, recommendations pending. CVS: Extensive cardiovascular PMH as above. Patient had reported arm pain and took nitroglycerin. On hospital arrival, bradycardia 30's and initial hypotension. Atropine and IVF in ED. Subsequently in ICU both have normalized. Remains in A. fib per EKG. Minimal TnI elevation, lower on recheck. Denied any ischemic symptoms. Recent increase in his metoprolol and diltiazem dosing, perhaps due to recent worsening of A. fib/flutter. Also recent Lasix dose increased. - Thought is the combination of recent medication changes led to relative hypovolemia and cardiac suppression but did not tolerate his nitroglycerin use well. Will restart his prior dosing of diltiazem 240 mg p.o. daily as well as metoprolol succinate 100 mg BID. Also on aspirin 81 mg. - See today's echo report, relatively unremarkable. - Cardiology consulted, recommendations pending. ID: Patient recently complained of 'head cold'. Here afebrile, WBC 7, lactate 0.7. CXR not suggestive of infiltrate. Nasal MRSA negative. Will check pro- calcitonin and for influenza. Otherwise no known acute infectious issue. Endo: PMH IDDM 2. Begin glycemic consult, monitor blood sugars. TSH in December 2016 normal. Given steroids as above. Cortisol here 12.79. Renal/Lytes: PMH CKD, baseline perhaps Cr 1.6. Here TYSHAWN to Cr 3.12. Elevated BUN as well. Likely prerenal related to increased home Lasix dosing. Question of on home Spironolactone as well. Cr since improved with IV fluids overnight. Will hold IVF for now. UA rather clean. On home Flomax. - Hyperkalemia: Admits K 5.8. Given albuterol neb and calcium gluconate. Since resolved. Monitoring. - No known prior full renal evaluation. Ordered urine sodium, urine urea, urine random creatinine, and urine eosinophils. Ordered renal ultrasound. Question of Goodpasture's as above. Monitoring I's and O's. - Nephrology consulted, recommendations pending. GI: Advancing diet to AHA, DM 2, renal, with carb counting. At home on omeprazole, here on Protonix. Noted elevations in AST and ALT. May be SALINAS, though no record of hepatitis workup. Ordered same to complete infectious hepatitis evaluation. Heme: Hb 9.8. PMH anemia of chronic disease. Platelets 108. Will check reticulocyte count. INR 1.1. - Will need PCM follow-up for both anemia and thrombocytopenia. DVT prophy: Continue Xarelto at TYSHAWN dosing of 15 mg daily. Will keep for now. Lines: PIV. Code status: Full code. Has previously seen palliative care in March 2017. Will re-consult. PT/OT: Ordered. Disposition: ICU. Resident Physician Supervision Note: Dr. Bejarano was resident physician during care of patient. I separately evaluated patient and did history and exam. I discussed the case with the resident and generally agree with the findings and plan. Patient was critically ill due to hemodynamic instability. 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 mckeon, Dr. Sandoval of cardiology , Dr. Heard of nephrology. Patient has several long-standing chronic medical issues, however, I am not able to see for medical evaluation of each of these issues, for instance transaminitis is likely secondary to nonalcoholic steatohepatitis however I am unable to find hepatitis serologies in the patient' s medical record and accordingly we will send baseline labs. Patient is in an end-stage terminal condition with his COPD which is very severe, he require supplemental oxygen and his oxygen saturations are always in the high 80s. He is on chronic steroids and likely require stress dose steroids, his random cortisol is exceedingly low. I also had a discussion with the patient in the presence of palliative care, should the patient have a cardiopulmonary arrest he would not want heroic measures entertained. Therefore he is a DO NOT RESUSCITATE in event of cardiac arrest and I have accordingly changed his CODE STATUS. I have personally spent 90 minutes of critical care time in the direct management of this patient. This is a life/limb threatening event. This includes time spent evaluating patient, direct bedside care, chart review, placing orders, interpretation of diagnostic studies, discussion with consultants, patient, and/or family members regarding treatment decisions, as well as other required patient management activities. This time is exclusive of all separately billable procedures, and teaching time and separate from and in addition to any other critical care service time. Documented By: Saad Izquierdo DO Consults & Procedures Consultants: Consulted pulmonology, nephrology, cardiology, palliative care. Procedures: 02 July 2017 cardiac echo. Data Medications: Current Inpatient Medications Medications (Trade) Dose Ordered Sig/Zeina Route Start Time Stop Time Status Last Admin Dose Admin Acetaminophen (Tylenol Tab) 650 mg Q4H PRN PO 07/01/17 23:15 07/31/17 23:14 Lorazepam (Ativan Tab) 1 mg Q6H PRN PO 07/01/17 23:15 07/31/17 23:14 Ondansetron HCl (Zofran Inj) 4 mg Q6H PRN IV 07/01/17 23:15 07/31/17 23:14 Morphine Sulfate (MoRPHine SULFATE INJ) 4 mg Q2H PRN IV 07/01/17 23:15 07/15/17 23:14 Albuterol (Ventolin Hfa Inhaler) 2 puffs Q4H PRN INH 07/01/17 23:30 07/31/17 23:29 Aspirin (Ecotrin Tab) 81 mg DAILY PO 07/02/17 09:00 08/01/17 08:59 07/02/17 08:53 81 MG Gabapentin (Neurontin Cap) 600 mg TID PO 07/02/17 09:00 08/01/17 08:59 07/02/17 08:53 600 MG Magnesium Oxide (Mag-Ox Tab) 800 mg QAM PO 07/02/17 09:00 08/01/17 08:59 07/02/17 08:54 800 MG Prednisone (PredniSONE TAB) 30 mg DAILY PO 07/02/17 09:00 08/01/17 08:59 07/02/17 08:53 30 MG Rivaroxaban (Xarelto Tab) 15 mg QDD PO 07/02/17 16:30 08/01/17 16:29 Tamsulosin HCl (Flomax Cap) 0.4 mg DAILY PO 07/02/17 09:00 08/01/17 08:59 07/02/17 08:53 0.4 MG Pantoprazole Sodium (Protonix Tab) 40 mg QAM PO 07/02/17 09:00 08/01/17 08:59 07/02/17 08:53 40 MG Miscellaneous Information (Consult Glycemic Management Pharmacy) 1 ea UD PRN N/A 07/02/17 10:30 08/01/17 10:29 Insulin Aspart (novoLOG ASPART) SLIDING SCALE G... ACHS SC 07/02/17 12:00 08/01/17 11:59 Vital Signs: Date Time Temp Pulse Resp B/P (MAP) Pulse Ox O2 Delivery O2 Flow Rate FiO2 07/02/17 10:00 74 18 115/76 (89) 90 Oxymask 12.0 07/02/17 08:00 36.8 72 16 132/65 (87) 88 Oxymask 12.0 07/02/17 08:00 88 Oxymask 12.0 07/02/17 06:01 72 133/69 (90) 93 CPAP 7.0 07/02/17 05:01 36.8 69 126/71 (89) 94 CPAP 7.0 07/02/17 04:01 36.8 65 113/58 (76) 92 CPAP 7.0 07/02/17 04:00 CPAP 7.0 07/02/17 03:01 65 15 136/47 (76) 95 CPAP 7.0 07/02/17 02:24 89 22 92 BiPAP/CPAP 7.0 07/02/17 02:01 58 118/60 (79) 92 07/02/17 02:01 58 118/60 (79) 92 CPAP 7.0 07/02/17 00:35 36.6 58 19 105/66 94 Non-Rebreather 15.0 07/02/17 00:29 45 20 109/57 98 07/02/17 00:05 47 20 105/60 98 Room Air 07/01/17 23:45 49 20 110/55 97 Non-Rebreather 07/01/17 23:32 52 20 98/48 98 Non-Rebreather 15.0 07/01/17 23:10 43 16 105/55 96 Non-Rebreather 15.0 07/01/17 22:33 52 18 108/53 98 Room Air 07/01/17 21:18 36.8 47 18 97/49 96 Non-Rebreather 15.0 07/01/17 21:16 94 Oxymask 15.0 07/01/17 20:59 38 07/01/17 20:57 36 18 69/36 94 Non-Rebreather 15.0 07/01/17 20:48 92 Non-Rebreather 15.0 Laboratory Results: Last 24 Hours Test 07/01/17 19:45 07/02/17 00:21 07/02/17 01:43 07/02/17 01:47 White Blood Count 13.28 K/uL Red Blood Count 3.39 M/uL Hemoglobin 10.9 g/dL Hematocrit 35.8 % Mean Corpuscular Volume 105.6 fL Mean Corpuscular Hemoglobin 32.2 pg Mean Corpuscular Hemoglobin Concent 30.4 g/dl Platelet Count 155 K/uL Mean Platelet Volume 10.2 fL Neutrophils (%) (Auto) 88.3 % Lymphocytes (%) (Auto) 4.8 % Monocytes (%) (Auto) 3.8 % Eosinophils (%) (Auto) 0.1 % Basophils (%) (Auto) 0.3 % Neutrophils # (Auto) 11.72 K/uL Lymphocytes # (Auto) 0.64 K/uL Monocytes # (Auto) 0.51 K/uL Eosinophils # (Auto) 0.01 K/uL Basophils # (Auto) 0.04 K/uL RDW Standard Deviation 78.4 fL RDW Coefficient of Variation 20.7 % Immature Granulocyte % (Auto) 2.7 % Immature Granulocyte # (Auto) 0.36 K/uL Nucleated RBC Absolute Count (auto) 1.12 K/uL Nucleated Red Blood Cells % 8.4 % Anisocytosis PRESENT Prothrombin Time 11.7 SECONDS Prothromb Time International Ratio 1.1 Sodium Level 137 mmol/L 137 mmol/L Potassium Level 5.8 mmol/L 4.9 mmol/L Chloride Level 99 mmol/L 102 mmol/L Carbon Dioxide Level 25 mmol/L 29 mmol/L Anion Gap 13.0 mmol/L 6.0 mmol/L Blood Urea Nitrogen 73 mg/dl 76 mg/dl Creatinine 3.12 mg/dl 2.51 mg/dl Est Creatinine Clear Calc Drug Dose 25.6 ml/min 31.8 ml/min Estimated GFR () 22.4 29.1 Estimated GFR (Non- 19.3 25.1 BUN/Creatinine Ratio 23.3 30.3 Random Glucose 140 mg/dl 119 mg/dl Calcium Level 8.2 mg/dl 8.0 mg/dl Magnesium Level 2.6 mg/dl Total Bilirubin 1.0 mg/dl Aspartate Amino Transf (AST/SGOT) 55 U/L Alanine Aminotransferase (ALT/SGPT) 112 U/L Alkaline Phosphatase 69 U/L Total Creatine Kinase 34 U/L Troponin I 0.052 ng/ml Pro-B-Type Natriuretic Peptide 4913 pg/ml Total Protein 6.2 gm/dl Albumin 3.0 gm/dl Globulin 3.2 gm/dl Albumin/Globulin Ratio 0.9 Lactic Acid Level 0.7 mmol/L Random Cortisol 12.79 mcg/dl Venous Blood pH 7.44 Venous Blood Partial Pressure CO2 44 mmHg Venous Blood Partial Pressure O2 64 mmHg Venous Blood HCO3 29 mmol/L Venous Blood Oxygen Saturation 90.8 % Venous Blood Base Excess 4.6 mEq/L Test 07/02/17 02:00 07/02/17 04:09 07/02/17 10:01 07/02/17 10:40 Urine Color YELLOW Urine Appearance CLEAR Urine pH 5.0 Urine Specific [place] 1.018 Urine Protein NEG Urine Glucose (UA) NEG Urine Ketones NEG Urine Occult Blood NEG Urine Nitrite NEG Urine Bilirubin NEG Urine Urobilinogen NEG Urine Leukocyte Esterase TRACE Urine WBC (Auto) 1-5 /hpf Urine RBC (Auto) 0-4 /hpf Urine Hyaline Casts (Auto) 1-5 /lpf Urine Epithelial Cells (Auto) 5-10 /lpf Urine Bacteria (Auto) NEG White Blood Count 7.84 K/uL Red Blood Count 3.14 M/uL Hemoglobin 9.8 g/dL Hematocrit 31.9 % Mean Corpuscular Volume 101.6 fL Mean Corpuscular Hemoglobin 31.2 pg Mean Corpuscular Hemoglobin Concent 30.7 g/dl Platelet Count 108 K/uL Mean Platelet Volume 10.0 fL Neutrophils (%) (Auto) 84.4 % Lymphocytes (%) (Auto) 6.1 % Monocytes (%) (Auto) 3.7 % Eosinophils (%) (Auto) 0.0 % Basophils (%) (Auto) 0.3 % Neutrophils # (Auto) 6.62 K/uL Lymphocytes # (Auto) 0.48 K/uL Monocytes # (Auto) 0.29 K/uL Eosinophils # (Auto) 0.00 K/uL Basophils # (Auto) 0.02 K/uL RDW Standard Deviation 74.6 fL RDW Coefficient of Variation 20.6 % Immature Granulocyte % (Auto) 5.5 % Immature Granulocyte # (Auto) 0.43 K/uL Nucleated RBC Absolute Count (auto) 0.40 K/uL Nucleated Red Blood Cells % 5.1 % Hypochromasia PRESENT Anisocytosis PRESENT Sodium Level 138 mmol/L Potassium Level 4.2 mmol/L Chloride Level 103 mmol/L Carbon Dioxide Level 29 mmol/L Anion Gap 6.0 mmol/L Blood Urea Nitrogen 70 mg/dl Creatinine 2.06 mg/dl Est Creatinine Clear Calc Drug Dose 37.8 ml/min Estimated GFR () 37.0 Estimated GFR (Non- 31.9 BUN/Creatinine Ratio 34.1 Random Glucose 82 mg/dl Calcium Level 8.1 mg/dl Phosphorus Level 4.7 mg/dl Magnesium Level 2.6 mg/dl Total Bilirubin 1.0 mg/dl Direct Bilirubin 0.3 mg/dl Aspartate Amino Transf (AST/SGOT) 54 U/L Alanine Aminotransferase (ALT/SGPT) 105 U/L Alkaline Phosphatase 61 U/L Troponin I 0.036 ng/ml Total Protein 5.5 gm/dl Albumin 2.9 gm/dl Urine Random Creatinine 25.0 mg/dl Urine Random Sodium 55 mEq/L Urine Random Urea Nitrogen 435 mg/dl Test 07/02/17 11:00 07/02/17 11:01 07/02/17 11:45 Influenza Type A (RT-PCR) Neg for Influ A Influenza Type B (RT-PCR) Neg for Influ B Bedside Glucose 115 mg/dl Resident Tracking Resident Involvement: Resident Care Provided Care Provided: Adult Hospital Medicine (ICU)
[2017-07-02] MEDS: INSULIN ASPART 100 UNITS/ML 3 ML PEN SC SCH ×4 (12:36→23:57)
[2017-07-02 12:42] LABS: RETIC COUNT % 7.4 % (0.5-2.0)
--- NOTE | 2017-07-02 12:48 | Nephrology Consultation ---
Nephrology Consultation Date & Providers Date of Consultation: Jul 02, 2017. Primary Care Provider: Ishan Roy M.D. Referring Provider: Reason for Consultation Acute on chronic renal insufficiency History of Present Illness Mr. Mauri Mcdonald is a 67-year-old male with DM II, hypertension, obesity, coronary artery disease, paroxysmal atrial flutter, cor pulmonale secondary to severe pulmonary hypertension and ILD with pulmonary fibrosis. Mr. Pretty presented to [facility] yesterday with increasing oxygen requirements and what he described as a "head-cold." Upon presentation, he was found to be bradycardic and hypotensive with a heart rate in the 30's. He was treated with IVF, atropine. TTE was obtained as well as CXR. I reviewed these studies today. It is noted that Mr. Mcdonald has had recent rapid atrial flutter and diltiazem and metoprolol were both recently increased. The patient has been experiencing recent pains in both of his arms. This has improved with SL nitro. He had presented to the [facility] ER approximately 1 week ago with complaints of elevated heart rates during exertion. This morning, Mr. Mcdonald felt significantly improved. He was seen and evaluated with the ICU team and Dr. Arriaga. I discussed the plan of care with all involved. Medical records were reviewed in detail. It is noted that serum creatinine fluctuates at baseline. Over the past year, creatinine has ranged from 1.6 to 2.4 mg/dL. Metabolic profile has otherwise been appropriate. Creatinine tends to fluctuate with fluid status. Mr. Pretty had recently presented to his PCP with increasing edema in the lower extremities. This was noted in associated with his recent increased heart rate. Dr. Roy had increased furosemide to 80 mg twice daily. Tamsulosin was added for LUTS. The patient reports improvement in both of these symptoms. Past Medical/Surgical History Medical: -- Chronic kidney disease, baseline creatinine fluctuates 1.6 to 2.4 mg/dL ( eGFR 25-40 ml/min) -- Coronary artery disease status post coronary artery bypass grafting in 2000, cardiac cath with PCI in 2008 -- Interstitial lung disease with pulmonary fibrosis -- COPD -- Cor pulmonale -- Obesity -- CRESCENCIO -- Cholelithiasis -- Diabetes mellitus II with associated peripheral neuropathy and retinopathy -- Hyperlipidemia -- Hepatic steatosis -- Atrial fibrillation and flutter, paroxysmal Surgical: -- Coronary artery bypass grafting 2000 -- Cardiac cath with PCI 2008 -- Carotid endarterectomy -- Hernia repair -- Lung biopsy, [facility] '16 Allergies Coded Allergies: Doxycycline (Verified Allergy, Intermediate, RASH, 06/04/17) Hydrocodone (Verified Allergy, Intermediate, RASH, 06/04/17) Replaces LORTAB ELIXIR Iodinated Diagnostic Agents (Verified Allergy, Intermediate, RASH, 06/04/17 ) Losartan (Verified Allergy, Intermediate, HYPOTENSION-RASH, 06/04/17) Lovastatin (Verified Allergy, Intermediate, RASH, 06/04/17) Penicillins (Verified Allergy, Intermediate, RASH, 06/04/17) Quinolones (Verified Allergy, Intermediate, RASH, 06/04/17) Tetracycline (Verified Allergy, Intermediate, RASH, 06/04/17) Latex1 -Allergic Contact Dermititis (Verified Allergy, Mild, RASH, 06/04/17 ) Tetracyclines (Verified Allergy, Unknown, RASH, 06/04/17) Inpatient Medications Current Inpatient Medications Medications (Trade) Dose Ordered Sig/Zeina Route Start Time Stop Time Status Last Admin Dose Admin Acetaminophen (Tylenol Tab) 650 mg Q4H PRN PO 07/01/17 23:15 07/31/17 23:14 Lorazepam (Ativan Tab) 1 mg Q6H PRN PO 07/01/17 23:15 07/31/17 23:14 Ondansetron HCl (Zofran Inj) 4 mg Q6H PRN IV 07/01/17 23:15 07/31/17 23:14 Morphine Sulfate (MoRPHine SULFATE INJ) 4 mg Q2H PRN IV 07/01/17 23:15 07/15/17 23:14 Albuterol (Ventolin Hfa Inhaler) 2 puffs Q4H PRN INH 07/01/17 23:30 07/31/17 23:29 Aspirin (Ecotrin Tab) 81 mg DAILY PO 07/02/17 09:00 08/01/17 08:59 07/02/17 08:53 81 MG Gabapentin (Neurontin Cap) 600 mg TID PO 07/02/17 09:00 08/01/17 08:59 07/02/17 08:53 600 MG Magnesium Oxide (Mag-Ox Tab) 800 mg QAM PO 07/02/17 09:00 08/01/17 08:59 07/02/17 08:54 800 MG Prednisone (PredniSONE TAB) 30 mg DAILY PO 07/02/17 09:00 08/01/17 08:59 07/02/17 08:53 30 MG Rivaroxaban (Xarelto Tab) 15 mg QDD PO 07/02/17 16:30 08/01/17 16:29 Tamsulosin HCl (Flomax Cap) 0.4 mg DAILY PO 07/02/17 09:00 08/01/17 08:59 07/02/17 08:53 0.4 MG Pantoprazole Sodium (Protonix Tab) 40 mg QAM PO 07/02/17 09:00 08/01/17 08:59 07/02/17 08:53 40 MG Miscellaneous Information (Consult Glycemic Management Pharmacy) 1 ea UD PRN N/A 07/02/17 10:30 08/01/17 10:29 Insulin Aspart (novoLOG ASPART) SLIDING SCALE G... ACHS SC 07/02/17 12:00 08/01/17 11:59 Diltiazem HCl (Dilacor Xr Cap) 240 mg QAM PO 07/03/17 09:00 08/02/17 08:59 Diltiazem HCl (Dilacor Xr Cap) 240 mg 1215 ONCE PO 07/02/17 12:15 07/02/17 12:16 Metoprolol Succinate (Toprol Xl Tab) 100 mg BID PO 07/02/17 21:00 08/01/17 20:59 Family History Diabetes mellitus Heart disease Hypertension Social History Smoking Status: Former Smoker Drug Use: none Marital Status: Housing Status: lives with family Occupation: retired, disabled Review of Systems A complete review of systems was performed. Pertinent positives are noted above. All other systems are negative. Physical Exam Date Time Temp Pulse Resp B/P (MAP) Pulse Ox O2 Delivery O2 Flow Rate FiO2 07/02/17 10:00 74 18 115/76 (89) 90 Oxymask 12.0 07/02/17 08:00 36.8 72 16 132/65 (87) 88 Oxymask 12.0 07/02/17 08:00 88 Oxymask 12.0 07/02/17 06:01 72 133/69 (90) 93 CPAP 7.0 07/02/17 05:01 36.8 69 126/71 (89) 94 CPAP 7.0 07/02/17 04:01 36.8 65 113/58 (76) 92 CPAP 7.0 07/02/17 04:00 CPAP 7.0 07/02/17 03:01 65 15 136/47 (76) 95 CPAP 7.0 07/02/17 02:24 89 22 92 BiPAP/CPAP 7.0 07/02/17 02:01 58 118/60 (79) 92 07/02/17 02:01 58 118/60 (79) 92 CPAP 7.0 07/02/17 00:35 36.6 58 19 105/66 94 Non-Rebreather 15.0 07/02/17 00:29 45 20 109/57 98 07/02/17 00:05 47 20 105/60 98 Room Air 07/01/17 23:45 49 20 110/55 97 Non-Rebreather 07/01/17 23:32 52 20 98/48 98 Non-Rebreather 15.0 07/01/17 23:10 43 16 105/55 96 Non-Rebreather 15.0 07/01/17 22:33 52 18 108/53 98 Room Air 07/01/17 21:18 36.8 47 18 97/49 96 Non-Rebreather 15.0 07/01/17 21:16 94 Oxymask 15.0 07/01/17 20:59 38 07/01/17 20:57 36 18 69/36 94 Non-Rebreather 15.0 07/01/17 20:48 92 Non-Rebreather 15.0 General Appearance: no apparent distress, + obese Head: normocephalic, atraumatic Eyes: normal inspection, sclerae normal ENT: normal ENT inspection, pharynx normal, + pertinent finding (O2 via face mask) Neck: supple, no JVD (10 cm sitting upright) Respiratory/Chest: no respiratory distress, no accessory muscle use, + decreased breath sounds, + crackles Cardiovascular: regular rate, rhythm, no gallop Abdomen/GI: soft, + distended, + pertinent finding (obese) Extremities/Musculoskelatal: + pertinent finding (+3 pitting BL LE edema) Neurologic/Psych: alert, normal mood/affect Laboratory Results Last 24 Hours Test 07/01/17 19:45 4/27/18 00:21 07/02/17 01:43 07/02/17 01:47 White Blood Count 13.28 K/uL Red Blood Count 3.39 M/uL Hemoglobin 10.9 g/dL Hematocrit 35.8 % Mean Corpuscular Volume 105.6 fL Mean Corpuscular Hemoglobin 32.2 pg Mean Corpuscular Hemoglobin Concent 30.4 g/dl Platelet Count 155 K/uL Mean Platelet Volume 10.2 fL Neutrophils (%) (Auto) 88.3 % Lymphocytes (%) (Auto) 4.8 % Monocytes (%) (Auto) 3.8 % Eosinophils (%) (Auto) 0.1 % Basophils (%) (Auto) 0.3 % Neutrophils # (Auto) 11.72 K/uL Lymphocytes # (Auto) 0.64 K/uL Monocytes # (Auto) 0.51 K/uL Eosinophils # (Auto) 0.01 K/uL Basophils # (Auto) 0.04 K/uL RDW Standard Deviation 78.4 fL RDW Coefficient of Variation 20.7 % Immature Granulocyte % (Auto) 2.7 % Immature Granulocyte # (Auto) 0.36 K/uL Nucleated RBC Absolute Count (auto) 1.12 K/uL Nucleated Red Blood Cells % 8.4 % Anisocytosis PRESENT Prothrombin Time 11.7 SECONDS Prothromb Time International Ratio 1.1 Sodium Level 137 mmol/L 137 mmol/L Potassium Level 5.8 mmol/L 4.9 mmol/L Chloride Level 99 mmol/L 102 mmol/L Carbon Dioxide Level 25 mmol/L 29 mmol/L Anion Gap 13.0 mmol/L 6.0 mmol/L Blood Urea Nitrogen 73 mg/dl 76 mg/dl Creatinine 3.12 mg/dl 2.51 mg/dl Est Creatinine Clear Calc Drug Dose 25.6 ml/min 31.8 ml/min Estimated GFR () 22.4 29.1 Estimated GFR (Non- 19.3 25.1 BUN/Creatinine Ratio 23.3 30.3 Random Glucose 140 mg/dl 119 mg/dl Calcium Level 8.2 mg/dl 8.0 mg/dl Magnesium Level 2.6 mg/dl Total Bilirubin 1.0 mg/dl Aspartate Amino Transf (AST/SGOT) 55 U/L Alanine Aminotransferase (ALT/SGPT) 112 U/L Alkaline Phosphatase 69 U/L Total Creatine Kinase 34 U/L Troponin I 0.052 ng/ml Pro-B-Type Natriuretic Peptide 4913 pg/ml Total Protein 6.2 gm/dl Albumin 3.0 gm/dl Globulin 3.2 gm/dl Albumin/Globulin Ratio 0.9 Lactic Acid Level 0.7 mmol/L Random Cortisol 12.79 mcg/dl Venous Blood pH 7.44 Venous Blood Partial Pressure CO2 44 mmHg Venous Blood Partial Pressure O2 64 mmHg Venous Blood HCO3 29 mmol/L Venous Blood Oxygen Saturation 90.8 % Venous Blood Base Excess 4.6 mEq/L Test 07/02/17 02:00 07/02/17 04:09 07/02/17 10:01 07/02/17 10:40 Urine Color YELLOW Urine Appearance CLEAR Urine pH 5.0 Urine Specific Points 1.018 Urine Protein NEG Urine Glucose (UA) NEG Urine Ketones NEG Urine Occult Blood NEG Urine Nitrite NEG Urine Bilirubin NEG Urine Urobilinogen NEG Urine Leukocyte Esterase TRACE Urine WBC (Auto) 1-5 /hpf Urine RBC (Auto) 0-4 /hpf Urine Hyaline Casts (Auto) 1-5 /lpf Urine Epithelial Cells (Auto) 5-10 /lpf Urine Bacteria (Auto) NEG White Blood Count 7.84 K/uL Red Blood Count 3.14 M/uL Hemoglobin 9.8 g/dL Hematocrit 31.9 % Mean Corpuscular Volume 101.6 fL Mean Corpuscular Hemoglobin 31.2 pg Mean Corpuscular Hemoglobin Concent 30.7 g/dl Platelet Count 108 K/uL Mean Platelet Volume 10.0 fL Neutrophils (%) (Auto) 84.4 % Lymphocytes (%) (Auto) 6.1 % Monocytes (%) (Auto) 3.7 % Eosinophils (%) (Auto) 0.0 % Basophils (%) (Auto) 0.3 % Neutrophils # (Auto) 6.62 K/uL Lymphocytes # (Auto) 0.48 K/uL Monocytes # (Auto) 0.29 K/uL Eosinophils # (Auto) 0.00 K/uL Basophils # (Auto) 0.02 K/uL RDW Standard Deviation 74.6 fL RDW Coefficient of Variation 20.6 % Immature Granulocyte % (Auto) 5.5 % Immature Granulocyte # (Auto) 0.43 K/uL Nucleated RBC Absolute Count (auto) 0.40 K/uL Nucleated Red Blood Cells % 5.1 % Hypochromasia PRESENT Anisocytosis PRESENT Sodium Level 138 mmol/L Potassium Level 4.2 mmol/L Chloride Level 103 mmol/L Carbon Dioxide Level 29 mmol/L Anion Gap 6.0 mmol/L Blood Urea Nitrogen 70 mg/dl Creatinine 2.06 mg/dl Est Creatinine Clear Calc Drug Dose 37.8 ml/min Estimated GFR () 37.0 Estimated GFR (Non- 31.9 BUN/Creatinine Ratio 34.1 Random Glucose 82 mg/dl Calcium Level 8.1 mg/dl Phosphorus Level 4.7 mg/dl Magnesium Level 2.6 mg/dl Total Bilirubin 1.0 mg/dl Direct Bilirubin 0.3 mg/dl Aspartate Amino Transf (AST/SGOT) 54 U/L Alanine Aminotransferase (ALT/SGPT) 105 U/L Alkaline Phosphatase 61 U/L Troponin I 0.036 ng/ml Total Protein 5.5 gm/dl Albumin 2.9 gm/dl Urine Random Creatinine 25.0 mg/dl Urine Random Sodium 55 mEq/L Urine Random Urea Nitrogen 435 mg/dl Test 07/02/17 11:00 07/02/17 11:01 07/02/17 11:45 Influenza Type A (RT-PCR) Neg for Influ A Influenza Type B (RT-PCR) Neg for Influ B Bedside Glucose 115 mg/dl Impression (1) Acute renal insufficiency (2) CKD (chronic kidney disease), stage IV (3) Acute and chronic respiratory failure with hypoxia (4) Bradycardia (5) Hypotension (6) Interstitial lung disease Mr. Mauri Mcdonald is a 67-year-old male with obesity, diabetes mellitus II, hypertension, coronary artery disease, ILD/pulmonary fibrosis, chronic anemia, PAF, and CKD. Baseline creatinine fluctuates consistent with underlying CRS. Creatinine has ranged from 1.6-2.4 mg/dL over the past year consistent with an eGFR of 25-40 ml/min. Urine analysis has been bland with acellular sediment. Renal US was reviewed today which documented mild bilateral cortical atrophy. There was no evidence of obstruction. The patient was non oliguric. He is hypervolemic. Hemodynamic instability has improved but he continues to have acute on chronic hypoxia. TYSHAWN was in the setting of hemodynamic instability and, based on the rate of improvement, predominately prerenal. I would discontinue IVF at this time. Patient may benefit from diuresis given hypervolemia. Medications are currently appropriate for renal function. Ideally, Xarelto should be held in the setting of TYSHAWN. The patient is clinically improving and I would assess kidney function prior to given the scheduled dose tomorrow AM. Anti-GBM ab testing has been sent. Clinical presentation would be atypical for ABM disease. There is no evidence of renal associated disease. UA is bland and urine microscopy acellular. Kidney function is stable. Recommendations -- Document I/O's -- Encourage slightly negative fluid balance -- Medications are currently appropriate for renal function -- Repeat metabolic profile tomorrow AM -- Losartan has been held
[2017-07-02] MEDS ORDERED: AZITHROMYCIN 250 MG TAB PO ONE (13:00)
[2017-07-02 13:02] LABS: HEMOGLOBIN A1C 4.8 % (4.5-5.6)
[2017-07-02] MEDS ORDERED: ALBUT/IPRATROP 3MG/0.5MG NEB 3 ML VIAL INH PRN (13:30)
--- NOTE | 2017-07-02 13:45 | PULMONARY CONSULTATION ---
DATE OF CONSULTATION: 07/02/2017 TIME: 12:30 p.m. REPORT OF CONSULTATION: The patient was seen in room 101 in the intensive care unit. He is a 67-year-old male who went to the Emergency Room yesterday complaining of arm pains. He states both arms initially felt some numbness. Subsequently, he felt pain in the left arm above the elbow. Then he had some on the right side as well. He took 2 nitros initially and later took a third. His pain went away after about 30 minutes. He was admitted for further evaluation. He was reported to be hypotensive and bradycardic while in the Emergency Room. Blood pressure was seen as low as 69/36 and his heart rate had been as low as 36. He has not had any recurrence of the pain. Apparently his metoprolol and diltiazem doses were increased recently. This could potentially account for the slowness of his heart rates. The patient has severe chronic lung disease. His major issue was that of nonspecific interstitial pneumonia. He had a CAT scan of the chest back in 03/2013 showing areas of reticulation. There were some honeycomb changes and interstitial thickening. In 09/2015, he had a wedge biopsy of the lung done at [facility]. There was intent to do a mediastinal lymph node biopsy as well but that could not be done as the patient had problems with attempting to do one lung ventilation. The final report was most consistent with nonspecific interstitial pneumonia. He was treated with prednisone for approximately 1 year. He did not feel that it helped. Apparently at [facility], they told him they did not have any other suggestions. Approximately 2 months after stopping the prednisone, he was having progressive shortness of breath. He was restarted on prednisone at that time by myself. The patient was then hospitalized from 03/30/2017 of this year until 04/07/2017 with severe respiratory failure. His oxygenation was very poor. He remains on prednisone at home. I believe his current dose is 30 mg. The patient states he has been coughing more recently. He states he does not spit anything out. He simply swallows it. I told him that to know what the phlegm look like, he would need to actually expectorate. He did do that during this exam. He coughed up about the size of a dime mucus which was yellowish brown with some dark red mixed in. He is on rivaroxaban, which would tend to promote some bleeding. The patient is very sedentary. Just moving the slightest amount results in worsening of his oxygenation. He has an oxy mask that he wears at home typically at about 8 L. He wears auto CPAP at night and he put 6 L in to the auto CPAP. He was bothered by epistaxis in May. I believe he was in the ER a couple of times. He also reportedly had a syncopal episode a few weeks ago. PAST SURGICAL HISTORY: 1. Lung biopsy 2016. 2. Coronary artery bypass graft. 3. Right carotid endarterectomy. 4. Hernia repair. PAST MEDICAL HISTORY: 1. Carotid stenosis. 2. Hyperlipidemia. 3. Coronary artery disease. 4. Diabetes. 5. Epistaxis. SOCIAL HISTORY: Tobacco 1 pack per day for 50 years. I do not believe he smokes any longer. Alcohol use is none. FAMILY HISTORY: Positive for diabetes, hypertension, CVA, and atrial fibrillation. ALLERGIES: 1. LOSARTAN. 2. CONTRAST DYE. 3. HYDROCODONE. 4. LOVASTATIN. 5. PENICILLIN. 6. TETRACYCLINE. 7. LATEX. REVIEW OF SYSTEMS: Negative except for the above-mentioned complaints. PHYSICAL EXAMINATION: GENERAL: The patient is a 67-year-old male who was cooperative, alert and oriented. He did not look uncomfortable. Weight is listed as 105 kg. BMI is listed as 38.5. I would have expected it would be higher than that. HEENT: Pupils were reactive. The patient has an oxy mask on and thus it was difficult to examine the nasal passages or oropharynx. He did have some crowding in the pharynx. Uvula was enlarged. He has a large neck. No lymph nodes are palpable. There is some ecchymosis in the left supraclavicular area. VITAL SIGNS: Heart rate is 79 per minute. Blood pressure 124/60. The rhythm is irregular. CHEST: Inspection of the chest reveals diminished excursions. Respiratory rate is 20 breaths per minute. Auscultation reveals a few rales posteriorly. There was mild inspiratory rhonchi. Saturation is only 88% with an oxy mask that is 12 L. During the exam, the patient did cough and expectorate some sputum as noted. ABDOMEN: Markedly obese. It was nontender. Bowel sounds were heard. EXTREMITIES: Reveals +3 edema up to the knees bilaterally. This seems to be increased from what he usually is. The patient's chest x-ray showed cardiomegaly. CHF could not be excluded. Alternatively, could reflect interstitial disease. There is evidence of prior cardiac surgery. LABORATORY DATA: White count yesterday was 13.28 and today is 7.84. Hemoglobin was 10.9 yesterday and 9.8 today. Platelets 155,000 yesterday and 108,000 today. INR was 1.1. Urinalysis was generally unremarkable. Venous blood gas showed a pH of 7.44, pCO2 of 44, pO2 of 64. Electrolytes showed sodium 138, potassium 4.2, chloride 103, bicarbonate 29. The BUN is 70 with a creatinine of 2.06. This is improved from yesterday when the BUN was 73 and the creatinine was 3.12. AST was 54 and ALT was 105. Alkaline phosphatase was 61. Random cortisol was 12.79. ProBNP was 4913. IMPRESSION: 1. Bilateral arm pain of undetermined etiology. 2. Chronic respiratory failure with acute on chronic changes associated with hypoxia. 3. Nonspecific interstitial pneumonitis. 4. Obstructive sleep apnea. 5. Emphysema. COMMENTS AND RECOMMENDATIONS: The patient is bringing up darker mucus with a little bit of blood mixed in. I would advise antibiotic coverage. He does have allergies to many antibiotics. Last time he was treated with azithromycin and omnicef and I think that would be acceptable. I am going to give the patient some nebulizer treatments and if anything it may help expectorate. We will check a sputum culture and Gram stain. The patient's prognosis is poor. He and his had been considering getting a living will made, but has not done so. Case discussed with Dr. Izquierdo. He was going to ask palliative care to see the patient. Thank you for asking me to assist in his care. PERLITA
[2017-07-02 13:46] LABS: HEP C IGG 13 YRS+OLDER_RFLX NEG (NEG)
--- NOTE | 2017-07-02 14:04 | Pharmacy Progress Note ---
Glycemic Control Intl Consult Date of Service Jul 02, 2017. Scope Glycemic Pharmacist consulted by Nic Urbano on 07/02 for glycemic control and to write orders per [facility] inpatient glycemic control protocol Objective Weight (Kilograms): 105.000 Accuchecks BSG (last 24hrs): Test 07/01/17 19:45 07/02/17 00:21 07/02/17 04:09 07/02/17 11:01 Random Glucose 140 mg/dl (70-99) 119 mg/dl (70-99) 82 mg/dl (70-99) Bedside Glucose 115 mg/dl (70-99) Laboratory Data (last 24hrs) Test 07/01/17 19:45 07/02/17 00:21 07/02/17 04:09 07/02/17 12:22 Anion Gap 13.0 mmol/L 6.0 mmol/L 6.0 mmol/L BUN/Creatinine Ratio 23.3 30.3 34.1 Blood Urea Nitrogen 73 mg/dl 76 mg/dl 70 mg/dl Creatinine 3.12 mg/dl 2.51 mg/dl 2.06 mg/dl Potassium Level 5.8 mmol/L 4.9 mmol/L 4.2 mmol/L Sodium Level 137 mmol/L 137 mmol/L 138 mmol/L White Blood Count 13.28 K/uL 7.84 K/uL Red Blood Count 3.39 M/uL 3.14 M/uL Hemoglobin 10.9 g/dL 9.8 g/dL Hematocrit 35.8 % 31.9 % Mean Corpuscular Volume 105.6 fL 101.6 fL Mean Corpuscular Hemoglobin 32.2 pg 31.2 pg Mean Corpuscular Hemoglobin Concent 30.4 g/dl 30.7 g/dl Platelet Count 155 K/uL 108 K/uL Mean Platelet Volume 10.2 fL 10.0 fL Neutrophils (%) (Auto) 88.3 % 84.4 % Lymphocytes (%) (Auto) 4.8 % 6.1 % Monocytes (%) (Auto) 3.8 % 3.7 % Eosinophils (%) (Auto) 0.1 % 0.0 % Basophils (%) (Auto) 0.3 % 0.3 % Neutrophils # (Auto) 11.72 K/uL 6.62 K/uL Lymphocytes # (Auto) 0.64 K/uL 0.48 K/uL Monocytes # (Auto) 0.51 K/uL 0.29 K/uL Eosinophils # (Auto) 0.01 K/uL 0.00 K/uL Basophils # (Auto) 0.04 K/uL 0.02 K/uL Hemoglobin A1c 4.8 % HbA1c Test 07/02/17 12:22 Hemoglobin A1c 4.8 % (4.5-5.6) Recent Pertinent Medications Outpatient Anti-diabetic Regimen: * Novolog 70/30, 70 units qAM, 48 units qPM * Novolog 10 units BID * (prednisone 30 mg po daily) * A1c = 4.8 % on 07/02/17 (trended down from 5.5% in January 2017) The patient is currently receiving: * Correctional Insulin: Novolog Correction per scale ACHS Goal Range: Low 100 mg/dL - High 140 mg/dL Correction Factor: 20 mg/dL/unit * Prandial insulin: Per carb ratio of 1 unit per 17 grams CHO consumed Risk Factors for Insulin Resistance: * Steroids: Hydrocortisone 100 mg IV x1 then resume home dose of prednisone 30 mg po daily * Infection: questionable pulmonary source - on cefdinir, azithromycin * Diet: NPO advanced to T2DM today Assessment & Plan ASSESSMENT: * 67 yo M with type 2 diabetes admitted with bradycardia/hypotension, possibly 2nd recent increases in metoprolol and diltiazem. * Significant PMH including but not limited to CKD III, end-stage pulmonary fibrosis, diastolic CHF * A1c of 4.8% either relates to excellent outpatient control of BSG's or frequent outpatient hypoglycemia. I believe it's likely related to outpatient hypoglycemia 2nd the following: * On Novolog 70/30 as outpatient - higher risk for hypoglycemia * Significant dose changes of outpatient prednisone would complicate outpatient control * Lower BSG of 82 mg/dL this AM * Will therefore not base initial inpatient regimen on outpatient regimen ( likely too aggressive) and instead will utilize calculator / weight-based estimate * Outpatient regimen is premixed basal/prandial insulin of Novolog 70/30 mix insulin * Pre-mixed insulin is difficult to titrate since it is already in a fixed distribution of basal:prandial insulin. Continuing pre-mixed insulin for admission typically lead to hypoglycemia d/t changing PO status but rapid acting insulin is unable to be held. * Home regimen will be held for admission per pharmacy consult. Will utilize recommended regimen of SQ basal bolus insulin regimen with Lantus + NovoLog (CF+ CR) * Lantus 25 units x1 then ongoing BID based on weight-based calculator (stress 1, 2, 3 based on BSG) * Novolog per calculator, weight based moderate stress, with slightly tighter CHO ratio 2nd steroid use PLAN FOR INPATIENT GLYCEMIC CONTROL: * Basal insulin with LANTUS 25 units SQ x1 then ongoing BID based on BSG * Hold for BSG less than 120 mg/dL * 10 units for BSG 120-159 mg/dL * 18 units for BSG 160-200 mg/dL * 26 units for BSG greater than 200 mg/dL * Correctional Insulin with NOVOLOG per scale ACHS or Q6hrs while NPO * Goal Range: Low 120 mg/dL - High 160 mg/dL * Correction Factor: 20 mg/dL/unit * Nutritional / Prandial insulin per carb ratio of 1 unit per 6 grams CHO consumed * Please note that the plan above was derived based on current level of insulin resistance and hospital stress. These recommendations are appropriate for inpatient admission only. Plan of care upon discharge will need to be reassessed to avoid potential outpatient hypo/hyperglycemia. Thank you.
[2017-07-02] MEDS: ALBUT/IPRATROP 3MG/0.5MG NEB 3 ML VIAL INH SCH ×2 (14:36→19:17)
[2017-07-02] MEDS: RIVAROXABAN TAB 15 MG TAB PO SCH (17:05)
[2017-07-02] MEDS: ACETAMINOPHEN 325 MG TAB PO PRN (17:55)
--- NOTE | 2017-07-02 18:26 | Palliative Care Consultation ---
Consultation Date of Consultation: Jul 02, 2017. Requesting Physician: JEREMIAH Salguero Attending Physician: Dr. Russ Reason for Consultation: GOALS OF CARE History of Present Illness This is a 67 year old male who was admitted yesterday with bradycardia, hypotension, and acute on chronic respiratory failure. Additional PMH includes CAD, HTN, STEMI s/p CABG 2000. During this admission, in addition to the COPD, he has TYSHAWN, which is likely medication induced - it appears his kidney are showing improvement. A lengthy conversation was held with this patient regarding the end stage of his COPD - he expressed that he lives at home with his and that he would like to return to home and understands that his time may be limited. Disease progression was discussed, along with CODE STATUS, and he stated that he would NOT want chest compressions nor intubation. Social History Smoking Status: Former Smoker History of Alcohol Use: No Drug Use: none Marital Status: Housing Status: lives with family Occupation Status: retired, disabled Review of Systems Pt denies CP, dizziness, palpitations, [place]UR[place], pain Allergies Coded Allergies: Doxycycline (Verified Allergy, Intermediate, RASH, 06/04/17) Hydrocodone (Verified Allergy, Intermediate, RASH, 06/04/17) Replaces LORTAB ELIXIR Iodinated Diagnostic Agents (Verified Allergy, Intermediate, RASH, 06/04/17 ) Losartan (Verified Allergy, Intermediate, HYPOTENSION-RASH, 06/04/17) Lovastatin (Verified Allergy, Intermediate, RASH, 06/04/17) Penicillins (Verified Allergy, Intermediate, RASH, 06/04/17) Quinolones (Verified Allergy, Intermediate, RASH, 06/04/17) Tetracycline (Verified Allergy, Intermediate, RASH, 06/04/17) Latex1 -Allergic Contact Dermititis (Verified Allergy, Mild, RASH, 06/04/17 ) Tetracyclines (Verified Allergy, Unknown, RASH, 06/04/17) Medications Current Inpatient Medications Medications (Trade) Dose Ordered Sig/Zeina Route Start Time Stop Time Status Last Admin Dose Admin Acetaminophen (Tylenol Tab) 650 mg Q4H PRN PO 07/01/17 23:15 07/31/17 23:14 07/02/17 17:55 650 MG Lorazepam (Ativan Tab) 1 mg Q6H PRN PO 07/01/17 23:15 07/31/17 23:14 Ondansetron HCl (Zofran Inj) 4 mg Q6H PRN IV 07/01/17 23:15 07/31/17 23:14 Morphine Sulfate (MoRPHine SULFATE INJ) 4 mg Q2H PRN IV 07/01/17 23:15 07/15/17 23:14 Albuterol (Ventolin Hfa Inhaler) 2 puffs Q4H PRN INH 07/01/17 23:30 07/31/17 23:29 Aspirin (Ecotrin Tab) 81 mg DAILY PO 07/02/17 09:00 08/01/17 08:59 07/02/17 08:53 81 MG Gabapentin (Neurontin Cap) 600 mg TID PO 07/02/17 09:00 08/01/17 08:59 07/02/17 14:56 600 MG Magnesium Oxide (Mag-Ox Tab) 800 mg QAM PO 07/02/17 09:00 08/01/17 08:59 07/02/17 08:54 800 MG Prednisone (PredniSONE TAB) 30 mg DAILY PO 07/02/17 09:00 08/01/17 08:59 07/02/17 08:53 30 MG Rivaroxaban (Xarelto Tab) 15 mg QDD PO 07/02/17 16:30 08/01/17 16:29 07/02/17 17:05 15 MG Tamsulosin HCl (Flomax Cap) 0.4 mg DAILY PO 07/02/17 09:00 08/01/17 08:59 07/02/17 08:53 0.4 MG Pantoprazole Sodium (Protonix Tab) 40 mg QAM PO 07/02/17 09:00 08/01/17 08:59 07/02/17 08:53 40 MG Miscellaneous Information (Consult Glycemic Management Pharmacy) 1 ea UD PRN N/A 07/02/17 10:30 08/01/17 10:29 Insulin Aspart (novoLOG ASPART) SLIDING SCALE G... ACHS SC 07/02/17 12:00 08/01/17 11:59 07/02/17 17:06 11 UNITS Diltiazem HCl (Dilacor Xr Cap) 240 mg QAM PO 07/03/17 09:00 08/02/17 08:59 Metoprolol Succinate (Toprol Xl Tab) 100 mg BID PO 07/02/17 21:00 5/27/18 20:59 Albuterol/ Ipratropium (Duoneb) 3 ml QIDR INH 07/02/17 16:00 08/01/17 15:59 07/02/17 14:36 3 ML Cefdinir (Omnicef Cap) 300 mg BID PO 07/02/17 21:00 07/09/17 20:59 Azithromycin (Zithromax Tab) 500 mg QAM PO 07/03/17 09:00 07/10/17 08:59 Albuterol/ Ipratropium (Duoneb) 3 ml Q2H PRN INH 07/02/17 13:30 08/01/17 13:29 Insulin Aspart (novoLOG ASPART) SLIDING SCALE G... TODAY@0000,0400 ND 07/03/17 00:00 07/03/17 04:01 Insulin Glargine (Lantus Solostar Pen) BID SC 07/02/17 21:00 08/01/17 20:59 Physical Exam Date Time Temp Pulse Resp B/P (MAP) Pulse Ox O2 Delivery O2 Flow Rate FiO2 07/02/17 16:00 Oxymask 10.0 07/02/17 16:00 36.8 76 18 140/78 (98) 86 Oxymask 10.0 07/02/17 14:40 91 22 91 13.0 07/02/17 14:00 63 20 120/47 (71) 95 Oxymask 12.0 07/02/17 12:00 88 Oxymask 12.0 07/02/17 12:00 36.8 79 20 124/60 (81) 85 Oxymask 12.0 07/02/17 10:00 74 18 115/76 (89) 90 Oxymask 12.0 07/02/17 08:00 36.8 72 16 132/65 (87) 88 Oxymask 12.0 07/02/17 08:00 88 Oxymask 12.0 07/02/17 06:01 72 133/69 (90) 93 CPAP 7.0 07/02/17 05:01 36.8 69 126/71 (89) 94 CPAP 7.0 07/02/17 04:01 36.8 65 113/58 (76) 92 CPAP 7.0 07/02/17 04:00 CPAP 7.0 07/02/17 03:01 65 15 136/47 (76) 95 CPAP 7.0 07/02/17 02:24 89 22 92 BiPAP/CPAP 7.0 07/02/17 02:01 58 118/60 (79) 92 07/02/17 02:01 58 118/60 (79) 92 CPAP 7.0 07/02/17 00:35 36.6 58 19 105/66 94 Non-Rebreather 15.0 07/02/17 00:29 45 20 109/57 98 07/02/17 00:05 47 20 105/60 98 Room Air 07/01/17 23:45 49 20 110/55 97 Non-Rebreather 07/01/17 23:32 52 20 98/48 98 Non-Rebreather 15.0 07/01/17 23:10 43 16 105/55 96 Non-Rebreather 15.0 07/01/17 22:33 52 18 108/53 98 Room Air 07/01/17 21:18 36.8 47 18 97/49 96 Non-Rebreather 15.0 07/01/17 21:16 94 Oxymask 15.0 07/01/17 20:59 38 07/01/17 20:57 36 18 69/36 94 Non-Rebreather 15.0 07/01/17 20:48 92 Non-Rebreather 15.0 General Appearance: no apparent distress, + pertinent finding (patient sitting up in the chair with any apparent distress) Respiratory: chest non-tender, no respiratory distress, no accessory muscle use Cardiovascular: + irregularly irregular, + pertinent finding (+3 B/L LE edema) Abdomen: normal bowel sounds, non tender, soft Neurologic/Psychiatric: oriented x 3 Skin: warm/dry Laboratory Results Last 24 Hours Test 07/01/17 19:45 07/02/17 00:21 07/02/17 01:43 07/02/17 01:47 White Blood Count 13.28 K/uL Red Blood Count 3.39 M/uL Hemoglobin 10.9 g/dL Hematocrit 35.8 % Mean Corpuscular Volume 105.6 fL Mean Corpuscular Hemoglobin 32.2 pg Mean Corpuscular Hemoglobin Concent 30.4 g/dl Platelet Count 155 K/uL Mean Platelet Volume 10.2 fL Neutrophils (%) (Auto) 88.3 % Lymphocytes (%) (Auto) 4.8 % Monocytes (%) (Auto) 3.8 % Eosinophils (%) (Auto) 0.1 % Basophils (%) (Auto) 0.3 % Neutrophils # (Auto) 11.72 K/uL Lymphocytes # (Auto) 0.64 K/uL Monocytes # (Auto) 0.51 K/uL Eosinophils # (Auto) 0.01 K/uL Basophils # (Auto) 0.04 K/uL RDW Standard Deviation 78.4 fL RDW Coefficient of Variation 20.7 % Immature Granulocyte % (Auto) 2.7 % Immature Granulocyte # (Auto) 0.36 K/uL Nucleated RBC Absolute Count (auto) 1.12 K/uL Nucleated Red Blood Cells % 8.4 % Anisocytosis PRESENT Prothrombin Time 11.7 SECONDS Prothromb Time International Ratio 1.1 Sodium Level 137 mmol/L 137 mmol/L Potassium Level 5.8 mmol/L 4.9 mmol/L Chloride Level 99 mmol/L 102 mmol/L Carbon Dioxide Level 25 mmol/L 29 mmol/L Anion Gap 13.0 mmol/L 6.0 mmol/L Blood Urea Nitrogen 73 mg/dl 76 mg/dl Creatinine 3.12 mg/dl 2.51 mg/dl Est Creatinine Clear Calc Drug Dose 25.6 ml/min 31.8 ml/min Estimated GFR () 22.4 29.1 Estimated GFR (Non- 19.3 25.1 BUN/Creatinine Ratio 23.3 30.3 Random Glucose 140 mg/dl 119 mg/dl Calcium Level 8.2 mg/dl 8.0 mg/dl Magnesium Level 2.6 mg/dl Total Bilirubin 1.0 mg/dl Aspartate Amino Transf (AST/SGOT) 55 U/L Alanine Aminotransferase (ALT/SGPT) 112 U/L Alkaline Phosphatase 69 U/L Total Creatine Kinase 34 U/L Troponin I 0.052 ng/ml Pro-B-Type Natriuretic Peptide 4913 pg/ml Total Protein 6.2 gm/dl Albumin 3.0 gm/dl Globulin 3.2 gm/dl Albumin/Globulin Ratio 0.9 Lactic Acid Level 0.7 mmol/L Random Cortisol 12.79 mcg/dl Venous Blood pH 7.44 Venous Blood Partial Pressure CO2 44 mmHg Venous Blood Partial Pressure O2 64 mmHg Venous Blood HCO3 29 mmol/L Venous Blood Oxygen Saturation 90.8 % Venous Blood Base Excess 4.6 mEq/L Test 07/02/17 02:00 07/02/17 04:09 07/02/17 10:40 07/02/17 11:00 Urine Color YELLOW Urine Appearance CLEAR Urine pH 5.0 Urine Specific [place] 1.018 Urine Protein NEG Urine Glucose (UA) NEG Urine Ketones NEG Urine Occult Blood NEG Urine Nitrite NEG Urine Bilirubin NEG Urine Urobilinogen NEG Urine Leukocyte Esterase TRACE Urine WBC (Auto) 1-5 /hpf Urine RBC (Auto) 0-4 /hpf Urine Hyaline Casts (Auto) 1-5 /lpf Urine Epithelial Cells (Auto) 5-10 /lpf Urine Bacteria (Auto) NEG White Blood Count 7.84 K/uL Red Blood Count 3.14 M/uL Hemoglobin 9.8 g/dL Hematocrit 31.9 % Mean Corpuscular Volume 101.6 fL Mean Corpuscular Hemoglobin 31.2 pg Mean Corpuscular Hemoglobin Concent 30.7 g/dl Platelet Count 108 K/uL Mean Platelet Volume 10.0 fL Neutrophils (%) (Auto) 84.4 % Lymphocytes (%) (Auto) 6.1 % Monocytes (%) (Auto) 3.7 % Eosinophils (%) (Auto) 0.0 % Basophils (%) (Auto) 0.3 % Neutrophils # (Auto) 6.62 K/uL Lymphocytes # (Auto) 0.48 K/uL Monocytes # (Auto) 0.29 K/uL Eosinophils # (Auto) 0.00 K/uL Basophils # (Auto) 0.02 K/uL RDW Standard Deviation 74.6 fL RDW Coefficient of Variation 20.6 % Immature Granulocyte % (Auto) 5.5 % Immature Granulocyte # (Auto) 0.43 K/uL Nucleated RBC Absolute Count (auto) 0.40 K/uL Nucleated Red Blood Cells % 5.1 % Hypochromasia PRESENT Anisocytosis PRESENT Sodium Level 138 mmol/L Potassium Level 4.2 mmol/L Chloride Level 103 mmol/L Carbon Dioxide Level 29 mmol/L Anion Gap 6.0 mmol/L Blood Urea Nitrogen 70 mg/dl Creatinine 2.06 mg/dl Est Creatinine Clear Calc Drug Dose 37.8 ml/min Estimated GFR () 37.0 Estimated GFR (Non- 31.9 BUN/Creatinine Ratio 34.1 Random Glucose 82 mg/dl Calcium Level 8.1 mg/dl Phosphorus Level 4.7 mg/dl Magnesium Level 2.6 mg/dl Total Bilirubin 1.0 mg/dl Direct Bilirubin 0.3 mg/dl Aspartate Amino Transf (AST/SGOT) 54 U/L Alanine Aminotransferase (ALT/SGPT) 105 U/L Alkaline Phosphatase 61 U/L Troponin I 0.036 ng/ml Total Protein 5.5 gm/dl Albumin 2.9 gm/dl Urine Random Creatinine 25.0 mg/dl Urine Random Sodium 55 mEq/L Urine Random Urea Nitrogen 435 mg/dl Influenza Type A (RT-PCR) Neg for Influ A Influenza Type B (RT-PCR) Neg for Influ B Test 07/02/17 11:01 07/02/17 12:22 07/02/17 16:16 Bedside Glucose 115 mg/dl 273 mg/dl Absolute Reticulocyte Count 0.24 10^6/uL Percent Reticulocyte Count 7.4 % D-Dimer 250 ug/L FEU Estimated Average Glucose 91 mg/dl Hemoglobin A1c 4.8 % Troponin I 0.030 ng/ml Procalcitonin 7.48 ng/ml Hepatitis B Surface Antigen NEG Hepatitis C Antibody NEG Assessment & Plan Palliative Performance Scale: 50 % Palliative Care Encounter Goals of Care COPD TYSHAWN Palliative Care Recommendations: - CODE STATUS discussed at the bedside with Dr. Izquierdo - Patient to be DNR/ DNI - Patient expressed goals of returning home - once medically stable - discuss with CM regarding services available (Home health with transition to hospice) -POLST to be filled out by Palliative Care prior to discharge Thank you for including us in the care of this patient - we will follow accordingly
[2017-07-02] MEDS ORDERED: INSULIN ASPART 100 UNITS/ML 3 ML PEN SC STA (20:13)
[2017-07-02] MEDS: CEFDINIR 300 MG CAP PO SCH (20:23)
[2017-07-02] MEDS: METOPROLOL SUCC 50MG EXT REL TAB PO SCH (20:24)
[2017-07-02] MEDS ORDERED: INSULIN GLARGINE SOLOSTAR 100 UNITS/ML 3 ML PEN SC SCH (21:00)
--- NOTE | 2017-07-02 21:54 | Progress Note ---
Subjective Date of Service: Jul 02, 2017. Subjective Patient is on CPAP. Patient denies any discomfort pain. Patient no longer has bilateral arm pain. Problem List Medical Problems: (1) Acute on chronic renal failure Status: Acute (2) Acute respiratory failure with hypoxia Status: Acute (3) Acute respiratory failure with hypoxia Status: Acute (4) TYSHAWN (acute kidney injury) Status: Acute (5) Atrial flutter with rapid ventricular response Status: Acute (6) Bradycardia Status: Acute (7) Epistaxis Status: Acute (8) Epistaxis, recurrent Status: Acute (9) Hyperkalemia Status: Acute (10) Hypokalemia Status: Acute (11) Hypotension Status: Acute (12) Leukocytosis Status: Acute (13) NSTEMI (non-ST elevated myocardial infarction) Status: Acute (14) Oxygen dependent Status: Acute Review of Systems Constitutional: No fever Eyes: No worsening of vision ENT: + hearing loss Respiratory: + cough, + shortness of breath Cardiac: No chest pain Abdomen: No pain Neurologic: No memory loss Psychiatric: No depression symptoms Heme: No abnormal bleeding/bruising Endo: + fatigue Skin: No rash All Other Systems: Reviewed and Negative Medications Current Inpatient Medications Medications (Trade) Dose Ordered Sig/Zeina Route Start Time Stop Time Status Last Admin Dose Admin Acetaminophen (Tylenol Tab) 650 mg Q4H PRN PO 07/01/17 23:15 07/31/17 23:14 07/02/17 17:55 650 MG Lorazepam (Ativan Tab) 1 mg Q6H PRN PO 07/01/17 23:15 07/31/17 23:14 Ondansetron HCl (Zofran Inj) 4 mg Q6H PRN IV 07/01/17 23:15 07/31/17 23:14 Morphine Sulfate (MoRPHine SULFATE INJ) 4 mg Q2H PRN IV 07/01/17 23:15 07/15/17 23:14 Albuterol (Ventolin Hfa Inhaler) 2 puffs Q4H PRN INH 07/01/17 23:30 07/31/17 23:29 Aspirin (Ecotrin Tab) 81 mg DAILY PO 07/02/17 09:00 08/01/17 08:59 07/02/17 08:53 81 MG Gabapentin (Neurontin Cap) 600 mg TID PO 07/02/17 09:00 08/01/17 08:59 07/02/17 20:23 600 MG Magnesium Oxide (Mag-Ox Tab) 800 mg QAM PO 07/02/17 09:00 08/01/17 08:59 07/02/17 08:54 800 MG Prednisone (PredniSONE TAB) 30 mg DAILY PO 07/02/17 09:00 08/01/17 08:59 07/02/17 08:53 30 MG Rivaroxaban (Xarelto Tab) 15 mg QDD PO 07/02/17 16:30 08/01/17 16:29 07/02/17 17:05 15 MG Tamsulosin HCl (Flomax Cap) 0.4 mg DAILY PO 07/02/17 09:00 08/01/17 08:59 07/02/17 08:53 0.4 MG Pantoprazole Sodium (Protonix Tab) 40 mg QAM PO 07/02/17 09:00 08/01/17 08:59 07/02/17 08:53 40 MG Miscellaneous Information (Consult Glycemic Management Pharmacy) 1 ea UD PRN N/A 07/02/17 10:30 08/01/17 10:29 Insulin Aspart (novoLOG ASPART) SLIDING SCALE G... ACHS SC 07/02/17 12:00 08/01/17 11:59 07/02/17 17:06 11 UNITS Diltiazem HCl (Dilacor Xr Cap) 240 mg QAM PO 07/03/17 09:00 08/02/17 08:59 Metoprolol Succinate (Toprol Xl Tab) 100 mg BID PO 07/02/17 21:00 08/01/17 20:59 07/02/17 20:24 100 MG Albuterol/ Ipratropium (Duoneb) 3 ml QIDR INH 07/02/17 16:00 08/01/17 15:59 07/02/17 19:17 3 ML Cefdinir (Omnicef Cap) 300 mg BID PO 07/02/17 21:00 07/09/17 20:59 07/02/17 20:23 300 MG Azithromycin (Zithromax Tab) 500 mg QAM PO 07/03/17 09:00 07/10/17 08:59 Albuterol/ Ipratropium (Duoneb) 3 ml Q2H PRN INH 07/02/17 13:30 08/01/17 13:29 Insulin Aspart (novoLOG ASPART) SLIDING SCALE G... TODAY@0000,0400 [place] 07/03/17 00:00 07/03/17 04:01 Objective Vital Signs Date Time Temp Pulse Resp B/P (MAP) Pulse Ox O2 Delivery O2 Flow Rate FiO2 07/02/17 19:17 91 22 92 13.0 07/02/17 18:00 78 18 108/59 (75) 86 Oxymask 10.0 07/02/17 16:00 Oxymask 10.0 07/02/17 16:00 36.8 76 18 140/78 (98) 86 Oxymask 10.0 07/02/17 14:40 91 22 91 13.0 07/02/17 14:00 63 20 120/47 (71) 95 Oxymask 12.0 07/02/17 12:00 88 Oxymask 12.0 07/02/17 12:00 36.8 79 20 124/60 (81) 85 Oxymask 12.0 07/02/17 10:00 74 18 115/76 (89) 90 Oxymask 12.0 07/02/17 08:00 36.8 72 16 132/65 (87) 88 Oxymask 12.0 07/02/17 08:00 88 Oxymask 12.0 07/02/17 06:01 72 133/69 (90) 93 CPAP 7.0 07/02/17 05:01 36.8 69 126/71 (89) 94 CPAP 7.0 07/02/17 04:01 36.8 65 113/58 (76) 92 CPAP 7.0 07/02/17 04:00 CPAP 7.0 07/02/17 03:01 65 15 136/47 (76) 95 CPAP 7.0 07/02/17 02:24 89 22 92 BiPAP/CPAP 7.0 07/02/17 02:01 58 118/60 (79) 92 07/02/17 02:01 58 118/60 (79) 92 CPAP 7.0 07/02/17 00:35 36.6 58 19 105/66 94 Non-Rebreather 15.0 07/02/17 00:29 45 20 109/57 98 07/02/17 00:05 47 20 105/60 98 Room Air 07/01/17 23:45 49 20 110/55 97 Non-Rebreather 07/01/17 23:32 52 20 98/48 98 Non-Rebreather 15.0 07/01/17 23:10 43 16 105/55 96 Non-Rebreather 15.0 07/01/17 22:33 52 18 108/53 98 Room Air Physical Exam Comments: Overweight, middle-aged male - mild lethargy, no acute distress General Appearance: WD/WN, no apparent distress, + obese Head: normocephalic Eyes: normal inspection ENT: normal ENT inspection, pharynx normal Neck: supple, ) Respiratory/Chest: + pertinent finding (Poor air entry BL -bibaislar crackles) Cardiovascular: + irregularly irregular Abdomen/GI: normal bowel sounds, non tender, soft Back: normal inspection, no CVA tenderness Extremities/Musculoskelatal: + pertinent finding (pedal edema) 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 as tested, no motor/sensory deficits, alert, oriented x 3 Skin: + pallor Laboratory Results Last 24 Hours Test 07/02/17 00:21 07/02/17 01:43 07/02/17 01:47 07/02/17 02:00 Sodium Level 137 mmol/L Potassium Level 4.9 mmol/L Chloride Level 102 mmol/L Carbon Dioxide Level 29 mmol/L Anion Gap 6.0 mmol/L Blood Urea Nitrogen 76 mg/dl Creatinine 2.51 mg/dl Est Creatinine Clear Calc Drug Dose 31.8 ml/min Estimated GFR () 29.1 Estimated GFR (Non- 25.1 BUN/Creatinine Ratio 30.3 Random Glucose 119 mg/dl Calcium Level 8.0 mg/dl Lactic Acid Level 0.7 mmol/L Random Cortisol 12.79 mcg/dl Venous Blood pH 7.44 Venous Blood Partial Pressure CO2 44 mmHg Venous Blood Partial Pressure O2 64 mmHg Venous Blood HCO3 29 mmol/L Venous Blood Oxygen Saturation 90.8 % Venous Blood Base Excess 4.6 mEq/L Urine Color YELLOW Urine Appearance CLEAR Urine pH 5.0 Urine Specific [place] 1.018 Urine Protein NEG Urine Glucose (UA) NEG Urine Ketones NEG Urine Occult Blood NEG Urine Nitrite NEG Urine Bilirubin NEG Urine Urobilinogen NEG Urine Leukocyte Esterase TRACE Urine WBC (Auto) 1-5 /hpf Urine RBC (Auto) 0-4 /hpf Urine Hyaline Casts (Auto) 1-5 /lpf Urine Epithelial Cells (Auto) 5-10 /lpf Urine Bacteria (Auto) NEG Test 07/02/17 04:09 07/02/17 10:40 07/02/17 11:00 07/02/17 11:01 White Blood Count 7.84 K/uL Red Blood Count 3.14 M/uL Hemoglobin 9.8 g/dL Hematocrit 31.9 % Mean Corpuscular Volume 101.6 fL Mean Corpuscular Hemoglobin 31.2 pg Mean Corpuscular Hemoglobin Concent 30.7 g/dl Platelet Count 108 K/uL Mean Platelet Volume 10.0 fL Neutrophils (%) (Auto) 84.4 % Lymphocytes (%) (Auto) 6.1 % Monocytes (%) (Auto) 3.7 % Eosinophils (%) (Auto) 0.0 % Basophils (%) (Auto) 0.3 % Neutrophils # (Auto) 6.62 K/uL Lymphocytes # (Auto) 0.48 K/uL Monocytes # (Auto) 0.29 K/uL Eosinophils # (Auto) 0.00 K/uL Basophils # (Auto) 0.02 K/uL RDW Standard Deviation 74.6 fL RDW Coefficient of Variation 20.6 % Immature Granulocyte % (Auto) 5.5 % Immature Granulocyte # (Auto) 0.43 K/uL Nucleated RBC Absolute Count (auto) 0.40 K/uL Nucleated Red Blood Cells % 5.1 % Hypochromasia PRESENT Anisocytosis PRESENT Sodium Level 138 mmol/L Potassium Level 4.2 mmol/L Chloride Level 103 mmol/L Carbon Dioxide Level 29 mmol/L Anion Gap 6.0 mmol/L Blood Urea Nitrogen 70 mg/dl Creatinine 2.06 mg/dl Est Creatinine Clear Calc Drug Dose 37.8 ml/min Estimated GFR () 37.0 Estimated GFR (Non- 31.9 BUN/Creatinine Ratio 34.1 Random Glucose 82 mg/dl Calcium Level 8.1 mg/dl Phosphorus Level 4.7 mg/dl Magnesium Level 2.6 mg/dl Total Bilirubin 1.0 mg/dl Direct Bilirubin 0.3 mg/dl Aspartate Amino Transf (AST/SGOT) 54 U/L Alanine Aminotransferase (ALT/SGPT) 105 U/L Alkaline Phosphatase 61 U/L Troponin I 0.036 ng/ml Total Protein 5.5 gm/dl Albumin 2.9 gm/dl Urine Random Creatinine 25.0 mg/dl Urine Random Sodium 55 mEq/L Urine Random Urea Nitrogen 435 mg/dl Influenza Type A (RT-PCR) Neg for Influ A Influenza Type B (RT-PCR) Neg for Influ B Bedside Glucose 115 mg/dl Test 07/02/17 12:22 07/02/17 16:16 07/02/17 19:41 07/02/17 20:09 Absolute Reticulocyte Count 0.24 10^6/uL Percent Reticulocyte Count 7.4 % D-Dimer 250 ug/L FEU Estimated Average Glucose 91 mg/dl Hemoglobin A1c 4.8 % Troponin I 0.030 ng/ml 0.024 ng/ml Procalcitonin 7.48 ng/ml Hepatitis B Surface Antigen NEG Hepatitis C Antibody NEG Bedside Glucose 273 mg/dl 393 mg/dl Assessment and Plan 67 y/o M Hx CAD, chronic AF, diastolic CHF, CKD III, DM II, end stage pulmonary fibrosis. Pt initially presented with BL arm pain as he thought this may be cardiac-related. He had self administered 3 NTG prior to arrival which partially alleviated his symptoms. On arrival to the ER he was noted to be hypotensive and bradycardic. Initial SBP was in the 70s and his HR was high 30s - low 40s. He did not c/o CP directly and denies SOB above baseline. He does state that he felt he may be developing a sinus infection. Initial labs were notable for worsening renal function with hyperkalemia. The pt responded well to a fluid bolus in the ER in terms of his BP. He received 2 doses of Atropine and his HR has remained in the mid 40s. It is noted that he takes both Diltiazem and a B zachary daily. 1) BL arm pain - possibly cardiac due to demand which would be related to a low HR and hypotension - trop is elevated but is below baseline. Peaked at .05 He has a history of CAD and is taking ASA. We are forced to hold his B zachary and Imdur at present. He is statin-intolerant. 2) Bradycardia now in a flutter- will resume his bb and ccb. no need for pacemaker at this time 3) Hypotension - responded to IVF - On admission, there was some concern for Tamponade based on EKG voltage and CXR , however, there did not appear to be significant fluid surrounding his heart on a preliminary echo. An additional is ordered for AM. His BP has normalized at the time of admission. There is no evidence of sepsis. Hypotension improved. will monitor 4) Acute on chronic RF with hyperK - Improving. will monitor. diuretics and ARB held. 5) Pulmonary fibrosis - denies SOB above baseline - cont current inhalers - 6-8 L 02 and 6) Diastolic CHF - volume status is difficult to assess clinically Patient does have some sign of pedal edema. will monitor. 6) Flutter - currently bradycardic - anticoagulated with Xarelto. Rate meds held due to above. Full code - Xarelto prophylaxis
[2017-07-03] VITALS (31 sets, daily range): BP systolic 99–148; BP diastolic 45–88; PULSE 60–101; TEMP 36.3–36.9; O2SAT 75–99
[2017-07-03] MEDS ORDERED: DEXTROSE 50% 50 ML SYR ONE ×2 (04:38→07:15)
[2017-07-03] MEDS: INSULIN ASPART 100 UNITS/ML 3 ML PEN SC SCH ×4 (04:42→20:34)
[2017-07-03 04:43] LABS: HEPATITIS A IGM TC 51813E NON-REACTIVE (NON-REACTIVE); HEPATITIS B CORE IGM TC51854R NON-REACTIVE (NON-REACTIVE)
[2017-07-03 04:47] LABS: BASO % 0.3 %; BASO ABS # 0.04 K/uL (0-0.2); EOS % 0.1 %; EOS ABS # 0.01 K/uL (0-0.5); HEMATOCRIT 35.8 % (42-52); IG# 0.45 K/uL (0.00-0.02); LYMPH ABS # 1.26 K/uL (1.2-3.4); MEAN CELL VOLUME 101.7 fL (80-100); MEAN CORPUSCULAR HEMOGLOBIN 31.3 pg (25-34); MEAN CORPUSCULAR HGB CONC 30.7 g/dl (32-36); MEAN PLATELET VOLUME 9.3 fL (7.4-10.4); MONO % 6.5 %; MONO ABS # 0.74 K/uL (0.11-0.59); NEUT % 78.2 %; NEUT ABS # 8.97 K/uL (1.4-6.5); NUCLEATED RED BLOOD CELL ABS 0.93 K/uL (0-0); PLATELET COUNT 130 K/uL (130-400); RED CELL DISTRIBUTION WIDTH CV 20.6 % (11.5-14.5); RED CELL DISTRIBUTION WIDTH SD 72.8 fL (36.4-46.3); WHITE BLOOD COUNT 11.47 K/uL (4.8-10.8)
[2017-07-03 05:27] LABS: CALCIUM 8.7 mg/dl (8.5-10.1); CREATININE 1.45 mg/dl (0.60-1.40); PHOSPHORUS 3.3 mg/dl (2.5-4.9); POTASSIUM 3.8 mmol/L (3.5-5.1); TOTAL PROTEIN 5.9 gm/dl (6.4-8.2)
[2017-07-03] MEDS: ALBUT/IPRATROP 3MG/0.5MG NEB 3 ML VIAL INH SCH ×4 (07:01→19:38)
[2017-07-03] MEDS: PANTOprazole SOD 40 MG TAB PO SCH (07:19)
[2017-07-03] MEDS: GABAPENTIN 300 MG CAP PO SCH ×3 (07:19→20:33)
[2017-07-03] MEDS: ASPIRIN 81 MG ECTAB PO SCH (07:20)
[2017-07-03] MEDS: METOPROLOL SUCC 50MG EXT REL TAB PO SCH ×2 (07:20→20:34)
[2017-07-03] MEDS ORDERED: GLUCAGON FOR INJ 1 MG VIAL SQ PRN (07:30)
[2017-07-03] MEDS ORDERED: DEXTROSE 50% 50 ML SYR IV PRN (07:30)
[2017-07-03] MEDS ORDERED: GLUCOSE 40% GEL 15 GM TUBE PO PRN (07:30)
[2017-07-03] MEDS: DILTIAZEM HCL 120 MG ER CAP PO SCH (07:30)
[2017-07-03] MEDS ORDERED: GLUCOSE 10 TABS/TUBE PO PRN (07:30)
[2017-07-03] MEDS: TAMSULOSIN HCL 0.4 MG CAP PO SCH (07:31)
[2017-07-03] MEDS: MAGNESIUM OXIDE 400 MG TAB PO SCH (07:31)
[2017-07-03] MEDS: CEFDINIR 300 MG CAP PO SCH ×2 (07:32→20:34)
[2017-07-03] MEDS: AZITHROMYCIN 250 MG TAB PO SCH (07:32)
[2017-07-03] MEDS ORDERED: INSULIN HUMAN NPH SC STA (08:20)
--- NOTE | 2017-07-03 08:44 | Critical Care Progress Note ---
Critical Care Progress Note Date of Service Jul 03, 2017. ICU Day ICU Day Number: [address] Izquierdo Subjective Overnight events include an episode of hypoglycemia requiring glucose administration. Currently asymptomatic Objective General Appearance: Awake, alert & oriented, comfortable in general, NAD. CV: +S1S2 irregularly irregular but not bradycardic, no murmur. Pulm: Minimal bibasilar rales and mild expiratory wheezing. Abdomen: +BS, soft, non-tender, non-distended. Obese habitus. Extremities: 3+ bilateral lower extremity edema. Moving all extremities easily. Neuro: No gross neuro deficits. Assessment & Plan 67-year-old male admitted on 01Jul2017 for bradycardia, hypotension, and acute on chronic respiratory failure. PMH: CAD, HTN, and STEMI, CABG in 2000, cardiac stents, persistent atrial flutter, pulmonary fibrosis, CRESCENCIO on CPAP, CHF, anemia of chronic disease, DM 2, CKD, recurrent epistaxis. PSH: Hernia repair, left ankle surgery, CABG, cardiac stenting, right thoracotomy with wedge resection biopsies of right middle and lower lobes, right carotid thromboendarterectomy. SEED BUYER: CAM-ICU negative. Denies any acute pain. On gabapentin p.o. TID. No acute neuro issues. Pulm: #1 acute on chronic hypercarbic hypoxic respiratory failure: Given sputum quality changes started on Omnicef for 7 days treatment, as well as a Zithromax #2 COPD severe, continue oxygen therapy and CPAP at night CVS: 1. Bradycardia: Resolved, restarted previous dosing of 240 mg diltiazem and 100 mg metoprolol 2. Hypotension: Resolved 3. Atrial flutter: Continue Xarelto. 4. Syncope: Resolved 5. Cor pulmonale: Chronic, avoid hypovolemia. 6. Coronary artery disease: Aggressive secondary prevention, statin intolerant Reviewed echocardiogram ID: Cefdinir day 2 of 7 Zithromax day 2 of 5 for sputum quality changes Endo: Insulin-dependent diabetes mellitus -Pharmacy glycemic consult Chronic steroid therapy, continue 30 mg daily Renal/Lytes: CKD: Restarting home meds, losartan 25 mg p.o. 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 Lines: PIV. Code status: DO NOT RESUSCITATE in event of cardiac arrest PT/OT: Ordered. Disposition: Stable for downgrade to telemetry status Consults & Procedures Consultants: Consulted pulmonology, nephrology, cardiology, palliative care. Procedures: 02 July 2017 cardiac echo. Data Medications: Current Inpatient Medications Medications (Trade) Dose Ordered Sig/Zeina Route Start Time Stop Time Status Last Admin Dose Admin Acetaminophen (Tylenol Tab) 650 mg Q4H PRN PO 07/01/17 23:15 07/31/17 23:14 07/02/17 17:55 650 MG Lorazepam (Ativan Tab) 1 mg Q6H PRN PO 07/01/17 23:15 07/31/17 23:14 Ondansetron HCl (Zofran Inj) 4 mg Q6H PRN IV 07/01/17 23:15 07/31/17 23:14 Morphine Sulfate (MoRPHine SULFATE INJ) 4 mg Q2H PRN IV 07/01/17 23:15 07/15/17 23:14 Albuterol (Ventolin Hfa Inhaler) 2 puffs Q4H PRN INH 07/01/17 23:30 07/31/17 23:29 Aspirin (Ecotrin Tab) 81 mg DAILY PO 07/02/17 09:00 08/01/17 08:59 07/03/17 07:20 81 MG Gabapentin (Neurontin Cap) 600 mg TID PO 07/02/17 09:00 08/01/17 08:59 07/03/17 07:19 600 MG Magnesium Oxide (Mag-Ox Tab) 800 mg QAM PO 07/02/17 09:00 08/01/17 08:59 07/03/17 07:31 800 MG Prednisone (PredniSONE TAB) 30 mg DAILY PO 07/02/17 09:00 08/01/17 08:59 07/03/17 07:20 30 MG Rivaroxaban (Xarelto Tab) 15 mg QDD PO 07/02/17 16:30 08/01/17 16:29 07/02/17 17:05 15 MG Tamsulosin HCl (Flomax Cap) 0.4 mg DAILY PO 07/02/17 09:00 08/01/17 08:59 07/03/17 07:31 0.4 MG Pantoprazole Sodium (Protonix Tab) 40 mg QAM PO 07/02/17 09:00 08/01/17 08:59 07/03/17 07:19 40 MG Miscellaneous Information (Consult Glycemic Management Pharmacy) 1 ea UD PRN N/A 07/02/17 10:30 08/01/17 10:29 Diltiazem HCl (Dilacor Xr Cap) 240 mg QAM PO 07/03/17 09:00 08/02/17 08:59 07/03/17 07:30 240 MG Metoprolol Succinate (Toprol Xl Tab) 100 mg BID PO 07/02/17 21:00 08/01/17 20:59 07/03/17 07:20 100 MG Albuterol/ Ipratropium (Duoneb) 3 ml QIDR INH 07/02/17 16:00 08/01/17 15:59 07/03/17 07:01 3 ML Cefdinir (Omnicef Cap) 300 mg BID PO 07/02/17 21:00 07/09/17 20:59 07/03/17 07:32 300 MG Azithromycin (Zithromax Tab) 500 mg QAM PO 07/03/17 09:00 07/10/17 08:59 07/03/17 07:32 500 MG Albuterol/ Ipratropium (Duoneb) 3 ml Q2H PRN INH 07/02/17 13:30 08/01/17 13:29 Glucose (Glucose 40% Gel) 15-30 GRAMS 15 GRAMS... UD PRN PO 07/03/17 07:30 08/02/17 07:29 Glucose (Glucose Chew Tab) 4-8 Tablets 4 Tabl... UD PRN PO 07/03/17 07:30 08/02/17 07:29 Dextrose (Dextrose 50% 50ML Syringe) 25-50ML OF 50% DW IV FOR... UD PRN IV 07/03/17 07:30 08/02/17 07:29 Glucagon (Glucagon Inj) 1 mg UD PRN SQ 07/03/17 07:30 08/02/17 07:29 Vital Signs: Date Time Temp Pulse Resp B/P (MAP) Pulse Ox O2 Delivery O2 Flow Rate FiO2 07/03/17 07:19 83 22 95 13.0 07/03/17 06:01 83 21 129/64 (85) 90 10.0 07/03/17 04:01 36.4 82 14 124/61 (82) 92 CPAP 7.0 07/03/17 04:00 CPAP 7.0 07/03/17 03:01 80 16 125/81 (96) 94 CPAP 7.0 07/03/17 02:01 79 20 127/63 (84) 97 CPAP 7.0 07/03/17 00:01 CPAP 7.0 07/03/17 00:01 36.5 79 144/67 (92) 93 CPAP 7.0 07/02/17 22:01 79 14 141/62 (88) 95 Oxymask 15.0 07/02/17 20:03 36.4 78 20 131/62 (85) 91 Oxymask 15.0 07/02/17 20:00 Oxymask 15.0 07/02/17 19:17 91 22 92 13.0 07/02/17 18:00 78 18 108/59 (75) 86 Oxymask 10.0 07/02/17 16:00 Oxymask 10.0 07/02/17 16:00 36.8 76 18 140/78 (98) 86 Oxymask 10.0 07/02/17 14:40 91 22 91 13.0 07/02/17 14:00 63 20 120/47 (71) 95 Oxymask 12.0 07/02/17 12:00 88 Oxymask 12.0 07/02/17 12:00 36.8 79 20 124/60 (81) 85 Oxymask 12.0 07/02/17 10:00 74 18 115/76 (89) 90 Oxymask 12.0 07/02/17 08:00 36.8 72 16 132/65 (87) 88 Oxymask 12.0 07/02/17 08:00 88 Oxymask 12.0 Laboratory Results: Last 24 Hours Test 07/02/17 10:40 07/02/17 11:00 07/02/17 11:01 07/02/17 12:22 Urine Random Creatinine 25.0 mg/dl Urine Random Sodium 55 mEq/L Urine Random Urea Nitrogen 435 mg/dl Influenza Type A (RT-PCR) Neg for Influ A Influenza Type B (RT-PCR) Neg for Influ B Bedside Glucose 115 mg/dl Absolute Reticulocyte Count 0.24 10^6/uL Percent Reticulocyte Count 7.4 % D-Dimer 250 ug/L FEU Estimated Average Glucose 91 mg/dl Hemoglobin A1c 4.8 % Troponin I 0.030 ng/ml Procalcitonin 7.48 ng/ml Hepatitis A IgM Antibody NON-REACTIVE Hepatitis B Surface Antigen NEG Hepatitis B Core IgM Antibody NON-REACTIVE Hepatitis C Antibody NEG Test 07/02/17 16:16 07/02/17 19:41 07/02/17 20:09 07/02/17 23:52 Bedside Glucose 273 mg/dl 393 mg/dl 227 mg/dl Troponin I 0.024 ng/ml Test 07/03/17 04:38 07/03/17 04:39 07/03/17 04:56 07/03/17 06:11 Bedside Glucose 47 mg/dl 161 mg/dl 91 mg/dl White Blood Count 11.47 K/uL Red Blood Count 3.52 M/uL Hemoglobin 11.0 g/dL Hematocrit 35.8 % Mean Corpuscular Volume 101.7 fL Mean Corpuscular Hemoglobin 31.3 pg Mean Corpuscular Hemoglobin Concent 30.7 g/dl Platelet Count 130 K/uL Mean Platelet Volume 9.3 fL Neutrophils (%) (Auto) 78.2 % Lymphocytes (%) (Auto) 11.0 % Monocytes (%) (Auto) 6.5 % Eosinophils (%) (Auto) 0.1 % Basophils (%) (Auto) 0.3 % Neutrophils # (Auto) 8.97 K/uL Lymphocytes # (Auto) 1.26 K/uL Monocytes # (Auto) 0.74 K/uL Eosinophils # (Auto) 0.01 K/uL Basophils # (Auto) 0.04 K/uL RDW Standard Deviation 72.8 fL RDW Coefficient of Variation 20.6 % Immature Granulocyte % (Auto) 3.9 % Immature Granulocyte # (Auto) 0.45 K/uL Nucleated RBC Absolute Count (auto) 0.93 K/uL Nucleated Red Blood Cells % 8.1 % Polychromasia 1+ Anisocytosis PRESENT Tear Drop Cells 1+ Sodium Level 142 mmol/L Potassium Level 3.8 mmol/L Chloride Level 105 mmol/L Carbon Dioxide Level 31 mmol/L Anion Gap 6.0 mmol/L Blood Urea Nitrogen 53 mg/dl Creatinine 1.45 mg/dl Est Creatinine Clear Calc Drug Dose 53.7 ml/min Estimated GFR () 56.5 Estimated GFR (Non- 48.8 BUN/Creatinine Ratio 36.8 Random Glucose 45 mg/dl Calcium Level 8.7 mg/dl Phosphorus Level 3.3 mg/dl Magnesium Level 2.5 mg/dl Total Bilirubin 1.1 mg/dl Direct Bilirubin 0.3 mg/dl Aspartate Amino Transf (AST/SGOT) 37 U/L Alanine Aminotransferase (ALT/SGPT) 90 U/L Alkaline Phosphatase 58 U/L Total Protein 5.9 gm/dl Albumin 3.0 gm/dl Test 07/03/17 07:14 07/03/17 07:36 Bedside Glucose 57 mg/dl 119 mg/dl
[2017-07-03] MEDS: LOSARTAN POTASSIUM 25 MG TAB PO SCH (09:35)
--- NOTE | 2017-07-03 10:22 | Pharmacy Progress Note ---
Glycemic Control Progress Note Date of Service Jul 03, 2017. Scope Glycemic Pharmacist consulted for glycemic control to write orders per [facility] inpatient glycemic control protocol. Objective Accuchecks BSG (last 24hrs): Test 07/02/17 11:01 07/02/17 16:16 07/02/17 20:09 07/02/17 23:52 Bedside Glucose 115 mg/dl (70-99) 273 mg/dl (70-99) 393 mg/dl (70-99) 227 mg/dl (70-99) Test 07/03/17 04:38 07/03/17 04:39 07/03/17 04:56 07/03/17 06:11 Bedside Glucose 47 mg/dl (70-99) 161 mg/dl (70-99) 91 mg/dl (70-99) Random Glucose 45 mg/dl (70-99) Test 07/03/17 07:14 07/03/17 07:36 Bedside Glucose 57 mg/dl (70-99) 119 mg/dl (70-99) HbA1c: Test 07/02/17 12:22 Hemoglobin A1c 4.8 % (4.5-5.6) Recent Pertinent Medications Outpatient Anti-diabetic Regimen: * Novolog 70/30, 70 units qAM, 48 units qPM * Novolog 10 units BID * (prednisone 30 mg po daily) * A1c = 4.8 % on 07/02/17 (trended down from 5.5% in January 2017) The patient is currently receiving: * Basal insulin: Lantus 25 units 07/02 AM and 35 units (26+9) 07/02 PM * Correctional Insulin: Novolog Correction per scale ACHS Goal Range: Low 120 mg/dL - High 160 mg/dL Correction Factor: 20 mg/dL/unit * Prandial insulin: Per carb ratio of 1 unit per 6 grams CHO consumed Risk Factors for Insulin Resistance: * Steroids: prednisone 30 mg po daily (home dose) * Infection: questionable pulmonary source - on cefdinir, azithromycin * Diet: T2DM Assessment & Plan ASSESSMENT: 07/02/17 * 67 yo M with type 2 diabetes admitted with bradycardia/hypotension, possibly 2nd recent increases in metoprolol and diltiazem. * Significant PMH including but not limited to CKD III, end-stage pulmonary fibrosis, diastolic CHF * A1c of 4.8% either relates to excellent outpatient control of BSG's or frequent outpatient hypoglycemia. I believe it's likely related to outpatient hypoglycemia 2nd the following: * On Novolog 70/30 as outpatient - higher risk for hypoglycemia * Significant dose changes of outpatient prednisone would complicate outpatient control * Lower BSG of 82 mg/dL this AM * Will therefore not base initial inpatient regimen on outpatient regimen ( likely too aggressive) and instead will utilize calculator / weight-based estimate * Outpatient regimen is premixed basal/prandial insulin of Novolog 70/30 mix insulin * Pre-mixed insulin is difficult to titrate since it is already in a fixed distribution of basal:prandial insulin. Continuing pre-mixed insulin for admission typically lead to hypoglycemia d/t changing PO status but rapid acting insulin is unable to be held. * Home regimen will be held for admission per pharmacy consult. Will utilize recommended regimen of SQ basal bolus insulin regimen with Lantus + NovoLog (CF+ CR) * Lantus 25 units x1 then ongoing BID based on weight-based calculator (stress 1, 2, 3 based on BSG) * Novolog per calculator, weight based moderate stress, with slightly tighter CHO ratio 2nd steroid use 07/03/17 * Patient has experienced both critical high BSG to 393 mg/dL last night and critical low BSG to 47 mg/dL this AM * Etiology of elevated BSG yesterday - steroid induced hyperglycemia with insufficient CHO ratio and correction factor as was concerned for hypoglycemia * Etiology of low BSG x2 today - effects of prednisone dissipate overnight and dose of Lantus was increased last night 2nd hyperglycemia. Persistent hypoglycemia x2 despite no insulin administered this AM * Will change basal insulin from Lantus to NPH - effects of NPH also dissipate overnight and therefore better to control prednisone-induced hyperglycemia with less risk for AM hypoglycemia * Will not provide prandial coverage (Novolog) for CHO at breakfast as patient had BSG's less than 70 x2 this AM (thus basal insulin still onboard and will help to cover CHO) * OK to administer NPH this AM despite hypoglycemia x2 as prednisone has already been administered and patient will not receive Novolog at breakfast. Average onset of action is ~1.5 hours after administration. Do not want to delay administration until lunch as duration is at least 12 hours (sometimes longer) and would prefer to have minimal basal activity overnight * Will increase goal range to help prevent hypoglycemia * OK to resume Novolog after held this AM - BSG's have increased from 119 to 149 mg/dL. Will resume at slightly tighter regimen than yesterday 2nd significant post-prandial hyperglycemia (likely 2nd insufficient CHO coverage) * OK to tighten correction factor now as a tighter correction factor will actually cause a larger *decrease* in insulin administered for any BSG below goal range while pt ordered a diet PLAN FOR INPATIENT GLYCEMIC CONTROL: * Decrease and switch basal insulin to NPH 20 units SQ x1 this AM * Correctional Insulin with NOVOLOG per scale ACHS or Q6hrs while NPO * Increase Goal Range: Low 140 mg/dL - High 180 mg/dL * Tighten Correction Factor: 15 mg/dL/unit * Tighten Nutritional / Prandial insulin per carb ratio of 1 unit per 5 grams CHO consumed * Please note that the plan above was derived based on current level of insulin resistance and hospital stress. These recommendations are appropriate for inpatient admission only. Plan of care upon discharge will need to be reassessed to avoid potential outpatient hypo/hyperglycemia. Thank you.
--- NOTE | 2017-07-03 10:48 | Nephrology Progress Note ---
Nephrology Progress Note Date of Service Jul 03, 2017. Chief Complaint TYSHAWN / CKD Subjective Mr. Coats was seen & examined in the ICU this morning. He complained of cough productive of brown sputum. He denied fever, angina, palpitations, flank pain or difficulty voiding. Review of Systems Constitutional: No fever Cardiovascular: No chest pain Respiratory: + productive cough Abdomen: No pain, No nausea, No vomiting Extremities: No leg edema A complete review of systems was performed. Pertinent positives are noted above. All other systems are negative. Vital Signs Last 8 Hrs Date Time Temp Pulse Resp B/P (MAP) Pulse Ox O2 Delivery O2 Flow Rate FiO2 07/03/17 10:03 36.7 81 21 86 7.0 07/03/17 09:45 81 21 86 07/03/17 09:30 74 18 87 CPAP 7.0 07/03/17 09:15 76 20 82 07/03/17 09:02 74 19 133/51 (78) 88 07/03/17 09:00 73 19 87 07/03/17 08:45 96 18 82 07/03/17 08:30 80 84 07/03/17 08:15 76 84 07/03/17 08:02 36.7 86 19 99/45 (63) 86 Oxymask 15.0 07/03/17 08:00 Oxymask 15.0 07/03/17 08:00 91 20 85 07/03/17 07:45 84 19 85 07/03/17 07:39 84 21 136/69 (91) 86 07/03/17 07:30 80 25 75 07/03/17 07:19 83 22 95 13.0 07/03/17 07:15 84 95 07/03/17 07:01 83 136/69 (91) 99 07/03/17 07:00 82 97 07/03/17 06:01 83 21 129/64 (85) 90 10.0 07/03/17 04:01 36.4 82 14 124/61 (82) 92 CPAP 7.0 07/03/17 04:00 CPAP 7.0 07/03/17 03:01 80 16 125/81 (96) 94 CPAP 7.0 Last Recorded Weight Weight (Kilograms): 104.100 Physical Exam General Appearance: + pertinent finding (chronically ill appearing) Head: normocephalic, atraumatic Eyes: PERRL Neck: no adenopathy Respiratory/Chest: lungs clear (anteriorly) Cardiovascular: regular rate, rhythm Abdomen/GI: normal bowel sounds, non tender, soft Extremities/Musculoskelatal: no calf tenderness, no pedal edema Neurologic/Psych: alert, oriented x 3 Family History Diabetes mellitus Heart disease Hypertension Social History Smoking Status: Former smoker Drug Use: none Marital Status: Housing Status: lives with family Occupation: retired, disabled Laboratory Results Past 24 Hours 07/03/17 04:39 Red Blood Count 3.52, Mean Corpuscular Volume 101.7, Mean Corpuscular Hemoglobin 31.3, Mean Corpuscular Hemoglobin Concent 30.7, Mean Platelet Volume 9.3, Neutrophils (%) (Auto) 78.2, Lymphocytes (%) (Auto) 11.0, Monocytes (%) ( Auto) 6.5, Eosinophils (%) (Auto) 0.1, Basophils (%) (Auto) 0.3, Neutrophils # ( Auto) 8.97, Lymphocytes # (Auto) 1.26, Monocytes # (Auto) 0.74, Eosinophils # ( Auto) 0.01, Basophils # (Auto) 0.04 07/03/17 04:39 Test 07/02/17 11:00 07/02/17 11:01 07/02/17 12:22 07/02/17 16:16 Influenza Type A (RT-PCR) Neg for Influ A (NEG) Influenza Type B (RT-PCR) Neg for Influ B (NEG) Bedside Glucose 115 mg/dl (70-99) 273 mg/dl (70-99) Absolute Reticulocyte Count 0.24 10^6/uL (0.02-0.10) Percent Reticulocyte Count 7.4 % (0.5-2.0) D-Dimer 250 ug/L FEU (0-500) Estimated Average Glucose 91 mg/dl Hemoglobin A1c 4.8 % (4.5-5.6) Troponin I 0.030 ng/ml (0-0.045) Procalcitonin 7.48 ng/ml (0-0.5) Hepatitis A IgM Antibody NON-REACTIVE (NON-REACTIVE) Hepatitis B Surface Antigen NEG (NEG) Hepatitis B Core IgM Antibody NON-REACTIVE (NON-REACTIVE) Hepatitis C Antibody NEG (NEG) Test 07/02/17 19:41 07/02/17 20:09 07/02/17 23:52 07/03/17 04:38 Troponin I 0.024 ng/ml (0-0.045) Bedside Glucose 393 mg/dl (70-99) 227 mg/dl (70-99) 47 mg/dl (70-99) Test 07/03/17 04:39 07/03/17 04:56 07/03/17 06:11 07/03/17 07:14 White Blood Count 11.47 K/uL (4.8-10.8) Red Blood Count 3.52 M/uL (4.7-6.1) Hemoglobin 11.0 g/dL (14.0-18.0) Hematocrit 35.8 % (42-52) Mean Corpuscular Volume 101.7 fL (80-100) Mean Corpuscular Hemoglobin 31.3 pg (25-34) Mean Corpuscular Hemoglobin Concent 30.7 g/dl (32-36) Platelet Count 130 K/uL (130-400) Mean Platelet Volume 9.3 fL (7.4-10.4) Neutrophils (%) (Auto) 78.2 % Lymphocytes (%) (Auto) 11.0 % Monocytes (%) (Auto) 6.5 % Eosinophils (%) (Auto) 0.1 % Basophils (%) (Auto) 0.3 % Neutrophils # (Auto) 8.97 K/uL (1.4-6.5) Lymphocytes # (Auto) 1.26 K/uL (1.2-3.4) Monocytes # (Auto) 0.74 K/uL (0.11-0.59) Eosinophils # (Auto) 0.01 K/uL (0-0.5) Basophils # (Auto) 0.04 K/uL (0-0.2) RDW Standard Deviation 72.8 fL (36.4-46.3) RDW Coefficient of Variation 20.6 % (11.5-14.5) Immature Granulocyte % (Auto) 3.9 % Immature Granulocyte # (Auto) 0.45 K/uL (0.00-0.02) Nucleated RBC Absolute Count (auto) 0.93 K/uL (0-0) Nucleated Red Blood Cells % 8.1 % Polychromasia 1+ Anisocytosis PRESENT Tear Drop Cells 1+ Anion Gap 6.0 mmol/L (3-11) Est Creatinine Clear Calc Drug Dose 53.7 ml/min Estimated GFR () 56.5 Estimated GFR (Non- 48.8 BUN/Creatinine Ratio 36.8 (10-20) Calcium Level 8.7 mg/dl (8.5-10.1) Phosphorus Level 3.3 mg/dl (2.5-4.9) Magnesium Level 2.5 mg/dl (1.8-2.4) Total Bilirubin 1.1 mg/dl (0.2-1) Direct Bilirubin 0.3 mg/dl (0-0.2) Aspartate Amino Transf (AST/SGOT) 37 U/L (15-37) Alanine Aminotransferase (ALT/SGPT) 90 U/L (12-78) Alkaline Phosphatase 58 U/L (45-117) Total Protein 5.9 gm/dl (6.4-8.2) Albumin 3.0 gm/dl (3.4-5.0) Bedside Glucose 161 mg/dl (70-99) 91 mg/dl (70-99) 57 mg/dl (70-99) Test 07/03/17 07:36 Bedside Glucose 119 mg/dl (70-99) Allergies Coded Allergies: Doxycycline (Verified Allergy, Intermediate, RASH, 06/04/17) Hydrocodone (Verified Allergy, Intermediate, RASH, 06/04/17) Replaces LORTAB ELIXIR Iodinated Diagnostic Agents (Verified Allergy, Intermediate, RASH, 06/04/17 ) Losartan (Verified Allergy, Intermediate, HYPOTENSION-RASH, 06/04/17) Lovastatin (Verified Allergy, Intermediate, RASH, 06/04/17) Penicillins (Verified Allergy, Intermediate, RASH, 06/04/17) Quinolones (Verified Allergy, Intermediate, RASH, 06/04/17) Tetracycline (Verified Allergy, Intermediate, RASH, 06/04/17) Latex1 -Allergic Contact Dermititis (Verified Allergy, Mild, RASH, 06/04/17 ) Tetracyclines (Verified Allergy, Unknown, RASH, 06/04/17) Medications Current Inpatient Medications Medications (Trade) Dose Ordered Sig/Zeina Route Start Time Stop Time Status Last Admin Dose Admin Acetaminophen (Tylenol Tab) 650 mg Q4H PRN PO 07/01/17 23:15 07/31/17 23:14 07/02/17 17:55 650 MG Lorazepam (Ativan Tab) 1 mg Q6H PRN PO 07/01/17 23:15 07/31/17 23:14 Ondansetron HCl (Zofran Inj) 4 mg Q6H PRN IV 07/01/17 23:15 07/31/17 23:14 Morphine Sulfate (MoRPHine SULFATE INJ) 4 mg Q2H PRN IV 07/01/17 23:15 07/15/17 23:14 Albuterol (Ventolin Hfa Inhaler) 2 puffs Q4H PRN INH 07/01/17 23:30 07/31/17 23:29 Aspirin (Ecotrin Tab) 81 mg DAILY PO 07/02/17 09:00 08/01/17 08:59 07/03/17 07:20 81 MG Gabapentin (Neurontin Cap) 600 mg TID PO 07/02/17 09:00 08/01/17 08:59 07/03/17 07:19 600 MG Magnesium Oxide (Mag-Ox Tab) 800 mg QAM PO 07/02/17 09:00 08/01/17 08:59 07/03/17 07:31 800 MG Prednisone (PredniSONE TAB) 30 mg DAILY PO 07/02/17 09:00 08/01/17 08:59 07/03/17 07:20 30 MG Rivaroxaban (Xarelto Tab) 15 mg QDD PO 07/02/17 16:30 08/01/17 16:29 07/02/17 17:05 15 MG Tamsulosin HCl (Flomax Cap) 0.4 mg DAILY PO 07/02/17 09:00 08/01/17 08:59 07/03/17 07:31 0.4 MG Pantoprazole Sodium (Protonix Tab) 40 mg QAM PO 07/02/17 09:00 08/01/17 08:59 07/03/17 07:19 40 MG Miscellaneous Information (Consult Glycemic Management Pharmacy) 1 ea UD PRN N/A 07/02/17 10:30 08/01/17 10:29 Diltiazem HCl (Dilacor Xr Cap) 240 mg QAM PO 07/03/17 09:00 08/02/17 08:59 07/03/17 07:30 240 MG Metoprolol Succinate (Toprol Xl Tab) 100 mg BID PO 07/02/17 21:00 08/01/17 20:59 07/03/17 07:20 100 MG Albuterol/ Ipratropium (Duoneb) 3 ml QIDR INH 07/02/17 16:00 08/01/17 15:59 07/03/17 07:01 3 ML Cefdinir (Omnicef Cap) 300 mg BID PO 07/02/17 21:00 07/09/17 20:59 07/03/17 07:32 300 MG Azithromycin (Zithromax Tab) 500 mg QAM PO 07/03/17 09:00 07/10/17 08:59 07/03/17 07:32 500 MG Albuterol/ Ipratropium (Duoneb) 3 ml Q2H PRN INH 07/02/17 13:30 08/01/17 13:29 Glucose (Glucose 40% Gel) 15-30 GRAMS 15 GRAMS... UD PRN PO 07/03/17 07:30 08/02/17 07:29 Glucose (Glucose Chew Tab) 4-8 Tablets 4 Tabl... UD PRN PO 07/03/17 07:30 08/02/17 07:29 Dextrose (Dextrose 50% 50ML Syringe) 25-50ML OF 50% DW IV FOR... UD PRN IV 07/03/17 07:30 08/02/17 07:29 Glucagon (Glucagon Inj) 1 mg UD PRN SQ 07/03/17 07:30 08/02/17 07:29 Insulin Aspart (novoLOG ASPART) SLIDING SCALE G... ACHS SC 07/03/17 11:00 08/02/17 10:59 Losartan Potassium (coZAAR TAB) 25 mg QAM PO 07/03/17 09:00 08/02/17 08:59 07/03/17 09:35 25 MG Impression (1) Acute renal insufficiency (2) CKD (chronic kidney disease), stage IV (3) Acute and chronic respiratory failure with hypoxia (4) Bradycardia (5) Hypotension (6) Interstitial lung disease Mr. Coats is a 67-year-old male with obesity, diabetes mellitus II, hypertension, coronary artery disease, ILD/pulmonary fibrosis, chronic anemia, PAF, and CKD. Baseline creatinine fluctuates consistent with underlying CRS. Creatinine has ranged from 1.6-2.4 mg/dL over the past year consistent with an eGFR of 25-40 ml/min. Urine analysis has been bland with acellular sediment. Renal US was reviewed today which documented mild bilateral cortical atrophy. There was no evidence of obstruction. The patient was non oliguric. He is hypervolemic. Hemodynamic instability has improved but he continues to have acute on chronic hypoxia. TYSHAWN was in the setting of hemodynamic instability and, based on the rate of improvement, predominately prerenal. Anti-GBM ab testing has been sent. Clinical presentation would be atypical for ABM disease. There is no evidence of renal associated disease. UA is bland and urine microscopy acellular. Recommendations -- TYSHAWN has resolved. Serum creatinine has returned to baseline and patient is nonoliguric -- Urine microscopy is negative for casts. No evidence of active renal vasculitis at this time -- Blood pressure is well controlled. Continue to hold JUAN MIGUEL / ARB -- Will sign off. Please call if further Nephrology assistance is needed.
[2017-07-03] MEDS ORDERED: METHYLPREDNISOLONE IV 40 MG in SYRINGE 0 ML IV ONE (11:00)
--- NOTE | 2017-07-03 11:23 | PULMONARY PROGRESS NOTE ---
DATE: 07/03/2017 TIME: 10:45 a.m. SUBJECTIVE: The patient states he awakened early this morning and just did not feel right. He states they checked his blood sugar and it was in the 40s. He denies shortness of breath. However, his saturations have been low even on high liter flow on the OxyMask. He was then put on his CPAP. His saturations are better on the CPAP. In spite of this, he has no respiratory distress at all. Unfortunately, he has not coughed up any phlegm since he brought up the brownish sputum yesterday with a little blood in it. He was started on Omnicef and Zithromax. OBJECTIVE: GENERAL: The patient appears comfortable. Blood pressure is 133/51. Oxygen saturation currently is 86% on CPAP, +7 liters. I checked it with my own pulse oximeter and it was 90%. VITAL SIGNS: Temperature is 36.7. EARS, NOSE, THROAT: Exam is unchanged. HEART: Heart rate is 73 per minute. The rhythm is irregular. CHEST: Auscultation of the lung ovalles reveals increased aeration, but he has wheeze and rhonchi bilaterally. These have increased compared with yesterday. ABDOMEN: Remains obese. EXTREMITIES: Reveal +2 edema bilaterally. It seems a little better than yesterday. He did diurese 2325 mL yesterday. ASSESSMENT: 1. Bilateral arm pain -- resolved. 2. Acute on chronic respiratory failure with hypoxia. 3. 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 4. Emphysema. 5. Obstructive sleep apnea. COMMENTS AND RECOMMENDATIONS: The patient's saturations have been low. He has been on his maintenance prednisone of 30 mg per day. Because he is more hypoxic and having more rhonchi and wheeze today, I am going to change to methylprednisolone. He will continue with his nebulizer treatments. The patient is being moved out of the intensive care unit. He is now a DNR.
[2017-07-03] MEDS: ACETAMINOPHEN 325 MG TAB PO PRN ×2 (12:54→19:07)
[2017-07-03] MEDS ORDERED: INSULIN HUMAN REGULAR PER UNIT 10 UNITS in SYRINGE 9.9 ML IV STA (16:38)
[2017-07-03] MEDS: RIVAROXABAN TAB 15 MG TAB PO SCH (17:08)
--- NOTE | 2017-07-03 17:17 | Cardiology Follow-Up ---
Subjective Date of Service: Jul 03, 2017. Pt evaluation today including: conversation w/ patient, physical exam, chart review, lab review, review of studies, review of inpatient medication list History of Present Illness Patient reports feeling well this morning. He does not describe overt dyspnea but is concerned about his oxygen requirements. He has not had dizziness or lightheadedness. He is tolerating a regular diet. No symptoms of chest or arm discomfort. Social History Smoking Status: Former Smoker History of Alcohol Use: No Review of Systems Respiratory: + cough, + dyspnea on exertion Per HPI Objective Vital Signs Past 12 Hours Date Time Temp Pulse Resp B/P (MAP) Pulse Ox O2 Delivery O2 Flow Rate FiO2 07/03/17 16:00 97 Non-Rebreather 15.0 07/03/17 15:34 84 20 93 15.0 07/03/17 15:01 36.3 60 20 115/60 (78) 99 Non-Rebreather 15.0 07/03/17 12:00 Non-Rebreather 15.0 07/03/17 11:49 36.7 95 20 116/72 (87) 88 Non-Rebreather 15.0 07/03/17 11:21 88 22 88 15.0 07/03/17 10:03 36.7 81 21 86 7.0 07/03/17 09:45 81 21 86 07/03/17 09:30 74 18 87 CPAP 7.0 07/03/17 09:15 76 20 82 07/03/17 09:02 74 19 133/51 (78) 88 07/03/17 09:00 73 19 87 07/03/17 08:45 96 18 82 07/03/17 08:30 80 84 07/03/17 08:15 76 84 07/03/17 08:02 36.7 86 19 99/45 (63) 86 Oxymask 15.0 07/03/17 08:00 Oxymask 15.0 07/03/17 08:00 91 20 85 07/03/17 07:45 84 19 85 07/03/17 07:39 84 21 136/69 (91) 86 07/03/17 07:30 80 25 75 07/03/17 07:19 83 22 95 13.0 07/03/17 07:15 84 95 07/03/17 07:01 83 136/69 (91) 99 07/03/17 07:00 82 97 07/03/17 06:01 83 21 129/64 (85) 90 10.0 Last Recorded Weight-Kilograms: 104.100 Intake & Output 8-Hour Column 07/03/17 07/04/17 07/04/17 16:00 00:00 08:00 Intake Total 1285 ml Output Total 860 ml Balance 425 ml 24-Hour Column 07/04/17 08:00 Intake Total 1285 ml Output Total 860 ml Balance 425 ml Physical Exam The patient is alert and oriented. Mood and affect appeared normal. He answered all questions appropriately. Using supplemental oxygen HEENT: Pupils are equal and reactive to light and accommodation. Extraocular movements are intact. The sclerae are anicteric. Neuro: Cranial nerves intact Neck: Redundant tissues, JVD cannot be appreciated. Lungs: Less crackles today and better air movement overall. Cardiac: Heart demonstrates an irregular rate and rhythm. Normal S1 and S2. No murmurs on examination. Pulses: He has a palpable right radial pulse. Left radial pulse is absent Extremities: There was no evidence of hypoperfusion. There is no cyanosis or clubbing. Moderate peripheral edema to the upper calf bilaterally Skin: I did not appreciate any rashes on examination today. Data Laboratory Results: Last 24 Hours Test 07/02/17 19:41 07/02/17 20:09 07/02/17 23:52 07/03/17 04:38 Troponin I 0.024 ng/ml Bedside Glucose 393 mg/dl 227 mg/dl 47 mg/dl Test 07/03/17 04:39 07/03/17 04:56 07/03/17 06:11 07/03/17 07:14 White Blood Count 11.47 K/uL Red Blood Count 3.52 M/uL Hemoglobin 11.0 g/dL Hematocrit 35.8 % Mean Corpuscular Volume 101.7 fL Mean Corpuscular Hemoglobin 31.3 pg Mean Corpuscular Hemoglobin Concent 30.7 g/dl Platelet Count 130 K/uL Mean Platelet Volume 9.3 fL Neutrophils (%) (Auto) 78.2 % Lymphocytes (%) (Auto) 11.0 % Monocytes (%) (Auto) 6.5 % Eosinophils (%) (Auto) 0.1 % Basophils (%) (Auto) 0.3 % Neutrophils # (Auto) 8.97 K/uL Lymphocytes # (Auto) 1.26 K/uL Monocytes # (Auto) 0.74 K/uL Eosinophils # (Auto) 0.01 K/uL Basophils # (Auto) 0.04 K/uL RDW Standard Deviation 72.8 fL RDW Coefficient of Variation 20.6 % Immature Granulocyte % (Auto) 3.9 % Immature Granulocyte # (Auto) 0.45 K/uL Nucleated RBC Absolute Count (auto) 0.93 K/uL Nucleated Red Blood Cells % 8.1 % Polychromasia 1+ Anisocytosis PRESENT Tear Drop Cells 1+ Sodium Level 142 mmol/L Potassium Level 3.8 mmol/L Chloride Level 105 mmol/L Carbon Dioxide Level 31 mmol/L Anion Gap 6.0 mmol/L Blood Urea Nitrogen 53 mg/dl Creatinine 1.45 mg/dl Est Creatinine Clear Calc Drug Dose 53.7 ml/min Estimated GFR () 56.5 Estimated GFR (Non- 48.8 BUN/Creatinine Ratio 36.8 Random Glucose 45 mg/dl Calcium Level 8.7 mg/dl Phosphorus Level 3.3 mg/dl Magnesium Level 2.5 mg/dl Total Bilirubin 1.1 mg/dl Direct Bilirubin 0.3 mg/dl Aspartate Amino Transf (AST/SGOT) 37 U/L Alanine Aminotransferase (ALT/SGPT) 90 U/L Alkaline Phosphatase 58 U/L Total Protein 5.9 gm/dl Albumin 3.0 gm/dl Bedside Glucose 161 mg/dl 91 mg/dl 57 mg/dl Test 07/03/17 07:36 07/03/17 11:48 07/03/17 16:21 Bedside Glucose 119 mg/dl 149 mg/dl 330 mg/dl Telemetry reviewed: Atrial flutter with controlled ventricular response Assessment and Plan 1. Bradycardia: Resolved. Unclear if this was related to higher doses of his metoprolol or diltiazem. Seems to be doing well on his old regimen currently. Blood pressure is also now normal. 2. Hypotension: Now normotensive. Likely combination of medicines and nitroglycerin as well as an element of hypovolemia. 3. Atrial flutter: Continued on Xarelto. Adequate rate control currently 4. Syncope: Patient did report an episode of syncope in the recent past. This was during exertion. I suspect he was quite hypoxic and likely passed out as result of his low oxygen levels. I do not believe this was likely a cardiac event. 5. Cor pulmonale: Continuing to monitor. May require diuretics on a p.r.n. basis. 6. Coronary artery disease: Biomarkers currently normal. No symptoms of angina or coronary insufficiency at this time.
[2017-07-03] MEDS ORDERED: INSULIN HUMAN REGULAR IV BOLUS 2.5 UNIT in SYRINGE 0 ML IV SCH (20:00)
[2017-07-03] MEDS: METHYLPREDNISOLONE IV 40 MG in SYRINGE 0 ML IV SCH (20:23)
[2017-07-03] MEDS: INSULIN REGULAR 250 UNITS in SODIUM CHLORIDE 0.9% 250ML 250 ML IV SCH ×3 (20:29→22:44)
[2017-07-03] MEDS ORDERED: COUGH DROP (SUGAR FREE) LOZ 24 LOZ/1 BOX LOZ ONE (20:41)
[2017-07-03] MEDS ORDERED: NURSING DECISION MEDICATION ORDER SCH (20:45)
[2017-07-03] MEDS ORDERED: COUGH DROP (SUGAR FREE) LOZ 24 LOZ/1 BOX LOZ PRN (20:45)
--- NOTE | 2017-07-03 23:23 | Progress Note ---
Subjective Date of Service: Jul 03, 2017. Subjective Patient reports feeling mildy better. However he states that he is requiring more oxygen. Is currenlt on 15 liters of oxygen now. Patient hwoever does not report having dyspnea. Problem List Medical Problems: (1) Acute on chronic renal failure Status: Acute (2) Acute respiratory failure with hypoxia Status: Acute (3) Acute respiratory failure with hypoxia Status: Acute (4) TYSHAWN (acute kidney injury) Status: Acute (5) Atrial flutter with rapid ventricular response Status: Acute (6) Bradycardia Status: Acute (7) Epistaxis Status: Acute (8) Epistaxis, recurrent Status: Acute (9) Hyperkalemia Status: Acute (10) Hypokalemia Status: Acute (11) Hypotension Status: Acute (12) Leukocytosis Status: Acute (13) NSTEMI (non-ST elevated myocardial infarction) Status: Acute (14) Oxygen dependent Status: Acute Review of Systems Constitutional: No fever, No chills Eyes: No worsening of vision ENT: + hearing loss Respiratory: + cough, + shortness of breath Cardiac: No chest pain Abdomen: No pain Musculoskeletal: No joint pain Neurologic: No memory loss Psychiatric: No depression symptoms Heme: No abnormal bleeding/bruising Endo: + fatigue All Other Systems: Reviewed and Negative Objective Vital Signs Date Time Temp Pulse Resp B/P (MAP) Pulse Ox O2 Delivery O2 Flow Rate FiO2 07/03/17 20:04 93 20 96 15.0 07/03/17 20:00 Non-Rebreather 15.0 07/03/17 19:15 36.3 86 20 134/61 (85) 91 Non-Rebreather 15.0 07/03/17 16:00 97 Non-Rebreather 15.0 07/03/17 15:34 84 20 93 15.0 07/03/17 15:01 36.3 60 20 115/60 (78) 99 Non-Rebreather 15.0 07/03/17 12:00 Non-Rebreather 15.0 07/03/17 11:49 36.7 95 20 116/72 (87) 88 Non-Rebreather 15.0 07/03/17 11:21 88 22 88 15.0 07/03/17 10:03 36.7 81 21 86 7.0 07/03/17 09:45 81 21 86 07/03/17 09:30 74 18 87 CPAP 7.0 07/03/17 09:15 76 20 82 07/03/17 09:02 74 19 133/51 (78) 88 07/03/17 09:00 73 19 87 07/03/17 08:45 96 18 82 07/03/17 08:30 80 84 07/03/17 08:15 76 84 07/03/17 08:02 36.7 86 19 99/45 (63) 86 Oxymask 15.0 07/03/17 08:00 Oxymask 15.0 07/03/17 08:00 91 20 85 07/03/17 07:45 84 19 85 07/03/17 07:39 84 21 136/69 (91) 86 07/03/17 07:30 80 25 75 07/03/17 07:19 83 22 95 13.0 07/03/17 07:15 84 95 07/03/17 07:01 83 136/69 (91) 99 07/03/17 07:00 82 97 07/03/17 06:01 83 21 129/64 (85) 90 10.0 07/03/17 04:01 36.4 82 14 124/61 (82) 92 CPAP 7.0 07/03/17 04:00 CPAP 7.0 07/03/17 03:01 80 16 125/81 (96) 94 CPAP 7.0 07/03/17 02:01 79 20 127/63 (84) 97 CPAP 7.0 07/03/17 00:01 CPAP 7.0 07/03/17 00:01 36.5 79 144/67 (92) 93 CPAP 7.0 Physical Exam Comments: General Appearance: WD/WN, no apparent distress, + obese Head: normocephalic Eyes: normal inspection ENT: normal ENT inspection, pharynx normal Neck: supple, ) Respiratory/Chest: + pertinent finding (Poor air entry BL -bibaislar crackles) Cardiovascular: + irregularly irregular Abdomen/GI: normal bowel sounds, non tender, soft Back: normal inspection, no CVA tenderness Extremities/Musculoskelatal: + pertinent finding (pedal edema) Neurologic/Psych: gunstock repairer II-XII nml as tested, no motor/sensory deficits, alert, oriented x 3 Skin: + pallor Laboratory Results Last 24 Hours Test 07/02/17 23:52 07/03/17 04:38 07/03/17 04:39 07/03/17 04:56 Bedside Glucose 227 mg/dl 47 mg/dl 161 mg/dl White Blood Count 11.47 K/uL Red Blood Count 3.52 M/uL Hemoglobin 11.0 g/dL Hematocrit 35.8 % Mean Corpuscular Volume 101.7 fL Mean Corpuscular Hemoglobin 31.3 pg Mean Corpuscular Hemoglobin Concent 30.7 g/dl Platelet Count 130 K/uL Mean Platelet Volume 9.3 fL Neutrophils (%) (Auto) 78.2 % Lymphocytes (%) (Auto) 11.0 % Monocytes (%) (Auto) 6.5 % Eosinophils (%) (Auto) 0.1 % Basophils (%) (Auto) 0.3 % Neutrophils # (Auto) 8.97 K/uL Lymphocytes # (Auto) 1.26 K/uL Monocytes # (Auto) 0.74 K/uL Eosinophils # (Auto) 0.01 K/uL Basophils # (Auto) 0.04 K/uL RDW Standard Deviation 72.8 fL RDW Coefficient of Variation 20.6 % Immature Granulocyte % (Auto) 3.9 % Immature Granulocyte # (Auto) 0.45 K/uL Nucleated RBC Absolute Count (auto) 0.93 K/uL Nucleated Red Blood Cells % 8.1 % Polychromasia 1+ Anisocytosis PRESENT Tear Drop Cells 1+ Sodium Level 142 mmol/L Potassium Level 3.8 mmol/L Chloride Level 105 mmol/L Carbon Dioxide Level 31 mmol/L Anion Gap 6.0 mmol/L Blood Urea Nitrogen 53 mg/dl Creatinine 1.45 mg/dl Est Creatinine Clear Calc Drug Dose 53.7 ml/min Estimated GFR () 56.5 Estimated GFR (Non- 48.8 BUN/Creatinine Ratio 36.8 Random Glucose 45 mg/dl Calcium Level 8.7 mg/dl Phosphorus Level 3.3 mg/dl Magnesium Level 2.5 mg/dl Total Bilirubin 1.1 mg/dl Direct Bilirubin 0.3 mg/dl Aspartate Amino Transf (AST/SGOT) 37 U/L Alanine Aminotransferase (ALT/SGPT) 90 U/L Alkaline Phosphatase 58 U/L Total Protein 5.9 gm/dl Albumin 3.0 gm/dl Test 07/03/17 06:11 07/03/17 07:14 07/03/17 07:36 07/03/17 11:48 Bedside Glucose 91 mg/dl 57 mg/dl 119 mg/dl 149 mg/dl Test 07/03/17 16:21 07/03/17 17:58 07/03/17 18:45 07/03/17 20:17 Bedside Glucose 330 mg/dl 322 mg/dl 330 mg/dl 352 mg/dl Test 07/03/17 21:35 Bedside Glucose 305 mg/dl Assessment and Plan 67 y/o M Hx CAD, chronic AF, diastolic CHF, CKD III, DM II, end stage pulmonary fibrosis. Pt initially presented with BL arm pain as he thought this may be cardiac-related. He had self administered 3 NTG prior to arrival which partially alleviated his symptoms. On arrival to the ER he was noted to be hypotensive and bradycardic. Initial SBP was in the 70s and his HR was high 30s - low 40s. He did not c/o CP directly and denies SOB above baseline. He does state that he felt he may be developing a sinus infection. Initial labs were notable for worsening renal function with hyperkalemia. The pt responded well to a fluid bolus in the ER in terms of his BP. He received 2 doses of Atropine and his HR has remained in the mid 40s. It is noted that he takes both Diltiazem and a B zachary daily. Now in telemetry Acute on chronic hypercarbic hypoxic respiratory failure: Given sputum quality changes started on Omnicef for 7 days treatment, as well as a Zithromax. COPD severe: Patient wa explained of the severity of this and was asked if he is interested in hospice. Patient states no. continue oxygen therapy and CPAP at night BL arm pain - possibly cardiac due to demand which would be related to a low HR and hypotension - trop is elevated but is below baseline. Peaked at .05 He has a history of CAD and is taking ASA. We are forced to hold his B zachary and Imdur at present. He is statin-intolerant. resolved Bradycardia now in a flutter- will resume his bb and ccb. no need for pacemaker at this time Heart rate s better controlled Hypotension - responded to IVF - On admission, there was some concern for Tamponade based on EKG voltage and CXR , however, there did not appear to be significant fluid surrounding his heart on a preliminary echo. An additional is ordered for AM. His BP has normalized at the time of admission. There is no evidence of sepsis. Resolved Acute on chronic RF with hyperK - Improving. will monitor. diuretics and ARB held. Pulmonary fibrosis - denies SOB above baseline - cont current inhalers - 6-8 L 02 and Diastolic CHF - volume status is difficult to assess clinically Patient does have some sign of pedal edema. will monitor. Flutter - currently bradycardic - anticoagulated with Xarelto. Rate meds held due to above. Full code - Xarelto prophylaxis
[2017-07-04] VITALS (10 sets, daily range): BP systolic 98–123; BP diastolic 52–75; PULSE 85–100; TEMP 36.3–37.1; O2SAT 84–99
[2017-07-04 06:16] LABS: HEMATOCRIT 33.2 % (42-52); MEAN CELL VOLUME 103.8 fL (80-100); MEAN CORPUSCULAR HEMOGLOBIN 31.3 pg (25-34); MEAN CORPUSCULAR HGB CONC 30.1 g/dl (32-36); NUCLEATED RED BLOOD CELL ABS 0.24 K/uL (0-0); RED CELL DISTRIBUTION WIDTH CV 20.7 % (11.5-14.5); RED CELL DISTRIBUTION WIDTH SD 76.8 fL (36.4-46.3); WHITE BLOOD COUNT 6.86 K/uL (4.8-10.8)
[2017-07-04 06:51] LABS: ALBUMIN 2.8 gm/dl (3.4-5.0); CALCIUM 8.4 mg/dl (8.5-10.1); CREATININE 1.17 mg/dl (0.60-1.40); PHOSPHORUS 2.5 mg/dl (2.5-4.9); POTASSIUM 4.1 mmol/L (3.5-5.1); TOTAL PROTEIN 5.5 gm/dl (6.4-8.2)
[2017-07-04 06:58] LABS: BASO % 0.3 %; BASO ABS # 0.02 K/uL (0-0.2); IG# 0.18 K/uL (0.00-0.02); LYMPH % 4.1 %; LYMPH ABS # 0.28 K/uL (1.2-3.4); MEAN PLATELET VOLUME 9.4 fL (7.4-10.4); MONO % 3.6 %; MONO ABS # 0.25 K/uL (0.11-0.59); NEUT % 89.4 %; NEUT ABS # 6.13 K/uL (1.4-6.5); PLATELET COUNT 97 K/uL (130-400)
[2017-07-04] MEDS: ALBUT/IPRATROP 3MG/0.5MG NEB 3 ML VIAL INH SCH ×4 (07:18→19:23)
[2017-07-04] MEDS: INSULIN REGULAR 250 UNITS in SODIUM CHLORIDE 0.9% 250ML 250 ML IV SCH ×8 (07:46→23:25)
[2017-07-04] MEDS: TAMSULOSIN HCL 0.4 MG CAP PO SCH (09:30)
[2017-07-04] MEDS: LOSARTAN POTASSIUM 25 MG TAB PO SCH (09:30)
[2017-07-04] MEDS: METHYLPREDNISOLONE IV 40 MG in SYRINGE 0 ML IV SCH ×2 (09:30→20:14)
[2017-07-04] MEDS: DILTIAZEM HCL 120 MG ER CAP PO SCH (09:30)
[2017-07-04] MEDS: ASPIRIN 81 MG ECTAB PO SCH (09:30)
[2017-07-04] MEDS: MAGNESIUM OXIDE 400 MG TAB PO SCH (09:31)
[2017-07-04] MEDS: GABAPENTIN 300 MG CAP PO SCH ×3 (09:31→20:15)
[2017-07-04] MEDS: AZITHROMYCIN 250 MG TAB PO SCH (09:31)
[2017-07-04] MEDS: METOPROLOL SUCC 50MG EXT REL TAB PO SCH ×2 (09:31→20:15)
[2017-07-04] MEDS: PANTOprazole SOD 40 MG TAB PO SCH (09:31)
[2017-07-04] MEDS: CEFDINIR 300 MG CAP PO SCH ×2 (09:31→20:15)
[2017-07-04] MEDS: INSULIN ASPART 100 UNITS/ML 3 ML PEN SC SCH ×4 (09:38→20:57)
--- NOTE | 2017-07-04 12:07 | PULMONARY PROGRESS NOTE ---
DATE: 07/04/2017 TIME: 11:10 a.m. SUBJECTIVE: The patient was quite anxious this morning. He was very upset. Approximately 8:00 a.m., his CPAP tubing became disconnected. He states he had the CPAP located on his left side. He states he usually sleeps on his right side. The tubing came apart. He became panicky. The patient was yelling for help. He claims that it took 12 minutes for anyone to come. Nursing staff tells me that they estimate it was 1-2 minutes. He is now on a nonrebreather again. He denies any significant shortness of breath. He states he did expectorate a sample. His sputum is reporting gram-negative bacilli. Exact identification is to follow. OBJECTIVE: GENERAL: The patient appeared comfortable. Temperature is 36.7. He was awake and alert. He complains of some sore mouth. No abnormality was noted on exam. VITAL SIGNS: Heart rate is 88 per minute. The rhythm is irregular. Blood pressure 112/72. CHEST: Auscultation of the lung ovalles reveals he no longer has the wheeze and rhonchi heard yesterday. This probably resolved because of the nebulizer treatments and they changed to IV steroids. The breath sounds are diminished. His saturation at present taken by myself was 97% on a nonrebreather. EXTREMITIES: Again reveal +2 edema of both lower extremities. For the past 2 days, he has diuresed over 2300 mL both days. LABORATORY DATA: White count today is 6.86. Hemoglobin is 10. Platelets are 97,000. This is decreased from 130,000. However, it had been as low as 108,000 earlier. Differential shows 89.4 neutrophils. Electrolytes show sodium 141, potassium 4.1, chloride 106, bicarbonate 30. BUN is 35 with a creatinine of 1.17. Magnesium is elevated at 2.7. Calcium is decreased slightly to 8.4. Albumin 2.8. IMPRESSION: 1. Bilateral arm pain - resolved. 2. Chronic respiratory failure with hypoxia - exacerbated by gram-negative bronchitis. 3. Nonspecific interstitial pneumonitis. 4. Obstructive sleep apnea. 5. Emphysema. COMMENTS AND RECOMMENDATIONS: We are going to change back to an OxyMask. Our goal is to keep saturations above 85% if possible. We will need to await the results of the actual sputum culture. This will determine if the change in antibiotics is needed. He does have listed allergies to number of medications. As noted by Dr. Arriaga, the patient may periodically need a low-dose diuretic. However, his kidney function has been improving substantially compared with when he was first admitted. He was getting a significant dose of furosemide previously, up to 80 mg b.i.d. It appears that he is not getting any diuretic at present. Consideration might be given to a 20 mg daily dose each which would represent a significant decrease from before. He would need close renal followup. I will defer this to the hospitalist and cardiology teams. Unfortunately, the patient's pulmonary prognosis is very poor. I will change him back to oral prednisone starting tomorrow. He may be able to be discharged in the next 24-48 hours in part depending upon the sputum cultures and their sensitivities.
--- NOTE | 2017-07-04 12:22 | Pharmacy Progress Note ---
Glycemic Control Progress Note Date of Service Jul 04, 2017. Scope Glycemic Pharmacist consulted for glycemic control to write orders per [facility] inpatient glycemic control protocol. Objective Accuchecks BSG (last 24hrs): Test 07/03/17 16:21 07/03/17 17:58 07/03/17 18:45 07/03/17 20:17 Bedside Glucose 330 mg/dl (70-99) 322 mg/dl (70-99) 330 mg/dl (70-99) 352 mg/dl (70-99) Test 07/03/17 21:35 07/03/17 22:34 07/03/17 23:29 07/04/17 00:30 Bedside Glucose 305 mg/dl (70-99) 295 mg/dl (70-99) 268 mg/dl (70-99) 238 mg/dl (70-99) Test 07/04/17 01:30 07/04/17 02:34 07/04/17 03:36 07/04/17 04:33 Bedside Glucose 235 mg/dl (70-99) 218 mg/dl (70-99) 213 mg/dl (70-99) 184 mg/dl (70-99) Test 07/04/17 05:29 07/04/17 05:51 07/04/17 06:29 07/04/17 07:30 Bedside Glucose 160 mg/dl (70-99) 144 mg/dl (70-99) 137 mg/dl (70-99) Random Glucose 155 mg/dl (70-99) Test 07/04/17 08:32 07/04/17 09:31 07/04/17 11:15 07/04/17 11:33 Bedside Glucose 138 mg/dl (70-99) 228 mg/dl (70-99) 176 mg/dl (70-99) 155 mg/dl (70-99) HbA1c: Test 07/02/17 12:22 Hemoglobin A1c 4.8 % (4.5-5.6) Recent Pertinent Medications Outpatient Anti-diabetic Regimen: * Novolog 70/30, 70 units qAM, 48 units qPM * Novolog 10 units BID * (prednisone 30 mg po daily) * A1c = 4.8 % on 07/02/17 (trended down from 5.5% in January 2017) The patient is currently receiving: * Insulin drip @ 4.2 units/hr Risk Factors for Insulin Resistance: * Steroids: steroids increased yesterday to methylprednisone 40 mg IV q12 - ordered to d/c tonight and then resume prednisone 30 mg po daily (home dose) tomorrow AM * Infection: questionable pulmonary source - on cefdinir, azithromycin * Diet: T2DM Assessment & Plan ASSESSMENT: * Please reference glycemic note from 07/03 for more extensive background. In short: * Patient at risk for both severe hypoglycemia and hyperglycemia * Insulin drip initiated yesterday for BSG's persistently >300 mg/dL * Agree with insulin drip - recommend continuing while patient on methylprednisolone IV BID * Likely will attempt transition to SC basal/bolus tomorrow AM, utilizing NPH as basal insulin * Patient will require an AM transition once steroids tapered to prednisone qAM as NPH must be administered in AM only (so duration does not last overnight which may cause severe AM hypoglycemia) * OK to broaden goal range on insulin drip to minimize requirement for more frequent interventions * Will not utilize Novolog PCHS per insulin drip calculator as this patient requires more CHO coverage than calculator will specify. Will therefore enter order for CHO ratio based on insulin drip rate at pre-specified ratio PLAN FOR INPATIENT GLYCEMIC CONTROL: * Continue insulin drip * Severe stress protocol * Broaden goal range 120-180 mg/dL * Do not attempt transition later today as basal insulin/NPH should be administered in AM only * Carb coverage with NOVOLOG PCHS - ratio to be based on insulin drip rate as follows: * Insulin drip rate 2.0 units/hr or less: 1 unit per 4 grams CHO consumed * Insulin drip rate 2.1 units/hr or more: 1 unit per 3 grams CHO consumed * Please note that the plan above was derived based on current level of insulin resistance and hospital stress. These recommendations are appropriate for inpatient admission only. Plan of care upon discharge will need to be reassessed to avoid potential outpatient hypo/hyperglycemia. Thank you.
[2017-07-04] MEDS: RIVAROXABAN TAB 15 MG TAB PO SCH (17:12)
[2017-07-04] MEDS ORDERED: FUROSEMIDE INJ 40 MG in SYRINGE 0 ML IV ONE (17:15)
--- NOTE | 2017-07-04 17:58 | Cardiology Follow-Up ---
Subjective Date of Service: Jul 04, 2017. Pt evaluation today including: conversation w/ patient, physical exam, chart review, lab review, review of studies, review of inpatient medication list History of Present Illness This evening the patient feels fairly comfortable. He states that he is concerned about his oxygenation but does not report overt breathing difficulty at rest. He has not sensed symptoms of chest pain. He has been minimally ambulatory. Did have some difficulty this morning with breathing when his CPAP became disconnected. Social History Smoking Status: Former Smoker History of Alcohol Use: No Review of Systems Respiratory: + cough, + dyspnea on exertion Per HPI Objective Vital Signs Past 12 Hours Date Time Temp Pulse Resp B/P (MAP) Pulse Ox O2 Delivery O2 Flow Rate FiO2 07/04/17 16:00 Oxymask 15.0 07/04/17 14:56 37.1 98 24 101/61 (74) 91 Oxymask 15.0 07/04/17 14:56 94 22 87 Mask 15.0 07/04/17 12:00 Oxymask 15.0 07/04/17 11:36 36.5 88 24 121/75 (90) 88 Oxymask 15.0 07/04/17 11:22 92 22 85 Mask 15.0 07/04/17 08:00 CPAP 7.0 07/04/17 07:21 36.7 88 20 112/72 (85) 88 CPAP 7.0 07/04/17 07:18 92 20 95 BiPAP/CPAP 12.0 Last Recorded Weight-Kilograms: 104.100 Intake & Output 8-Hour Column 07/04/17 07/04/17 07/05/17 15:59 23:59 07:59 Intake Total 728 ml Output Total 250 ml Balance 478 ml 24-Hour Column 07/05/17 07:59 Intake Total 728 ml Output Total 250 ml Balance 478 ml Physical Exam The patient is alert and oriented. Mood and affect appeared normal. He answered all questions appropriately. Using supplemental oxygen HEENT: Pupils are equal and reactive to light and accommodation. Extraocular movements are intact. The sclerae are anicteric. Neuro: Cranial nerves intact Neck: Redundant tissues, JVD cannot be appreciated. Lungs: Less crackles today and better air movement overall. Cardiac: Heart demonstrates an irregular rate and rhythm. Normal S1 and S2. No murmurs on examination. Pulses: He has a palpable right radial pulse. Left radial pulse is absent Extremities: There was no evidence of hypoperfusion. There is no cyanosis or clubbing. Moderate peripheral edema to the upper calf bilaterally Skin: I did not appreciate any rashes on examination today. Data Laboratory Results: Last 24 Hours Test 07/03/17 17:58 07/03/17 18:45 07/03/17 20:17 07/03/17 21:35 Bedside Glucose 322 mg/dl 330 mg/dl 352 mg/dl 305 mg/dl Test 07/03/17 22:34 07/03/17 23:29 07/04/17 00:30 07/04/17 01:30 Bedside Glucose 295 mg/dl 268 mg/dl 238 mg/dl 235 mg/dl Test 07/04/17 02:34 07/04/17 03:36 07/04/17 04:33 07/04/17 05:29 Bedside Glucose 218 mg/dl 213 mg/dl 184 mg/dl 160 mg/dl Test 07/04/17 05:51 07/04/17 06:29 07/04/17 07:30 07/04/17 08:32 White Blood Count 6.86 K/uL Red Blood Count 3.20 M/uL Hemoglobin 10.0 g/dL Hematocrit 33.2 % Mean Corpuscular Volume 103.8 fL Mean Corpuscular Hemoglobin 31.3 pg Mean Corpuscular Hemoglobin Concent 30.1 g/dl Platelet Count 97 K/uL Mean Platelet Volume 9.4 fL Neutrophils (%) (Auto) 89.4 % Lymphocytes (%) (Auto) 4.1 % Monocytes (%) (Auto) 3.6 % Eosinophils (%) (Auto) 0.0 % Basophils (%) (Auto) 0.3 % Neutrophils # (Auto) 6.13 K/uL Lymphocytes # (Auto) 0.28 K/uL Monocytes # (Auto) 0.25 K/uL Eosinophils # (Auto) 0.00 K/uL Basophils # (Auto) 0.02 K/uL RDW Standard Deviation 76.8 fL RDW Coefficient of Variation 20.7 % Immature Granulocyte % (Auto) 2.6 % Immature Granulocyte # (Auto) 0.18 K/uL Nucleated RBC Absolute Count (auto) 0.24 K/uL Nucleated Red Blood Cells % 3.5 % Platelet Estimate DECREASED Anisocytosis PRESENT Macrocytosis PRESENT Ovalocytes 1+ Sodium Level 141 mmol/L Potassium Level 4.1 mmol/L Chloride Level 106 mmol/L Carbon Dioxide Level 30 mmol/L Anion Gap 5.0 mmol/L Blood Urea Nitrogen 35 mg/dl Creatinine 1.17 mg/dl Est Creatinine Clear Calc Drug Dose 66.2 ml/min Estimated GFR () 73.3 Estimated GFR (Non- 63.2 BUN/Creatinine Ratio 29.5 Random Glucose 155 mg/dl Calcium Level 8.4 mg/dl Phosphorus Level 2.5 mg/dl Magnesium Level 2.7 mg/dl Total Bilirubin 1.1 mg/dl Direct Bilirubin 0.2 mg/dl Aspartate Amino Transf (AST/SGOT) 29 U/L Alanine Aminotransferase (ALT/SGPT) 68 U/L Alkaline Phosphatase 47 U/L Total Protein 5.5 gm/dl Albumin 2.8 gm/dl Bedside Glucose 144 mg/dl 137 mg/dl 138 mg/dl Test 07/04/17 09:31 07/04/17 11:15 07/04/17 11:33 07/04/17 12:15 Bedside Glucose 228 mg/dl 176 mg/dl 155 mg/dl 135 mg/dl Test 07/04/17 13:41 07/04/17 14:44 07/04/17 15:46 07/04/17 16:54 Bedside Glucose 174 mg/dl 159 mg/dl 128 mg/dl 135 mg/dl Telemetry reviewed: Higher ventricular rates this morning. Improved this afternoon. Assessment and Plan 1. Bradycardia: Resolved. Unclear if this was related to higher doses of his metoprolol or diltiazem. Seems to be doing well on his old regimen currently. Blood pressure is also now normal. 2. Hypotension: Now normotensive. Likely combination of medicines and nitroglycerin as well as an element of hypovolemia. 3. Atrial flutter: Continued on Xarelto. His rate control was slightly worse this morning but this was after he disconnected his BiPAP. This afternoon things are much better. I think I will continue his current rate control regimen. 4. Syncope: Patient did report an episode of syncope in the recent past. This was during exertion. I suspect he was quite hypoxic and likely passed out as result of his low oxygen levels. I do not believe this was likely a cardiac event. 5. Cor pulmonale: Continuing to monitor. Patient was on Lasix 40 mg twice daily as an outpatient. I think this can be safely resume now that his renal function has returned to normal and he is normotensive. 6. Coronary artery disease: Biomarkers currently normal. No symptoms of angina or coronary insufficiency at this time.
--- NOTE | 2017-07-04 23:54 | Progress Note ---
Subjective Date of Service: Jul 04, 2017. Subjective 67n yo male reports feeling well, except for need of increased oxygen He states he normally is on 10 liters oxymask at home. Here he is on 15 liters. Problem List Medical Problems: (1) Acute on chronic renal failure Status: Acute (2) Acute respiratory failure with hypoxia Status: Acute (3) Acute respiratory failure with hypoxia Status: Acute (4) TYSHAWN (acute kidney injury) Status: Acute (5) Atrial flutter with rapid ventricular response Status: Acute (6) Bradycardia Status: Acute (7) Epistaxis Status: Acute (8) Epistaxis, recurrent Status: Acute (9) Hyperkalemia Status: Acute (10) Hypokalemia Status: Acute (11) Hypotension Status: Acute (12) Leukocytosis Status: Acute (13) NSTEMI (non-ST elevated myocardial infarction) Status: Acute (14) Oxygen dependent Status: Acute Review of Systems Constitutional: No fever Eyes: No worsening of vision ENT: + hearing loss Respiratory: + cough Cardiac: No chest pain Abdomen: No pain Male : No dysuria Psychiatric: No depression symptoms Heme: No abnormal bleeding/bruising Endo: + fatigue Skin: No rash All Other Systems: Reviewed and Negative Medications Current Inpatient Medications Medications (Trade) Dose Ordered Sig/Zeina Route Start Time Stop Time Status Last Admin Dose Admin Acetaminophen (Tylenol Tab) 650 mg Q4H PRN PO 07/01/17 23:15 07/31/17 23:14 07/03/17 19:07 650 MG Lorazepam (Ativan Tab) 1 mg Q6H PRN PO 07/01/17 23:15 07/31/17 23:14 Ondansetron HCl (Zofran Inj) 4 mg Q6H PRN IV 07/01/17 23:15 07/31/17 23:14 Morphine Sulfate (MoRPHine SULFATE INJ) 4 mg Q2H PRN IV 07/01/17 23:15 07/15/17 23:14 Albuterol (Ventolin Hfa Inhaler) 2 puffs Q4H PRN INH 07/01/17 23:30 07/31/17 23:29 Aspirin (Ecotrin Tab) 81 mg DAILY PO 07/02/17 09:00 08/01/17 08:59 07/04/17 09:30 81 MG Gabapentin (Neurontin Cap) 600 mg TID PO 07/02/17 09:00 08/01/17 08:59 07/04/17 20:15 600 MG Magnesium Oxide (Mag-Ox Tab) 800 mg QAM PO 07/02/17 09:00 08/01/17 08:59 07/04/17 09:31 800 MG Rivaroxaban (Xarelto Tab) 15 mg QDD PO 07/02/17 16:30 08/01/17 16:29 07/04/17 17:12 15 MG Tamsulosin HCl (Flomax Cap) 0.4 mg DAILY PO 07/02/17 09:00 08/01/17 08:59 07/04/17 09:30 0.4 MG Pantoprazole Sodium (Protonix Tab) 40 mg QAM PO 07/02/17 09:00 08/01/17 08:59 07/04/17 09:31 40 MG Miscellaneous Information (Consult Glycemic Management Pharmacy) 1 ea UD PRN N/A 07/02/17 10:30 08/01/17 10:29 Diltiazem HCl (Dilacor Xr Cap) 240 mg QAM PO 07/03/17 09:00 08/02/17 08:59 07/04/17 09:30 240 MG Metoprolol Succinate (Toprol Xl Tab) 100 mg BID PO 07/02/17 21:00 08/01/17 20:59 07/04/17 20:15 100 MG Albuterol/ Ipratropium (Duoneb) 3 ml QIDR INH 07/02/17 16:00 08/01/17 15:59 07/04/17 19:23 3 ML Cefdinir (Omnicef Cap) 300 mg BID PO 07/02/17 21:00 07/09/17 20:59 07/04/17 20:15 300 MG Azithromycin (Zithromax Tab) 500 mg QAM PO 07/03/17 09:00 07/10/17 08:59 07/04/17 09:31 500 MG Albuterol/ Ipratropium (Duoneb) 3 ml Q2H PRN INH 07/02/17 13:30 08/01/17 13:29 Glucose (Glucose 40% Gel) 15-30 GRAMS 15 GRAMS... UD PRN PO 07/03/17 07:30 5/28/18 07:29 Glucose (Glucose Chew Tab) 4-8 Tablets 4 Tabl... UD PRN PO 07/03/17 07:30 08/02/17 07:29 Dextrose (Dextrose 50% 50ML Syringe) 25-50ML OF 50% DW IV FOR... UD PRN IV 07/03/17 07:30 08/02/17 07:29 Glucagon (Glucagon Inj) 1 mg UD PRN SQ 07/03/17 07:30 08/02/17 07:29 Losartan Potassium (coZAAR TAB) 25 mg QAM PO 07/03/17 09:00 08/02/17 08:59 07/04/17 09:30 25 MG Insulin Human Regular 250 units/ Sodium Chloride 252.5 ml @ 0 mls/hr Q24H IV 07/03/17 20:00 08/02/17 19:59 07/05/17 06:43 2.2 MLS/HR Menthol (Nice Titi) 1 titi PRN PRN TITI 07/03/17 20:45 08/02/17 20:44 Insulin Aspart (novoLOG ASPART) SLIDING SCALE G... ACHS SC 07/04/17 11:00 08/03/17 10:59 07/04/17 17:19 16 UNITS Prednisone (PredniSONE TAB) 30 mg DAILY PO 07/05/17 09:00 08/04/17 08:59 Furosemide (Lasix Tab) 40 mg BID17 PO 07/05/17 09:00 08/04/17 08:59 Objective Vital Signs Date Time Temp Pulse Resp B/P (MAP) Pulse Ox O2 Delivery O2 Flow Rate FiO2 07/04/17 23:26 36.3 94 18 98/52 (67) 94 BiPAP 15.0 07/04/17 20:00 Oxymask 15.0 07/04/17 19:48 36.6 85 18 123/61 (81) 99 Nasal Cannula 15.0 07/04/17 19:25 100 24 84 Mask 15.0 07/04/17 16:00 Oxymask 15.0 07/04/17 14:56 37.1 98 24 101/61 (74) 91 Oxymask 15.0 07/04/17 14:56 94 22 87 Mask 15.0 07/04/17 12:00 Oxymask 15.0 07/04/17 11:36 36.5 88 24 121/75 (90) 88 Oxymask 15.0 07/04/17 11:22 92 22 85 Mask 15.0 07/04/17 08:00 CPAP 7.0 07/04/17 07:21 36.7 88 20 112/72 (85) 88 CPAP 7.0 07/04/17 07:18 92 20 95 BiPAP/CPAP 12.0 07/04/17 04:09 36.7 97 20 96 CPAP 07/04/17 04:00 CPAP 12.0 07/04/17 02:36 97 CPAP 12.0 07/04/17 00:05 CPAP 12.0 Physical Exam Comments: Overweight, middle-aged male no acute distress General Appearance: WD/WN, no apparent distress, + obese Head: normocephalic Eyes: normal inspection ENT: normal ENT inspection, pharynx normal Neck: supple, ) Respiratory/Chest: + pertinent finding (Poor air entry BL -bibaislar crackles) Cardiovascular: + irregularly irregular Abdomen/GI: normal bowel sounds, non tender, soft Back: normal inspection, no CVA tenderness Extremities/Musculoskelatal: + pertinent finding (pedal edema) Neurologic/Psych: valve tester II-XII nml as tested, no motor/sensory deficits, alert, oriented x 3 Laboratory Results Last 24 Hours Test 07/04/17 00:30 07/04/17 01:30 07/04/17 02:34 07/04/17 03:36 Bedside Glucose 238 mg/dl 235 mg/dl 218 mg/dl 213 mg/dl Test 07/04/17 04:33 07/04/17 05:29 07/04/17 05:51 07/04/17 06:29 Bedside Glucose 184 mg/dl 160 mg/dl 144 mg/dl White Blood Count 6.86 K/uL Red Blood Count 3.20 M/uL Hemoglobin 10.0 g/dL Hematocrit 33.2 % Mean Corpuscular Volume 103.8 fL Mean Corpuscular Hemoglobin 31.3 pg Mean Corpuscular Hemoglobin Concent 30.1 g/dl Platelet Count 97 K/uL Mean Platelet Volume 9.4 fL Neutrophils (%) (Auto) 89.4 % Lymphocytes (%) (Auto) 4.1 % Monocytes (%) (Auto) 3.6 % Eosinophils (%) (Auto) 0.0 % Basophils (%) (Auto) 0.3 % Neutrophils # (Auto) 6.13 K/uL Lymphocytes # (Auto) 0.28 K/uL Monocytes # (Auto) 0.25 K/uL Eosinophils # (Auto) 0.00 K/uL Basophils # (Auto) 0.02 K/uL RDW Standard Deviation 76.8 fL RDW Coefficient of Variation 20.7 % Immature Granulocyte % (Auto) 2.6 % Immature Granulocyte # (Auto) 0.18 K/uL Nucleated RBC Absolute Count (auto) 0.24 K/uL Nucleated Red Blood Cells % 3.5 % Platelet Estimate DECREASED Anisocytosis PRESENT Macrocytosis PRESENT Ovalocytes 1+ Sodium Level 141 mmol/L Potassium Level 4.1 mmol/L Chloride Level 106 mmol/L Carbon Dioxide Level 30 mmol/L Anion Gap 5.0 mmol/L Blood Urea Nitrogen 35 mg/dl Creatinine 1.17 mg/dl Est Creatinine Clear Calc Drug Dose 66.2 ml/min Estimated GFR () 73.3 Estimated GFR (Non- 63.2 BUN/Creatinine Ratio 29.5 Random Glucose 155 mg/dl Calcium Level 8.4 mg/dl Phosphorus Level 2.5 mg/dl Magnesium Level 2.7 mg/dl Total Bilirubin 1.1 mg/dl Direct Bilirubin 0.2 mg/dl Aspartate Amino Transf (AST/SGOT) 29 U/L Alanine Aminotransferase (ALT/SGPT) 68 U/L Alkaline Phosphatase 47 U/L Total Protein 5.5 gm/dl Albumin 2.8 gm/dl Test 07/04/17 07:30 07/04/17 08:32 07/04/17 09:31 07/04/17 11:15 Bedside Glucose 137 mg/dl 138 mg/dl 228 mg/dl 176 mg/dl Test 07/04/17 11:33 07/04/17 12:15 07/04/17 13:41 07/04/17 14:44 Bedside Glucose 155 mg/dl 135 mg/dl 174 mg/dl 159 mg/dl Test 07/04/17 15:46 07/04/17 16:54 07/04/17 18:04 07/04/17 19:03 Bedside Glucose 128 mg/dl 135 mg/dl 164 mg/dl 199 mg/dl Test 07/04/17 20:08 07/04/17 21:13 07/04/17 22:20 07/04/17 23:18 Bedside Glucose 231 mg/dl 162 mg/dl 155 mg/dl 155 mg/dl Assessment and Plan 67 y/o M Hx CAD, chronic AF, diastolic CHF, CKD III, DM II, end stage pulmonary fibrosis. Pt initially presented with BL arm pain as he thought this may be cardiac-related. He had self administered 3 NTG prior to arrival which partially alleviated his symptoms. On arrival to the ER he was noted to be hypotensive and bradycardic. Initial SBP was in the 70s and his HR was high 30s - low 40s. He did not c/o CP directly and denies SOB above baseline. He does state that he felt he may be developing a sinus infection. Initial labs were notable for worsening renal function with hyperkalemia. The pt responded well to a fluid bolus in the ER in terms of his BP. He received 2 doses of Atropine and his HR has remained in the mid 40s. It is noted that he takes both Diltiazem and a B zachary daily. Now in telemetry Acute on chronic hypercarbic hypoxic respiratory failure: Given sputum quality changes started on Omnicef for 7 days treatment, as well as a Zithromax. COPD severe: Patient wa explained of the severity of this and was asked if he is interested in hospice. Patient states no. continue oxygen therapy and CPAP at night Placed on prednisone taper Started furosemide yesterday. as renal function improved. BL arm pain - possibly cardiac due to demand which would be related to a low HR and hypotension - trop is elevated but is below baseline. Peaked at .05 He has a history of CAD and is taking ASA. We are forced to hold his B zachary and Imdur at present. He is statin-intolerant. resolved Bradycardia now in a flutter- will resume his bb and ccb. no need for pacemaker at this time Heart rate s better controlled Hypotension - responded to IVF - On admission, there was some concern for Tamponade based on EKG voltage and CXR , however, there did not appear to be significant fluid surrounding his heart on a preliminary echo. An additional is ordered for AM. His BP has normalized at the time of admission. There is no evidence of sepsis. Resolved Acute on chronic RF with hyperK - Improving. will monitor. diuretics and ARB held. Gave dose of lasix Pulmonary fibrosis - denies SOB above baseline - cont current inhalers - Normally at home on 10 liters. Here he is on 15 liters Diastolic CHF - volume status is difficult to assess clinically Patient does have some sign of pedal edema. will monitor. Flutter - currently bradycardic - anticoagulated with Xarelto. Rate meds held due to above.
[2017-07-05] VITALS (13 sets, daily range): BP systolic 118–152; BP diastolic 63–115; PULSE 60–151; TEMP 36.4–36.8; O2SAT 82–97
[2017-07-05] MEDS: INSULIN REGULAR 250 UNITS in SODIUM CHLORIDE 0.9% 250ML 250 ML IV SCH ×9 (00:25→11:36)
[2017-07-05] MEDS: ALBUT/IPRATROP 3MG/0.5MG NEB 3 ML VIAL INH SCH ×4 (07:15→20:09)
[2017-07-05] MEDS: TAMSULOSIN HCL 0.4 MG CAP PO SCH (07:52)
[2017-07-05] MEDS: FUROSEMIDE 40 MG TAB PO SCH ×2 (07:52→17:42)
[2017-07-05] MEDS: DILTIAZEM HCL 120 MG ER CAP PO SCH (07:52)
[2017-07-05] MEDS: LOSARTAN POTASSIUM 25 MG TAB PO SCH (07:53)
[2017-07-05] MEDS: MAGNESIUM OXIDE 400 MG TAB PO SCH (07:53)
[2017-07-05] MEDS: ASPIRIN 81 MG ECTAB PO SCH (07:53)
[2017-07-05] MEDS: METOPROLOL SUCC 50MG EXT REL TAB PO SCH ×2 (07:53→21:15)
[2017-07-05] MEDS: CEFDINIR 300 MG CAP PO SCH ×2 (07:53→21:16)
[2017-07-05] MEDS: AZITHROMYCIN 250 MG TAB PO SCH (07:54)
[2017-07-05] MEDS: GABAPENTIN 300 MG CAP PO SCH ×3 (07:55→21:15)
[2017-07-05] MEDS: PANTOprazole SOD 40 MG TAB PO SCH (07:56)
[2017-07-05] MEDS: INSULIN ASPART 100 UNITS/ML 3 ML PEN SC SCH ×4 (08:17→21:22)
--- NOTE | 2017-07-05 08:24 | Clinical Documentation Query ---
KADEEM Hauser : CLINICAL DOCUMENTATION QUERY Patient is a 67 year old male admitted for evaluation of b/l arm pain, bradycardia, hypotension, and TYSHAWN. Documentation has included "non-specific interstitial pneumonitis". Since this time, sputum culture returned positive for gram-negative bacilli. No repeat chest radiograph since admission. In your clinical opinion is this patient being managed for: ( xx ) Gram-negative pneumonia ( ) Not Agree ( ) Other explanation of clinical findings (Please Explain. If no explanation given, this would be considered a no response.) ( ) Unable to determine ( ) Need to Discuss (Please call CDS via extension or qliq. If no interaction occurs this is considered a no response.) The medical record reflects the following clinical findings, treatment, and risk factors. Clinical Indicators: As above Treatment: Nebs, inhalers, supplemental O2, prednisone, PPV, antibiotics, sputum cultures Risk Factors: Emphysema, chronic respiratory failure, CRESCENCIO, obesity, end stage pulmonary fibrosis Please clarify and document your clinical opinion in the progress notes and discharge summary. Terms such as "probable", "suspected", "likely", "questionable", "possible", or "still to be ruled out" are acceptable. IF IN AGREEMENT, YOU MUST DOCUMENT ABOVE DIAGNOSTIC STATEMENT IN DAILY PROGRESS NOTES AND DISCHARGE SUMMARY. This document is not part of the patient's record. Thank You, Saad Armstrong, TAURUS [phone]
[2017-07-05 08:55] LABS: BASO % 0.3 %; BASO ABS # 0.04 K/uL (0-0.2); HEMATOCRIT 35.6 % (42-52); HEMOGLOBIN 10.8 g/dL (14.0-18.0); IG# 0.24 K/uL (0.00-0.02); LYMPH % 3.2 %; LYMPH ABS # 0.44 K/uL (1.2-3.4); MEAN CELL VOLUME 104.4 fL (80-100); MEAN CORPUSCULAR HEMOGLOBIN 31.7 pg (25-34); MEAN CORPUSCULAR HGB CONC 30.3 g/dl (32-36); MEAN PLATELET VOLUME 9.9 fL (7.4-10.4); MONO % 3.1 %; MONO ABS # 0.42 K/uL (0.11-0.59); NEUT % 91.6 %; NUCLEATED RED BLOOD CELL ABS 0.36 K/uL (0-0); PLATELET COUNT 130 K/uL (130-400); RED CELL DISTRIBUTION WIDTH CV 20.7 % (11.5-14.5); RED CELL DISTRIBUTION WIDTH SD 78.4 fL (36.4-46.3); WHITE BLOOD COUNT 13.64 K/uL (4.8-10.8)
[2017-07-05] MEDS ORDERED: INSULIN HUMAN NPH SC SCH ×2 (09:00→10:45)
--- NOTE | 2017-07-05 09:00 | Pharmacy Progress Note ---
Pharmacy Glycemic Short Note 2 Date of Service Jul 05, 2017. OUTPATIENT ANTIDIABETIC REGIMEN: * Novolog 70/30, 70 units qAM, 48 units qPM * Novolog 10 units BID * (prednisone 30 mg po daily) * A1c = 4.8 % on 07/02/17 (trended down from 5.5% in January 2017) * Likely significant hypoglycemia as an outpatient with "low" A1c Item Value Date Time Bedside Glucose 144 mg/dl H 07/04/17 0629 Bedside Glucose 137 mg/dl H 07/04/17 0730 Bedside Glucose 138 mg/dl H 07/04/17 0832 Bedside Glucose 228 mg/dl H 07/04/17 0931 Bedside Glucose 176 mg/dl H 07/04/17 1115 Bedside Glucose 155 mg/dl H 07/04/17 1133 Bedside Glucose 135 mg/dl H 07/04/17 1215 Bedside Glucose 174 mg/dl H 07/04/17 1341 Bedside Glucose 159 mg/dl H 07/04/17 1444 Bedside Glucose 128 mg/dl H 07/04/17 1546 Bedside Glucose 135 mg/dl H 07/04/17 1654 Bedside Glucose 164 mg/dl H 07/04/17 1804 Bedside Glucose 199 mg/dl H 07/04/17 1903 Bedside Glucose 231 mg/dl H 07/04/17 2008 Bedside Glucose 162 mg/dl H 07/04/17 2113 Bedside Glucose 155 mg/dl H 07/04/17 2220 Bedside Glucose 155 mg/dl H 07/04/17 2318 Bedside Glucose 176 mg/dl H 07/05/17 0018 Bedside Glucose 165 mg/dl H 07/05/17 0119 Bedside Glucose 174 mg/dl H 07/05/17 0316 Bedside Glucose 224 mg/dl H 07/05/17 0522 Bedside Glucose 171 mg/dl H 07/05/17 0632 Bedside Glucose 180 mg/dl H 07/05/17 0729 ASSESSMENT: * 67yo T2DM male with severe hyperglycemia secondary to infection and steroids * BSGs have been labile since admission d/t reactive insulin dosing * 07/02 AM: Pt with "below goal range" BSGs --> decreased insulin doses given * 07/02 PM: Pt with severe hyperglycemia secondary to decreased insulin dosing + steroids * 07/03 AM: Pt with severe hypoglycemia secondary to over corrected hyperglycemia the evening prior * 07/03 PM: Pt with severe hyperglycemia from steroids/decreased insulin given for hypo that AM. Pt initiated on IV insulin infusion * 07/04: BSGs well controlled with IV insulin infusion * 07/05: Steroids tapered to Prednisone 30mg PO Daily. BSGs well controlled with IV insulin infusion. Pt meets criteria for transition off of IV insulin infusion. * Will continue with NPH instead of Lantus for basal insulin. NPH is preferred to cover hyperglycemia secondary to once daily prednisone as the PK of NPH match that of the hyperglycemic effects of prednisone. Also, pt on NPH premixed insulin as an outpatient * IV insulin infusion is stable at ~ 2.2 units/hr over night. This corresponds to a basal dose of ~ 53 units/day. However, pt with LOW BSG after 60 units of basal insulin on 07/02. Therefore, will start with recommended dosing of 0.3 units/kg for 30mg prednisone and titrate based on BSG trends. Will keep CHO coverage aggressive to make up any deficiency in dosing NPH conservatively. * Goal is to prevent severe hyperglycemia and hypoglycemia - maintain BSGs in 100-250 mg/dl range and then tighten goal range to facilitate infection healing. PLAN FOR INPATIENT GLYCEMIC CONTROL: * Transition off of IV insulin infusion * Will give first dose of basal insulin (NPH) and continue IV insulin infusion for appropriate overlap. Will d/c IV insulin infusion when held per calculator or 6 hrs after NPH given - whichever happens sooner. * Basal insulin * NPH 30 units SQ daily in AM with prednisone administration * Bolus insulin * NovoLog per scale ACHS or Q6hrs while NPO * Goal Range: Low 120 mg/dL - High 150 mg/dL * Correction Factor: 15 mg/dL/unit * Nutritional / Prandial insulin per carb ratio of 1 unit per 5 grams CHO consumed
[2017-07-05 09:37] LABS: CALCIUM 8.1 mg/dl (8.5-10.1); CREATININE 1.58 mg/dl (0.60-1.40)
[2017-07-05 10:36] LABS: POTASSIUM 4.3 mmol/L (3.5-5.1)
--- NOTE | 2017-07-05 11:48 | Palliative Care Progress Note ---
Palliative Care Progress Note Date of Service Jul 05, 2017. Subjective Pt evaluation today including: conversation w/ patient, conversation w/ family , physical exam Pain: Patient denies pain Voiding: no voiding problems This patient was seen for follow up. Pulmonary did see the patient and suggested that patient truly is at the end stage of his disease. Disease prognosis was discussed with the patient and he stated that he understood that he is not showing improvement. We are hopeful to assist with arranging next steps and work towards discharge planning. He stated that his portable O2 concentrator at home has a max of 8 L, but notes say 10 L. case Management to contact [facility] and determine what the O2 capacity is on the concentrator. Regardless, the patient has been requiring 12-15L of O2 via the Oxymask while he is here in the hospital with his SpO2 anywhere from 82-87%. I have phoned his and left a message to discuss further options (SNF vs Hospice) and will await a call back. Upon assessment - the patient is sitting in the bedside chair and able to have a conversation with much distress. He did say that he would like to return home and he does understand that his lungs and heart are not going to improve. A POLST form was filled out with the patient at the bedside and his questions were answered. Like I mentioned, reinforcement and further discussion to be held with the patient's in order to discuss discharge planning. Review of Systems Patient denies CP, dizziness, palpitations, appetite changes, mental status changes, pain. Objective Vital Signs Date Time Temp Pulse Resp B/P (MAP) Pulse Ox O2 Delivery O2 Flow Rate FiO2 07/05/17 11:26 36.5 86 18 118/74 (89) 96 07/05/17 11:13 118 22 85 Mask 15.0 07/05/17 08:00 Oxymask 15.0 07/05/17 07:26 122 22 86 BiPAP/CPAP 10.0 07/05/17 07:13 36.8 97 18 152/87 (108) 97 CPAP 07/05/17 04:00 CPAP 10.0 07/05/17 04:00 36.8 92 20 119/63 (81) 96 CPAP 10.0 07/05/17 00:00 CPAP 10.0 07/04/17 23:26 36.3 94 18 98/52 (67) 94 BiPAP 15.0 07/04/17 20:00 Oxymask 15.0 07/04/17 19:48 36.6 85 18 123/61 (81) 99 Nasal Cannula 15.0 07/04/17 19:25 100 24 84 Mask 15.0 07/04/17 16:00 Oxymask 15.0 07/04/17 14:56 37.1 98 24 101/61 (74) 91 Oxymask 15.0 07/04/17 14:56 94 22 87 Mask 15.0 07/04/17 12:00 Oxymask 15.0 Physical Exam General Appearance: no apparent distress, + pertinent finding (patient sitting up in the bedside chair, able to hold conversation.) ENT: + pertinent finding (neck large. occular sclera erythematous and edematous ) Neck: + pertinent finding (patient neck large with a lot of generalized swelling) Respiratory/Chest: + pertinent finding (expiratory wheezes and coarse bases) Cardiovascular: regular rate, rhythm, no gallop, no JVD, + pertinent finding ( generalized edema (+)3 LE ) Abdomen: normal bowel sounds, non tender, soft Neurologic/Psychiatric: oriented x 3 Skin: warm/dry Laboratory Results Last 24 Hours Test 07/04/17 12:15 07/04/17 13:41 07/04/17 14:44 07/04/17 15:46 Bedside Glucose 135 mg/dl 174 mg/dl 159 mg/dl 128 mg/dl Test 07/04/17 16:54 07/04/17 18:04 07/04/17 19:03 07/04/17 20:08 Bedside Glucose 135 mg/dl 164 mg/dl 199 mg/dl 231 mg/dl Test 07/04/17 21:13 07/04/17 22:20 07/04/17 23:18 07/05/17 00:18 Bedside Glucose 162 mg/dl 155 mg/dl 155 mg/dl 176 mg/dl Test 07/05/17 01:19 07/05/17 03:16 07/05/17 05:22 07/05/17 06:32 Bedside Glucose 165 mg/dl 174 mg/dl 224 mg/dl 171 mg/dl Test 07/05/17 07:29 07/05/17 08:36 07/05/17 08:37 07/05/17 09:41 Bedside Glucose 180 mg/dl 301 mg/dl 335 mg/dl White Blood Count 13.64 K/uL Red Blood Count 3.41 M/uL Hemoglobin 10.8 g/dL Hematocrit 35.6 % Mean Corpuscular Volume 104.4 fL Mean Corpuscular Hemoglobin 31.7 pg Mean Corpuscular Hemoglobin Concent 30.3 g/dl Platelet Count 130 K/uL Mean Platelet Volume 9.9 fL Neutrophils (%) (Auto) 91.6 % Lymphocytes (%) (Auto) 3.2 % Monocytes (%) (Auto) 3.1 % Eosinophils (%) (Auto) 0.0 % Basophils (%) (Auto) 0.3 % Neutrophils # (Auto) 12.50 K/uL Lymphocytes # (Auto) 0.44 K/uL Monocytes # (Auto) 0.42 K/uL Eosinophils # (Auto) 0.00 K/uL Basophils # (Auto) 0.04 K/uL RDW Standard Deviation 78.4 fL RDW Coefficient of Variation 20.7 % Immature Granulocyte % (Auto) 1.8 % Immature Granulocyte # (Auto) 0.24 K/uL Nucleated RBC Absolute Count (auto) 0.36 K/uL Nucleated Red Blood Cells % 2.6 % Polychromasia 1+ Anisocytosis PRESENT Macrocytosis PRESENT Sodium Level 140 mmol/L Potassium Level mmol/L Chloride Level 105 mmol/L Carbon Dioxide Level 28 mmol/L Anion Gap 7.0 mmol/L Blood Urea Nitrogen 44 mg/dl Creatinine 1.58 mg/dl Est Creatinine Clear Calc Drug Dose 48.9 ml/min Estimated GFR () 51.0 Estimated GFR (Non- 44.0 BUN/Creatinine Ratio 27.7 Random Glucose 275 mg/dl Calcium Level 8.1 mg/dl Phosphorus Level 3.0 mg/dl Magnesium Level mg/dl Total Bilirubin 1.2 mg/dl Direct Bilirubin mg/dl Aspartate Amino Transf (AST/SGOT) U/L Alanine Aminotransferase (ALT/SGPT) 68 U/L Alkaline Phosphatase 52 U/L Total Protein 6.0 gm/dl Albumin 3.0 gm/dl Test 07/05/17 09:56 07/05/17 10:31 07/05/17 11:30 Potassium Level 4.3 mmol/L Magnesium Level 2.4 mg/dl Direct Bilirubin 0.3 mg/dl Aspartate Amino Transf (AST/SGOT) 31 U/L Bedside Glucose 288 mg/dl 223 mg/dl Assessment and Plan Palliative Care Encounter Goals of Care Acute on chronic respiratory failure CHF Palliative Care Recommendations: -Patients O2 requirements ranging from 12-15L. Current SpO2 ranging 82-87%. Due to increased needs, we need to make sure that the patient will have appropriate O2 equipment at home. Fitting Room Supervisor to contact [facility] to determine capacity of O2 delivery. -Voice mail left for patient's to discuss GOALS of CARE over the phone and discuss that the patient may require SNIF based on O2 needs, with a transition to Hospice depending on how patient progresses. It appears that Pt/ OT has been ordered from a qualifying standpoint. -POLST form filled out with the patient at the bedside -Original copy left with patient and copy placed on the chart. Palliative Performance Scale: 50 % [facility] planning[facility] (pending [facility] requirements - may require SNIF), other Counseling and Coordination Total time spent 35 minutes with > 50% of that time assessing patient and filling out POLST form at the bedside with the patient - VM left for patient's to discuss
--- NOTE | 2017-07-05 12:57 | PULMONARY PROGRESS NOTE ---
DATE: 07/05/2017 Pulmonary medicine progress note. Patient's evaluation today including: Conversation with patient, physical exam, chart review, lab review, review of studies, review of inpatient medication list. HISTORY OF PRESENT ILLNESS: Patient had been seen over the weekend by Dr. Brown from pulmonary medicine. He currently is using an OxyMask at 10 liters with adequate saturation. He states he is in no more respiratory distress today than he has been in the remote past and is in his opinion back to baseline. He has a nonproductive cough. He sleeps more in the upright position or certainly with his head elevated. He has been using his CPAP device. He has also been followed up by Dr. Ishan Arriaga from cardiology. He has been instructed to use his CPAP all night as well as p.r.n. during the day. PHYSICAL EXAMINATION: GENERAL: Well-developed, well-nourished white male utilizing supplemental oxygen with no overt signs of respiratory distress. CURRENT VITAL SIGNS: Temperature 36.5, pulse 86 and regular, respiratory rate 18, blood pressure 118/74, O2 sat 96% on a 15-liter diffusion mask. SKIN: Without lesion. HEENT: Atraumatic, normocephalic, PERRLA, EOMI. Conjunctivae pink. Sclerae nonicteric. Fundi poorly visualized. NECK: Neck veins are not distended at 45 degrees. No evidence of adenopathy in the supra or infraclavicular areas. LUNGS: Rales bilaterally with distant breath sounds. CARDIAC: Exam irregularly regular rhythm. I do not appreciate a gallop. ABDOMEN: Soft, protuberant. EXTREMITIES: 2+ pitting edema. No clubbing. Peripheral cyanosis. NEUROLOGICAL: Without lateralizing signs. LABORATORY DATA AND IMAGING: Glucose level elevated in the 200 range. Chest x-ray from admission was reviewed which was compared to 06/23/2017 showed cardiomegaly with clear signs of significant pulmonary edema, left greater than right. White count 13,600, H&H 10.8 and 35.6 with hyperchromic microcytic indices. No recent ABG. BUN 44, creatinine 1.5, albumin 3.0. Influenza A and B PCR have been negative. OVERALL ASSESSMENT: Rxgij-[id number] with severe chronic obstructive pulmonary disease and chronic alveolar hypoventilation with acute hypoxic and hypercarbic superimposed on chronic respiratory failure. Patient apparently has had a history of gram negative bronchitis in the past and sputum is growing out a gram negative and has not been fully identified at time of this dictation. Echocardiogram on admission showed right ventricular systolic pressure estimated greater than 60 mmHg with a reduction in right ventricular systolic function which was moderate. The right ventricle moderately dilated. Patient in my opinion is end stage and exhibiting signs of biventricular failure with worsening pulmonary edema and worsening oxygen demand, now requiring 15 liters via OxyMask. Patient clearly should be on BiPAP, utilizing noninvasive positive pressure ventilation along with oxygen and I would diurese even more aggressively despite the elevation in the patient's creatinine. He has lost 6.5 kilograms since admission. Apparently palliative care consultation has been placed. Patient's hyperglycemia is no doubt aggravated by steroid utilization. Patient currently is on cefdinir therapy. We will await final identification and sensitivity of his sputum culture. In short of my recommendations, I am not sure how much additional we have to offer this patient who has basically maximized our ability to oxygenate and supplement his severe hypoxemia. We will follow along with you. Thank you very much for this consultation.
--- NOTE | 2017-07-05 13:28 | DIAGNOSTIC IMAGING REPORT ---
CHEST ONE VIEW PORTABLE HISTORY: 67 years-old Male chf acute shortness of breath with congestive heart failure COMPARISON: Chest radiograph 07/01/2017, chest CT 03/31/2017 TECHNIQUE: Portable AP view of the chest FINDINGS: Cardiac silhouette is enlarged. Prior median sternotomy. Atherosclerosis of the aorta. There is no pneumothorax or large pleural effusion. Chronic blunting of the right costophrenic angle. Emphysema with chronic interstitial lung disease redemonstrated. Additionally, there is mild pulmonary vascular congestion with mildly improved aeration of the lungs from comparison. Degenerative changes of the shoulders and spine. IMPRESSION: 1. Cardiomegaly and mild pulmonary vascular congestion with improved aeration of the bilateral lungs from comparison. 2. Emphysema with chronic interstitial lung disease. The above report was generated using voice recognition software. It may contain grammatical, syntax or spelling errors. Electronically signed by: Johny Zepeda M.D. 07/05/2017 1:27 PM Dictated Date/Time: 07/05/2017 1:23 PM
[2017-07-05] MEDS ORDERED: DC IV INSULIN INFUSION ONE ×2 (14:00→15:00)
--- NOTE | 2017-07-05 15:31 | Hospitalist Progress Note ---
Hospitalist Progress Note Date of Service Jul 05, 2017. (Mihaela Benson ., PAAnthonyC) Subjective Pt evaluation today including: conversation w/ patient, physical exam, lab review, review of studies, conversation w/ incident response consultant, review of inpatient medication list Voiding: no voiding problems Patient sitting in bedside chair. States he is feeling well. Feels breathing is better since admission- now requiring 15L O2. Eating and drinking OK. Cough and sputum production improving. Feels swelling is at baseline. Lasix resumed. Patient denies any fever, chills, sweats, lightheadedness, dizziness, vision changes, CP, palpitations, wheezing, abdominal pain, nausea, vomiting, diarrhea , urinary symptoms, melena, numbness/tingling, weakness, muscle/joint pain, anxiety/depression, active bleeding, or new skin discoloration/changes. Discussed w/ palliative care- POLST completed, hoping for patient to be discharged home w/ HHS then transition to hospice. (Mihaela Benson ., JABIERC) Medications Current Inpatient Medications Medications (Trade) Dose Ordered Sig/Zeina Route Start Time Stop Time Status Last Admin Dose Admin Acetaminophen (Tylenol Tab) 650 mg Q4H PRN PO 07/01/17 23:15 07/31/17 23:14 07/03/17 19:07 650 MG Lorazepam (Ativan Tab) 1 mg Q6H PRN PO 07/01/17 23:15 07/31/17 23:14 Ondansetron HCl (Zofran Inj) 4 mg Q6H PRN IV 07/01/17 23:15 07/31/17 23:14 Morphine Sulfate (MoRPHine SULFATE INJ) 4 mg Q2H PRN IV 07/01/17 23:15 07/15/17 23:14 Albuterol (Ventolin Hfa Inhaler) 2 puffs Q4H PRN INH 07/01/17 23:30 07/31/17 23:29 Aspirin (Ecotrin Tab) 81 mg DAILY PO 07/02/17 09:00 08/01/17 08:59 07/05/17 07:53 81 MG Gabapentin (Neurontin Cap) 600 mg TID PO 07/02/17 09:00 08/01/17 08:59 07/05/17 14:00 600 MG Magnesium Oxide (Mag-Ox Tab) 800 mg QAM PO 07/02/17 09:00 08/01/17 08:59 07/05/17 07:53 800 MG Rivaroxaban (Xarelto Tab) 15 mg QDD PO 07/02/17 16:30 08/01/17 16:29 07/04/17 17:12 15 MG Tamsulosin HCl (Flomax Cap) 0.4 mg DAILY PO 07/02/17 09:00 08/01/17 08:59 07/05/17 07:52 0.4 MG Pantoprazole Sodium (Protonix Tab) 40 mg QAM PO 07/02/17 09:00 08/01/17 08:59 07/05/17 07:56 40 MG Miscellaneous Information (Consult Glycemic Management Pharmacy) 1 ea UD PRN N/A 07/02/17 10:30 08/01/17 10:29 Diltiazem HCl (Dilacor Xr Cap) 240 mg QAM PO 07/03/17 09:00 08/02/17 08:59 07/05/17 07:52 240 MG Metoprolol Succinate (Toprol Xl Tab) 100 mg BID PO 07/02/17 21:00 08/01/17 20:59 07/05/17 07:53 100 MG Albuterol/ Ipratropium (Duoneb) 3 ml QIDR INH 07/02/17 16:00 08/01/17 15:59 07/05/17 11:13 3 ML Cefdinir (Omnicef Cap) 300 mg BID PO 07/02/17 21:00 07/09/17 20:59 07/05/17 07:53 300 MG Azithromycin (Zithromax Tab) 500 mg QAM PO 07/03/17 09:00 07/10/17 08:59 07/05/17 07:54 500 MG Albuterol/ Ipratropium (Duoneb) 3 ml Q2H PRN INH 07/02/17 13:30 08/01/17 13:29 Glucose (Glucose 40% Gel) 15-30 GRAMS 15 GRAMS... UD PRN PO 07/03/17 07:30 08/02/17 07:29 Glucose (Glucose Chew Tab) 4-8 Tablets 4 Tabl... UD PRN PO 07/03/17 07:30 08/02/17 07:29 Dextrose (Dextrose 50% 50ML Syringe) 25-50ML OF 50% DW IV FOR... UD PRN IV 07/03/17 07:30 08/02/17 07:29 Glucagon (Glucagon Inj) 1 mg UD PRN SQ 07/03/17 07:30 08/02/17 07:29 Losartan Potassium (coZAAR TAB) 25 mg QAM PO 07/03/17 09:00 08/02/17 08:59 07/05/17 07:53 25 MG Menthol (Nice Titi) 1 titi PRN PRN TITI 07/03/17 20:45 08/02/17 20:44 Prednisone (PredniSONE TAB) 30 mg DAILY PO 07/05/17 09:00 08/04/17 08:59 07/05/17 07:55 30 MG Furosemide (Lasix Tab) 40 mg BID17 PO 07/05/17 09:00 08/04/17 08:59 07/05/17 07:52 40 MG Insulin Aspart (novoLOG ASPART) SLIDING SCALE If CARB RA... ACHS SC 07/05/17 16:30 08/04/17 16:29 Insulin Human NPH (novoLIN-N NPH) 40 units DAILY SC 07/06/17 09:00 08/05/17 08:59 (Mihaela Benson, JABIERC) Objective Vital Signs Date Time Temp Pulse Resp B/P (MAP) Pulse Ox O2 Delivery O2 Flow Rate FiO2 07/05/17 12:00 Oxymask 15.0 07/05/17 12:00 82 Oxymask 12.0 07/05/17 11:26 36.5 86 18 118/74 (89) 96 07/05/17 11:13 118 22 85 Mask 15.0 07/05/17 08:00 Oxymask 15.0 07/05/17 07:26 122 22 86 BiPAP/CPAP 10.0 07/05/17 07:13 36.8 97 18 152/87 (108) 97 CPAP 07/05/17 04:00 CPAP 10.0 07/05/17 04:00 36.8 92 20 119/63 (81) 96 CPAP 10.0 07/05/17 00:00 CPAP 10.0 07/04/17 23:26 36.3 94 18 98/52 (67) 94 BiPAP 15.0 07/04/17 20:00 Oxymask 15.0 07/04/17 19:48 36.6 85 18 123/61 (81) 99 Nasal Cannula 15.0 07/04/17 19:25 100 24 84 Mask 15.0 07/04/17 16:00 Oxymask 15.0 (Mihaela Benson, PA-C) Physical Exam General Appearance: no apparent distress, + obese, + pertinent finding (OxyMask ) Eyes: normal inspection, PERRL ENT: hearing grossly normal Neck: supple Respiratory/Chest: no respiratory distress, no accessory muscle use, + decreased breath sounds (throughout), + crackles (bilateral lung bases) Cardiovascular: + irregularly irregular (rate controlled ) Abdomen: normal bowel sounds, non tender, soft Extremities: no calf tenderness, + swelling (+2 pitting edema of BLEs) Neurologic/Psychiatric: alert, normal mood/affect, oriented x 3 Skin: normal color, warm/dry, no rash (Mihaela Benson ., PA-C) Laboratory Results Last 24 Hours Test 07/04/17 15:46 07/04/17 16:54 07/04/17 18:04 07/04/17 19:03 Bedside Glucose 128 mg/dl 135 mg/dl 164 mg/dl 199 mg/dl Test 07/04/17 20:08 07/04/17 21:13 07/04/17 22:20 07/04/17 23:18 Bedside Glucose 231 mg/dl 162 mg/dl 155 mg/dl 155 mg/dl Test 07/05/17 00:18 07/05/17 01:19 07/05/17 03:16 07/05/17 05:22 Bedside Glucose 176 mg/dl 165 mg/dl 174 mg/dl 224 mg/dl Test 07/05/17 06:32 07/05/17 07:29 07/05/17 08:36 07/05/17 08:37 Bedside Glucose 171 mg/dl 180 mg/dl 301 mg/dl White Blood Count 13.64 K/uL Red Blood Count 3.41 M/uL Hemoglobin 10.8 g/dL Hematocrit 35.6 % Mean Corpuscular Volume 104.4 fL Mean Corpuscular Hemoglobin 31.7 pg Mean Corpuscular Hemoglobin Concent 30.3 g/dl Platelet Count 130 K/uL Mean Platelet Volume 9.9 fL Neutrophils (%) (Auto) 91.6 % Lymphocytes (%) (Auto) 3.2 % Monocytes (%) (Auto) 3.1 % Eosinophils (%) (Auto) 0.0 % Basophils (%) (Auto) 0.3 % Neutrophils # (Auto) 12.50 K/uL Lymphocytes # (Auto) 0.44 K/uL Monocytes # (Auto) 0.42 K/uL Eosinophils # (Auto) 0.00 K/uL Basophils # (Auto) 0.04 K/uL RDW Standard Deviation 78.4 fL RDW Coefficient of Variation 20.7 % Immature Granulocyte % (Auto) 1.8 % Immature Granulocyte # (Auto) 0.24 K/uL Nucleated RBC Absolute Count (auto) 0.36 K/uL Nucleated Red Blood Cells % 2.6 % Polychromasia 1+ Anisocytosis PRESENT Macrocytosis PRESENT Sodium Level 140 mmol/L Potassium Level mmol/L Chloride Level 105 mmol/L Carbon Dioxide Level 28 mmol/L Anion Gap 7.0 mmol/L Blood Urea Nitrogen 44 mg/dl Creatinine 1.58 mg/dl Est Creatinine Clear Calc Drug Dose 48.9 ml/min Estimated GFR () 51.0 Estimated GFR (Non- 44.0 BUN/Creatinine Ratio 27.7 Random Glucose 275 mg/dl Calcium Level 8.1 mg/dl Phosphorus Level 3.0 mg/dl Magnesium Level mg/dl Total Bilirubin 1.2 mg/dl Direct Bilirubin mg/dl Aspartate Amino Transf (AST/SGOT) U/L Alanine Aminotransferase (ALT/SGPT) 68 U/L Alkaline Phosphatase 52 U/L Total Protein 6.0 gm/dl Albumin 3.0 gm/dl Test 07/05/17 09:41 07/05/17 09:56 07/05/17 10:31 07/05/17 11:30 Bedside Glucose 335 mg/dl 288 mg/dl 223 mg/dl Potassium Level 4.3 mmol/L Magnesium Level 2.4 mg/dl Direct Bilirubin 0.3 mg/dl Aspartate Amino Transf (AST/SGOT) 31 U/L Test 07/05/17 12:30 Bedside Glucose 165 mg/dl (Mihaela Benson PA-C) Assessment and Plan 67 y/o M Hx CAD, chronic AF, diastolic CHF, CKD III, DM II, end stage pulmonary fibrosis. Pt initially presented with BL arm pain as he thought this may be cardiac-related. He had self administered 3 NTG prior to arrival which partially alleviated his symptoms. On arrival to the ER he was noted to be hypotensive and bradycardic. Initial SBP was in the 70s and his HR was high 30s - low 40s. He did not c/o CP directly and denies SOB above baseline. He does state that he felt he may be developing a sinus infection. Initial labs were notable for worsening renal function with hyperkalemia. The pt responded well to a fluid bolus in the ER in terms of his BP. He received 2 doses of Atropine and his HR has remained in the mid 40s. It is noted that he takes both Diltiazem and a B zachary daily. Now in telemetry Acute on chronic hypercarbic hypoxic respiratory failure w/ gram negative PNA, severe COPD, pulmonary fibrosis: - Tele for cardiac monitoring- no acute events, a.fibs w/ rates controlled in 80 -90s - O2 protocol- currently on 15L OxyMask- O2 sat goal > 85% - IV Solu Medrol- transitioned to Prednisone- currently at 30 mg daily- started on 07/05 - Continue home inhalers, DuoNebs QID and PRN for SOB/wheezing - Azithromycin- started 07/03 + Omnicef BID- started 07/02 - Sputum culture- gram negative bacilli- pending final Cx - Lasix resumed- 40 mg BID - Repeat CXR today- mild pulmonary vascular congestion with improved aeration of the bilateral lungs from comparison - ECHO- preserved EF, RVSP elevated - Palliative care consulted- POLST completed, planning for home w/ [facility] then transition to hospice care - Pulmonary following, appreciate recommendations TYSHAWN on CKD stage III w/ hyperkalemia- 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- RESOLVED- - Held nephrotoxic agents and renally dose medications as appropriate - Renal US w/out acute findings - Continue to follow PRP CAD, chronic AF, diastolic CHF, HTN- STABLE: - Lasix 80 mg BID held due to TYSHAWN- resumed Lasix today but at decreased dose of 40 mg BID - Diltiazem decreased to 240 mg daily and Metoprolol decreased to 100 mg BID due to bradycardia- STABLE - Continue Losartan 25 mg daily, Mag-Ox supplement, Xarelto, ASA 81 mg daily - Monitor I&Os and daily weights- negative 2.2L T2DM w/ hyperglycemia secondary to steroids- hgbA1c 4.8%: - Pharmacy consulted- IV insulin gtt and transitions to SQ today - Continue Gabapentin Bilateral arm pain- RESOLVED GI prophylaxis: Continue Protonix DVT prophylaxis: Xarelto Code status: LEVEL V, DNR Dispo: From home- PT/OT, palliative care, CM following- home w/ [facility] vs SNF at discharge (Mihaela Benson ., PAAnthonyC) PA Physician Supervision Note: I interviewed and examined the patient. Discussed with Mihaela Benson PAC and agree with findings and plan as documented in the note. Any exceptions or clarifications are listed here: None 67 M with acute on chronic respiratory failure from end stage pulmonary fibrosis typically on 8 L oxygen at home. Diltiazem and a B zachary daily. appears tachypneic, 36.9 97 22 car is irregular and lungs with persistent rales Acute on chronic respiratory failure w/ hypercarbic hypoxic gram negative PNA present on admission, Prednisone- currently at 30 mg daily- started on 07/05, DuoNebs QID and PRN for SOB/wheezing , - Azithromycin- started 07/03 + Omnicef BID- started 07/02 - Sputum culture- gram negative bacilli- pending final Cx - O2 protocol- currently on 15L OxyMask- O2 sat goal > 85% suspect pulmonary hypertension, Lasix resumed- 40 mg BID - ECHO- preserved EF, RVSP elevated - Palliative care consulted- POLST completed, planning for home w/ [facility] then transition to hospice care TYSHAWN on CKD stage III w/ hyperkalemia- 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
[2017-07-05] MEDS: RIVAROXABAN TAB 15 MG TAB PO SCH (17:42)
--- NOTE | 2017-07-05 18:23 | PROGRESS NOTE ---
DATE: 07/05/2017 Cardiology progress note. HISTORY OF PRESENT ILLNESS: The patient was seen by me this morning in his medical floor/telemetry bed. Patient is well known to me for many years. He has a longstanding history of coronary artery disease. He underwent bypass surgery in 2000. Cardiac catheterization in 2008 revealed a total proximal LAD stenosis, moderate disease of left circumflex, occluded vein graft to left circumflex marginal, patent left internal mammary artery graft to LAD, patent vein graft to LAD diagonal, and mild proximal disease of RCA. The radial graft to his right PDA is occluded. A cardiac catheterization performed after his bypass surgery in 2000 documented this occlusion. He thereafter underwent deployment of 4 stents throughout his RCA. Since 2010, history of paroxysmal atrial flutter; this has recently been persistent. He also has a history of severe obstructive sleep apnea, severe pulmonary fibrosis, COPD, and interstitial lung disease. A lung biopsy in 2015 performed at [facility] revealed interstitial lung disease. He has been oxygen dependent for the past few years. His oxygen requirements have steadily increased over the past 3 years. This is his oxygen requirements to maintain an adequate saturation. When I last saw him in the office in early June 2017, he was using flow rate of 8 liters per minute during the day. At night with his CPAP, he was using a flow rate of 6 liters per minute. Echocardiography in March of 2017 revealed normal LV wall motion, mild LVH, grade 2 LV diastolic dysfunction, cor pulmonale. Chest CT scan in March 2017 revealed emphysema, interstitial lung disease, and pneumonitis. Over the past several weeks he has also had recurrent epistaxis requiring cauterization. Because of this, his anticoagulation was temporarily held. When I last saw him in early June, he was complaining of symptomatic increased heart rates with activity. His metoprolol tartrate was increased to 150 mg b.i.d. His diltiazem was increased to 300 mg daily. On the primary care followup on 06/29/2017, his blood pressure was 132/78. Pulse was 78. The patient was admitted on 07/01/2017 with complaints of bilateral arm pain. He had some relief with sublingual nitroglycerin. He was noted to be bradycardic and hypotensive. He received intravenous atropine. He was admitted to the medical floor/telemetry unit. His diltiazem and metoprolol were restarted at his previous lower doses. This morning the patient complains of mild dyspnea at rest. With any activity he has increased dyspnea. No chest pain or arm pain. No palpitations. No lightheadedness. No abdominal pain or nausea. He does complain of increased peripheral edema since I last saw him. His diuretics were on hold until today. This was from the time of admission until today. He denies any bleeding complaints. No symptoms suggestive of a thromboembolic event. CURRENT MEDICATIONS: Novolin N insulin 40 units subQ daily, sliding scale NovoLog insulin, prednisone 30 mg p.o. daily, furosemide 40 mg p.o. b.i.d., diltiazem 240 mg daily, azithromycin 500 mg daily, losartan 25 mg daily, metoprolol succinate ER 100 mg b.i.d., Omnicef 300 mg p.o. b.i.d., Xarelto 50 mg p.o. daily, DuoNeb 3 mL q.i.d., aspirin 81 mg daily, gabapentin 600 mg t.i.d., magnesium oxide 800 mg daily, Flomax 0.4 mg daily, pantoprazole 40 mg daily, and several p.r.n. medications. ALLERGIES AND ADVERSE DRUG REACTIONS: DOXYCYCLINE, HYDROCODONE, IODINATED CONTRAST AGENT, LOSARTAN, LOVASTATIN, PENICILLINS, QUINOLONES, TETRACYCLINE. PHYSICAL EXAMINATION: GENERAL: The patient was sitting in a chair by his bedside. No distress. He has an OxyMask in place. Flow rate at the time of my visit was 10 liters per minute. Oxygen saturation was 86%. VITAL SIGNS: Oral temperature 36.8, pulse 97, blood pressure 152/87. Last night a blood pressure of 98/52 was documented. NECK: Difficult to evaluate JVP secondary to neck size. There does not appear to be any jugular venous distention. LUNGS: Decreased breath sounds in all lung ovalles. Bibasilar rales. HEART: Irregular rhythm. Distant heart sounds. No murmur, S3, or rub. ABDOMEN: Obese. Soft. Nontender. No palpable masses or organomegaly. Normal bowel sounds. EXTREMITIES: 2+ pitting pretibial edema. NEUROLOGIC: Alert and oriented x3. He can move all extremities. PSYCHIATRIC: Affect is normal. IMAGING DATA: Echocardiogram on July 02 with normal LV systolic function, right ventricular pressure overload, decreased right ventricular systolic function, right ventricular dilatation, estimated right ventricular systolic pressure greater than 60 mmHg, moderate TR, mild AR. Compared to echocardiogram of 03/31/2017, no significant interval change. LABORATORY DATA: On this admission with initially very mildly elevated troponin I of 0.052. Three subsequent troponin I's ranged from 0.024 -- 0.036. These are all within the normal range. Labs today with sodium 140, potassium 4.3, chloride 105, carbon dioxide 28, BUN 44, creatinine 1.58, random glucose 275. Magnesium 2.4. AST 31, ALT 68. Serum albumin 3.0. Chest x-ray today reviewed by me with chronic interstitial lung disease, increased heart size, mild pulmonary vascular congestion. Negative fluid balance on this admission 2280. ASSESSMENT: 1. Coronary artery disease. Status post coronary artery bypass graft surgery 2000. Multiple stents in right coronary artery. No current anginal symptoms. No significant elevations of his troponin I's on this admission. His electrocardiogram on 07/02/2017 did reveal inferior and anterior ST changes consistent with myocardial ischemia. This would not be unexpected in light of his underlying coronary artery disease, decreased coronary artery perfusion secondary to decreased blood pressure on admission, and hypoxemia. Nothing to suggest an acute coronary syndrome. Echocardiography revealed normal left ventricular systolic function and wall motion. 2. Cor pulmonale. 3. Chronic atrial flutter. Decreased ventricular rate on admission. His beta zachary and diltiazem doses had recently been increased because of elevated heart rates. The elevated heart rates were symptomatic. With lowering of his diltiazem and metoprolol doses back to his usual doses, his heart rate has increased. His blood pressure has improved. 4. Increased BUN and creatinine today compared to yesterday. However, they have significantly improved since admission. He does have chronic kidney disease. 5. [id number] respiratory failure. He has severe underlying lung disease. RECOMMENDATIONS: 1. From a cardiac standpoint, we will need to tolerate increased heart rates. The higher diltiazem and metoprolol doses instituted a few weeks ago resulted in hypotension and bradycardia. 2. Watch for over-diuresis. With his cor pulmonale, he needs to maintain adequate hydration to provide adequate filling of his left ventricle. 3. Pulmonary management by the hospitalist and pulmonary teams. 4. I have closely followed this patient for many years. He clearly has had a significant decrease in his pulmonary and functional status over the past 2 years. This is progressively worsening. I agree with Dr. Finney's assessment that there is a little more that can be done at this time. From a cardiac standpoint, we would continue with medical management. Palliative care is now involved. This is very appropriate.
[2017-07-06] MEDS ORDERED: METOPROLOL TARTRATE 1 MG/ML VIAL IV STA
[2017-07-06 00:09] VITALS: PULSE 149
[2017-07-06] MEDS ORDERED: DILTIAZEM HCL 5 MG/ML 5 ML VIAL IV STA (00:28)
[2017-07-06 01:22] LABS: CALCIUM 7.9 mg/dl (8.5-10.1); CREATININE 2.14 mg/dl (0.60-1.40); POTASSIUM 5.2 mmol/L (3.5-5.1)
--- NOTE | 2017-07-06 07:52 | Death Summary ---
Summary of Admission Date Jul 01, 2017 at 23:19 Date & Time of July 06, 2017. 0105 Cause of acute respiratory failure with hypoxia, pulmonary fibrosis, suspected Myocardial infarction Hospital Course 67 M with progressive respiratory failure, large oxygen requirements, developed chest pain and eventually in the [employer] hours of 07/06/17 Previously during this hospital stay; Acute on chronic respiratory failure w/ hypercarbic hypoxic gram negative PNA present on admission, - O2 protocol- currently on 15L OxyMask- O2 sat goal > 85% suspect pulmonary hypertension, Lasix 40 mg BID - ECHO- preserved EF, RVSP elevated - Palliative care consulted- POLST completed, was planning for home w/ [facility] then transition to hospice care CKD stage III U/s of kidneys without acute findings CAD, chronic AF, diastolic CHF, HTN- STABLE: - Diltiazem and Metoprolol - Losartan 25 mg daily, Xarelto, ASA 81 mg daily 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
[2017-07-06] MEDS ORDERED: INSULIN HUMAN NPH SC SCH (09:00)
== END 2017-07-06 05:30 | disposition expired | DRG 189 ==
LOC: EDBD 20:30 → C.EDB 20:31 → C.MSICU 23:19 → ENRESERV 07-02 00:21 → C.MED 07-03 11:19
PROVIDERS: ADMIT Internal Medicine; ATTEND Internal Medicine
DX: J96.21 Acute and chronic respiratory failure with hypoxia (principal); J15.6 Pneumonia due to other Gram-negative bacteria; I13.0 Hypertensive heart and chronic kidney disease with heart failure and stage 1 through stage 4 chronic kidney disease, or unspecified chronic kidney disease; I48.92 Unspecified atrial flutter; I50.32 Chronic diastolic (congestive) heart failure; N17.9 Acute kidney failure, unspecified; Z51.5 Encounter for palliative care; J96.22 Acute and chronic respiratory failure with hypercapnia; J43.9 Emphysema, unspecified; J84.10 Pulmonary fibrosis, unspecified; J84.89 Other specified interstitial pulmonary diseases; I27.81 Cor pulmonale (chronic); R00.1 Bradycardia, unspecified; E87.5 Hyperkalemia; E11.65 Type 2 diabetes mellitus with hyperglycemia; E11.40 Type 2 diabetes mellitus with diabetic neuropathy, unspecified; E11.22 Type 2 diabetes mellitus with diabetic chronic kidney disease; N18.3 Chronic kidney disease, stage 3 (moderate); I25.10 Atherosclerotic heart disease of native coronary artery without angina pectoris; I95.9 Hypotension, unspecified; G47.33 Obstructive sleep apnea (adult) (pediatric); E66.9 Obesity, unspecified; Z66 Do not resuscitate; Z79.01 Long term (current) use of anticoagulants; Z79.4 Long term (current) use of insulin; Z79.52 Long term (current) use of systemic steroids; Z79.82 Long term (current) use of aspirin; Z79.899 Other long term (current) drug therapy; Z87.891 Personal history of nicotine dependence; Z95.1 Presence of aortocoronary bypass graft; Z88.0 Allergy status to penicillin; Z88.1 Allergy status to other antibiotic agents; Z88.5 Allergy status to narcotic agent; Z91.040 Latex allergy status; Z91.041 Radiographic dye allergy status; Z83.3 Family history of diabetes mellitus; Z68.38 Body mass index [BMI] 38.0-38.9, adult; T38.0X5A Adverse effect of glucocorticoids and synthetic analogues, initial encounter; Z99.81 Dependence on supplemental oxygen; Z95.5 Presence of coronary angioplasty implant and graft